=== PATIENT | female | born 1955 ===

== ENCOUNTER 2020-02-08 09:38 | Outpatient (REF) | payer OTHER, SELFPAY ==
--- NOTE | 2020-02-08 09:42 | MM_ITS ---
EXAMINATION: MM SCREENING DIGITAL BREAST TOMOSYNTHESIS, BILATERAL CLINICAL INFORMATION: Screening. Asymptomatic. Family history breast cancer mother, sister, niece, great niece. The lifetime risk of breast cancer based on the Esperanza Score Model is 34%. COMPARISON: Mammography: 03/07/2019, 12/01/2018, 11/09/2017, 10/26/2016; MRI breasts 04/18/2019. TECHNIQUE: Digital breast tomosynthesis is performed in both the craniocaudal and mediolateral oblique views along with computer-aided detection (CAD). Synthesized 2D images are generated from the tomosynthesis. Additional bilateral exaggerated CC views are provided. FINDINGS: The breasts are heterogeneously dense, which may obscure small masses (ACR BI-RADS breast composition Category c). There are no significant masses, abnormal calcifications, or other abnormalities. Parenchymal pattern is similar to prior studies. There is no developing density. No significant changes. MM/MM tomosynthesis screening BI IMPRESSION: No mammographic evidence of malignancy. ASSESSMENT: BI-RADS 1: Negative RECOMMENDATION: 1. Routine annual mammography screening. 2. The lifetime risk of breast cancer based on the Esperanza Score Model is 34%. Additional annual adjunct screening with breast MRI may be of benefit in women with a risk score of 20% or greater. This patient's information was entered into a reminder system with a target due date for their next mammogram.
== END 2020-02-08 09:39 | disposition home or self-care (01) ==
LOC: HO.MAMMO 09:38
PROVIDERS: PCP Internal Medicine; Visit Provider Internal Medicine
DX: Z12.31 Encounter for screening mammogram for malignant neoplasm of breast (principal)
CPT/HCPCS: 77063; 77067

== ENCOUNTER 2020-02-12 06:17 | Outpatient (REF) | payer OTHER, SELFPAY ==
--- NOTE | 2020-02-12 06:50 | XR_ITS ---
EXAMINATION: XR PELVIS CLINICAL INFORMATION: Right SI joint pain. COMPARISON: None TECHNIQUE: AP view of the pelvis. FINDINGS: There is normal symmetry of bilateral SI joints and bilateral hip joints. No visible acute fracture, dislocation or subluxation seen. The soft tissues are normal. XR/XR pelvis 1-2V IMPRESSION: Unremarkable AP pelvis exam.
[2020-02-12 07:07] LABS: Basophils Absolute Auto 0.1 X10*3/uL (0.0-0.2); Basophils Percent Auto 1.4 % (0-2); Eosinophils Absolute Auto 0.2 X10*3/uL (0.0-0.4); Eosinophils Percent Auto 3.1 % (0-4); Hematocrit 41.8 % (37-47); Hemoglobin 13.5 g/dl (12.0-16.0); Imm Gran Abs Auto 0.01 X10*3/uL (0.00-0.03); Imm Gran Pct Auto 0.2 % (0.0-0.4); Lymphocytes Percent Auto 35.2 % (20-40); MANUAL DIFF FLAG NO; Mean Corpuscular HGB Conc 32.3 g/dl (31.0-35.0); Mean Corpuscular Hemoglobin 30.5 pg (27.0-33.0); Mean Corpuscular Volume 94.4 fL (80-98); Mean Platelet Volume 9.2 fL (9.4-12.3); Monocytes Absolute Auto 0.5 X10*3/uL (0.1-1.2); Monocytes Percent Auto 8.7 % (2-11); Neutrophils Percent Auto 51.4 % (45-73); Platelet Count 243 X10*3/uL (160-400); Red Blood Count 4.43 X10*6/uL (4.20-5.50); White Blood Count 5.7 X10*3/uL (4.8-10.8)
[2020-02-12 07:31] LABS: Alanine Aminotransferase 19 U/L (0-31); Albumin Level 4.4 g/dL (3.5-5.0); Alkaline Phosphatase 65 U/L (39-117); Anion Gap 11 (12-20); Aspartate Amino Transferase 22 U/L (5-31); Bilirubin Total 0.9 mg/dL (0.0-1.0); Blood Urea Nitrogen 18 mg/dL (9-16); C Reactive Protein 0.63 mg/dL (< or = 0.50); Calcium 8.8 mg/dL (8.4-10.2); Carbon Dioxide 31 mmol/L (22-29); Chloride 105 mmol/L (96-108); Cholesterol 184 mg/dL; Estimated Glomerular Filt Rate > 60; Glucose Fasting 103 mg/dL (60-99); HDL Cholesterol 62 mg/dL; LDL Cholesterol Calculated 108 mg/dl; Potassium 4.3 mmol/l (3.3-5.1); Sodium 143 mmol/L (135-145); Total Protein 6.7 g/dL (6.5-8.0); Triglycerides 71 mg/dL
== END 2020-02-12 06:18 | disposition home or self-care (01) ==
LOC: HO.LAB 06:17
PROVIDERS: PCP Internal Medicine; Visit Provider Internal Medicine
DX: M25.50 Pain in unspecified joint (principal); Z00.00 Encounter for general adult medical examination without abnormal findings
CPT/HCPCS: 36415; 72170; 80053; 80061; 85025; 86140

== ENCOUNTER 2020-02-26 05:29 | Outpatient (REF) | payer OTHER, SELFPAY ==
--- NOTE | 2020-02-26 07:29 | FL_ITS ---
EXAMINATION: XR FLUOROSCOPY WITH IMAGES CLINICAL INFORMATION: Pain in shoulder COMPARISON: 06/05/2019 TECHNIQUE: Fluoroscopy performed by Dr. Blaine Barone. Fluoroscopy time: 0.1 minutes DAP: 0.507 Gycm2 Images: 3 FINDINGS: There is a radiopaque needle overlying the right acromioclavicular joint. On the final image there is a radiopaque instrument overlying the right sternoclavicular region. FL/FL guidance in treatment room IMPRESSION: Fluoroscopic guidance for right clavicular intervention. Please refer to procedural report for further information.
== END 2020-02-26 05:30 | disposition home or self-care (01) ==
LOC: HO.RADIR 05:29
PROVIDERS: Visit Provider Anesthesiology
DX: M25.519 Pain in unspecified shoulder (principal); M79.18 Myalgia, other site
CPT/HCPCS: 20552; 20605; J1100; J3300; Q9967

== ENCOUNTER 2020-04-28 15:31 | Outpatient (REF) | payer OTHER, SELFPAY ==
[2020-05-01 11:53] LABS: HPV mRNA E6/E7 rflx Not Detected (Not Detected)
== END 2020-04-28 15:32 | disposition home or self-care (01) ==
LOC: HO.LAB 15:31
PROVIDERS: PCP Internal Medicine; Visit Provider Obstetrics & Gynecology
DX: Z01.419 Encounter for gynecological examination (general) (routine) without abnormal findings (principal)
CPT/HCPCS: 36415; 87624; 88141; 88142

== ENCOUNTER → 2020-06-25 14:37 | Outpatient (BNVA) | payer OTHER, SELFPAY | PROVIDERS: PCP Internal Medicine; Visit Provider Orthopaedic Surgery ==

== ENCOUNTER 2020-07-08 16:14 | Outpatient (REF) | payer OTHER, SELFPAY ==
[2020-07-08 17:18] LABS: MANUAL DIFF FLAG NO
[2020-07-08 17:23] LABS: Basophils Absolute Auto 0.1 X10*3/uL (0.0-0.2); Basophils Percent Auto 0.8 % (0-2); Eosinophils Absolute Auto 0.2 X10*3/uL (0.0-0.4); Eosinophils Percent Auto 1.8 % (0-4); Hematocrit 38.3 % (37-47); Hemoglobin 12.3 g/dl (12.0-16.0); Imm Gran Abs Auto 0.03 X10*3/uL (0.00-0.03); Imm Gran Pct Auto 0.3 % (0.0-0.4); Lymphocytes Absolute Auto 2.4 X10*3/uL (1.2-4.9); Lymphocytes Percent Auto 20.2 % (20-40); Mean Corpuscular HGB Conc 32.1 g/dl (31.0-35.0); Mean Corpuscular Hemoglobin 30.4 pg (27.0-33.0); Mean Corpuscular Volume 94.8 fL (80-98); Mean Platelet Volume 9.6 fL (9.4-12.3); Monocytes Absolute Auto 0.8 X10*3/uL (0.1-1.2); Monocytes Percent Auto 6.6 % (2-11); Neutrophils Absolute Auto 8.2 X10*3/uL (2.0-8.3); Neutrophils Percent Auto 70.3 % (45-73); Platelet Count 243 X10*3/uL (160-400); Red Blood Count 4.04 X10*6/uL (4.20-5.50); Red Cell Distribution Width 12.1 % (11.0-16.0); White Blood Count 11.7 X10*3/uL (4.8-10.8)
[2020-07-08 17:55] LABS: Alanine Aminotransferase 18 U/L (0-31); Albumin Level 4.5 g/dL (3.5-5.0); Alkaline Phosphatase 63 U/L (39-117); Anion Gap 14 (12-20); Aspartate Amino Transferase 20 U/L (5-31); Bilirubin Total 0.5 mg/dL (0.0-1.0); Blood Urea Nitrogen 23 mg/dL (9-16); C Reactive Protein 0.29 mg/dL (< or = 0.50); Calcium 9.1 mg/dL (8.4-10.2); Carbon Dioxide 26 mmol/L (22-29); Chloride 103 mmol/L (96-108); Estimated Glomerular Filt Rate > 60; Glucose Random 96 mg/dL (60-115); Potassium 3.9 mmol/L (3.3-5.1); Sodium 139 mmol/L (135-145); Total Protein 6.8 g/dL (6.5-8.0)
== END 2020-07-08 16:15 | disposition home or self-care (01) ==
LOC: HO.LAB 16:14
PROVIDERS: PCP Internal Medicine; Visit Provider Internal Medicine
DX: R21 Rash and other nonspecific skin eruption (principal); E78.00 Pure hypercholesterolemia, unspecified; M79.18 Myalgia, other site
CPT/HCPCS: 36415; 80053; 82550; 85025; 86140

== ENCOUNTER 2020-07-24 09:22 | Day surgery (SDC) | payer OTHER, SELFPAY ==
[2020-07-18 11:13] VITALS: BMI 21.5
--- NOTE | 2020-07-23 10:09 | P.CONAN_ITS ---
Documented by User: Deepa Ardon 07/23/20 10:10 HPI - Anesthesia Eval Consult details Narrative: 65yo F for Right Middle & Ring Finger Tendon Release, A1 kristopher PMFSH Active Problems Active Problems: All Active Problems (Updated 07/18/20 @ 11:21 by Kelsi Orr) Sternoclavicular joint pain (Acute) Well woman exam (Acute) Trigger finger, right ring finger (Acute) Trigger finger, right middle finger (Acute) Myofascial pain syndrome (Acute) Acromioclavicular joint pain (Acute) Past Medical History Medical History Acromioclavicular joint pain Elevated cholesterol Factor 5 Leiden mutation, heterozygous GERD (gastroesophageal reflux disease) Hearing impairment Myofascial pain syndrome Family History Family History Sister Breast cancer Mother Breast cancer Family/Other Breast cancer Family/Other Uterine cancer Family/Other Throat cancer Bone cancer Surgical History Surgical History H/O colonoscopy H/O right knee surgery Hx of dilation and curettage Hx of elbow surgery Hx of foot surgery Hx of foot surgery Social History Social History Alcohol intake: current Alcohol intake frequency: holidays/special occasions on ly Smoking Status: Never smoker Use of substances other than those prescribed or required for medical reasons: No Advance Directives Information Provided: No Sexual orientation: Straight/Heterosexual Gender identity: female Meds Allergies Allergy/AdvReac Type Severity Reaction Status Date / Time codeine [Codeine] Allergy Mild VOMITING Verified 07/24/20 09:39 nitrofurantoin Allergy Mild RASH Verified 07/24/20 09:39 [Nitrofurantoin] Sulfa (Sulfonamide Allergy Mild RASH Verified 07/24/20 09:39 Antibiotics) [Sulfa (Sulfonamides)] trimethoprim [Trimethoprim] Allergy Mild RASH Verified 07/24/20 09:39 amoxicillin Allergy Unknown unknown Verified 07/24/20 09:39 Home Medications Medication Instructions Recorded Confirmed Last Taken Type ascorbic acid (vitamin C) 500 mg 500 mg PO DAILY 04/28/20 07/18/20 Unknown History capsule cholecalciferol (vitamin D3) 50 50 mcg PO DAILY 04/28/20 07/18/20 Unknown History mcg (2,000 unit) capsule fluticasone propionate 50 1 spray INTRANASAL DAILY 04/28/20 07/18/20 07/23/20 07:00 History mcg/actuation nasal spray,suspension gabapentin 100 mg capsule 100 mg PO TID 04/28/20 07/18/20 07/23/20 07:00 History ibuprofen 400 mg tablet 400 mg PO TID 04/28/20 07/18/20 Unknown History simvastatin 20 mg tablet 20 mg PO BEDTIME 04/28/20 07/18/20 Unknown History tramadol 50 mg tablet 50 mg PO BID PRN 04/28/20 07/18/20 Unknown History Exam Exam Date and Time: July 23, 2020 1009 Height,Weight and Vital Signs: Height 5 ft 2 in Weight 53.524 kg Pertinent Lab Results Pertinent Lab Results: Laboratory Tests 07/08/20 07/08/20 16:28 16:28 WBC 11.7 H Hgb 12.3 Hct 38.3 Plt Count 243 Sodium 139 Potassium 3.9 Chloride 103 Carbon Dioxide 26 BUN 23 H Creatinine 0.70 Assessment and Plan Assessment Anesthesia Assessment: Chart Reviewed Documented by User: Chuck Leo MD 07/24/20 11:28 [facility] Past Medical History Medical History Acromioclavicular joint pain Elevated cholesterol Factor 5 Leiden mutation, heterozygous GERD (gastroesophageal reflux disease) Hearing impairment Myofascial pain syndrome Family History Family History Sister Breast cancer Mother Breast cancer Family/Other Breast cancer Family/Other Uterine cancer Family/Other Throat cancer Bone cancer Surgical History Surgical History H/O colonoscopy H/O right knee surgery Hx of dilation and curettage Hx of elbow surgery Hx of foot surgery Hx of foot surgery Social History Social History Alcohol intake: current Alcohol intake frequency: holidays/special occasions only Smoking Status: Never smoker Use of substances other than those prescribed or required for medical reasons: No Advance Directives Information Provided: No Sexual orientation: Straight/Heterosexual Gender identity: female Meds Allergies Allergy/AdvReac Type Severity Reaction Status Date / Time codeine [Codeine] Allergy Mild VOMITING Verified 07/24/20 09:39 nitrofurantoin Allergy Mild RASH Verified 07/24/20 09:39 [Nitrofurantoin] Sulfa (Sulfonamide Allergy Mild RASH Verified 07/24/20 09:39 Antibiotics) [Sulfa (Sulfonamides)] trimethoprim [Trimethoprim] Allergy Mild RASH Verified 07/24/20 09:39 amoxicillin Allergy Unknown unknown Verified 07/24/20 09:39 Home Medications Medication Instructions Recorded Confirmed Last Taken Type ascorbic acid (vitamin C) 500 mg 500 mg PO DAILY 04/28/20 07/18/20 Unknown History capsule cholecalciferol (vitamin D3) 50 50 mcg PO DAILY 04/28/20 07/18/20 Unknown History mcg (2,000 unit) capsule fluticasone propionate 50 1 spray INTRANASAL DAILY 04/28/20 07/18/20 07/23/20 07:00 History mcg/actuation nasal spray,suspension gabapentin 100 mg capsule 100 mg PO TID 04/28/20 07/18/20 07/23/20 07:00 History ibuprofen 400 mg tablet 400 mg PO TID 04/28/20 07/18/20 Unknown History simvastatin 20 mg tablet 20 mg PO BEDTIME 04/28/20 07/18/20 Unknown History tramadol 50 mg tablet 50 mg PO BID PRN 04/28/20 07/18/20 Unknown History Exam Airway Mallampati Class: I TM Dist: >3cm Neck ROM: Full Loose/Missing/Broken Teeth: No Heart: RRR Lungs: NL Assessment and Plan Assessment Anesthesia Assessment: Anesthesia Plan Discussed and Chart Reviewed Final Anesthetic Review NPO: Yes ASA Class: II and III Final Preanesthetic Review: No Changes in Pt Med Stat, Meds/Allgs Chart Reviewed, Consent Obtained/Reviewed and Anes Risks/Benef Reviewed Patient Risk: Low Anesthetic Plan Anesthetic Plan: MAC: Disposition: Standard PACU
--- NOTE | 2020-07-24 09:41 | W.PM.OPN ---
Operative Note Operative Note Date of Service: 07/24/20 Narrative: Operative Note Preop diagnosis: 1. Right middle finger Trigger finger 2. Right ring finger trigger finger Postop diagnosis: Same Procedure: 1. Right middle finger A1 kristopher release 2. Right ring finger A1 kristopher release Surgeon: Teresita Man MD Anesthesia: General Findings: No locking or catching after A1 kristopher release EBL: Less than 5 mL Tourniquet time: [ ] Specimens: None Complications: None Disposition: Brought to recovery room in stable condition Plan: Follow-up for 7-10 days for wound check and suture removal Indications: The patient is 65 years old, with right ring finger and right middle finger trigger fingers that has been unresponsive to nonoperative management. The risks and benefits of operative treatment including but not limited to risk of damage to blood vessels, nerves, tendons, infection, persistent pain, persistent symptoms, recurrence or possible need for additional surgery were discussed with the patient and the patient wishes to proceed with surgery. Procedure: Once consent was obtained the patient was brought back to the operating suite and placed on the operating table in a supine position. General anesthesia was performed by the anesthesia team. A tourniquet was applied to the proximal aspect of the right upper extremity and the limb was prepped and draped in a standard surgical fashion. The limb was elevated and exsanguinated with an Esmarch bandage and the tourniquet inflated to 250 mm Hg for a total tourniquet time of [ ]. Once assured that we had a good block, a 1.5 cm oblique incision was made centered over the A1 kristopher of the right middle finger . The incision was made through the skin to the subcutaneous tissues using a #15 blade. Careful dissection was made down to the level of the A1 kristopher using tenotomy scissors, with care being taken to protect the nearby neurovascular structures. A longitudinal incision was made in the A1 kristopher 1st using a #15 blade, then using tenotomy scissors under direct visualization. The A1 kristopher was noted to be thickened. Following our A1 kristopher release, we no longer saw any locking or catching of the digit with flexion and extension. Once satisfied with our A1 kristopher release the wound was copiously irrigated with normal saline and hemostasis was obtained with a brief period of local pressure. Once assured that we had a good block, a 1.5 cm oblique incision was made centered over the A1 kristopher of the right ring finger . The incision was made through the skin to the subcutaneous tissues using a #15 blade. Careful dissection was made down to the level of the A1 kristopher using tenotomy scissors, with care being taken to protect the nearby neurovascular structures. A longitudinal incision was made in the A1 kristopher 1st using a #15 blade, then using tenotomy scissors under direct visualization. The A1 kristopher was noted to be thickened. Following our A1 kristopher release, we no longer saw any locking or catching of the digit with flexion and extension. Once satisfied with our A1 kristopher release the wound was copiously irrigated with normal saline and hemostasis was obtained with a brief period of local pressure. The patient appears to have tolerated the procedure well and with no complications. All digits were well vascularized at the conclusion of the case.
[2020-07-24 09:58] VITALS: BP 139/54; PULSE 69; RESP 16; TEMP 36.9; O2SAT 99
--- NOTE | 2020-07-24 10:04 | MHC.SHP ---
Pre-Procedural Eval Section B Chief Complaint: trigger finger Allergies: Allergies Allergy/AdvReac Type Severity Reaction Status Date / Time codeine [Codeine] Allergy Mild VOMITING Verified 07/24/20 09:39 nitrofurantoin Allergy Mild RASH Verified 07/24/20 09:39 [Nitrofurantoin] Sulfa (Sulfonamide Allergy Mild RASH Verified 07/24/20 09:39 Antibiotics) [Sulfa (Sulfonamides)] trimethoprim [Trimethoprim] Allergy Mild RASH Verified 07/24/20 09:39 amoxicillin Allergy Unknown unknown Verified 07/24/20 09:39 Plan I have reviewed the history and physical and performed a pertinent physical examination on my patient. No changes have occurred unless specified.
[2020-07-24] MEDS: Lactated Ringers 1,000 ML 50 ML IV (10:15)
[2020-07-24 12:17] VITALS: BP 121/55; PULSE 80; RESP 18; TEMP 36.3; O2SAT 98
[2020-07-24 12:32] VITALS: BP 141/51; PULSE 73; RESP 18; O2SAT 99
[2020-07-24 12:45] VITALS: BP 124/57; PULSE 68; RESP 16; O2SAT 97
== END 2020-07-24 13:45 ==
PROVIDERS: PCP Internal Medicine; Visit Provider Orthopaedic Surgery
PROC: (CPT 26055; principal; 2020-07-24 11:10)
DX: M65.331 Trigger finger, right middle finger (principal); M65.341 Trigger finger, right ring finger; M79.18 Myalgia, other site; Z79.899 Other long term (current) drug therapy; Z88.2 Allergy status to sulfonamides; Z88.0 Allergy status to penicillin; Z88.8 Allergy status to other drugs, medicaments and biological substances
CPT/HCPCS: 26055 ×2; J2250; J3010

== ENCOUNTER → 2020-08-04 13:22 | Outpatient (BNVA) | payer OTHER, SELFPAY | PROVIDERS: PCP Internal Medicine; Visit Provider Orthopaedic Surgery ==

== ENCOUNTER 2020-08-22 13:53 | Outpatient (REF) | payer OTHER, SELFPAY ==
--- NOTE | ~2020-08-22 | XR_ITS ---
EXAMINATION: CERVICAL SPINE AND RIGHT SHOULDER X-RAY CLINICAL INFORMATION: Pain COMPARISON: Previous cervical spine x-ray November 2016 TECHNIQUE: 3 views of the cervical spine and 4 views of the right shoulder FINDINGS: Cervical spine: Bone alignment is normal. No fracture or dislocation is seen. There is degenerative spondylosis at C3-C4 to C5-C6 and C6-C7. There is mild disc space narrowing at C6-C7. Prevertebral soft tissues are normal. Right shoulder: Bone alignment is normal. No fracture or dislocation is seen. The glenohumeral joint is normal. There is mild arthritis at the acromioclavicular joint. Soft tissues are unremarkable. XR/XR cervical spine 3V IMPRESSION: Cervical spine: Degenerative changes, greatest at C6-C7. Right shoulder: Mild arthritis at the acromioclavicular joint.
--- NOTE | ~2020-08-22 | XR_ITS ---
EXAMINATION: CERVICAL SPINE AND RIGHT SHOULDER X-RAY CLINICAL INFORMATION: Pain COMPARISON: Previous cervical spine x-ray November 2016 TECHNIQUE: 3 views of the cervical spine and 4 views of the right shoulder FINDINGS: Cervical spine: Bone alignment is normal. No fracture or dislocation is seen. There is degenerative spondylosis at C3-C4 to C5-C6 and C6-C7. There is mild disc space narrowing at C6-C7. Prevertebral soft tissues are normal. Right shoulder: Bone alignment is normal. No fracture or dislocation is seen. The glenohumeral joint is normal. There is mild arthritis at the acromioclavicular joint. Soft tissues are unremarkable. XR/XR shoulder RT min 2V IMPRESSION: Cervical spine: Degenerative changes, greatest at C6-C7. Right shoulder: Mild arthritis at the acromioclavicular joint.
== END 2020-08-22 13:54 | disposition home or self-care (01) ==
LOC: HO.XRAY 13:53
PROVIDERS: PCP Internal Medicine; Visit Provider Nurse Practitioner Family
DX: M79.18 Myalgia, other site (principal); M25.511 Pain in right shoulder; M54.2 Cervicalgia
CPT/HCPCS: 20552; 72040; 73030; J1040

== ENCOUNTER 2020-09-01 10:16 | Outpatient (REF) | payer SELFPAY ==
--- NOTE | 2020-09-01 13:31 | MHC.AU.HFU ---
Hearing Instrument Follow-Up- Binaural Date of Visit: 09/01/20 Right Ear: Metalworking Specialist: Marli Model: [place] iQ i1600 ITC Serial Number: [id number] Repair Warranty: 07/08/2021 Loss and Damage Warranty: 07/08/2021 Battery Size: 312 Type of Wax Guard: HearClear Dispensed By: [facility] Date of Fittin06/16/2018 Left Ear: Metalworking Specialist: Marli Model: [place] iQ i1600 ITC Serial Number: [id number] Repair Warranty: 07/08/2021 Loss and Damage Warranty: 06/28/2021 Battery Size: 312 Type of Wax Guard: HearClear Dispensed By: [facility] Date of Fittin06/16/2018 Follow-Up Summary: Patient reports that her right hearing aid fell out while working. When she found it, it appeared someone had stepped on it, as the shell was in many pieces. The hearing aid was still amplifying. She reports that the right side has always felt like it sticks out more than the left, and falls out of her ear frequently. The right hearing aid has previously been sent to [facility] twice for cracked shells after falling out of her ear. Contacted [facility] rep, Raymundo Gonzalez, as the hearing aid was no longer under the remake warranty, but is still under repair warranty. He said that because this has been a long-standing issue, they will waive the remake fee for this repair. A new impression was taken of the right ear and sent to [facility] along with the hearing aid. Recommendations: Recommendations: Patient will be contacted when materials have arrived. Diagnosis Code(s): Primary Diagnosis: H90.3 Bilateral Sensorineural Hearing Loss Signature: Provider: Vitaliy Jones, [facility]
== END 2020-09-01 10:17 | disposition home or self-care (01) ==
LOC: HO.HAP 10:16
PROVIDERS: Visit Provider Internal Medicine
DX: Z13.89 Encounter for screening for other disorder (principal)

== ENCOUNTER 2020-09-10 16:05 | Outpatient (REF) | payer SELFPAY | END 2020-09-10 16:06 | disposition home or self-care (01) | LOC: HO.HAP 16:05 | PROVIDERS: Visit Provider Internal Medicine | DX: Z13.89 Encounter for screening for other disorder (principal) ==

== ENCOUNTER 2020-09-11 15:30 | Outpatient (REF) | payer OTHER, SELFPAY ==
--- NOTE | ~2020-09-11 | MR_ITS ---
EXAMINATION: MR CERVICAL SPINE WITHOUT CONTRAST CLINICAL INFORMATION: Neck pain. Right shoulder pain. COMPARISON: MRI dated 06/23/2013. TECHNIQUE: MRI of the cervical spine was obtained using routine sequences without contrast. FINDINGS: VERTEBRAL BODIES AND PARASPINAL SOFT TISSUES: The marrow signal is mildly heterogeneous with regions of fatty change. There is a mild leftward curvature of the cervical spine. Mild retrosubluxation evident at the C3-C4 level. Small endplate Schmorl's nodes with [id number] loss of disc height evident at the C6-C7 level. The paraspinal soft tissues appear normal. The vertebral artery flow voids are maintained. The lung apices are grossly clear. CERVICOMEDULLARY JUNCTION AND VISUALIZED POSTERIOR FOSSA: The craniovertebral junction and imaged portions of the brain parenchyma appear normal. No cord signal abnormality or syrinx is seen. SPINAL LEVELS: C2-C3: No disc protrusion, central canal stenosis, or foraminal narrowing. Small left lateral annular fissure visible. C3-C4: New central disc protrusion mildly impressing upon the ventral cord without intramedullary signal change. Mild retrosubluxation and endplate spurring. No central canal stenosis or foraminal encroachment otherwise. C4-C5: Very small central disc protrusion which is new. No central canal stenosis or foraminal narrowing. Mild thickening of the ligamentum flavum compared to prior imaging. C5-C6: Mild disc bulge and endplate spurring with thickening of the ligamentum flavum. No central canal stenosis or foraminal narrowing otherwise. C6-C7: Shallow disc-osteophyte complex mildly impressing upon the ventral thecal sac. No central canal stenosis or foraminal narrowing. C7-T1: No disc abnormality. Patent central canal and foramina. MR/MR cervical spine wo con IMPRESSION: New central disc protrusion mildly impressing upon the ventral cord without intramedullary signal change at the C3-C4 level. New very small central disc protrusion at the C4-C5 level with mild thickening of the ligamentum flavum posteriorly. Mild spondylitic changes at the remaining levels without central canal stenosis or foraminal narrowing.
== END 2020-09-11 15:31 | disposition home or self-care (01) ==
LOC: HO.MRI 15:30
PROVIDERS: Visit Provider Anesthesiology
DX: M54.2 Cervicalgia (principal)
CPT/HCPCS: 72141

== ENCOUNTER 2020-12-02 07:35 | Outpatient (REF) | payer OTHER, SELFPAY ==
--- NOTE | ~2020-12-02 | FL_ITS ---
EXAMINATION: XR FLUOROSCOPY WITH IMAGES CLINICAL INFORMATION: Right-sided shoulder pain. COMPARISON: Right shoulder fluoroscopy performed on 02/26/2020. TECHNIQUE: Fluoroscopy performed by Dr. Blaine Barone. Fluoroscopy time: 0.1 minutes DAP: 0.311 Gycm2 Images: 1 FL/FL guidance in treatment room FINDINGS/IMPRESSION: A radiopaque needle overlies the right acromioclavicular joint the image. Please refer to the procedural report for more detailed findings.
== END 2020-12-02 07:36 | disposition home or self-care (01) ==
LOC: HO.RADIR 07:35
PROVIDERS: Visit Provider Anesthesiology
DX: M25.519 Pain in unspecified shoulder (principal); M79.18 Myalgia, other site
CPT/HCPCS: 20610; J3300; Q9967

== ENCOUNTER 2020-12-17 15:30 | Outpatient (REF) | payer OTHER, SELFPAY ==
--- NOTE | 2020-12-18 12:31 | MHC.AU.AHA ---
Adult Audiological Evaluation Date of Visit: 12/17/20 [employer] Contort Operator Used: Not Applicable Reason for Appointment: Audiologic re-evaluation to determine possible change in hearing ability. Adilia has a long-standing history of profound high frequency hearing loss. Previous Hearing Test Results: 11/12/2019 [facility] Bilateral mild dropping to profound sensorineural hearing loss. Medical History: Medical History: High Cholesterol, Intervertebral disc protrusion, Myofascial pain syndrome, Acromioclavicular joint pain, Facto 5 Leiden mutation Medication List: Gabapentin, Fluticasone nasal spray, Simvastatin, Hydrocodone-acetaminophen (PRN), Lorazepam (PRN), Tramadol (PRN) Vitamins C and D3 Hearing Instrument History- Right Ear: Data Power Consultant: [employer] Model: [email or web address] i1600 [employer] Serial Number: [id number] Battery Size: 312 Repair Warranty: 07/08/2021 Loss and Damage Warranty: 07/08/2021 Dispensed By: [facility] Date of Fittin06/16/2018 Hearing Instrument History- Left Ear: Data Power Consultant: [employer] Model: [email or web address] i1600 ITC Serial Number: [id number] Battery Size: 312 Warranty: 07/08/2021 Loss and Damage Warranty: 06/28/2021 Dispensed By: [facility] Date of Fittin06/16/2018 Otoscopy: Right Ear: Unremarkable Left Ear: Unremarkable Tympanometry: Tympanometry not performed at today's visit as all previous testing has indicated normal middle ear function bilaterally. Hearing Evaluation: Transducer(s) Used: Insert Earphones Bone Conduction Method: Conventional Audiometry Stimuli Used: Pure Tones Right Ear: Description of Hearing: Mild, precipitously dropping to profound sensorineural hearing loss. The right ear is 20 dB poorer than the left only at 500 Hz. Left Ear: Description of Hearing: Mild, precipitously dropping to profound sensorineural hearing loss. Speech Recognition Threshold (SRT): Method Used: Monitored Live Voice Stimuli Used: Spondee Words Right Ear: 45 dB HL Left Ear: 40 dB HL Word Discrimination: Method: Monitored Live Voice Recorded Lists Word Lists Used: NU-6 Right Ear: 20% for recorded list 64% for live monitored speech using visual cues Left Ear: 48% for recorded list 60% for live monitored speech using visual cues Most Comfortable Level (MCL): Right Ear: 85 dB HL Left Ear: 80 dB HL Comparison: Compared to the most recent evaluation: Hearing is stable. Recommendations: Hearing aid maintenance performed today. Ran feedback test for the right aid as Adilia was frequently needing to adjust the hearing aid in the ear to stop the feedback. Attempted some programming changes to try to improve clarity of speech with no help. Returned to the original settings. Audiological re-evaluation in one year. Will send a reminder card. Diagnosis: Primary Diagnosis: H90.3 Bilateral Sensorineural Hearing Loss Services Performed: Comprehensive Audiological Evaluation (CPT 22075) Signature: Provider: Vitaliy Valerio, CCC-A
== END 2020-12-17 15:31 | disposition home or self-care (01) ==
LOC: HO.SH 15:30
PROVIDERS: Visit Provider Internal Medicine
DX: H90.3 Sensorineural hearing loss, bilateral (principal)
CPT/HCPCS: 92557

== ENCOUNTER 2020-12-23 06:12 | Outpatient (REF) | payer OTHER, SELFPAY ==
--- NOTE | ~2020-12-23 | XR_ITS ---
EXAMINATION: AP PELVIS, LEFT HIP AND LUMBAR SPINE. CLINICAL INFORMATION: Pain. COMPARISON: Lumbar spine 03/23/2018 TECHNIQUE: Lumbar spine 3 views. AP pelvis one view. Left hip 2 views. FINDINGS: Lumbar spine: There is mild levoscoliosis of lumbar spine. The vertebral heights and alignment is preserved. Mild loss of L5-S1 disc height. No acute fracture, lytic or sclerotic process seen. Bilateral SI joints are normal. The soft tissues are normal. AP pelvis: The pelvis is tilted to the left with right hip joint appearing higher than the left hip joint likely secondary to levoscoliosis. The hip joint space is normal. No bony erosive changes involving the SI joints or hip joints. No fracture or lytic process. The soft tissues are normal. Left hip: There is maintained joint space. No visible fracture, dislocation or bony erosive changes. The soft tissues are normal. XR/XR hip LT min 2V IMPRESSION: Mild levoscoliosis lumbar spine with degenerative disc changes L5-S1 disc level. There is mild pelvic tilt to the left with right hip joint high or than the left hip joint secondary to levoscoliosis. The hip joints and SI joints are unremarkable.
--- NOTE | ~2020-12-23 | XR_ITS ---
EXAMINATION: AP PELVIS, LEFT HIP AND LUMBAR SPINE. CLINICAL INFORMATION: Pain. COMPARISON: Lumbar spine 03/23/2018 TECHNIQUE: Lumbar spine 3 views. AP pelvis one view. Left hip 2 views. FINDINGS: Lumbar spine: There is mild levoscoliosis of lumbar spine. The vertebral heights and alignment is preserved. Mild loss of L5-S1 disc height. No acute fracture, lytic or sclerotic process seen. Bilateral SI joints are normal. The soft tissues are normal. AP pelvis: The pelvis is tilted to the left with right hip joint appearing higher than the left hip joint likely secondary to levoscoliosis. The hip joint space is normal. No bony erosive changes involving the SI joints or hip joints. No fracture or lytic process. The soft tissues are normal. Left hip: There is maintained joint space. No visible fracture, dislocation or bony erosive changes. The soft tissues are normal. XR/XR lumbar spine 2-3V IMPRESSION: Mild levoscoliosis lumbar spine with degenerative disc changes L5-S1 disc level. There is mild pelvic tilt to the left with right hip joint high or than the left hip joint secondary to levoscoliosis. The hip joints and SI joints are unremarkable.
--- NOTE | ~2020-12-23 | XR_ITS ---
EXAMINATION: AP PELVIS, LEFT HIP AND LUMBAR SPINE. CLINICAL INFORMATION: Pain. COMPARISON: Lumbar spine 03/23/2018 TECHNIQUE: Lumbar spine 3 views. AP pelvis one view. Left hip 2 views. FINDINGS: Lumbar spine: There is mild levoscoliosis of lumbar spine. The vertebral heights and alignment is preserved. Mild loss of L5-S1 disc height. No acute fracture, lytic or sclerotic process seen. Bilateral SI joints are normal. The soft tissues are normal. AP pelvis: The pelvis is tilted to the left with right hip joint appearing higher than the left hip joint likely secondary to levoscoliosis. The hip joint space is normal. No bony erosive changes involving the SI joints or hip joints. No fracture or lytic process. The soft tissues are normal. Left hip: There is maintained joint space. No visible fracture, dislocation or bony erosive changes. The soft tissues are normal. XR/XR pelvis 1-2V IMPRESSION: Mild levoscoliosis lumbar spine with degenerative disc changes L5-S1 disc level. There is mild pelvic tilt to the left with right hip joint high or than the left hip joint secondary to levoscoliosis. The hip joints and SI joints are unremarkable.
== END 2020-12-23 06:13 | disposition home or self-care (01) ==
LOC: HO.XRAY 06:12
PROVIDERS: PCP Internal Medicine; Visit Provider Internal Medicine
DX: M25.552 Pain in left hip (principal); M53.3 Sacrococcygeal disorders, not elsewhere classified
CPT/HCPCS: 72100; 72170; 73502

== ENCOUNTER 2021-01-09 08:00 | Outpatient (RCR) | payer OTHER, SELFPAY ==
--- NOTE | 2021-01-05 17:28 | MHC.PT.EP ---
[facility] [place] [facility] [place] [facility] [place] [facility] [address] Ivan Rodriguez [address] [phone] F: [phone] F: [phone] F: [phone] F: [phone] Physical Therapy Plan of Care Date of Evaluation: Date of Surgery: n/a Diagnosis: L hip pain Assessment: Patient is a 65 year old female presenting to PT with complaints of pain in her L hip. Pt reports onset of pain began about 2 months ago due to insidious onset but states it is related to 20 years of doing a lot of lifting for work. She presents today with impairments in hip strength, hip ROM, lumbar ROM, hs length, and pain. 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 Clinical presentation today is most consistent with signs and sx associated with pain that is likely myofascial in nature and pt will benefit from skilled PT to address the following problems and impairments noted upon evaluation: hip strength, hip ROM, lumbar ROM, hs length, and pain. These problems limit the patient with the following functional activities: ambulation, sitting, ADLs, work. The prescribed treatment plan of care is medically necessary. Co-morbidities of mild levoscoliosis on x-ray were identified and taken into considerations of plan of care. Pt was educated on HEP, role of PT, prognosis, POC. Frequency and Duration: The patient will be seen 2x week x4 weeks Short Term Goals: Pt will demonstrate ability to perform lumbar AROM in available range with min to no pain in 2 weeks. Pt will demonstrate hip ROM equal B in 2 weeks for improved functional mobility. Pt will demonstrate pain <4/10 at rest in 2 weeks for improved QOL. Pt will demonstrate hs length WNL B in 2 weeks. [facility] Goals: Pt will demonstrate ability to sit x 20 min with pain <4/10 in 4 weeks to allow return to PLOF. Pt will demonstrate ability to ambulate community distances with min to no pain in 4 weeks to improve access to the community. Pt will demonstrate improved LEFI score by 9 points in 4 weeks for improved functional mobility. Pt will demonstrate ability to work a full day with pain <4/10 in 4 weeks to improve tolerance to work activities. Treatment Plan: Modalities to reduce pain, spasms and effusion. Manual therapy to restore motion and function. Therapeutic exercise to improve strength and flexibility. Neuromuscular re-education for posture and balance. Therapeutic activities to return to functional activities of daily living. Electronically signed by: Candida Bermudez, PT, DPT, ATC Please sign and return to therapist. Thank you for your referral.
--- NOTE | 2021-01-22 09:28 | MHC.PT.DC ---
[facility] [place] [facility] [place] Office [address] Ivan Rodriguez [address] [phone] F: [phone] F: [phone] F: [phone] F: [phone] Physical Therapy Discharge Report Diagnosis: L hip pain Date of Surgery: n/a Date of Evaluation: 01/05/21 Date of Discharge: 01/22/21 Treatments to Date: 2 Cancellations to Date: 2 No Shows to Date: 0 Discharge Status: Recommend MD Follow-up Discharge Summary: Pt was admitted to the hospital for emergent surgery unrelated to her current PT POC diagnosis. Due to significant change in pt medical status recommend MD clearance prior to returning to outpatient skilled PT. Electronically signed by: Candida Bermudez, PT, DPT, ATC Please sign and return to therapist. Thank you for your referral.
== END 2021-01-22 09:33 | disposition home or self-care (01) ==
LOC: HO.PT 08:00
PROVIDERS: PCP Internal Medicine; Visit Provider Internal Medicine
DX: M25.552 Pain in left hip (principal)
CPT/HCPCS: 97110; 97161; 97530

== ENCOUNTER 2021-01-12 17:49 | Inpatient (IN) | payer OTHER, SELFPAY ==
--- NOTE | ~2021-01-12 | CT_ITS ---
EXAMINATION: CT ABDOMEN AND PELVIS WITH CONTRAST CLINICAL INFORMATION: Diffuse abdominal discomfort. Suspect diverticulitis. COMPARISON: 05/31/2013 TECHNIQUE: Multidetector volumetric images were obtained from the superior aspect of the liver through the pubic symphysis following administration 85 mL of Omnipaque 350 intravenous contrast. Sagittal and coronal reformatted images were obtained on the technologist's workstation. Oral contrast: No This CT examination was performed using dose optimization techniques as appropriate, variously including the following: *Automated exposure control *Adjustment of mA and/or kV according to patient size (this includes techniques or standardized protocols for targeted exams where dose is matched to indication/reason for exam; i.e. extremities or head) *Use of iterative reconstruction technique DLP: 311 mGy-cm FINDINGS: LUNG BASES: The visualized lung bases are unremarkable. LIVER, GALLBLADDER, AND BILIARY TREE: The liver is normal in size, shape, and attenuation. No focal hepatic lesion or biliary ductal dilatation is present. The gallbladder is unremarkable with no evidence of radiopaque gallstones, gallbladder wall thickening, or obvious pericholecystic inflammatory changes. PANCREAS: Unremarkable. SPLEEN: Unremarkable. ADRENAL GLANDS: Unremarkable. KIDNEYS AND URETERS: The kidneys are normal in size, shape, and attenuation. No hydronephrosis, hydroureter, or calculi seen. No perinephric stranding. BLADDER: Unremarkable. GASTROINTESTINAL TRACT: The stomach is unremarkable. Normal caliber of the small bowel. There is mild hyperenhancement of the ileal wall, though there is no significant wall thickening or adjacent inflammation. There is no obstruction. There is a normal appendix. Fairly extensive colonic diverticulosis. Much of the sigmoid colon is decompressed which limits evaluation for colonic wall thickening there. There could be some mild wall thickening, though again there is no significant adjacent inflammation. Small amount of pelvic free fluid. There is diffuse free intraperitoneal air. ABDOMINAL WALL: No significant hernia is appreciated. LYMPH NODES: Normal. VASCULAR: Normal caliber aorta with mild upper scrota calcification. PELVIC VISCERA: The uterus and adnexa are unremarkable. OSSEOUS STRUCTURES: No acute or suspicious osseous abnormality. CT/CT abdomen pelvis w con IMPRESSION: Free intraperitoneal air. The source of the perforation is uncertain. There is significant sigmoid colonic diverticulosis. No significant adjacent inflammatory changes. There may be mild wall thickening as can be seen with mild diverticulitis. Additionally, mild hyperenhancement of the ileal wall as can be seen with enteritis, though no significant wall thickening or adjacent inflammation. This critical result was discussed with Meredith Rodriguez MD by telephone at 01/13/2021 12:05 AM and it was ascertained that the content and urgency of the report was understood at the time of direct communication.
--- NOTE | ~2021-01-12 | US_ITS ---
EXAMINATION: US VENOUS ULTRASOUND WITH DOPPLER LOWER EXTREMITY, LEFT CLINICAL INFORMATION: Postoperative leg erythema. Rivera's procedure. Evaluate for deep vein thrombosis. COMPARISON: None TECHNIQUE: Ultrasound of the deep veins is performed from the hip to the calf with compression sonography and color and pulse Doppler assessment. Spectral analysis with color-flow imaging is performed. FINDINGS: The common femoral vein is compressible and exhibits a normal phasic waveform; this suggests that the iliac veins are widely patent above. Within the proximal thigh, the visualized profunda femoris vein is normal. The examined greater saphenous vein and saphenofemoral junction are normal. Superficial femoral vein is patent in the proximal, mid and distal thigh. Popliteal vein is normal to the level of the trifurcation. On compression walker scale and color Doppler images, the visualized posterior tibial and peroneal veins of the calf are grossly patent. No evidence of Funes's cyst. US/US venous duplex LE LT IMPRESSION: No evidence of deep vein thrombosis in the left lower extremity.
[2021-01-12 18:25] VITALS: BP 134/61; PULSE 78; RESP 19; TEMP 36.6; O2SAT 98; BMI 19.9
--- NOTE | 2021-01-12 18:26 | ED.ABDPAIN ---
HPI - Abdominal Pain General Chief Complaint: Abdominal Pain <FLORINA Nance - Last Filed: 01/13/21 15:30> Stated Complaint: cramping <FLORINA Nance - Last Filed: 01/13/21 15:30> Time Seen by Provider: 01/12/21 18:24 <FLORINA Nance - Last Filed: 01/13/21 15:30> Source: patient <Meredith Rodriguez MD - Last Filed: 01/13/21 00:25> Mode of arrival: ambulatory <Meredith Rodriguez MD - Last Filed: 01/13/21 00:25> History of Present Illness HPI narrative: 65-year-old female with past medical history of diverticulitis presents with onset of diffuse abdominal discomfort that has worsened throughout the day associated with nausea and chills but no vomiting or fevers. She denies any shortness of breath or chest pain and denies any urinary pain/burning/frequency. <Meredith Rodriguez MD - Last Filed: 01/13/21 00:25> Related Data Home Medications: Home Medications Medication Instructions Recorded Confirmed cholecalciferol (vitamin D3) 50 50 mcg PO DAILY 04/28/20 01/13/21 mcg (2,000 unit) capsule gabapentin 100 mg capsule 100 mg PO TID 04/28/20 01/13/21 ibuprofen 400 mg tablet 400 mg PO NEEDED 04/28/20 01/13/21 simvastatin 20 mg tablet 20 mg PO DAILY 04/28/20 01/13/21 tramadol 50 mg tablet 50 mg PO NEEDED PRN 04/28/20 01/13/21 aspirin 81 mg tablet 81 mg PO DAILY 01/13/21 01/13/21 <FLORINA Nance - Last Filed: 01/13/21 15:30> Allergies/Adverse Reactions: Allergies Allergy/AdvReac Type Severity Reaction Status Date / Time codeine [Codeine] Allergy Mild VOMITING Verified 12/02/20 07:24 nitrofurantoin Allergy Mild RASH Verified 12/02/20 07:24 [Nitrofurantoin] Sulfa (Sulfonamide Allergy Mild RASH Verified 12/02/20 07:24 Antibiotics) [Sulfa (Sulfonamides)] trimethoprim [Trimethoprim] Allergy Mild RASH Verified 12/02/20 07:24 amoxicillin Allergy Unknown unknown Verified 12/02/20 07:24 <FLORINA Nance - Last Filed: 01/13/21 15:30> Review of Systems Review of Systems Pertinent positives and negatives as stated in HPI 10 point review of systems is otherwise negative. <Meredith Rodriguez MD - Last Filed: 01/13/21 00:25> Physical Exam Vital Signs: Vital Signs: Last Vital Signs Temp 96.8 F 01/13/21 11:05 Pulse 97 01/13/21 11:05 Resp 19 01/13/21 11:05 BP 138/69 01/13/21 11:05 Pulse Ox 96 01/13/21 11:05 Body Mass Index 19.9 <FLORINA Nance - Last Filed: 01/13/21 15:30> Vital Signs: Last Vital Signs Temp 96.8 F 01/13/21 11:05 Pulse 97 01/13/21 11:05 Resp 19 01/13/21 11:05 BP 138/69 01/13/21 11:05 Pulse Ox 96 01/13/21 11:05 Body Mass Index 19.9 VITAL SIGNS: Reviewed. GENERAL: Well developed, well nourished, in no acute distress. HEAD: Normocephalic/atraumatic EYES: PERRLA, EOMI LUNGS: Normal breath sounds. No adventitious sounds or accessory muscle use. SpO2<98> CARDIOVASCULAR: Regular rate and rhythm without noted murmurs, no JVD or lower extremity edema. ABDOMEN: Soft, diffusely tender maximum in left lower quadrant, non-distended with hypoactive bowel sounds. NEUROLOGIC: Alert and oriented x 4. Strength and sensation to light touch were grossly intact x 4. <Meredith Rodriguez MD - Last Filed: 01/13/21 00:25> Course Course Course Narrative: Patient presents to the ED for lower abdominal pain/cramping that began today. patient denies any complaints. patient states no diarrhea. Rapid medical screening done. Labs and UA ordered <FLORINA Nance - Last Filed: 01/13/21 15:30> Reevaluation(s) Reevaluation #1: 65-year-old female with history and clinical presentation consistent with diverticulitis, perforated abdomen, and doubt renal colic or UTI. Review of all investigations consistent with perforated, acute abdomen patient remains otherwise hemodynamically stable and is informed of all results. She has received IV fluids, antibiotics and the case was discussed with Surgical Services who has plans for OR. <Meredith Rodriguez MD - Last Filed: 01/13/21 00:25> MDM - Abdominal Pain Lab Data Result diagrams: : 01/12/21 20:10 01/12/21 20:10 <FLORINA Nance - Last Filed: 01/13/21 15:30> Labs: Lab Results 01/12/21 01/12/21 01/12/21 Range/Units 20:10 20:10 20:10 WBC 15.5 H (4.8-10.8) X10*3/uL RBC 4.26 (4.20-5.50) X10*6/uL Hgb 13.1 (12.0-16.0) g/dl Hct 39.2 (37-47) % MCV 92.0 (80-98) fL MCH 30.8 (27.0-33.0) pg MCHC 33.4 (31.0-35.0) g/dl RDW 12.6 (11.0-16.0) % Plt Count 217 (160-400) X10*3/uL MPV 8.9 L (9.4-12.3) fL Immature Gran % (Auto) 0.5 H (0.0-0.4) % Neut % (Auto) 89.1 H (45-73) % Lymph % (Auto) 5.1 L (20-40) % [place] % (Auto) 4.8 (2-11) % Eos % (Auto) 0.2 (0-4) % Baso % (Auto) 0.3 (0-2) % Lymph # (Auto) 0.8 L (1.2-4.9) X10*3/uL [place] # (Auto) 0.8 (0.1-1.2) X10*3/uL Eos # (Auto) 0.0 (0.0-0.4) X10*3/uL Baso # (Auto) 0.0 (0.0-0.2) X10*3/uL Abs Immat Gran (auto) 0.08 H (0.00-0.03) X10*3/uL Absolute Neuts (auto) 13.8 H (2.0-8.3) X10*3/uL Absolute Nucleated RBC 0.000 (0.0-0.012) X10*3/uL Nucleated RBC % (auto) 0.0 (0.0-0.2) /100WBC PT (9.9-13.0) SEC INR (0.9-1.1) Sodium 140 (135-145) mmol/L Potassium 3.8 (3.3-5.1) mmol/L Chloride 103 (96-108) mmol/L Carbon Dioxide 27 (22-29) mmol/L Anion Gap 14 (12-20) BUN 15 (9-16) mg/dL Creatinine 0.69 (0.5-1.4) mg/dL Estim Creat Clear Calc 65.1 Estimated GFR > 60 Random Glucose 113 (60-115) mg/dL Lactic Acid (0.5-2.0) mmol/L Calcium 9.0 (8.4-10.2) mg/dL Total Bilirubin 1.1 H (0.0-1.0) mg/dL Direct Bilirubin 0.4 (0.0-0.5) mg/dL AST 21 (5-31) U/L ALT 20 (0-31) U/L Alkaline Phosphatase 63 (39-117) U/L Total Protein 6.9 (6.5-8.0) g/dL Albumin 4.6 (3.5-5.0) g/dL Lipase 4 L (8-78) U/L Urine Color YELLOW Urine Appearance CLEAR Urine pH 7.0 (5.0-8.0) Ur Specific [place] 1.020 (1.005-1.025) Urine Protein NEG (NEG-TRACE) MG/DL Urine Glucose (UA) NEG (NEG) MG/DL Urine Ketones 15 (NEG) MG/DL Urine Blood NEG (NEG) Urine Nitrite NEG (NEG) Ur Leukocyte Esterase NEG (NEG) COVID-19 ([facility]) (Negative) COVID-19 Clin Com Blood Type Antibody Screen 01/12/21 01/12/21 01/12/21 Range/Units 23:01 23:01 23:01 WBC (4.8-10.8) X10*3/uL RBC (4.20-5.50) X10*6/uL Hgb (12.0-16.0) g/dl Hct (37-47) % MCV (80-98) fL MCH (27.0-33.0) pg MCHC (31.0-35.0) g/dl RDW (11.0-16.0) % Plt Count (160-400) X10*3/uL MPV (9.4-12.3) fL Immature Gran % (Auto) (0.0-0.4) % Neut % (Auto) (45-73) % Lymph % (Auto) (20-40) % [place] % (Auto) (2-11) % Eos % (Auto) (0-4) % Baso % (Auto) (0-2) % Lymph # (Auto) (1.2-4.9) X10*3/uL [place] # (Auto) (0.1-1.2) X10*3/uL Eos # (Auto) (0.0-0.4) X10*3/uL Baso # (Auto) (0.0-0.2) X10*3/uL Abs Immat Gran (auto) (0.00-0.03) X10*3/uL Absolute Neuts (auto) (2.0-8.3) X10*3/uL Absolute Nucleated RBC (0.0-0.012) X10*3/uL Nucleated RBC % (auto) (0.0-0.2) /100WBC PT 11.1 (9.9-13.0) SEC INR 1.0 (0.9-1.1) Sodium (135-145) mmol/L Potassium (3.3-5.1) mmol/L Chloride (96-108) mmol/L Carbon Dioxide (22-29) mmol/L Anion Gap (12-20) BUN (9-16) mg/dL Creatinine (0.5-1.4) mg/dL Estim Creat Clear Calc Estimated GFR Random Glucose (60-115) mg/dL Lactic Acid 1.0 (0.5-2.0) mmol/L Calcium (8.4-10.2) mg/dL Total Bilirubin (0.0-1.0) mg/dL Direct Bilirubin (0.0-0.5) mg/dL AST (5-31) U/L ALT (0-31) U/L Alkaline Phosphatase (39-117) U/L Total Protein (6.5-8.0) g/dL Albumin (3.5-5.0) g/dL Lipase (8-78) U/L Urine Color Urine Appearance Urine pH (5.0-8.0) Ur Specific [place] (1.005-1.025) Urine Protein (NEG-TRACE) MG/DL Urine Glucose (UA) (NEG) MG/DL Urine Ketones (NEG) MG/DL Urine Blood (NEG) Urine Nitrite (NEG) Ur Leukocyte Esterase (NEG) COVID-19 ([facility]) Negative (Negative) COVID-19 Clin Com See Note Blood Type Antibody Screen 01/13/21 Range/Units 00:19 WBC (4.8-10.8) X10*3/uL RBC (4.20-5.50) X10*6/uL Hgb (12.0-16.0) g/dl Hct (37-47) % MCV (80-98) fL MCH (27.0-33.0) pg MCHC (31.0-35.0) g/dl RDW (11.0-16.0) % Plt Count (160-400) X10*3/uL MPV (9.4-12.3) fL Immature Gran % (Auto) (0.0-0.4) % Neut % (Auto) (45-73) % Lymph % (Auto) (20-40) % [place] % (Auto) (2-11) % Eos % (Auto) (0-4) % Baso % (Auto) (0-2) % Lymph # (Auto) (1.2-4.9) X10*3/uL [place] # (Auto) (0.1-1.2) X10*3/uL Eos # (Auto) (0.0-0.4) X10*3/uL Baso # (Auto) (0.0-0.2) X10*3/uL Abs Immat Gran (auto) (0.00-0.03) X10*3/uL Absolute Neuts (auto) (2.0-8.3) X10*3/uL Absolute Nucleated RBC (0.0-0.012) X10*3/uL Nucleated RBC % (auto) (0.0-0.2) /100WBC PT (9.9-13.0) SEC INR (0.9-1.1) Sodium (135-145) mmol/L Potassium (3.3-5.1) mmol/L Chloride (96-108) mmol/L Carbon Dioxide (22-29) mmol/L Anion Gap (12-20) BUN (9-16) mg/dL Creatinine (0.5-1.4) mg/dL Estim Creat Clear Calc Estimated GFR Random Glucose (60-115) mg/dL Lactic Acid (0.5-2.0) mmol/L Calcium (8.4-10.2) mg/dL Total Bilirubin (0.0-1.0) mg/dL Direct Bilirubin (0.0-0.5) mg/dL AST (5-31) U/L ALT (0-31) U/L Alkaline Phosphatase (39-117) U/L Total Protein (6.5-8.0) g/dL Albumin (3.5-5.0) g/dL Lipase (8-78) U/L Urine Color Urine Appearance Urine pH (5.0-8.0) Ur Specific [place] (1.005-1.025) Urine Protein (NEG-TRACE) MG/DL Urine Glucose (UA) (NEG) MG/DL Urine Ketones (NEG) MG/DL Urine Blood (NEG) Urine Nitrite (NEG) Ur Leukocyte Esterase (NEG) COVID-19 ([facility]) (Negative) COVID-19 Clin Com Blood Type A Positive Antibody Screen NEGATIVE <FLORINA Nance - Last Filed: 01/13/21 15:30> Lab Results 01/12/21 01/12/21 01/12/21 Range/Units 20:10 20:10 20:10 WBC 15.5 H (4.8-10.8) X10*3/uL RBC 4.26 (4.20-5.50) X10*6/uL Hgb 13.1 (12.0-16.0) g/dl Hct 39.2 (37-47) % MCV 92.0 (80-98) fL MCH 30.8 (27.0-33.0) pg MCHC 33.4 (31.0-35.0) g/dl RDW 12.6 (11.0-16.0) % Plt Count 217 (160-400) X10*3/uL MPV 8.9 L (9.4-12.3) fL Immature Gran % (Auto) 0.5 H (0.0-0.4) % Neut % (Auto) 89.1 H (45-73) % Lymph % (Auto) 5.1 L (20-40) % [place] % (Auto) 4.8 (2-11) % Eos % (Auto) 0.2 (0-4) % Baso % (Auto) 0.3 (0-2) % Lymph # (Auto) 0.8 L (1.2-4.9) X10*3/uL [place] # (Auto) 0.8 (0.1-1.2) X10*3/uL Eos # (Auto) 0.0 (0.0-0.4) X10*3/uL Baso # (Auto) 0.0 (0.0-0.2) X10*3/uL Abs Immat Gran (auto) 0.08 H (0.00-0.03) X10*3/uL Absolute Neuts (auto) 13.8 H (2.0-8.3) X10*3/uL Absolute Nucleated RBC 0.000 (0.0-0.012) X10*3/uL Nucleated RBC % (auto) 0.0 (0.0-0.2) /100WBC PT (9.9-13.0) SEC INR (0.9-1.1) Sodium 140 (135-145) mmol/L Potassium 3.8 (3.3-5.1) mmol/L Chloride 103 (96-108) mmol/L Carbon Dioxide 27 (22-29) mmol/L Anion Gap 14 (12-20) BUN 15 (9-16) mg/dL Creatinine 0.69 (0.5-1.4) mg/dL Estim Creat Clear Calc 65.1 Estimated GFR > 60 Random Glucose 113 (60-115) mg/dL Lactic Acid (0.5-2.0) mmol/L Calcium 9.0 (8.4-10.2) mg/dL Total Bilirubin 1.1 H (0.0-1.0) mg/dL Direct Bilirubin 0.4 (0.0-0.5) mg/dL AST 21 (5-31) U/L ALT 20 (0-31) U/L Alkaline Phosphatase 63 (39-117) U/L Total Protein 6.9 (6.5-8.0) g/dL Albumin 4.6 (3.5-5.0) g/dL Lipase 4 L (8-78) U/L Urine Color YELLOW Urine Appearance CLEAR Urine pH 7.0 (5.0-8.0) Ur Specific [place] 1.020 (1.005-1.025) Urine Protein NEG (NEG-TRACE) MG/DL Urine Glucose (UA) NEG (NEG) MG/DL Urine Ketones 15 (NEG) MG/DL Urine Blood NEG (NEG) Urine Nitrite NEG (NEG) Ur Leukocyte Esterase NEG (NEG) COVID-19 ([facility]) (Negative) COVID-19 Clin Com Blood Type Antibody Screen 01/12/21 01/12/21 01/12/21 Range/Units 23:01 23:01 23:01 WBC (4.8-10.8) X10*3/uL RBC (4.20-5.50) X10*6/uL Hgb (12.0-16.0) g/dl Hct (37-47) % MCV (80-98) fL MCH (27.0-33.0) pg MCHC (31.0-35.0) g/dl RDW (11.0-16.0) % Plt Count (160-400) X10*3/uL MPV (9.4-12.3) fL Immature Gran % (Auto) (0.0-0.4) % Neut % (Auto) (45-73) % Lymph % (Auto) (20-40) % [place] % (Auto) (2-11) % Eos % (Auto) (0-4) % Baso % (Auto) (0-2) % Lymph # (Auto) (1.2-4.9) X10*3/uL [place] # (Auto) (0.1-1.2) X10*3/uL Eos # (Auto) (0.0-0.4) X10*3/uL Baso # (Auto) (0.0-0.2) X10*3/uL Abs Immat Gran (auto) (0.00-0.03) X10*3/uL Absolute Neuts (auto) (2.0-8.3) X10*3/uL Absolute Nucleated RBC (0.0-0.012) X10*3/uL Nucleated RBC % (auto) (0.0-0.2) /100WBC PT 11.1 (9.9-13.0) SEC INR 1.0 (0.9-1.1) Sodium (135-145) mmol/L Potassium (3.3-5.1) mmol/L Chloride (96-108) mmol/L Carbon Dioxide (22-29) mmol/L Anion Gap (12-20) BUN (9-16) mg/dL Creatinine (0.5-1.4) mg/dL Estim Creat Clear Calc Estimated GFR Random Glucose (60-115) mg/dL Lactic Acid 1.0 (0.5-2.0) mmol/L Calcium (8.4-10.2) mg/dL Total Bilirubin (0.0-1.0) mg/dL Direct Bilirubin (0.0-0.5) mg/dL AST (5-31) U/L ALT (0-31) U/L Alkaline Phosphatase (39-117) U/L Total Protein (6.5-8.0) g/dL Albumin (3.5-5.0) g/dL Lipase (8-78) U/L Urine Color Urine Appearance Urine pH (5.0-8.0) Ur Specific [place] (1.005-1.025) Urine Protein (NEG-TRACE) MG/DL Urine Glucose (UA) (NEG) MG/DL Urine Ketones (NEG) MG/DL Urine Blood (NEG) Urine Nitrite (NEG) Ur Leukocyte Esterase (NEG) COVID-19 ([facility]) Negative (Negative) COVID-19 Clin Com See Note Blood Type Antibody Screen 01/13/21 Range/Units 00:19 WBC (4.8-10.8) X10*3/uL RBC (4.20-5.50) X10*6/uL Hgb (12.0-16.0) g/dl Hct (37-47) % MCV (80-98) fL MCH (27.0-33.0) pg MCHC (31.0-35.0) g/dl RDW (11.0-16.0) % Plt Count (160-400) X10*3/uL MPV (9.4-12.3) fL Immature Gran % (Auto) (0.0-0.4) % Neut % (Auto) (45-73) % Lymph % (Auto) (20-40) % [place] % (Auto) (2-11) % Eos % (Auto) (0-4) % Baso % (Auto) (0-2) % Lymph # (Auto) (1.2-4.9) X10*3/uL [place] # (Auto) (0.1-1.2) X10*3/uL Eos # (Auto) (0.0-0.4) X10*3/uL Baso # (Auto) (0.0-0.2) X10*3/uL Abs Immat Gran (auto) (0.00-0.03) X10*3/uL Absolute Neuts (auto) (2.0-8.3) X10*3/uL Absolute Nucleated RBC (0.0-0.012) X10*3/uL Nucleated RBC % (auto) (0.0-0.2) /100WBC PT (9.9-13.0) SEC INR (0.9-1.1) Sodium (135-145) mmol/L Potassium (3.3-5.1) mmol/L Chloride (96-108) mmol/L Carbon Dioxide (22-29) mmol/L Anion Gap (12-20) BUN (9-16) mg/dL Creatinine (0.5-1.4) mg/dL Estim Creat Clear Calc Estimated GFR Random Glucose (60-115) mg/dL Lactic Acid (0.5-2.0) mmol/L Calcium (8.4-10.2) mg/dL Total Bilirubin (0.0-1.0) mg/dL Direct Bilirubin (0.0-0.5) mg/dL AST (5-31) U/L ALT (0-31) U/L Alkaline Phosphatase (39-117) U/L Total Protein (6.5-8.0) g/dL Albumin (3.5-5.0) g/dL Lipase (8-78) U/L Urine Color Urine Appearance Urine pH (5.0-8.0) Ur Specific [place] (1.005-1.025) Urine Protein (NEG-TRACE) MG/DL Urine Glucose (UA) (NEG) MG/DL Urine Ketones (NEG) MG/DL Urine Blood (NEG) Urine Nitrite (NEG) Ur Leukocyte Esterase (NEG) COVID-19 ([facility]) (Negative) COVID-19 Clin Com Blood Type A Positive Antibody Screen NEGATIVE <Meredith Rodriguez MD - Last Filed: 01/13/21 00:25> Discharge Plan Discharge Clinical Impression: Bowel perforation <FLORINA Nance - Last Filed: 01/13/21 15:30> Patient Disposition: Admitted As Inpatient <FLORINA Nance - Last Filed: 01/13/21 15:30> Interventions: Admission Worksheet (ED) Last Done: 01/13/21 02:18 <FLORINA Nance - Last Filed: 01/13/21 15:30> Discharge Date/Time: 01/13/21 02:20 <FLORINA Nance - Last Filed: 01/13/21 15:30> [facility] Past Medical History Source: nursing notes reviewed <Meredith Rodriguez MD - Last Filed: 01/13/21 00:25> Medical History: Medical History (Updated 01/13/21 @ 00:25 by Meredith Rodriguez MD) Acromioclavicular joint pain Elevated cholesterol Factor 5 Leiden mutation, heterozygous GERD (gastroesophageal reflux disease) Hearing impairment Myofascial pain syndrome <FLORINA Nance - Last Filed: 01/13/21 15:30> Surgical History: Surgical History (Updated 01/13/21 @ 02:00 by Stella Henriquez MD) H/O colonoscopy H/O right knee surgery History of hand surgery Hx of dilation and curettage Hx of elbow surgery Hx of foot surgery Hx of foot surgery <FLORINA Nance - Last Filed: 01/13/21 15:30> Family History Family History: Family History (Updated 01/13/21 @ 02:02 by Stella Henriquez MD) Sister Breast cancer Mother Breast cancer Family/Other Uterine cancer Family/Other Throat cancer Bone cancer Sister Emphysema lung Sister Breast cancer Father Emphysema lung Brother Alzheimer's dementia Sister Type 2 diabetes mellitus <FLORINA Nance - Last Filed: 01/13/21 15:30> Social History Social History: Social History Household Members: Spouse Housing: House Do you presently have visiting nurse or other home services: No Alcohol intake: current Alcohol intake frequency: holidays/special occasions only Patient Tobacco Use Status: Never used Tobacco service: No Sexual orientation: Straight/Heterosexual Gender identity: Female <FLORINA Nance - Last Filed: 01/13/21 15:30>
[2021-01-12 20:13] LABS: MANUAL DIFF FLAG NO
[2021-01-12 20:16] LABS: Appearance Urine CLEAR; Basophils Percent Auto 0.3 % (0-2); Color Urine YELLOW; Eosinophils Percent Auto 0.2 % (0-4); Glucose Urine UA NEG (NEG); Hematocrit 39.2 % (37-47); Hemoglobin 13.1 g/dl (12.0-16.0); Imm Gran Abs Auto 0.08 X10*3/uL (0.00-0.03); Imm Gran Pct Auto 0.5 % (0.0-0.4); Leukocyte Esterase Urine NEG (NEG); Lymphocytes Absolute Auto 0.8 X10*3/uL (1.2-4.9); Lymphocytes Percent Auto 5.1 % (20-40); Mean Corpuscular HGB Conc 33.4 g/dl (31.0-35.0); Mean Corpuscular Hemoglobin 30.8 pg (27.0-33.0); Mean Platelet Volume 8.9 fL (9.4-12.3); Monocytes Absolute Auto 0.8 X10*3/uL (0.1-1.2); Monocytes Percent Auto 4.8 % (2-11); Neutrophils Absolute Auto 13.8 X10*3/uL (2.0-8.3); Neutrophils Percent Auto 89.1 % (45-73); Nitrite Urine NEG (NEG); Platelet Count 217 X10*3/uL (160-400); Red Blood Count 4.26 X10*6/uL (4.20-5.50); Red Cell Distribution Width 12.6 % (11.0-16.0); Urine Blood NEG (NEG); Urine Ketones 15 MG/DL (NEG); Urine Protein NEG (NEG-TRACE); White Blood Count 15.5 X10*3/uL (4.8-10.8)
[2021-01-12 20:29] LABS: Alanine Aminotransferase 20 U/L (0-31); Albumin Level 4.6 g/dL (3.5-5.0); Alkaline Phosphatase 63 U/L (39-117); Anion Gap 14 (12-20); Aspartate Amino Transferase 21 U/L (5-31); Bilirubin Direct 0.4 mg/dL (0.0-0.5); Bilirubin Total 1.1 mg/dL (0.0-1.0); Blood Urea Nitrogen 15 mg/dL (9-16); Carbon Dioxide 27 mmol/L (22-29); Chloride 103 mmol/L (96-108); Creatinine Clr Calc Pharmacy 65.1; Estimated Glomerular Filt Rate > 60; Glucose Random 113 mg/dL (60-115); Lipase 4 U/L (8-78); Potassium 3.8 mmol/L (3.3-5.1); Sodium 140 mmol/L (135-145); Total Protein 6.9 g/dL (6.5-8.0)
[2021-01-12] MEDS: cefTRIAXone sodium 1 GM in 0.9 % Sodium Chloride 50 ML IV (23:12)
[2021-01-12 23:17] LABS: Prothrombin Time 11.1 SEC (9.9-13.0)
[2021-01-12] MEDS: HYDROmorphone HCl 0.5 MG/0.5 ML SYRINGE 0.25 MG IVPUSH (23:18)
[2021-01-12] MEDS: 0.9 % Sodium Chloride 1,000 ML 999 ML IV (23:18)
[2021-01-12] MEDS: ondansetron HCL 4 MG/2 ML VIAL IVPUSH (23:19)
[2021-01-12 23:32] LABS: COVID-19 Test Negative (Negative)
--- NOTE | 2021-01-12 23:34 | PC.NURSE ---
Pt ambulating to the bathroom and to CT. Plan for Flagyl upon return.
--- NOTE | 2021-01-12 23:47 | PC.NURSE ---
PT medicated per JUN. Assisted to bathroom and then escorted to CT scan.
[2021-01-12] MEDS: iohexoL 350 MG/ML 100 ML INFUS..BTL 85 ML IV (23:50)
[2021-01-12] MEDS: metroNIDAZOLE/NS 500 MG/100 ML PIGGYBACK 100 MG IV (23:55)
[2021-01-13] VITALS (25 sets, daily range): BP systolic 111–142; BP diastolic 48–72; PULSE 63–111; RESP 16–20; TEMP 36–37.1; O2SAT 92–98; BMI 21.2
--- NOTE | 2021-01-13 00:18 | PC.NURSE ---
ct scan special procedures technologist at bedside for T&S.
--- NOTE | 2021-01-13 00:44 | PC.NURSE ---
Med Rec completed at bedside with pt and . Pt aware of plan for surgery.
[2021-01-13] MEDS: Piperacillin Sodium/Tazobactam 3.375 GM in 0.9 % Sodium Chloride 50 ML IV ×5 (01:35→23:59)
[2021-01-13] MEDS: Morphine Sulfate 2 MG/ML CARTRIDGE IVPUSH ×5 (01:36→23:27)
[2021-01-13] MEDS: 0.9 % Sodium Chloride 1,000 ML 100 ML IVCONT ×3 (01:36→23:28)
--- NOTE | 2021-01-13 01:44 | P.CONAN_ITS ---
[facility] Active Problems Active Problems: All Active Problems (Updated 01/13/21 @ 00:25 by Meredith de leon MD) Bowel perforation (Acute) Protrusion of cervical intervertebral disc (Acute) Intervertebral disc protrusion (Acute) Right shoulder pain (Acute) Cervicalgia (Acute) Sternoclavicular joint pain (Acute) Well woman exam (Acute) Trigger finger, right ring finger (Acute) Trigger finger, right middle finger (Acute) Myofascial pain syndrome (Acute) Acromioclavicular joint pain (Acute) Past Medical History Medical History (Updated 01/13/21 @ 00:25 by Meredith Rodriguez MD) Acromioclavicular joint pain Elevated cholesterol Factor 5 Leiden mutation, heterozygous GERD (gastroesophageal reflux disease) Hearing impairment Myofascial pain syndrome Patient : No Family History Family History (Updated 01/13/21 @ 02:02 by Stella Henriquez MD) Sister Breast cancer Mother Breast cancer Family/Other Uterine cancer Family/Other Throat cancer Bone cancer Sister Emphysema lung Sister Breast cancer Father Emphysema lung Brother Alzheimer's dementia Sister Type 2 diabetes mellitus Family history of problems with anesthesia: No Surgical History Surgical History (Updated 01/13/21 @ 02:00 by Stella Henriquez MD) H/O colonoscopy H/O right knee surgery History of hand surgery Hx of dilation and curettage Hx of elbow surgery Hx of foot surgery Hx of foot surgery History of Problems with Anesthesia: No Social History Social History Household Members: Spouse Alcohol intake: current Alcohol intake frequency: holidays/special occasions only Patient Tobacco Use Status: Never used Tobacco Use of substances other than those prescribed or required for medical reasons: No Advance Directives: No Advance Directives Information Provided: No Patient : No Sexual orientation: Straight/Heterosexual Gender identity: Female Meds Allergies Allergy/AdvReac Type Severity Reaction Status Date / Time codeine [Codeine] Allergy Mild VOMITING Verified 12/02/20 07:24 nitrofurantoin Allergy Mild RASH Verified 12/02/20 07:24 [Nitrofurantoin] Sulfa (Sulfonamide Allergy Mild RASH Verified 12/02/20 07:24 Antibiotics) [Sulfa (Sulfonamides)] trimethoprim [Trimethoprim] Allergy Mild RASH Verified 12/02/20 07:24 amoxicillin Allergy Unknown unknown Verified 12/02/20 07:24 Active Medications: Current Medications Acetaminophen (Acetaminophen 325 Mg Tablet) 650 mg PO Q4H PRN PRN Reason: Fever Diphenhydramine HCl (Diphenhydramine Hcl 50 Mg/Ml Vial) 25 mg IVPUSH Q6H PRN PRN Reason: Itching Heparin Sodium (Porcine) (Heparin Sodium,Porcine 5,000 Unit/Ml Vial) 5,000 unit SUBCUT Q8H [facility] Last Admin: 01/13/21 01:28 Dose: Not Given Documented by: Sodium Chloride (Ns) 1,000 mls @ 100 mls/hr IVCONT .Q10H [facility] Last Admin: 01/13/21 01:36 Dose: 100 mls/hr Documented by: Piperacillin Sod/Tazobactam (Sod 3.375 gm/ Sodium Chloride) 50 mls @ 100 mls/hr IV Q6H [facility] Last Admin: 01/13/21 01:35 Dose: 100 mls/hr Documented by: Morphine Sulfate (Morphine Sulfate 2 Mg/Ml Cartridge) 2 mg IVPUSH Q3H PRN; Protocol PRN Reason: Pain, Moderate (Pain Scale 4-6 Last Admin: 01/13/21 01:36 Dose: 2 mg Documented by: Morphine Sulfate (Morphine Sulfate 4 Mg/Ml Cartridge) 4 mg IVPUSH Q3H PRN; Protocol PRN Reason: Pain, Severe (Pain Scale 7-10) Ondansetron HCl (Ondansetron Hcl 4 Mg/2 Ml Vial) 4 mg IVPUSH Q4H PRN PRN Reason: Nausea Sodium Chloride (0.9 % Sodium Chloride Flush 3 Ml Syringe) 3 ml IVFLUSH QSHIFT [facility] Home Medications Medication Instructions Recorded Confirmed Last Taken Type cholecalciferol (vitamin D3) 50 50 mcg PO DAILY 04/28/20 01/13/21 Unknown History mcg (2,000 unit) capsule gabapentin 100 mg capsule 100 mg PO TID 04/28/20 01/13/21 01/12/21 20:00 History ibuprofen 400 mg tablet 400 mg PO NEEDED 04/28/20 01/13/21 01/12/21 13:00 History simvastatin 20 mg tablet 20 mg PO DAILY 04/28/20 01/13/21 01/12/21 08:00 History tramadol 50 mg tablet 50 mg PO NEEDED PRN 04/28/20 01/13/21 Unknown History aspirin 81 mg tablet 81 mg PO DAILY 01/13/21 01/13/21 01/12/21 08:00 History Exam Exam Date and Time: January 13, [id number] Height,Weight and Vital Signs: Height 5 ft 2 in Weight 49.442 kg Last Vital Signs Temp 98.1 F 01/13/21 00:46 Pulse 111 H 01/13/21 00:46 Resp 18 01/13/21 01:36 BP 138/64 01/13/21 00:46 Pulse Ox 96 01/13/21 00:46 Pertinent Lab Results Pertinent Lab Results: Laboratory Tests 01/12/21 01/12/21 01/12/21 20:10 20:10 20:10 WBC 15.5 H RBC 4.26 Hgb 13.1 Hct 39.2 MCV 92.0 MCH 30.8 MCHC 33.4 RDW 12.6 Plt Count 217 MPV 8.9 L Immature Gran % (Auto) 0.5 H Neut % (Auto) 89.1 H Lymph % (Auto) 5.1 L [place] % (Auto) 4.8 Eos % (Auto) 0.2 Baso % (Auto) 0.3 Lymph # (Auto) 0.8 L [place] # (Auto) 0.8 Eos # (Auto) 0.0 Baso # (Auto) 0.0 Abs Immat Gran (auto) 0.08 H Absolute Neuts (auto) 13.8 H Absolute Nucleated RBC 0.000 Nucleated RBC % (auto) 0.0 PT INR Sodium 140 Potassium 3.8 Chloride 103 Carbon Dioxide 27 Anion Gap 14 BUN 15 Creatinine 0.69 Estim Creat Clear Calc 65.1 Estimated GFR > 60 Random Glucose 113 Lactic Acid Calcium 9.0 Total Bilirubin 1.1 H Direct Bilirubin 0.4 AST 21 ALT 20 Alkaline Phosphatase 63 Total Protein 6.9 Albumin 4.6 Lipase 4 L Urine Color YELLOW Urine Appearance CLEAR Urine pH 7.0 Ur Specific [place] 1.020 Urine Protein NEG Urine Glucose (UA) NEG Urine Ketones 15 Urine Blood NEG Urine Nitrite NEG Ur Leukocyte Esterase NEG COVID-19 ([facility]) COVID-19 Clin Com Blood Type Antibody Screen 01/12/21 01/12/21 01/12/21 23:01 23:01 23:01 WBC RBC Hgb Hct MCV MCH MCHC RDW Plt Count MPV Immature Gran % (Auto) Neut % (Auto) Lymph % (Auto) [place] % (Auto) Eos % (Auto) Baso % (Auto) Lymph # (Auto) [place] # (Auto) Eos # (Auto) Baso # (Auto) Abs Immat Gran (auto) Absolute Neuts (auto) Absolute Nucleated RBC Nucleated RBC % (auto) PT 11.1 INR 1.0 Sodium Potassium Chloride Carbon Dioxide Anion Gap BUN Creatinine Estim Creat Clear Calc Estimated GFR Random Glucose Lactic Acid 1.0 Calcium Total Bilirubin Direct Bilirubin AST ALT Alkaline Phosphatase Total Protein Albumin Lipase Urine Color Urine Appearance Urine pH Ur Specific [place] Urine Protein Urine Glucose (UA) Urine Ketones Urine Blood Urine Nitrite Ur Leukocyte Esterase COVID-19 ([facility]) Negative COVID-[facility] Com See Note Blood Type Antibody Screen 01/13/21 00:19 WBC RBC Hgb Hct MCV MCH MCHC RDW Plt Count MPV Immature Gran % (Auto) Neut % (Auto) Lymph % (Auto) [place] % (Auto) Eos % (Auto) Baso % (Auto) Lymph # (Auto) [place] # (Auto) Eos # (Auto) Baso # (Auto) Abs Immat Gran (auto) Absolute Neuts (auto) Absolute Nucleated RBC Nucleated RBC % (auto) PT INR Sodium Potassium Chloride Carbon Dioxide Anion Gap BUN Creatinine Estim Creat Clear Calc Estimated GFR Random Glucose Lactic Acid Calcium Total Bilirubin Direct Bilirubin AST ALT Alkaline Phosphatase Total Protein Albumin Lipase Urine Color Urine Appearance Urine pH Ur Specific [place] Urine Protein Urine Glucose (UA) Urine Ketones Urine Blood Urine Nitrite Ur Leukocyte Esterase COVID-19 ([facility]) COVID-[facility] Com Blood Type A Positive Antibody Screen NEGATIVE Airway Mallampati Class: II TM Dist: >3cm Neck ROM: Full Heart: RRR Lungs: CTA Assessment and Plan Final Anesthetic Review Family History of Problems with Anesthesia: No History of Problems with Anesthesia: No
--- NOTE | 2021-01-13 01:56 | P.HPGS_ITS ---
History of Present Illness History of Present Illness Date of Service: 01/13/21 Chief complaint: Perforated Viscous Narrative: Adilia Liang is a 65 year old female who presented to the emergency department around 5 p.m. this evening after experiencing several hours of bilateral lower abdominal discomfort that she reports was greater than a 10/10 on a pain scale. Patient reports she has a history of 1 episode of diverticulitis greater than 5 years ago where she was admitted to [facility] for 3 days for IV antibiotics and was treated conservatively. She reports she has not had any further episodes until she experienced this discomfort today around noon. She reports she ate lunch and developed the lower abdominal discomfort. She had associated nausea but no vomiting. She denies any change in bowel habits such as constipation or diarrhea. She reports having chills but no fever or shortness of breath. Patient was seen in the emergency department and had a CT scan of the abdomen and pelvis which showed free air with some possible evidence of diverticulitis of the sigmoid colon. A definitive area of perforation cannot be seen on CAT scan. Review of Systems Constitutional: Constitutional: Reports chills, Denies difficulty sleeping, Denies excessive sweating, Denies fatigue, Denies fever(s), Denies headache(s), Denies night sweats, Denies weakness and Denies weight loss Eyes: Eyes: Denies blurry vision, Denies diplopia and Denies eye discharge ENT: Denies Normal hearing present, Denies change in voice, Denies headache(s), Reports hearing loss, Denies neck mass, Denies sore throat, Denies throat swelling, Denies tongue swelling and Reports other (Wears hearing aids) Cardiovascular: Cardiovascular: Denies chest pain, Denies chest pain at rest, Denies chest pain with activity, Denies edema, Denies leg edema and Denies dyspnea on exertion Respiratory: Respiratory: Denies cough, Denies excessive phlegm production, Denies dyspnea on exertion, Denies stridor and Denies wheezing Gastrointestinal: Gastrointestinal: Reports abdominal pain (Bilateral lower quadrants and suprapubic region), Denies melena, Denies bloating, Denies hematochezia, Denies constipation, Denies heartburn, Reports nausea and Denies vomiting Genitourinary: Genitourinary: Denies hematuria, Denies dysuria, Denies urinary incontinence, Denies urinary hesitancy and Denies urinary urgency Musculoskeletal: Musculoskeletal: Reports back pain, Reports arthralgias and Denies muscle weakness Integumentary/Breasts: Skin/Breast: Denies breast swelling, Denies breast pain, Denies breast mass, Denies change in pigmentation, Denies new lesions and Denies rash Neurologic: Denies Normal hearing present, Denies confusion, Denies headach e(s), Denies lack of coordination, Denies focal weakness, Denies paresthesias and Denies weakness Psychiatric: Psychiatric: Denies anxiety, Denies confusion and Denies depression Endocrine: Endocrine: Denies cold intolerance, Denies excessive sweating and Denies fatigue Hematologic/Lymphatic: Hematologic/Lymphatic: Denies easy bleeding, Denies easy bruising, Denies lymphadenopathy and Reports other (Factor 5 Leiden mutation) Allergic/Immunologic: Allergic/Immunologic: Denies urticaria, Denies throat swelling, Denies tongue swelling and Denies wheezing PMFSH Past Medical History Medical History (Updated 01/13/21 @ 00:25 by Meredith Rodriguez MD) Acromioclavicular joint pain Elevated cholesterol Factor 5 Leiden mutation, heterozygous GERD (gastroesophageal reflux disease) Hearing impairment Myofascial pain syndrome Functional capacity: independent ambulation Family History Family History (Updated 01/13/21 @ 02:02 by Stella Henriquez MD) Sister Breast cancer Mother Breast cancer Family/Other Uterine cancer Family/Other Throat cancer Bone cancer Sister Emphysema lung Sister Breast cancer Father Emphysema lung Brother Alzheimer's dementia Sister Type 2 diabetes mellitus Family history: reviewed and not pertinent Surgical History Surgical History (Updated 01/13/21 @ 02:00 by Stella Henriquez MD) H/O colonoscopy H/O right knee surgery History of hand surgery Hx of dilation and curettage Hx of elbow surgery Hx of foot surgery Hx of foot surgery Social History Social History (Updated 01/13/21 @ 02:03 by Stella Henriquez MD) Household Members: Spouse Alcohol intake: current Alcohol intake frequency: holidays/special occasions only Patient Tobacco Use Status: Never used Tobacco Use of substances other than those prescribed or required for medical reasons: No Advance Directives: No Advance Directives Information Provided: No Patient : No Sexual orientation: Straight/Heterosexual Gender identity: Female Meds Allergies Allergy/AdvReac Type Severity Reaction Status Date / Time codeine [Codeine] Allergy Mild VOMITING Verified 12/02/20 07:24 nitrofurantoin Allergy Mild RASH Verified 12/02/20 07:24 [Nitrofurantoin] Sulfa (Sulfonamide Allergy Mild RASH Verified 12/02/20 07:24 Antibiotics) [Sulfa (Sulfonamides)] trimethoprim [Trimethoprim] Allergy Mild RASH Verified 12/02/20 07:24 amoxicillin Allergy Unknown unknown Verified 12/02/20 07:24 Active Medications: Current Medications Acetaminophen (Acetaminophen 325 Mg Tablet) 650 mg PO Q4H PRN PRN Reason: Fever Diphenhydramine HCl (Diphenhydramine Hcl 50 Mg/Ml Vial) 25 mg IVPUSH Q6H PRN PRN Reason: Itching Heparin Sodium (Porcine) (Heparin Sodium,Porcine 5,000 Unit/Ml Vial) 5,000 unit SUBCUT Q8H [facility] Last Admin: 01/13/21 01:28 Dose: Not Given Documented by: Sodium Chloride (Ns) 1,000 mls @ 100 mls/hr IVCONT .Q10H [facility] Last Admin: 01/13/21 01:36 Dose: 100 mls/hr Documented by: Piperacillin Sod/Tazobactam (Sod 3.375 gm/ Sodium Chloride) 50 mls @ 100 mls/hr IV Q6H [facility] Last Admin: 01/13/21 01:35 Dose: 100 mls/hr Documented by: Morphine Sulfate (Morphine Sulfate 2 Mg/Ml Cartridge) 2 mg IVPUSH Q3H PRN; Protocol PRN Reason: Pain, Moderate (Pain Scale 4-6 Last Admin: 01/13/21 01:36 Dose: 2 mg Documented by: Morphine Sulfate (Morphine Sulfate 4 Mg/Ml Cartridge) 4 mg IVPUSH Q3H PRN; Protocol PRN Reason: Pain, Severe (Pain Scale 7-10) Ondansetron HCl (Ondansetron Hcl 4 Mg/2 Ml Vial) 4 mg IVPUSH Q4H PRN PRN Reason: Nausea Sodium Chloride (0.9 % Sodium Chloride Flush 3 Ml Syringe) 3 ml IVFLUSH QSHIFT [facility] Home Medications Medication Instructions Recorded Confirmed Last Taken Type cholecalciferol (vitamin D3) 50 50 mcg PO DAILY 04/28/20 01/13/21 Unknown History mcg (2,000 unit) capsule gabapentin 100 mg capsule 100 mg PO TID 04/28/20 01/13/21 01/12/21 20:00 History ibuprofen 400 mg tablet 400 mg PO NEEDED 04/28/20 01/13/21 01/12/21 13:00 History simvastatin 20 mg tablet 20 mg PO DAILY 04/28/20 01/13/21 01/12/21 08:00 History tramadol 50 mg tablet 50 mg PO NEEDED PRN 04/28/20 01/13/21 Unknown History aspirin 81 mg tablet 81 mg PO DAILY 01/13/21 01/13/21 01/12/21 08:00 History Physical Exam Vital Signs: Vital Signs: Last Vital Signs Temp 98.1 F 01/13/21 00:46 Pulse 111 H 01/13/21 00:46 Resp 18 01/13/21 01:36 BP 138/64 01/13/21 00:46 Pulse Ox 96 01/13/21 00:46 Body Mass Index 19.9 Const: General: cooperative, healthy appearing, comfortable and other (Hard of hearing); No confusion Nutritional Appearance: average body habitus and well nourished Orientation/consciousness: patient oriented x3 and No confusion HENMT: Head: Yes normal to inspection, Yes normocephalic and Yes atraumatic Ears: hearing grossly normal bilaterally Mouth: Normal oral and palatal mucosa present Teeth and gingiva: dentition normal Throat: Yes posterior oropharynx normal Eyes: Other: Wearing glasses General: appearance normal, both eyes and all related structures Eyelids: Yes eyelids normal EOM: EOMs intact bilaterally Neck: Neck: Yes normal visual inspection, Yes full ROM, Yes trachea midline and Yes no JVD Thyroid: Thyroid normal Lymphatic: no lymphadenopathy noted Resp: Effort & Inspection: normal respiratory effort and able to speak in complete sentences Auscultation: clear to auscultation bilaterally Cardio: Jugular venous distension: no JVD Rate: regular rate Heart sounds: S1 normal heart sound present, S2 normal heart sound present, no click, no gallops and no murmurs GI: Inspection: Yes normal to inspection, No distended and No incision Palpation (GI): Soft to palpation, Tenderness to palpation present (GI) (Bilateral lower quadrants and suprapubic region) with rebound tenderness, no guarding, not rigid, no hernias and no masses Percussion: Yes normal to percussion Rectal Exam - Female: deferred Skin: General skin exam: no rashes or lesions noted Rashes: no rashes Neuro: General: patient oriented x3 and No confusion Cranial nerves: No Normal hearing present Extrem: General: Yes normal to inspection, Yes full ROM, Yes no clubbing, cyanosis or edema and Yes no calf tenderness Results Results Labs: Short CBC 01/12/21 Range/Units 20:10 WBC 15.5 H (4.8-10.8) X10*3/uL Hgb 13.1 (12.0-16.0) g/dl Hct 39.2 (37-47) % Plt Count 217 (160-400) X10*3/uL BMP 01/12/21 20:10 Sodium 140 Potassium 3.8 Chloride 103 Carbon Dioxide 27 BUN 15 Creatinine 0.69 Calcium 9.0 Liver Function 01/12/21 Range/Units 20:10 Total Bilirubin 1.1 H (0.0-1.0) mg/dL Direct Bilirubin 0.4 (0.0-0.5) mg/dL AST 21 (5-31) U/L ALT 20 (0-31) U/L Alkaline Phosphatase 63 (39-117) U/L Albumin 4.6 (3.5-5.0) g/dL Urine 01/12/21 Range/Units 20:10 Urine Color YELLOW Urine Appearance CLEAR Urine pH 7.0 (5.0-8.0) Ur Specific [place] 1.020 (1.005-1.025) Urine Protein NEG (NEG-TRACE) MG/DL Urine Glucose (UA) NEG (NEG) MG/DL Abdomen CT scan report/results: report reviewed and image reviewed Assessment and Plan (1) Bowel perforation: Status: Acute This is a 65-year-old lady who presented to the emergency department with bilateral lower quadrant abdominal pain and suprapubic region pain with associated elevated white blood cell count and CT scan showing perforated viscus. On my visualization of the CT scan it appears that the sigmoid colon is inflamed and there is some surrounding fat stranding. Patient does have a history of diverticulitis previously. I believe that the sigmoid colon is the likely culprit of the perforated viscus. Patient will be taken to the operating room for an exploratory laparotomy with possible bowel resection if this is the place where the perforation is found. Patient will need a colostomy if sigmoid colectomy is performed. Risks benefits and alternatives were discussed with the patient and her and they agreed to proceed. I spent about 60 minutes with this patient gathering history doing the physical examination reviewing the CT scan images as well as the reading. I also reviewed laboratory work and obtain consent for the procedure. Quality Stroke Does the patient have a stroke diagnosis?: No VTE Prior VTE?: No VTE Risk Level:: Surgical - moderate VTE Device Contraindication: N/A - Device Ordered VTE Drug Contraindication: N/A - Med Ordered Procedures Date of Service Date of Service: 01/13/21
--- NOTE | 2021-01-13 02:11 | PC.NURSE ---
Report given to COURSE DEVELOPER. Pt is being transferred to the OR by this RN.
[2021-01-13] MEDS: fentaNYL citrate/PF 100 MCG/2 ML VIAL 25 MCG IVPUSH ×4 (04:32→04:48)
--- NOTE | 2021-01-13 04:45 | PC.NURSE ---
dr. castanon made aware patient ongoing pain with minimal relief from iv fentanyl and iv ofirmev. new medication orders to be placed.
[2021-01-13] MEDS: HYDROmorphone HCl 0.5 MG/0.5 ML SYRINGE IVPUSH ×2 (04:53→05:10)
--- NOTE | 2021-01-13 05:28 | OP_ITS ---
SURGEON: Stella Henriquez MD PREOPERATIVE DIAGNOSIS: Perforated viscus. POSTOPERATIVE DIAGNOSIS: Perforated sigmoid diverticulitis. PROCEDURE PERFORMED: ESTIMATED BLOOD LOSS: About 20 mL. COMPLICATIONS: None. ANESTHESIA: General endotracheal. ASSISTANTS: None. SPECIMENS: Sigmoid colon. DESCRIPTION OF PROCEDURE: The patient was brought into the operating room, placed on operating table in supine position. Normal DVT prophylaxis was instituted. The patient received 3.375 g of IV Zosyn preoperatively. General anesthesia was induced. A Santos catheter was placed. The abdomen was prepped and draped in normal sterile fashion using ChloraPrep. Next, a safety time-out was performed. Next, a mixture of 1% lidocaine with epinephrine and 0.25% Marcaine plain was used to anesthetize the planned incision site, which was a midline surgical incision. A #10 scalpel was used to make an incision that ran from the supraumbilical position to the suprapubic region. The subcutaneous tissues were dissected down to the level of the fascia. The fascia was opened in the midline. The peritoneum was then grasped in the midline and opened as well. The peritoneum and the fascia were then opened to the length of the skin incision. There was purulence seen in the pelvis as we opened the skin incision. We then retracted the small bowel and the omentum into the upper abdomen and could feel multiple diverticula in the sigmoid colon. We took down the white line of Toldt, where the sigmoid colon was adherent. We also sharply dissected some small bowel adhesions to the sigmoid colon that had diverticulitis. We were then able to see the small perforation on the anterior surface of the sigmoid colon. We then dissected the mesentery at the rectosigmoid junction and stapled across the rectosigmoid junction using a laparoscopic 60 mm purple load stapler. We then took the vasculature using a clamp and cut technique using a 2-0 Vicryl suture as well as a suture ligature. We then freed up the descending colon and then we stapled across the proximal bowel, where there was no diverticula, and the bowel was healthy. We passed the sigmoid colon off the field for pathology. We then created a defect in the abdominal wall in the left abdomen removing portion of the skin that was circular about the size of a quarter as well as the subcutaneous fat. We then opened the fascia in a cruciate fashion overlying the rectus muscle. We used a muscle-splitting technique and then opened the peritoneum. We dilated this opening in the abdominal wall and then brought the descending colon, that will be the colostomy up onto the abdominal wall. We then copiously irrigated the abdominal cavity. We did place total of 2 stitches of 2-0 Prolene at the stapled rectal stump to be easier to find it at a later point. We evaluated the intraabdominal cavity and it was hemostatic. We again copiously irrigated the abdominal cavity. Given that there was purulence in the pelvis, we did place a #7 Bill-Lim drain into the pelvis just posterior to the uterus. We brought the tubing out of the right lower quadrant abdominal wall. We secured this tubing to the abdominal wall using a 2-0 nylon stitch. We then closed the fascia in the midline using a total of 2 looped 0 PDS sutures, 1 from the superior portion incision, 1 from the inferior portion incision, and we tied the sutures down the midline. Prior to tying the sutures down, we palpated the undersurface of the abdominal wall. There was no viscera attached to these sutures. We tied the sutures down in the midline. There was no residual fascial defect. We copiously irrigated the subcutaneous tissues and then closed the midline surgical wound using interrupted jesusita and packed in between the jesusita using quarter-inch iodoform packing. We covered the midline incision. We then matured the colostomy in the left abdomen by everting it using several interrupted sutures of 2-0 Vicryl. The colostomy was healthy and pink and was everted. I then digitized the colostomy. There was no evidence of any torsion of the colostomy and it was easily digitized into the abdominal cavity. We then placed dry sterile dressing on the midline surgical incision and drain sponge around the Bill-Lim drain. We applied bulb suction to the Bill-Lim drain and we placed a colostomy bag over the ostomy. All counts were correct at the end of the case. There were no complications. The patient was awakened in stable condition prior to extubation and transferred to the recovery room. FINDINGS: An inflamed sigmoid colon with multiple diverticula throughout with inflammatory changes surrounding the sigmoid colon and purulent material within the pelvis as well as a small perforation in the sigmoid colon on the anterior surface. CONDITION: Postprocedure, fair. Stella Henriquez MD UM/MODL / [id number]
[2021-01-13] MEDS: Heparin Sodium,Porcine 5,000 UNIT/ML VIAL 5000 UNIT SUBCUT ×3 (08:19→23:59)
--- NOTE | 2021-01-13 11:23 | MHC.CM.PN ---
met with and sister,pt was sleepping pt works at [employer] [facility] [place] ,is indepedent lives with her efe dc plan home no servcies
[2021-01-13] MEDS: 0.9 % Sodium Chloride Flush 3 ML SYRINGE IVFLUSH (16:17)
[2021-01-13] MEDS: Morphine Sulfate 4 MG/ML CARTRIDGE IVPUSH (18:09)
[2021-01-13] MEDS: Acetaminophen 325 MG TABLET 650 MG PO (20:02)
[2021-01-14] VITALS (7 sets, daily range): BP systolic 109–141; BP diastolic 54–78; PULSE 73–94; RESP 18–20; TEMP 36.1–37.1; O2SAT 94–98
[2021-01-14] MEDS: Acetaminophen 325 MG TABLET 650 MG PO (05:06)
[2021-01-14] MEDS: Morphine Sulfate 2 MG/ML CARTRIDGE IVPUSH (05:06)
[2021-01-14] MEDS: Piperacillin Sodium/Tazobactam 3.375 GM in 0.9 % Sodium Chloride 50 ML IV ×3 (06:42→18:13)
[2021-01-14 07:05] LABS: Hematocrit 32.8 % (37-47); Hemoglobin 10.5 g/dl (12.0-16.0); Mean Corpuscular Hemoglobin 30.3 pg (27.0-33.0); Mean Corpuscular Volume 94.5 fL (80-98); Mean Platelet Volume 9.8 fL (9.4-12.3); Platelet Count 193 X10*3/uL (160-400); Red Blood Count 3.47 X10*6/uL (4.20-5.50); Red Cell Distribution Width 13.2 % (11.0-16.0); White Blood Count 10.4 X10*3/uL (4.8-10.8)
[2021-01-14 07:09] LABS: Anion Gap 11 (12-20); Blood Urea Nitrogen 12 mg/dL (9-16); Carbon Dioxide 23 mmol/L (22-29); Chloride 109 mmol/L (96-108); Creatinine Clr Calc Pharmacy 71.1; Estimated Glomerular Filt Rate > 60; Glucose Random 99 mg/dL (60-115); Potassium 3.8 mmol/L (3.3-5.1); Sodium 139 mmol/L (135-145)
[2021-01-14 07:21] LABS: Calcium 7.7 mg/dL (8.4-10.2)
[2021-01-14] MEDS: Morphine Sulfate 4 MG/ML CARTRIDGE IVPUSH (07:49)
[2021-01-14] MEDS: Heparin Sodium,Porcine 5,000 UNIT/ML VIAL 5000 UNIT SUBCUT ×2 (07:50→15:07)
--- NOTE | 2021-01-14 09:28 | P.PNGS_ITS ---
Subjective Subjective Date of Service: 01/14/21 Interval history: Patient reports the morphine is not adequate pain control. She has been walking in her room and is using the incentive spirometer. She denies nausea and has been on clear liquid diet since yesterday afternoon. She has not had any return of bowel function. Vital signs are within normal limits as well as laboratory values. White blood cell count is normal. Physical Exam Vital Signs: Vital Signs: Last Vital Signs Temp 96.9 F 01/14/21 06:53 Pulse 94 01/14/21 06:53 Resp 18 01/14/21 06:53 BP 109/57 L 01/14/21 06:53 Pulse Ox 98 01/14/21 06:53 Body Mass Index 21.2 GI: Other: Abdomen is soft nondistended mild appropriate incisional tenderness. Incision is covered with a clean dry dressing. Ostomy is pink without any gas or stool within the bag. Extrem: General: Yes normal to inspection, Yes no clubbing, cyanosis or edema and Yes no calf tenderness Procedures Date of Service Date of Service: 01/14/21 Progress Note: A&P Assessment and plan (1) History of open sigmoidectomy: Status: Acute Assessment and Plan: This is a 65-year-old lady who is on postoperative day 1. Status post sigmoid colectomy with colostomy creation for perforated sigmoid diverticulitis. Patient is doing well. She has inadequate pain control so we will discontinue the morphine and change it to Dilaudid IV. Patient will ambulate in the hallway to encourage return of bowel function. We will remove the Santos catheter. Patient was encouraged to use incentive spirometer regularly. Fall Risk Details Current Medications: Current Medications Acetaminophen (Acetaminophen 325 Mg Tablet) 650 mg PO Q4H PRN PRN Reason: Fever Last Admin: 01/14/21 05:06 Dose: 650 mg Documented by: Diphenhydramine HCl (Diphenhydramine Hcl 50 Mg/Ml Vial) 25 mg IVPUSH Q6H PRN PRN Reason: Itching Heparin Sodium (Porcine) (Heparin Sodium,Porcine 5,000 Unit/Ml Vial) 5,000 unit SUBCUT Q8H [facility] Last Admin: 01/14/21 07:50 Dose: 5,000 unit Documented by: Hydromorphone HCl (Hydromorphone Hcl 0.5 Mg/0.5 Ml Syringe) 0.5 mg IVPUSH Q5M PRN; Protocol PRN Reason: Pain, Severe (Pain Scale 7-10) Last Admin: 01/13/21 05:10 Dose: 0.5 mg Documented by: Sodium Chloride (Ns) 1,000 mls @ 100 mls/hr IVCONT .Q10H [facility] Last Admin: 01/14/21 07:48 Dose: Not Given Documented by: Piperacillin Sod/Tazobactam (Sod 3.375 gm/ Sodium Chloride) 50 mls @ 100 mls/hr IV Q6H [facility] Last Infusion: 01/14/21 07:21 Dose: Infused Documented by: Morphine Sulfate (Morphine Sulfate 2 Mg/Ml Cartridge) 2 mg IVPUSH Q3H PRN; Protocol PRN Reason: Pain, Moderate (Pain Scale 4-6 Last Admin: 01/14/21 05:06 Dose: 2 mg Documented by: Morphine Sulfate (Morphine Sulfate 4 Mg/Ml Cartridge) 4 mg IVPUSH Q3H PRN; Protocol PRN Reason: Pain, Severe (Pain Scale 7-10) Last Admin: 01/14/21 07:49 Dose: 4 mg Documented by: Ondansetron HCl (Ondansetron Hcl 4 Mg/2 Ml Vial) 4 mg IVPUSH Q4H PRN PRN Reason: Nausea Ondansetron HCl (Ondansetron Hcl 4 Mg/2 Ml Vial) 4 mg IVPUSH ONCE PRN PRN Reason: Nausea and Vomiting Sodium Chloride (0.9 % Sodium Chloride Flush 3 Ml Syringe) 3 ml IVFLUSH QSHIFT [facility] Last Admin: 01/14/21 07:21 Dose: Not Given Documented by: Time Spent With Patient Time: Total time spent is greater than 50% in coordination of care (as documented) at patient's floor/unit and/or counseling patient: Time with patient: less than 15 minutes Quality Stroke Does the patient have a stroke diagnosis?: No VTE Prior VTE?: No VTE Risk Level:: Surgical - moderate VTE Device Contraindication: N/A - Device Ordered VTE Drug Contraindication: N/A - Med Ordered
--- NOTE | 2021-01-14 09:42 | HO.POSTANES ---
Post Anesthesia Evaluation Post Anesthesia Evaluation Vital Signs: Vital Signs Temp Pulse Resp BP Pulse Ox 01/14/21 06:53 96.9 F 94 18 109/57 L 98 01/14/21 04:00 98.6 F 83 20 114/54 L 98 01/14/21 02:35 95 01/13/21 23:17 98.2 F 97 18 112/67 94 Anesthesia: General Endotracheal-GETA Mental Status: Awake Pain Control: Satisfactory Nausea/Vomiting: Mild Hydration: Adequate Anesthesia-Related Issues: No Anes. Related Issues
[2021-01-14] MEDS: 0.9 % Sodium Chloride 1,000 ML 100 ML IVCONT ×2 (10:08→21:42)
[2021-01-14] MEDS: HYDROmorphone HCl 0.5 MG/0.5 ML SYRINGE IVPUSH ×3 (10:36→21:40)
[2021-01-14] MEDS: ondansetron HCL 4 MG/2 ML VIAL IVPUSH (15:07)
[2021-01-14] MEDS: 0.9 % Sodium Chloride Flush 3 ML SYRINGE IVFLUSH (21:41)
[2021-01-15] VITALS (9 sets, daily range): BP systolic 132–151; BP diastolic 67–88; PULSE 80–84; RESP 16–20; TEMP 36.4–37.1; O2SAT 96–98
[2021-01-15] MEDS: HYDROmorphone HCl 0.5 MG/0.5 ML SYRINGE IVPUSH ×4 (00:19→20:28)
[2021-01-15] MEDS: Piperacillin Sodium/Tazobactam 3.375 GM in 0.9 % Sodium Chloride 50 ML IV ×4 (00:20→20:03)
[2021-01-15] MEDS: Heparin Sodium,Porcine 5,000 UNIT/ML VIAL 5000 UNIT SUBCUT ×3 (00:20→15:24)
[2021-01-15] MEDS: ondansetron HCL 4 MG/2 ML VIAL IVPUSH ×4 (00:26→20:32)
--- NOTE | 2021-01-15 09:01 | P.PNGS_ITS ---
Subjective Subjective Date of Service: 01/15/21 Interval history: Patient is on postoperative day 2. Status post sigmoid colectomy with colostomy creation. She reports some mild nausea but no vomiting. She has been tolerating a clear liquid diet without difficulty. She has been ambulating in the hallway and using the incentive spirometer. Pain is better controlled with Dilaudid. There has not been any significant return of bowel function. Vital signs are within normal limits. Bill-Lim drain has had scant output. Physical Exam Vital Signs: Vital Signs: Last Vital Signs Temp 97.6 F 01/15/21 07:48 Pulse 80 01/15/21 07:48 Resp 18 01/15/21 07:48 BP 145/74 H 01/15/21 07:48 Pulse Ox 98 01/15/21 07:48 Body Mass Index 21.2 Const: General: cooperative, healthy appearing, comfortable and no acute distress GI: Other: Abdomen is soft, mildly distended, appropriate incisional tenderness. Incision is clean dry intact with jesusita in place. New dry sterile dressing was placed on incision. Ostomy is pink and has serosanguineous drainage in the bag. Bill-Lim has scant serosanguineous drainage in the bulb Extrem: General: Yes normal to inspection, Yes full ROM, Yes no clubbing, cyanosis or edema and Yes no calf tenderness Procedures Date of Service Date of Service: 01/15/21 Progress Note: A&P Assessment and plan (1) History of open sigmoidectomy: Status: Acute Assessment and Plan: This is a 65-year-old woman on postoperative day 2. Status post sigmoid colectomy with colostomy creation for perforated sigmoid diverticulitis. Patient is doing well. We are waiting for complete return of bowel function. Patient has mild nausea butis tolerating clear liquid diet. She is taking adequate liquids by mouth. I will discontinue IV fluids. I will continue the patient on clear liquid diet for now. will continue Dilaudid IV for now into nausea is resolved. Patient should continue to be out of bed and ambulating the hallway and using incentive spirometer. We will await complete return of bowel function before advancing diet. Fall Risk Details Current Medications: Current Medications Acetaminophen (Acetaminophen 325 Mg Tablet) 650 mg PO Q4H PRN PRN Reason: Fever Last Admin: 01/14/21 05:06 Dose: 650 mg Documented by: Diphenhydramine HCl (Diphenhydramine Hcl 50 Mg/Ml Vial) 25 mg IVPUSH Q6H PRN PRN Reason: Itching Heparin Sodium (Porcine) (Heparin Sodium,Porcine 5,000 Unit/Ml Vial) 5,000 unit SUBCUT Q8H [facility] Last Admin: 01/15/21 00:20 Dose: 5,000 unit Documented by: Hydromorphone HCl (Hydromorphone Hcl 0.5 Mg/0.5 Ml Syringe) 0.5 mg IVPUSH Q2H PRN; Protocol PRN Reason: Pain, Moderate (Pain Scale 4-6 Last Admin: 01/15/21 00:19 Dose: 0.5 mg Documented by: Sodium Chloride (Ns) 1,000 mls @ 100 mls/hr IVCONT .Q10H [facility] Last Admin: 01/14/21 21:42 Dose: 100 mls/hr Documented by: Piperacillin Sod/Tazobactam (Sod 3.375 gm/ Sodium Chloride) 50 mls @ 100 mls/hr IV Q6H [facility] Last Admin: 01/15/21 06:46 Dose: 100 mls/hr Documented by: Ondansetron HCl (Ondansetron Hcl 4 Mg/2 Ml Vial) 4 mg IVPUSH Q4H PRN PRN Reason: Nausea Last Admin: 01/15/21 00:26 Dose: 4 mg Documented by: Ondansetron HCl (Ondansetron Hcl 4 Mg/2 Ml Vial) 4 mg IVPUSH ONCE PRN PRN Reason: Nausea and Vomiting Sodium Chloride (0.9 % Sodium Chloride Flush 3 Ml Syringe) 3 ml IVFLUSH QSHIFT [facility] Last Admin: 01/14/21 21:41 Dose: 3 ml Documented by: Time Spent With Patient Time: Total time spent is greater than 50% in coordination of care (as documented) at patient's floor/unit and/or counseling patient: Time with patient: less than 15 minutes Quality Stroke Does the patient have a stroke diagnosis?: No VTE Prior VTE?: No VTE Risk Level:: Surgical - moderate VTE Device Contraindication: N/A - Device Ordered VTE Drug Contraindication: N/A - Med Ordered
[2021-01-15] MEDS: 0.9 % Sodium Chloride 1,000 ML 100 ML IVCONT (09:10)
[2021-01-15] MEDS: 0.9 % Sodium Chloride Flush 3 ML SYRINGE IVFLUSH ×2 (15:25→20:03)
--- NOTE | 2021-01-15 16:25 | MHC.CM.PN ---
PT AND WHO WAS AT BEDSIDE REQUESTED TO COMPLETE A HCP SO THAT PTS STEP DAUGHTER COULD GET MEDICAL INFO. CM INFORMED THEM THERE IS A HCP ON FILE THAT NAMES BOTH PTS AND DAUGHTER ROGELIO. CM ALSO ASSISTED PTS IN COMPLETING A HCP FOR HIMSELF.
--- NOTE | 2021-01-15 18:27 | PC.NURSE ---
CONSISTENT ENCOURAGEMENT TO USE IS BY SURGEON AND RN. IS REACHED 1250. EDUCATED ON IMPORTANCE OF AMBULATION - HAS TAKEN 4 WALKS WITH IN HALLWAY. PAIN AND NAUSEA TREATED WITH PRN MEDICATIONS. SONIA DRAIN OUTPUT FROM [id number] = 20 ML TOTAL, BLOODY. NO OUTPUT FROM OSTOMY. MIDLINE DRESSING CHANGED BY SURGEON THIS AM. REMAINS C/D/I.
[2021-01-16] VITALS (8 sets, daily range): BP systolic 123–146; BP diastolic 59–86; PULSE 77–97; RESP 17–19; TEMP 36.4–37.2; O2SAT 96–98
[2021-01-16] MEDS: Piperacillin Sodium/Tazobactam 3.375 GM in 0.9 % Sodium Chloride 50 ML IV ×4 (01:05→19:55)
[2021-01-16] MEDS: Heparin Sodium,Porcine 5,000 UNIT/ML VIAL 5000 UNIT SUBCUT ×3 (01:06→15:57)
[2021-01-16] MEDS: HYDROmorphone HCl 0.5 MG/0.5 ML SYRINGE IVPUSH ×5 (03:13→20:53)
[2021-01-16] MEDS: ondansetron HCL 4 MG/2 ML VIAL IVPUSH ×4 (03:21→20:52)
[2021-01-16] MEDS: 0.9 % Sodium Chloride Flush 3 ML SYRINGE IVFLUSH ×2 (09:05→19:55)
--- NOTE | 2021-01-16 09:13 | PM.PNGS ---
Subjective Subjective Date of Service: 01/16/21 Interval history: This is a 65-year-old lady on postoperative day 3. Status post Vahe's procedure for perforated sigmoid diverticulitis. Patient is slowly improving. She reports she has not received pain medication and 5 hours and is having some abdominal soreness. She has been walking in the hallway often and is using the incentive spirometer and getting the volumes up to 1500 mL with the incentive spirometer. She denies any nausea or vomiting currently. She would like to advance her diet to something thicker than clear liquids. She has not had any function from the ostomy as of yet. Vital signs have been within normal limits. There have been no overnight events. Physical Exam Vital Signs: Vital Signs: Last Vital Signs Temp 97.9 F 01/16/21 08:00 Pulse 80 01/16/21 08:00 Resp 17 01/16/21 08:00 BP 123/61 01/16/21 08:00 Pulse Ox 96 01/16/21 08:00 Body Mass Index 21.2 Const: General: cooperative, healthy appearing, comfortable and no acute distress GI: Other: Abdomen is soft, nondistended, appropriate incisional tenderness. Midline surgical incision is clean dry intact without erythema or drainage. There are jesusita in place. Ostomy is in place in the left abdomen it is pink. There is no evidence of stool or gas in the bag. There is serosanguineous drainage in the bag which is only scant. Bill-Lim drain is in place in the right lower quadrant with scant serosanguineous drainage. Extrem: Other: Bilateral lower extremities are warm well-perfused throughout without edema or tenderness to palpation. Procedures Date of Service Date of Service: 01/16/21 Progress Note: A&P Assessment and plan (1) History of open sigmoidectomy: Status: Acute Assessment and Plan: This is a 65-year-old lady on postoperative day 3. Status post Vahe's procedure for treatment of perforated sigmoid diverticulitis. Patient is slowly improving. We are still waiting for return of bowel function. I will advance the patient's diet to a full liquid diet. I have encouraged her to continue to ambulate in the hallway using incentive spirometer. I will also add p.o. pain medications to help with better pain control. Fall Risk Details Current Medications: Current Medications Acetaminophen (Acetaminophen 325 Mg Tablet) 650 mg PO Q4H PRN PRN Reason: Fever Last Admin: 01/14/21 05:06 Dose: 650 mg Documented by: Diphenhydramine HCl (Diphenhydramine Hcl 50 Mg/Ml Vial) 25 mg IVPUSH Q6H PRN PRN Reason: Itching Heparin Sodium (Porcine) (Heparin Sodium,Porcine 5,000 Unit/Ml Vial) 5,000 unit SUBCUT Q8H [facility] Last Admin: 01/16/21 09:07 Dose: 5,000 unit Documented by: Hydromorphone HCl (Hydromorphone Hcl 0.5 Mg/0.5 Ml Syringe) 0.5 mg IVPUSH Q2H PRN; Protocol PRN Reason: Pain, Moderate (Pain Scale 4-6 Last Admin: 01/16/21 09:11 Dose: 0.5 mg Documented by: Piperacillin Sod/Tazobactam (Sod 3.375 gm/ Sodium Chloride) 50 mls @ 100 mls/hr IV Q6H [facility] Last Infusion: 01/16/21 06:52 Dose: Infused Documented by: Ondansetron HCl (Ondansetron Hcl 4 Mg/2 Ml Vial) 4 mg IVPUSH Q4H PRN PRN Reason: Nausea Last Admin: 01/16/21 09:09 Dose: 4 mg Documented by: Sodium Chloride (0.9 % Sodium Chloride Flush 3 Ml Syringe) 3 ml IVFLUSH QSHIFT [facility] Last Admin: 01/16/21 09:05 Dose: 3 ml Documented by: Time Spent With Patient Time: Total time spent is greater than 50% in coordination of care (as documented) at patient's floor/unit and/or counseling patient: Time with patient: less than 15 minutes Quality Stroke Does the patient have a stroke diagnosis?: No VTE Prior VTE?: No VTE Risk Level:: Surgical - moderate VTE Device Contraindication: N/A - Device Ordered VTE Drug Contraindication: N/A - Med Ordered
[2021-01-16] MEDS: Gabapentin 100 MG CAPSULE PO ×2 (15:53→20:51)
[2021-01-17] MEDS: Heparin Sodium,Porcine 5,000 UNIT/ML VIAL 5000 UNIT SUBCUT ×3 (01:45→18:16)
[2021-01-17] MEDS: 0.9 % Sodium Chloride Flush 3 ML SYRINGE IVFLUSH ×3 (01:45→20:29)
[2021-01-17] MEDS: Piperacillin Sodium/Tazobactam 3.375 GM in 0.9 % Sodium Chloride 50 ML IV ×4 (01:45→18:17)
[2021-01-17] MEDS: HYDROmorphone HCl 0.5 MG/0.5 ML SYRINGE IVPUSH ×3 (01:49→09:09)
[2021-01-17 04:00] VITALS: RESP 16
[2021-01-17] MEDS: ondansetron HCL 4 MG/2 ML VIAL IVPUSH ×2 (05:04→09:12)
[2021-01-17 08:00] VITALS: BP 133/61; PULSE 80; RESP 17; O2SAT 96
[2021-01-17] MEDS: Gabapentin 100 MG CAPSULE PO ×3 (09:09→20:25)
--- NOTE | 2021-01-17 09:58 | P.PNGS_ITS ---
Subjective Subjective Date of Service: 01/17/21 Interval history: Adilia feels much improved today after having a large bowel movement per her ostomy. She reports the bag completed all of her abdomen. She now feels less abdominal pain and is very hungry. Physical Exam Vital Signs: Vital Signs: Last Vital Signs Temp 98.6 F 01/16/21 23:41 Pulse 80 01/17/21 08:00 Resp 17 01/17/21 08:00 BP 133/61 01/17/21 08:00 Pulse Ox 96 01/17/21 08:00 Oxygen Flow Rate 98 01/17/21 02:40 Body Mass Index 21.2 Const: General: healthy appearing and comfortable Nutritional Appearance: well nourished Orientation/consciousness: patient oriented x3 Limitations: no limitations Resp: Other: Breathing comfortably on room air, no respiratory distress GI: Other: dressings removed, incision is clean, dry, and intact without redness or discharge. SONIA is producing serosanguineous discharge. Ostomy is pink and functioning well. Gas and stool noted within back. Skin: Other: Warm, dry, no rash Neuro: General: patient oriented x3 Extrem: Other: no edema, ambulating well Procedures Date of Service Date of Service: 01/17/21 Progress Note: A&P Assessment and plan (1) History of open sigmoidectomy: Status: Acute Assessment and Plan: Postoperative day 4 status post sigmoid resection with end colostomy (Vahe's resection ). she now has a return of bowel function with a large bowel this morning. I will advance her to a regular soft diet today. She will be switched to oral pain medication preparation for possible discharge in the next day or 2. The patient was encouraged to participate in her ostomy care. (2) Bowel perforation: Status: Acute Fall Risk Details Current Medications: Current Medications Acetaminophen (Acetaminophen 325 Mg Tablet) 650 mg PO Q4H PRN PRN Reason: Fever Last Admin: 01/14/21 05:06 Dose: 650 mg Documented by: Diphenhydramine HCl (Diphenhydramine Hcl 50 Mg/Ml Vial) 25 mg IVPUSH Q6H PRN PRN Reason: Itching Gabapentin (Gabapentin 100 Mg Capsule) 100 mg PO TID [facility] Last Admin: 01/17/21 09:09 Dose: 100 mg Documented by: Heparin Sodium (Porcine) (Heparin Sodium,Porcine 5,000 Unit/Ml Vial) 5,000 unit SUBCUT Q8H [facility] Last Admin: 01/17/21 09:08 Dose: 5,000 unit Documented by: Piperacillin Sod/Tazobactam (Sod 3.375 gm/ Sodium Chloride) 50 mls @ 100 mls/hr IV Q6H [facility] Last Infusion: 01/17/21 05:52 Dose: Infused Documented by: Ondansetron HCl (Ondansetron Hcl 4 Mg/2 Ml Vial) 4 mg IVPUSH Q4H PRN PRN Reason: Nausea Last Admin: 01/17/21 09:12 Dose: 4 mg Documented by: Oxycodone HCl (Oxycodone Hcl Immed Release 5 Mg Tablet) 5 mg PO Q3H PRN PRN Reason: Pain, Moderate (Pain Scale 4-6 Oxycodone HCl (Oxycodone Hcl Immed Release 5 Mg Tablet) 10 mg PO Q3H PRN PRN Reason: Pain, Severe (Pain Scale 7-10) Sodium Chloride (0.9 % Sodium Chloride Flush 3 Ml Syringe) 3 ml IVFLUSH QSHIFT [facility] Last Admin: 01/17/21 09:08 Dose: 3 ml Documented by: Time Spent With Patient Time: Total time spent is greater than 50% in coordination of care (as documented) at patient's floor/unit and/or counseling patient: Time with patient: 15 - 24 minutes Quality Stroke Does the patient have a stroke diagnosis?: No VTE Prior VTE?: No VTE Risk Level:: Surgical - moderate VTE Device Contraindication: N/A - Device Ordered VTE Drug Contraindication: N/A - Med Ordered
[2021-01-17 11:22] VITALS: BP 149/67; PULSE 78; RESP 17; TEMP 36.7; O2SAT 99
[2021-01-17] MEDS: oxyCODONE HCl Immed Release 5 MG TABLET 10 MG PO ×3 (12:06→20:25)
[2021-01-17 15:34] VITALS: BP 127/67; PULSE 86; RESP 18; TEMP 36.8; O2SAT 97
[2021-01-17 19:35] VITALS: BP 132/60; PULSE 86; RESP 18; TEMP 36.8; O2SAT 97
[2021-01-17 23:45] VITALS: BP 145/62; PULSE 86; RESP 18; TEMP 36.9; O2SAT 98
[2021-01-18] MEDS: oxyCODONE HCl Immed Release 5 MG TABLET 10 MG PO ×8 (00:06→23:26)
[2021-01-18] MEDS: Heparin Sodium,Porcine 5,000 UNIT/ML VIAL 5000 UNIT SUBCUT ×4 (01:18→23:26)
[2021-01-18] MEDS: 0.9 % Sodium Chloride Flush 3 ML SYRINGE IVFLUSH ×5 (01:28→23:33)
[2021-01-18] MEDS: Piperacillin Sodium/Tazobactam 3.375 GM in 0.9 % Sodium Chloride 50 ML IV ×5 (01:34→23:33)
[2021-01-18 03:00] VITALS: O2SAT 95
[2021-01-18] MEDS: Acetaminophen 325 MG TABLET 650 MG PO ×3 (03:57→19:34)
[2021-01-18 04:00] VITALS: BP 136/67; PULSE 84; RESP 16; TEMP 36.6; O2SAT 98
[2021-01-18 08:00] VITALS: BP 146/67; PULSE 73; RESP 16; TEMP 36.4; O2SAT 97
--- NOTE | 2021-01-18 09:12 | PM.PNGS ---
Subjective Subjective Date of Service: 01/18/21 Interval history: She reports urinary incontinence during the night, bladder scan revealed 700 mL in her bladder, therefore Santos catheter was reinserted. She now feels improved. The left leg swelling was improved. Venous Doppler performed today revealed no DVT. She tolerated her diet without nausea or vomiting. She continues to put out liquid stool from the ostomy. Physical Exam Vital Signs: Vital Signs: Last Vital Signs Temp 97.6 F 01/18/21 08:00 Pulse 73 01/18/21 08:00 Resp 16 01/18/21 08:00 BP 146/67 H 01/18/21 08:00 Pulse Ox 97 01/18/21 08:00 Oxygen Flow Rate 98 01/17/21 02:40 Body Mass Index 21.2 Const: General: healthy appearing and no acute distress Nutritional Appearance: well nourished Orientation/consciousness: patient oriented x3 Limitations: no limitations Resp: Effort & Inspection: normal respiratory effort GI: Other: Incision clean, dry, and intact. Ostomy with stool and gas within the bag. Inspection: Yes normal to inspection Skin: Other: Warm, dry, no rash Neuro: General: patient oriented x3 Extrem: Other: no erythema or edema noted in either lower extremity today. Procedures Date of Service Date of Service: 01/18/21 Progress Note: A&P Assessment and plan (1) History of open sigmoidectomy: Status: Acute (2) Bowel perforation: Status: Acute Assessment and Plan: Pod 5 following Vahe's procedure for perforated diverticulitis. Her bowel function has now returned which she has developed urinary retention requiring reinsertion of a Santos catheter. She is tolerating regular diet without nausea or vomiting. Wounds remained clean and intact without evidence of wound infection. Will leave the catheter in place for another 24 hours. May need urology consultation if persistent urinary retention. Fall Risk Details Current Medications: Current Medications Acetaminophen (Acetaminophen 325 Mg Tablet) 650 mg PO Q4H PRN PRN Reason: Fever Last Admin: 01/18/21 03:57 Dose: 650 mg Documented by: Diphenhydramine HCl (Diphenhydramine Hcl 50 Mg/Ml Vial) 25 mg IVPUSH Q6H PRN PRN Reason: Itching Gabapentin (Gabapentin 100 Mg Capsule) 100 mg PO TID [facility] Last Admin: 01/17/21 20:25 Dose: 100 mg Documented by: Heparin Sodium (Porcine) (Heparin Sodium,Porcine 5,000 Unit/Ml Vial) 5,000 unit SUBCUT Q8H [facility] Last Admin: 01/18/21 01:18 Dose: 5,000 unit Documented by: Piperacillin Sod/Tazobactam (Sod 3.375 gm/ Sodium Chloride) 50 mls @ 100 mls/hr IV Q6H [facility] Last Infusion: 01/18/21 07:02 Dose: Infused Documented by: Non-Formulary Medication (Simvastatin) 20 mg PO DAILY [facility] Ondansetron HCl (Ondansetron Hcl 4 Mg/2 Ml Vial) 4 mg IVPUSH Q4H PRN PRN Reason: Nausea Last Admin: 01/17/21 09:12 Dose: 4 mg Documented by: Oxycodone HCl (Oxycodone Hcl Immed Release 5 Mg Tablet) 5 mg PO Q3H PRN PRN Reason: Pain, Moderate (Pain Scale 4-6 Oxycodone HCl (Oxycodone Hcl Immed Release 5 Mg Tablet) 10 mg PO Q3H PRN PRN Reason: Pain, Severe (Pain Scale 7-10) Last Admin: 01/18/21 06:33 Dose: 10 mg Documented by: Sodium Chloride (0.9 % Sodium Chloride Flush 3 Ml Syringe) 3 ml IVFLUSH QSHIFT [facility] Last Admin: 01/18/21 01:28 Dose: 3 ml Documented by: Time Spent With Patient Time: Total time spent is greater than 50% in coordination of care (as documented) at patient's floor/unit and/or counseling patient: Time with patient: 15 - 24 minutes Quality Stroke Does the patient have a stroke diagnosis?: No VTE Prior VTE?: No VTE Risk Level:: Surgical - moderate VTE Device Contraindication: N/A - Device Ordered VTE Drug Contraindication: N/A - Med Ordered
[2021-01-18] MEDS: Gabapentin 100 MG CAPSULE PO ×3 (09:30→19:34)
[2021-01-18 11:56] VITALS: BP 127/59; PULSE 82; RESP 17; TEMP 36.9; O2SAT 96
[2021-01-18 15:56] VITALS: BP 123/65; PULSE 80; RESP 18; TEMP 36.2; O2SAT 97
[2021-01-18 18:43] VITALS: BP 124/58; PULSE 79; RESP 18; TEMP 36.9; O2SAT 98
[2021-01-18] MEDS: Atorvastatin Calcium 10 MG TABLET PO (19:34)
[2021-01-19] VITALS: BP 134/65; PULSE 79; RESP 17; TEMP 36.9; O2SAT 94
[2021-01-19 04:00] VITALS: BP 130/74; PULSE 98; RESP 20; TEMP 36.6; O2SAT 97
[2021-01-19] MEDS: Acetaminophen 325 MG TABLET 650 MG PO ×2 (04:28→08:02)
[2021-01-19] MEDS: oxyCODONE HCl Immed Release 5 MG TABLET 10 MG PO ×6 (04:29→21:34)
[2021-01-19] MEDS: ondansetron HCL 4 MG/2 ML VIAL IVPUSH (05:58)
[2021-01-19] MEDS: Piperacillin Sodium/Tazobactam 3.375 GM in 0.9 % Sodium Chloride 50 ML IV ×3 (06:00→18:22)
[2021-01-19 08:00] VITALS: BP 144/64; PULSE 79; RESP 18; TEMP 37; O2SAT 98
[2021-01-19] MEDS: Heparin Sodium,Porcine 5,000 UNIT/ML VIAL 5000 UNIT SUBCUT ×2 (08:02→17:39)
[2021-01-19] MEDS: 0.9 % Sodium Chloride Flush 3 ML SYRINGE IVFLUSH ×2 (08:02→17:40)
[2021-01-19] MEDS: Gabapentin 100 MG CAPSULE PO ×3 (08:02→21:33)
--- NOTE | 2021-01-19 09:29 | P.PNGS_ITS ---
Subjective Subjective Date of Service: 01/19/21 Interval history: says she is ok good stoma function tolerating diet she is bothered by Santos pain control good Physical Exam Vital Signs: Vital Signs: Last Vital Signs Temp 98.6 F 01/19/21 08:00 Pulse 79 01/19/21 08:00 Resp 18 01/19/21 08:00 BP 144/64 H 01/19/21 08:00 Pulse Ox 98 01/19/21 08:00 Oxygen Flow Rate 98 01/17/21 02:40 Body Mass Index 21.2 Const: General: comfortable and no acute distress Resp: Effort & Inspection: normal respiratory effort GI: Other: stoma functioning well, SONIA scanty Palpation (GI): Soft to palpation and no guarding Procedures Date of Service Date of Service: 01/19/21 Progress Note: A&P Assessment and plan (1) Perforation of sigmoid colon due to diverticulitis: Status: Acute Assessment and Plan: S/P Vahe's procedure doing well on diet has urinary retention check UA plan to dc dc Santos again today SONIA scanty - plan to dc prior to discharge doing well overall Fall Risk Details Current Medications: Current Medications Acetaminophen (Acetaminophen 325 Mg Tablet) 650 mg PO Q4H PRN PRN Reason: Fever Last Admin: 01/19/21 08:02 Dose: 650 mg Documented by: Atorvastatin Calcium (Atorvastatin Calcium 10 Mg Tablet) 10 mg PO BEDTIME [facility] Last Admin: 01/18/21 19:34 Dose: 10 mg Documented by: Diphenhydramine HCl (Diphenhydramine Hcl 50 Mg/Ml Vial) 25 mg IVPUSH Q6H PRN PRN Reason: Itching Gabapentin (Gabapentin 100 Mg Capsule) 100 mg PO TID [facility] Last Admin: 01/19/21 08:02 Dose: 100 mg Documented by: Heparin Sodium (Porcine) (Heparin Sodium,Porcine 5,000 Unit/Ml Vial) 5,000 unit SUBCUT Q8H [facility] Last Admin: 01/19/21 08:02 Dose: 5,000 unit Documented by: Piperacillin Sod/Tazobactam (Sod 3.375 gm/ Sodium Chloride) 50 mls @ 100 mls/hr IV Q6H [facility] Last Infusion: 01/19/21 06:32 Dose: Infused Documented by: Ondansetron HCl (Ondansetron Hcl 4 Mg/2 Ml Vial) 4 mg IVPUSH Q4H PRN PRN Reason: Nausea Last Admin: 01/19/21 05:58 Dose: 4 mg Documented by: Oxycodone HCl (Oxycodone Hcl Immed Release 5 Mg Tablet) 5 mg PO Q3H PRN PRN Reason: Pain, Moderate (Pain Scale 4-6 Oxycodone HCl (Oxycodone Hcl Immed Release 5 Mg Tablet) 10 mg PO Q3H PRN PRN Reason: Pain, Severe (Pain Scale 7-10) Last Admin: 01/19/21 08:01 Dose: 10 mg Documented by: Sodium Chloride (0.9 % Sodium Chloride Flush 3 Ml Syringe) [facility] Last Admin: 01/19/21 08:02 Dose: 3 ml Documented by: Time Spent With Patient Time: Total time spent is greater than 50% in coordination of care (as documented) at patient's floor/unit and/or counseling patient: Time with patient: 15 - 24 minutes Quality Stroke Does the patient have a stroke diagnosis?: No VTE Prior VTE?: No VTE Risk Level:: Surgical - moderate VTE Device Contraindication: N/A - Device Ordered VTE Drug Contraindication: N/A - Med Ordered
[2021-01-19 11:36] LABS: Appearance Urine CLEAR; Color Urine STRAW; Glucose Urine UA NEG (NEG); Leukocyte Esterase Urine NEG (NEG); Nitrite Urine NEG (NEG); PH 6.5 (5.0-8.0); Specific Gravity - Urine <= 1.005 (1.005-1.025); Urine Blood TRACE (NEG); Urine Ketones NEG (NEG); Urine Protein NEG (NEG-TRACE)
[2021-01-19 11:57] LABS: RBC Urine 0-2 /HPF (0); WBC Urine 0 /HPF (0-4)
[2021-01-19 12:00] VITALS: BP 127/58; PULSE 107; RESP 17; TEMP 37.2; O2SAT 96
--- NOTE | 2021-01-19 14:55 | PC.NURSE ---
Patient pathak removed at [address] Gan order. DTV at 1930
[2021-01-19 15:36] VITALS: BP 132/80; PULSE 89; RESP 18; TEMP 36.6; O2SAT 98
[2021-01-19 19:22] VITALS: BP 152/70; PULSE 88; RESP 17; TEMP 36.5; O2SAT 99
[2021-01-19] MEDS: Atorvastatin Calcium 10 MG TABLET PO (21:34)
[2021-01-20] VITALS (8 sets, daily range): BP systolic 129–151; BP diastolic 60–79; PULSE 76–99; RESP 16–18; TEMP 36.2–37.3; O2SAT 94–98
[2021-01-20] MEDS: Heparin Sodium,Porcine 5,000 UNIT/ML VIAL 5000 UNIT SUBCUT ×4 (00:52→23:42)
[2021-01-20] MEDS: oxyCODONE HCl Immed Release 5 MG TABLET 10 MG PO ×5 (00:57→23:40)
[2021-01-20] MEDS: 0.9 % Sodium Chloride Flush 3 ML SYRINGE IVFLUSH ×3 (01:06→15:31)
--- NOTE | 2021-01-20 08:51 | PM.PNGS ---
Subjective Subjective Date of Service: 01/20/21 Interval history: Patient had Santos catheter removed and was able to void a large amount. She is considered low return of the urinary retention. She reports minimal incisional pain. She is learning how to use the ostomy bag. She reports tolerating regular diet as well. Physical Exam Vital Signs: Vital Signs: Last Vital Signs Temp 97.3 F 01/20/21 08:00 Pulse 76 01/20/21 08:00 Resp 16 01/20/21 08:00 BP 141/61 H 01/20/21 08:00 Pulse Ox 98 01/20/21 08:00 Oxygen Flow Rate 98 01/17/21 02:40 Body Mass Index 21.2 Const: General: healthy appearing and no acute distress Nutritional Appearance: well nourished Orientation/consciousness: patient oriented x3 Limitations: no limitations Resp: Effort & Inspection: normal respiratory effort GI: Inspection: Yes normal to inspection and Yes abdominal wall ecchymosis ( Heparin injections) Palpation (GI): Soft to palpation and Tenderness to palpation present (GI) in the LLQ Percussion: Yes normal to percussion Auscultation: normal bowel sounds Skin: General skin exam: no rashes or lesions noted Neuro: General: patient oriented x3 Extrem: General: Yes no clubbing, cyanosis or edema Procedures Date of Service Date of Service: 01/20/21 Progress Note: A&P Assessment and plan (1) Perforation of sigmoid colon due to diverticulitis: Status: Acute (2) History of open sigmoidectomy: Status: Acute Assessment and Plan: 65-year-old female patient status post Vahe procedure for perforated sigmoid diverticulitis now 1 week postop. She is tolerating regular diet her ostomy is functioning properly. She has had some difficulty with urinary retention and required replacement of Santos catheter over the weekend. the catheter is now removed. She is learning how to care for her colostomy. Anticipate discharge either today or tomorrow. Fall Risk Details Current Medications: Current Medications Acetaminophen (Acetaminophen 325 Mg Tablet) 650 mg PO Q4H PRN PRN Reason: Fever Last Admin: 01/19/21 08:02 Dose: 650 mg Documented by: Atorvastatin Calcium (Atorvastatin Calcium 10 Mg Tablet) 10 mg PO BEDTIME [facility] Last Admin: 01/19/21 21:34 Dose: 10 mg Documented by: Diphenhydramine HCl (Diphenhydramine Hcl 50 Mg/Ml Vial) 25 mg IVPUSH Q6H PRN PRN Reason: Itching Gabapentin (Gabapentin 100 Mg Capsule) 100 mg PO TID [facility] Last Admin: 01/19/21 21:33 Dose: 100 mg Documented by: Heparin Sodium (Porcine) (Heparin Sodium,Porcine 5,000 Unit/Ml Vial) 5,000 unit SUBCUT Q8H [facility] Last Admin: 01/20/21 00:52 Dose: 5,000 unit Documented by: Ondansetron HCl (Ondansetron Hcl 4 Mg/2 Ml Vial) 4 mg IVPUSH Q4H PRN PRN Reason: Nausea Last Admin: 01/19/21 05:58 Dose: 4 mg Documented by: Oxycodone HCl (Oxycodone Hcl Immed Release 5 Mg Tablet) 5 mg PO Q3H PRN PRN Reason: Pain, Moderate (Pain Scale 4-6 Oxycodone HCl (Oxycodone Hcl Immed Release 5 Mg Tablet) 10 mg PO Q3H PRN PRN Reason: Pain, Severe (Pain Scale 7-10) Last Admin: 01/20/21 00:57 Dose: 10 mg Documented by: Sodium Chloride (0.9 % Sodium Chloride Flush 3 Ml Syringe) [facility] Last Admin: 01/20/21 01:06 Dose: 3 ml Documented by: Time Spent With Patient Time: Total time spent is greater than 50% in coordination of care (as documented) at patient's floor/unit and/or counseling patient: Time with patient: 15 - 24 minutes Quality Stroke Does the patient have a stroke diagnosis?: No VTE Prior VTE?: No VTE Risk Level:: Surgical - moderate VTE Device Contraindication: N/A - Device Ordered VTE Drug Contraindication: N/A - Med Ordered
[2021-01-20] MEDS: Gabapentin 100 MG CAPSULE PO ×3 (09:28→20:39)
[2021-01-20] MEDS: Atorvastatin Calcium 10 MG TABLET PO (20:39)
[2021-01-21] MEDS: 0.9 % Sodium Chloride Flush 3 ML SYRINGE IVFLUSH ×2 (01:32→07:25)
[2021-01-21 03:00] VITALS: O2SAT 94
[2021-01-21 04:00] VITALS: BP 127/66; PULSE 94; RESP 18; TEMP 36.9; O2SAT 94
[2021-01-21] MEDS: oxyCODONE HCl Immed Release 5 MG TABLET PO (04:22)
[2021-01-21 07:21] VITALS: BP 121/57; PULSE 86; RESP 16; TEMP 36.6; O2SAT 99
[2021-01-21] MEDS: oxyCODONE HCl Immed Release 5 MG TABLET 10 MG PO ×2 (07:24→11:03)
[2021-01-21] MEDS: Gabapentin 100 MG CAPSULE PO (07:25)
[2021-01-21] MEDS: Acetaminophen 325 MG TABLET 650 MG PO (07:25)
[2021-01-21] MEDS: Heparin Sodium,Porcine 5,000 UNIT/ML VIAL 5000 UNIT SUBCUT (07:25)
[2021-01-21] MEDS: Ibuprofen 600 MG TABLET PO (11:03)
--- NOTE | 2021-01-21 11:30 | PM.PNGS ---
Subjective Subjective Date of Service: 01/21/21 Interval history: Doing better. Pain controlled with 10mg Oxycodone. Voiding on her own ok. Tolerating solid diet. Feels ready for discharge. Physical Exam Vital Signs: Vital Signs: Last Vital Signs Temp 97.8 F 01/21/21 07:21 Pulse 86 01/21/21 07:21 Resp 16 01/21/21 07:21 BP 121/57 L 01/21/21 07:21 Pulse Ox 99 01/21/21 07:21 Oxygen Flow Rate 98 01/17/21 02:40 Body Mass Index 21.2 Const: General: healthy appearing, comfortable, no acute distress and alert Orientation/consciousness: patient oriented x3 Resp: Effort & Inspection: normal respiratory effort GI: Other: SONIA drain serosanguineous drianage; ostomy pink with soft stool in appliance Inspection: No distended and Yes incision (clean) Palpation (GI): Soft to palpation, Tenderness to palpation present (GI) (mild, incisional), no guarding and not rigid Percussion: Yes normal to percussion Skin: General skin exam: no rashes or lesions noted Neuro: General: patient oriented x3 Extrem: General: Yes no clubbing, cyanosis or edema Procedures Date of Service Date of Service: 01/21/21 Progress Note: A&P Assessment and plan (1) Perforation of sigmoid colon due to diverticulitis: Status: Acute (2) History of open sigmoidectomy: Status: Acute Assessment and Plan: 65-year-old female patient status post Vahe procedure for perforated sigmoid diverticulitis now 1 week postop.? She is tolerating regular diet her ostomy is functioning well.? She is voiding on her own. Colostomy education is going well. Her pain is well controlled. Her SONIA drain was removed today.? Plan for discharge to home today with VNA services, f/u in 1 week. Patient comfortable with plan. Fall Risk Details Current Medications: Current Medications Acetaminophen (Acetaminophen 325 Mg Tablet) 650 mg PO Q4H PRN PRN Reason: Fever Last Admin: 01/21/21 07:25 Dose: 650 mg Documented by: Atorvastatin Calcium (Atorvastatin Calcium 10 Mg Tablet) 10 mg PO BEDTIME [facility] Last Admin: 01/20/21 20:39 Dose: 10 mg Documented by: Diphenhydramine HCl (Diphenhydramine Hcl 50 Mg/Ml Vial) 25 mg IVPUSH Q6H PRN PRN Reason: Itching Gabapentin (Gabapentin 100 Mg Capsule) 100 mg PO TID [facility] Last Admin: 01/21/21 07:25 Dose: 100 mg Documented by: Heparin Sodium (Porcine) (Heparin Sodium,Porcine 5,000 Unit/Ml Vial) 5,000 unit SUBCUT Q8H [facility] Last Admin: 01/21/21 07:25 Dose: 5,000 unit Documented by: Ibuprofen (Ibuprofen 600 Mg Tablet) 600 mg PO Q8H PRN PRN Reason: Pain, Mild (Pain Scale 1-3) Last Admin: 01/21/21 11:03 Dose: 600 mg Documented by: Ondansetron HCl (Ondansetron Hcl 4 Mg/2 Ml Vial) 4 mg IVPUSH Q4H PRN PRN Reason: Nausea Last Admin: 01/19/21 05:58 Dose: 4 mg Documented by: Oxycodone HCl (Oxycodone Hcl Immed Release 5 Mg Tablet) 10 mg PO Q4H PRN PRN Reason: Pain, Severe (Pain Scale 7-10) Last Admin: 01/21/21 11:03 Dose: 10 mg Documented by: Sodium Chloride (0.9 % Sodium Chloride Flush 3 Ml Syringe) [facility] Last Admin: 01/21/21 07:25 Dose: 3 ml Documented by: Time Spent With Patient Time: Total time spent is greater than 50% in coordination of care (as documented) at patient's floor/unit and/or counseling patient: Time with patient: 25 - 35 minutes Quality Stroke Does the patient have a stroke diagnosis?: No VTE Prior VTE?: No VTE Risk Level:: Surgical - moderate VTE Device Contraindication: N/A - Device Ordered VTE Drug Contraindication: N/A - Med Ordered
--- NOTE | 2021-01-21 13:21 | MHC.CM.PN ---
Pt discharging home w/[facility] for new ostomy, pt's at bedside for transport.
--- NOTE | 2021-01-21 13:23 | W.MHC.F2F ---
Service Date Service Date: 01/21/21 Reasons for Services Signs and symptoms assessed: abdominal pain, abdominal tenderness, colostomy appearance and output, incision appearance, SONIA drain removal Reason for snf: wound care (ostomy care) and postoperative assessment and/or care Homebound: Leaving the home is medically contraindicated at this time without the asist of a device and/or another person due th the listed conditions above and below. Homebound supporting statement: Mrs. Liang is s/p vickie procedure for perforated diverticulitis. This is a new ostomy and she will need VNA services for care. Certification: Based on the above findings, I certify that this patient is confined to the home and needs intermittent snf care, physical therapy and/or speech therapy, or continues to need occupational therapy. The patient is under my care, and I have initiated the establishment of the plan of care. The patient will be followed by a physician who will periodically review the plan of care.
--- NOTE | 2021-01-22 09:35 | PM.DS ---
DS: Providers Provider Date of Service: 01/21/21 Date of admission: 01/13/21 00:34 Primary care physician: Ryan Hayes MD Attending physician on admission: Stella Henriquez Attending physician on discharge: David Grijalva DS: Diagnosis Discharge Diagnosis (1) Perforation of sigmoid colon due to diverticulitis: Status: Acute (2) History of open sigmoidectomy: Status: Acute DS: Summary Hospital Course Hospital Course: BRIEF HPI: Adilia Liang is a 65 year old female who presented to the emergency department around 5 p.m. this evening after experiencing several hours of bilateral lower abdominal discomfort that she reports was greater than a 10/10 on a pain scale.? Patient reports she has a history of 1 episode of diverticulitis greater than 5 years ago where she was admitted to [facility] for 3 days for IV antibiotics and was treated conservatively.? She reports she has not had any further episodes until she experienced this discomfort today around noon.? She reports she ate lunch and developed the lower abdominal discomfort.? She had associated nausea but no vomiting.? She denies any change in bowel habits such as constipation or diarrhea.? She reports having chills but no fever or shortness of breath.? Patient was seen in the emergency department and had a CT scan of the abdomen and pelvis which showed free air with some possible evidence of diverticulitis of the sigmoid colon however a definitive area of perforation cannot be seen on CAT scan. HOSPITAL COURSE: It was recommended to proceed with an exploratory laparotomy with possible bowel resection, possibly colostomy if the sigmoid was the place where the perforation is found.?This was discussed with the patient and her by the admitting physician, Dr. Henriquez. She was made NPO, started on IVF and IV zosyn. On 01/13/21, an exploratory laparotomy, sigmoid resection and end colostomy (Vickie procedure) was performed by Dr. Henriquez without complication. Intraoperative findings included an inflamed sigmoid colon and a small perforation on the anterior surface with multiple diverticula throughout with inflammatory changes surrounding the sigmoid colon and purulent material within the pelvis. The patient tolerated the procedure well, completed routine recovery in PACU and was admitted to the medical/surgical floor for observation. The patient had a slow but uncomplicated recovery course. She struggled with pain control on POD #1 and her medication was switched to dilaudid with better control. She was tolerating clear liquids. She was ambulated. Her pathak catheter was removed. Her WBC downtrended and normalized. Her colostomy was slow to gain function but began to pass flatus and a large amount of stool on POD #4. Her diet was advanced to full liquids and then low residue diet. She was tolerating this without nausea or vomiting. She was transitioned to PO analgesics. She developed left leg swelling and a venous Doppler was performed which revealed no DVT. She developed urinary retention with high PVR and required pathak catheter reinsertion. UA/urine culture were ordered which were normal. This was removed later and she began voiding large amounts on her own without difficulty. She was educated on her colostomy and colostomy care. Her SONIA had scanty serous drainage and was removed. She completed a 6 day course of IV zosyn. On the day of discharge, the patient was tolerated a solid diet without nausea/vomiting, her pain was controlled on PO analgesics, her colostomy was viable appearing with good output. She had a clean incision and benign abdominal exam. She was discharged to home on 01/21/21 in stable condition with VNA services. She is to follow up in the office in [address] Grijalva. Status at Discharge Functional status at discharge: independent ambulation Overall status at discharge: patient is progressing back to baseline Time Spent with Patient Time attestation: Total time spent providing and/or coordinating discharge services: Discharge coordination time: Greater than 30 minutes Quality: Stroke Does the patient have a stroke diagnosis?: No Physical Exam Vital Signs: Vital Signs: Last Vital Signs Temp 97.8 F 01/21/21 07:21 Pulse 86 01/21/21 07:21 Resp 16 01/21/21 07:21 BP 121/57 L 01/21/21 07:21 Pulse Ox 99 01/21/21 07:21 Oxygen Flow Rate 98 01/17/21 02:40 Body Mass Index 21.2 Const: General: healthy appearing, comfortable, no acute distress and alert Orientation/consciousness: patient oriented x3 GI: Other: COLOSTOMY PINK, stool in appliance Inspection: No distended and Yes incision (clean) Palpation (GI): Soft to palpation, Tenderness to palpation present (GI) (mild, incisional ), no guarding and not rigid Percussion: Yes normal to percussion Skin: General skin exam: no rashes or lesions noted Neuro: General: patient oriented x3 Extrem: General: Yes no clubbing, cyanosis or edema DS: Data Data Completed and Pending Completed studies during hospitalization [Text1]: 01/13/21 03:18 Surgical [PTH] Routine Colon, sigmoid, segmental resection:? Diverticular-associated segmental colitis. Discharge Plan Discharge Patient Disposition: Home Health Service Discharge Diagnosis: perforated diverticulitis s/p vickie procedure Referrals: Enma VALDEZ [Outside] - 1 Day (CORRECTION FOR NEW OSTOMY. PLEASE CALL [phone] IF YOU HAVE NOT HEARD FROM A NURSE BY 12PM ON 01/22.) David Grijalva MD [Physician] - 1 Week Ryan Hayes MD [Primary Care Provider] - 1 Week Discharge Medications: New oxycodone 5 mg tablet 5 mg PO Q4H PRN (Reason: pain (scale score 7-10)) Qty: 30 RF: 0 Continued aspirin 81 mg Tablet 81 mg PO DAILY RF: 0 gabapentin 100 mg capsule 100 mg PO TID RF: 0 ibuprofen 400 mg tablet 400 mg PO NEEDED RF: 0 simvastatin 20 mg tablet 20 mg PO DAILY RF: 0 cholecalciferol (vitamin D3) 50 mcg (2,000 unit) capsule 50 mcg PO DAILY RF: 0 Discontinued tramadol 50 mg tablet 50 mg PO NEEDED PRN (Reason: Pain) RF: 0 Discharge Orders: Discharge Order (Routine); Ordered 01/21/21 Ordered By: Megan Aragon Diet: other Activity on Discharge: No heavy lifting Stand Alone Forms: Patient Portal Discharge page, Work/School Release Activity Restrictions/Additional Instructions: If the incision area is tender, you may apply an ice pack for short intervals (No more than 20 minutes on, followed by at least 20 minutes off). Do not apply heat. Do not use creams, lotions, or topical antibiotics unless instructed to do so by your surgeon. These can cause infection or allergic reaction. Ok to shower. You have jesusita closing your incision and these will be removed approximately 10-14 days after surgery. Low residue diet NO HEAVY LIFTING (>10lbs). Follow up in office. ([phone]) Call Your Doctor If: -Your temperature exceeds 101.5? F -You experience excessive pain or swelling -You have an unexpected reaction to medication -You have excessive bleeding -You experience continued vomiting/nausea -Your incision begins to separate -Your incision shows signs of infection such as increased redness, swelling, excessive pain, drainage (light blood or clear fluid is normal) or heat Care Plan Goals: Return to baseline health and gradual return to activity following recovery period; COLSTOMY CARE Health Concerns: PERFORATED DIVERTICULITIS, S/P SIGMOID RESECTION Plan of Treatment: Colostomy care, discharge to home, f/u in office Assessment: Doing well post operatively and stable for discharge. Discharge Date/Time: 01/21/21 15:00
== END 2021-01-21 15:00 | disposition home health service (06) | DRG 221 ==
LOC: HO.ED 01-13 00:25 → HO.EDOVER 01-13 01:00 → HO.IMC 01-13 01:01 → HO.S3 01-18 00:06
PROVIDERS: Physician Assistant; Surgery; Admitting Provider Surgery; Emergency Provider Student in an Organized Health Care Education/Training Program; PCP Internal Medicine; Visit Provider Surgery
PROC: (CPT 49000; principal; 2021-01-13 01:30)
DX: K57.20 Diverticulitis of large intestine with perforation and abscess without bleeding (principal); K21.9 Gastro-esophageal reflux disease without esophagitis; Z20.822 Contact with and (suspected) exposure to COVID-19; Z88.0 Allergy status to penicillin; Z88.2 Allergy status to sulfonamides; Z88.5 Allergy status to narcotic agent; Z79.1 Long term (current) use of non-steroidal anti-inflammatories (NSAID); Z79.82 Long term (current) use of aspirin; Z79.899 Other long term (current) drug therapy
CPT/HCPCS: 36415; 74177; 80048; 80053; 81001; 81003; 82248; 83605; 83690; 85025; 85027; 85610; 86850; 86900; 86901; 87040; 87086; 87635; 88307; 93971; 96361; 96374; 96375; 99024; 99285; C1758; J0131; J0696; J1100; J1170; J1885; J2250; J2270; J2405; J2543; J3010; Q9967

== ENCOUNTER → 2021-01-29 10:00 | Outpatient (BNVA) | payer OTHER, SELFPAY | PROVIDERS: PCP Internal Medicine; Visit Provider Surgery ==

== ENCOUNTER → 2021-02-02 09:14 | Outpatient (BNVA) | payer OTHER, SELFPAY | PROVIDERS: PCP Internal Medicine; Referring Provider Internal Medicine; Visit Provider Surgery ==

== ENCOUNTER 2021-02-09 13:57 | Outpatient (REF) | payer OTHER, SELFPAY ==
[2021-02-09 14:10] LABS: MANUAL DIFF FLAG NO
[2021-02-09 14:19] LABS: Basophils Absolute Auto 0.1 X10*3/uL (0.0-0.2); Basophils Percent Auto 1.1 % (0-2); Eosinophils Absolute Auto 0.2 X10*3/uL (0.0-0.4); Eosinophils Percent Auto 2.7 % (0-4); Hematocrit 40.5 % (37.0-47.0); Hemoglobin 13.1 g/dl (12.0-16.0); Imm Gran Abs Auto 0.02 X10*3/uL (0.00-0.03); Imm Gran Pct Auto 0.3 % (0.0-0.4); Lymphocytes Absolute Auto 2.1 X10*3/uL (1.2-4.9); Mean Corpuscular HGB Conc 32.3 g/dl (31.0-35.0); Mean Corpuscular Hemoglobin 30.7 pg (27.0-33.0); Mean Corpuscular Volume 94.8 fL (80.0-98.0); Monocytes Absolute Auto 0.7 X10*3/uL (0.1-1.2); Monocytes Percent Auto 10.1 % (2-11); Neutrophils Absolute Auto 3.57 x10*3/uL (2.0-8.3); Neutrophils Percent Auto 53.8 % (45-73); Platelet Count 255 X10*3/uL (160-400); Red Blood Count 4.27 X10*6/uL (4.20-5.50); Red Cell Distribution Width 12.8 % (11.0-16.0); White Blood Count 6.6 X10*3/uL (4.8-10.8)
[2021-02-09 14:48] LABS: Alanine Aminotransferase 30 U/L (0-31); Albumin Level 4.5 g/dL (3.5-5.0); Alkaline Phosphatase 90 U/L (39-117); Anion Gap 12 (12-20); Aspartate Amino Transferase 23 U/L (5-31); Bilirubin Total 0.7 mg/dL (0.0-1.0); Blood Urea Nitrogen 13 mg/dL (9-16); C Reactive Protein 0.23 mg/dL (< or = 0.50); Calcium 9.4 mg/dL (8.4-10.2); Carbon Dioxide 30 mmol/L (22-29); Chloride 106 mmol/L (96-108); Estimated Glomerular Filt Rate > 60; Glucose Random 85 mg/dL (60-115); Potassium 3.9 mmol/L (3.3-5.1); Sodium 144 mmol/L (135-145); Total Protein 6.8 g/dL (6.5-8.0)
== END 2021-02-09 13:58 | disposition home or self-care (01) ==
LOC: HO.LAB 13:57
PROVIDERS: PCP Internal Medicine; Visit Provider Internal Medicine
DX: K57.20 Diverticulitis of large intestine with perforation and abscess without bleeding (principal); E78.00 Pure hypercholesterolemia, unspecified; Z93.3 Colostomy status
CPT/HCPCS: 36415; 80053; 85025; 86140

== ENCOUNTER 2021-02-10 07:48 | Outpatient (REF) | payer OTHER, SELFPAY ==
--- NOTE | ~2021-02-10 | MM_ITS ---
EXAMINATION: BONE DENSITOMETRY CLINICAL INDICATION: Menopause. COMPARISON: Previous BD dated 12/01/2018 and baseline BD dated 08/02/2007. TECHNIQUE: Using a [employer] DXA System (software version: 13.1) manufactured by [employer], dual-energy x-ray absorptiometry was performed of the lumbar spine and left hip. The images are of good technical quality. Summary results are attached. FINDINGS: AP SPINE L1-L4: Current: BMD 0.894 g/cm2, Z-score -0.3, T-score -2.4, osteopenia, 3.8% decrease from previous, 18.0% decrease from baseline (<5% change is not significant). Prior: BMD 0.929 g/cm2. Baseline: BMD 1.090 g/cm2. LEFT FEMUR, NECK: Current: BMD 0.823 g/cm2, Z-score 0.2, T-score -1.5, osteopenia. Prior: BMD 0.758 g/cm2. Baseline: BMD 0.962 g/cm2. LEFT FEMUR, TOTAL: Current: BMD 0.859 g/cm2, Z-score 0.3, T-score -1.2, osteopenia, 10.1% increase from previous, 13.5% decrease from baseline (<5% change is not significant). Prior: BMD 0.780 g/cm2. Baseline: BMD 0.993 g/cm2. IDENTIFIED RISK FACTORS: Height loss, secondary osteoporosis, anticonvulsants, menopause. HISTORY OF FRACTURE: None listed. MEDICATIONS: Calcium supplements or multivitamin, vitamin D. MM/XR DEXA axial skeleton IMPRESSION: 1. DIAGNOSIS: Osteopenia based on the lowest T-score value of -2.4 in the lumbar spine applying World Health Organization criteria. 2. 10-YEAR FRACTURE RISK PREDICTION, FRAX: Major osteoporotic fracture (clinical spine, forearm, hip or shoulder) 7.7%. Hip fracture 0.9%. 3. Treatment Recommendations: NOF guidelines recommend consideration for treatment in postmenopausal women and men age 50 and older presenting with the following: -A hip or vertebral (clinical or morphometric) fracture. -T-score less than or equal to -2.5 at the femoral neck or spine after appropriate evaluation to exclude secondary causes. -Low bone mass at the hip or spine and a 10-year fracture probability by FRAX of greater than or equal to 3% for hip fracture or greater than or equal to 20% for major osteoporotic fracture based on the [place] adapted WHO algorithm. 4. Other Recommendations: All treatment decisions require clinical judgment and consideration of individual patient factors, including patient preferences, comorbidities, previous drug use, risk factors not captured in the FRAX model (e.g. frailty, falls, vitamin D deficiency, increased bone turnover, interval significant decline in bone density) and possible under or overestimation of fracture risk by FRAX. Additional medical evaluation for secondary cause of low bone mineral density may be appropriate. FUTURE SCAN RECOMMENDATION: People with diagnosed cases of osteoporosis or at high risk for fracture should have regular bone mineral density tests. For patients eligible for Medicare, routine testing is allowed once every 2 years. The testing frequency can be increased to one year for patients who have rapidly progressing disease, those who are receiving or discontinuing medical therapy to restore bone mass, or have additional risk factors.
--- NOTE | ~2021-02-10 | MM_ITS ---
EXAMINATION: MM SCREENING DIGITAL BREAST TOMOSYNTHESIS, BILATERAL CLINICAL INFORMATION: Screening. Asymptomatic. Family history breast cancer (mother age 42, half sister age 45). The lifetime risk of breast cancer based on the Tyrer-Cuzick Model is 7%. COMPARISON: Mammography: 02/08/2020, 03/07/2019, 12/01/2018, 11/28/2017 TECHNIQUE: Digital breast tomosynthesis is performed in both the craniocaudal and mediolateral oblique views along with computer-aided detection (CAD). Synthesized 2D images are generated from the tomosynthesis. Additional left exaggerated CC view is provided. FINDINGS: The breasts are heterogeneously dense, which may obscure small masses (ACR BI-RADS breast composition Category c). There are no significant masses, abnormal calcifications, or other abnormalities. No significant changes from prior exams. MM/MM tomosynthesis screening BI IMPRESSION: No mammographic evidence of malignancy. ASSESSMENT: BI-RADS 1: Negative RECOMMENDATION: Routine annual mammography screening. This patient's information was entered into a reminder system with a target due date for their next mammogram.
== END 2021-02-10 07:49 | disposition home or self-care (01) ==
LOC: HO.MAMMO 07:48
PROVIDERS: PCP Internal Medicine; Visit Provider Internal Medicine
DX: Z13.820 Encounter for screening for osteoporosis (principal); Z78.0 Asymptomatic menopausal state; Z12.31 Encounter for screening mammogram for malignant neoplasm of breast
CPT/HCPCS: 77063; 77067; 77080

== ENCOUNTER → 2021-02-26 13:34 | Outpatient (BNVA) | payer OTHER, SELFPAY | PROVIDERS: PCP Internal Medicine; Referring Provider Internal Medicine; Visit Provider Surgery ==

== ENCOUNTER 2021-03-10 05:48 | Outpatient (REF) | payer OTHER, SELFPAY ==
--- NOTE | ~2021-03-10 | FL_ITS ---
EXAMINATION: XR FLUOROSCOPY WITH IMAGES CLINICAL INFORMATION: Shoulder pain COMPARISON: Fluoroscopic spot view 12/02/2020 TECHNIQUE: Fluoroscopy performed by Dr. Blaine Barone. Fluoroscopy time: 0.1 minutes DAP: 0.31 Gycm2 Images: 1 FINDINGS: There is a needle overlying the right acromioclavicular joint. Acromioclavicular alignment normal. FL/FL guidance in treatment room IMPRESSION: Fluoroscopy for pain management procedure.
== END 2021-03-10 05:49 | disposition home or self-care (01) ==
LOC: HO.RADIR 05:48
PROVIDERS: Visit Provider Anesthesiology
DX: M25.519 Pain in unspecified shoulder (principal); M79.18 Myalgia, other site
CPT/HCPCS: J3300

== ENCOUNTER 2021-03-11 08:01 | Outpatient (REF) | payer OTHER, SELFPAY ==
[2021-03-11 09:56] LABS: Blood Urea Nitrogen 10 mg/dL (9-16); Estimated Glomerular Filt Rate > 60
== END 2021-03-11 08:02 | disposition home or self-care (01) ==
LOC: HO.LAB 08:01
PROVIDERS: PCP Internal Medicine; Visit Provider Surgery
DX: K57.20 Diverticulitis of large intestine with perforation and abscess without bleeding (principal)
CPT/HCPCS: 36415; 82565; 84520

== ENCOUNTER 2021-03-18 06:49 | Outpatient (REF) | payer OTHER, SELFPAY ==
--- NOTE | ~2021-03-18 | CT_ITS ---
EXAMINATION: CT ABDOMEN AND PELVIS WITH CONTRAST CLINICAL INFORMATION: Diverticulitis with perforation COMPARISON: Previous CT 01/12/2021 TECHNIQUE: Multidetector volumetric images were obtained from the superior aspect of the liver through the pubic symphysis following administration 85 mL of Omnipaque 350 intravenous contrast. Sagittal and coronal reformatted images were obtained on the technologist's workstation. Oral contrast: Yes This CT examination was performed using dose optimization techniques as appropriate, variously including the following: *Automated exposure control *Adjustment of mA and/or kV according to patient size (this includes techniques or standardized protocols for targeted exams where dose is matched to indication/reason for exam; i.e. extremities or head) *Use of iterative reconstruction technique DLP: 229 mGy-cm FINDINGS: LUNG BASES: The visualized lung bases are unremarkable. LIVER, GALLBLADDER, AND BILIARY TREE: The liver is normal in size, shape, and attenuation. No focal hepatic lesion or biliary ductal dilatation is present. The gallbladder is unremarkable with no evidence of radiopaque gallstones, gallbladder wall thickening, or obvious pericholecystic inflammatory changes. PANCREAS: Unremarkable. SPLEEN: Unremarkable. ADRENAL GLANDS: Unremarkable. KIDNEYS AND URETERS: There is a small 5 mm low-attenuation lesion in the lower pole right kidney is stable and probably represents a cyst. No imaging follow-up needed. The kidneys are otherwise unremarkable. BLADDER: Unremarkable. GASTROINTESTINAL TRACT: There are postsurgical changes following resection of the distal colon left lower quadrant colostomy. There is diverticulosis of the colon. No evidence of diverticulitis is seen. No free air, ascites or abscess is. The cecum is located in the appendix are located low in the pelvis. Small and large bowel is otherwise unremarkable. The stomach is unremarkable. ABDOMINAL WALL: There are postsurgical changes to the abdominal wall. No hernia is seen. LYMPH NODES: Normal. VASCULAR: Unremarkable. PELVIC VISCERA: Unremarkable. OSSEOUS STRUCTURES: Unremarkable. CT/CT abdomen pelvis w con IMPRESSION: Postsurgical changes following resection of the distal colon and left lower quadrant colostomy. Diverticulosis. No evidence of diverticulitis. No free air, ascites or abscess seen. Fleischner guidelines were followed.
[2021-03-18] MEDS: iohexoL 350 MG/ML 100 ML INFUS..BTL IV (10:03)
[2021-03-18] MEDS: Barium Sulfate Oral (Vanilla) 450 ML ORAL.SUSP 900 ML PO (10:04)
== END 2021-03-18 06:50 | disposition home or self-care (01) ==
LOC: HO.CT 06:49
PROVIDERS: PCP Internal Medicine; Visit Provider Surgery
DX: K57.20 Diverticulitis of large intestine with perforation and abscess without bleeding (principal)
CPT/HCPCS: 74177; Q9967

== ENCOUNTER → 2021-03-31 13:36 | Outpatient (BNVA) | payer OTHER, SELFPAY | PROVIDERS: PCP Internal Medicine; Referring Provider Internal Medicine; Visit Provider Surgery | DX: K57.20 Diverticulitis of large intestine with perforation and abscess without bleeding (principal) ==

== ENCOUNTER 2021-05-18 06:04 | Inpatient (IN) | payer OTHER, SELFPAY ==
--- NOTE | 2021-04-14 08:54 | HO.ANESPROP2 ---
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, never had a clot Bilateral hearing aids Pt with anxiety r/t mask - Requests versed prior to mask on face PMFSH Active Problems Active Problems: All Active Problems (Updated 01/19/21 @ 09:31 by Ryan Gan MD) Perforation of sigmoid colon due to diverticulitis (Acute) History of open sigmoidectomy (Acute) Bowel perforation (Acute) Protrusion of cervical intervertebral disc (Acute) Intervertebral disc protrusion (Acute) Right shoulder pain (Acute) Cervicalgia (Acute) Sternoclavicular joint pain (Acute) Well woman exam (Acute) Trigger finger, right ring finger (Acute) Trigger finger, right middle finger (Acute) Myofascial pain syndrome (Acute) Acromioclavicular joint pain (Acute) Past Medical History Medical History Acromioclavicular joint pain Arthritis COVID-19 vaccine series completed Elevated cholesterol Factor 5 Leiden mutation, heterozygous Family history of complication of anesthesia GERD (gastroesophageal reflux disease) Hearing impairment Myofascial pain syndrome Perforation of sigmoid colon due to diverticulitis Family History Family History Sister Breast cancer Mother Breast cancer Family/Other Uterine cancer Family/Other Throat cancer Bone cancer Sister Emphysema lung Sister Breast cancer Father Emphysema lung Brother Alzheimer's dementia Sister Type 2 diabetes mellitus Family history of problems with anesthesia: No Surgical History Surgical History H/O colonoscopy H/O right knee surgery History of hand surgery History of open sigmoidectomy Hx of dilation and curettage Hx of elbow surgery Hx of foot surgery Hx of foot surgery History of Problems with Anesthesia: No Social History Social History Household Members: Spouse Housing: House Are you a primary women's health care nurse practitioner to a significant other at home: No Do you presently have visiting nurse or other home services: No Alcohol intake: current Alcohol intake frequency: holidays/special occasions only Patient Tobacco Use Status: Never used Tobacco Use of substances other than those prescribed or required for medical reasons: No Have you been hit, kicked, punched, or otherwise hurt by someone within the past year? 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[place] Allergies Allergy/AdvReac Type Severity Reaction Status Date / Time amoxicillin Allergy Mild Rash Verified 05/18/21 06:28 codeine [Codeine] Allergy Mild VOMITING Verified 05/18/21 06:28 nitrofurantoin Allergy Mild RASH Verified 05/18/21 06:28 [Nitrofurantoin] Sulfa (Sulfonamide Allergy Mild RASH Verified 05/18/21 06:28 Antibiotics) [Sulfa (Sulfonamides)] trimethoprim [Trimethoprim] Allergy Mild RASH Verified 05/18/21 06:28 Home Medications Medication Instructions Recorded Confirmed Last Taken Type ibuprofen 400 mg tablet 400 mg PO NEEDED 04/28/20 04/14/21 01/12/21 13:00 History simvastatin 20 mg tablet 20 mg PO DAILY 04/28/20 04/14/21 01/12/21 08:00 History acetaminophen 650 mg 650 mg PO Q12H PRN 04/14/21 04/14/21 Unknown History tablet,extended release fluticasone propionate 50 1 spray INTRANASAL DAILY 04/14/21 04/14/21 05/18/21 04:00 History mcg/actuation nasal spray,suspension gabapentin 100 mg capsule 1 cap PO BEDTIME 04/14/21 04/14/21 Unknown History multivitamin 1 tab PO DAILY 04/14/21 04/14/21 Unknown History Exam Exam Date and Time: April 14, 2021 0854 Height,Weight and Vital Signs: Pulse Resp BP Pulse Ox 76 20 117/57 L 97 04/14/21 09:04 04/14/21 09:04 04/14/21 09:04 04/14/21 09:04 Pertinent Lab Results Pertinent Lab Results: Laboratory Tests 02/09/21 02/09/21 03/11/21 14:09 14:09 08:08 WBC 6.6 Hgb 13.1 Hct 40.5 Plt Count 255 Sodium 144 Potassium 3.9 Chloride 106 Carbon Dioxide 30 H BUN 10 Creatinine 0.66 Airway Mallampati Class: I TM Dist: >3cm Neck ROM: Full Heart: RRR Lungs: CTAB Assessment and Plan Final Anesthetic Review Family History of Problems with Anesthesia: No History of Problems with Anesthesia: No Documented by User: Meredith Zuleta MD 05/18/21 08:18 PMFSH Past Medical History Medical History Acromioclavicular joint pain Arthritis COVID-19 vaccine series completed Elevated cholesterol Factor 5 Leiden mutation, heterozygous Family history of complication of anesthesia GERD (gastroesophageal reflux disease) Hearing impairment Myofascial pain syndrome Perforation of sigmoid colon due to diverticulitis Family History Family History Sister Breast cancer Mother Breast cancer Family/Other Uterine cancer Family/Other Throat cancer Bone cancer Sister Emphysema lung Sister Breast cancer Father Emphysema lung Brother Alzheimer's dementia Sister Type 2 diabetes mellitus Surgical History Surgical History H/O colonoscopy H/O right knee surgery History of hand surgery History of open sigmoidectomy Hx of dilation and curettage Hx of elbow surgery Hx of foot surgery Hx of foot surgery Social History Social History Household Members: Spouse Housing: House Are you a primary women's health care nurse practitioner to a significant other at home: No Do you presently have visiting nurse or other home services: No Alcohol intake: current Alcohol intake frequency: holidays/special occasions only Patient Tobacco Use Status: Never used Tobacco Use of substances other than those prescribed or required for medical reasons: No Have you been hit, kicked, punched, or otherwise hurt by someone within the past year? If so, by whom?: No Are you DNR?: No Advance Directives: Yes Advance Directives Information Provided: Yes Advance Directives on File: Yes Advance Directives Date on File: 05/27/15 Recently lost weight without trying: No Eating poorly because of decreased appetite: No Nutrition Risks: No Nutritional Risk Poor oral hygiene: No service: No Sexual orientation: Straight/Heterosexual Gender identity: Female Meds Allergies Allergy/AdvReac Type Severity Reaction Status Date / Time amoxicillin Allergy Mild Rash Verified 05/18/21 06:28 codeine [Codeine] Allergy Mild VOMITING Verified 05/18/21 06:28 nitrofurantoin Allergy Mild RASH Verified 05/18/21 06:28 [Nitrofurantoin] Sulfa (Sulfonamide Allergy Mild RASH Verified 05/18/21 06:28 Antibiotics) [Sulfa (Sulfonamides)] trimethoprim [Trimethoprim] Allergy Mild RASH Verified 05/18/21 06:28 Home Medications Medication Instructions Recorded Confirmed Last Taken Type ibuprofen 400 mg tablet 400 mg PO NEEDED 04/28/20 04/14/21 01/12/21 13:00 History simvastatin 20 mg tablet 20 mg PO DAILY 04/28/20 04/14/21 01/12/21 08:00 History acetaminophen 650 mg 650 mg PO Q12H PRN 04/14/21 04/14/21 Unknown History tablet,extended release fluticasone propionate 50 1 spray INTRANASAL DAILY 04/14/21 04/14/21 05/18/21 04:00 History mcg/actuation nasal spray,suspension gabapentin 100 mg capsule 1 cap PO BEDTIME 04/14/21 04/14/21 Unknown History multivitamin 1 tab PO DAILY 04/14/21 04/14/21 Unknown History Exam Airway Mallampati Class: II (Small mouth) Assessment and Plan Assessment Anesthesia Assessment: Anesthesia Plan Discussed and Chart Reviewed Final Anesthetic Review NPO: Yes ASA Class: II Final Preanesthetic Review: Meds/Allgs Chart Reviewed, Consent Obtained/Reviewed and Anes Risks/Benef Reviewed Patient Risk: Low Procedure Risk: Intermediate Anesthetic Plan Anesthetic Plan: GA Disposition: Standard PACU
[2021-04-14 09:04] VITALS: BP 117/57; PULSE 76; RESP 20; O2SAT 97; BMI 19.5
[2021-05-18] VITALS (19 sets, daily range): BP systolic 119–174; BP diastolic 51–72; PULSE 83–106; RESP 14–20; TEMP 36.1–37.3; O2SAT 96–100
[2021-05-18 06:37] LABS: COVID-19 Test Negative (Negative); IDNOW Serial# 9DD0AD1C
[2021-05-18] MEDS: Lactated Ringers 1,000 ML 100 ML IVCONT (06:42)
--- NOTE | 2021-05-18 07:45 | MHC.SHP ---
Pre-Procedural Eval Section A Date of Service: 05/18/21 The patient is an INPATIENT: No Changes since office visit: Yes Patient answered all questions; No Cold of Flu in the past 2 weeks, No New Medical Problems and No Changes in Medication The History & Physical has been completed within 30 days and I have reviewed it.: No Section B Chief Complaint: Closure of colostomy Details of Present Illness: perforated diverticulitis Relevant Family History (Specify if Yes): No Relevant Social History: None Present Medications: see Short Stay Collaborative assessment Medical History: Significant History History of Previous Operations: Relevant previous surgery/procedure and date(s) (Hartmans procedure) Allergies: Allergies Allergy/AdvReac Type Severity Reaction Status Date / Time amoxicillin Allergy Mild Rash Verified 05/18/21 06:28 codeine [Codeine] Allergy Mild VOMITING Verified 05/18/21 06:28 nitrofurantoin Allergy Mild RASH Verified 05/18/21 06:28 [Nitrofurantoin] Sulfa (Sulfonamide Allergy Mild RASH Verified 05/18/21 06:28 Antibiotics) [Sulfa (Sulfonamides)] trimethoprim [Trimethoprim] Allergy Mild RASH Verified 05/18/21 06:28 Review of Systems Sugical H&P ROS: Negative: Constitution, Cardiovascular, Respiratory, Neurological, Psychiatric, Hem-Onc, Allergic/Immunologic, Gastrointestinal, Genitourinary, Musculoskeletal, Integumentary, Endocrine and Eyes/Ears/Nose/Throat Exam Surgical H&P Exam: Normal: HEENT, Normal: Heart, Normal: Lungs, Normal: Extremities, Normal: Abdomen (ostomy LLQ), Normal: Skin and Normal: Neurological Plan Diagnosis/Plan: Unchanged I have reviewed the history and physical and performed a pertinent physical examination on my patient. No changes have occurred unless specified.
--- NOTE | 2021-05-18 10:16 | P.OP_ITS ---
Operative Note Operative Note Date of Service: 05/18/21 Narrative: Preoperative diagnosis: Perforated sigmoid diverticulitis status post Vahe procedure Postoperative diagnosis: same Procedure: closure of colostomy with colorectal anastomosis Surgeon: David Grijalva MD Relocation Services Specialist: Megan Aragon PA-C Anesthesia: general endotracheal Indications for procedure: 65-year-old female patient presenting with perforated sigmoid diverticulitis with diffuse fecal soilage status post Vahe procedure approximately 4 months ago. She returns today for closure of colostomy. Operative findings: Normal appearing descending colon and rectal stump without evidence of residual abscess. Specimen: Colostomy bud, rectal stump Estimated blood loss: 20 mL Complications: none Procedure details: patient was brought to the OR and placed in a supine position. After administering general anesthesia she was placed in a lithotomy position. The colostomy site was closed using a running lock 0 Prolene suture. A Santos catheter was inserted and connected to a urinate. Patient's abdomen was prepped with ChloraPrep and perineum prepped with Betadine in the abdomen draped in a sterile fashion. A surgical time-out was called the consent confirmed. Patient received preoperative antibiotics and Venodyne boots were in place. Local anesthesia consisting of 0.5% Sensorcaine was infiltrated in the midline and around the previous colostomy in the left lower quadrant. A lower midline incision was then created from below the umbilicus. Previous scar was excised in the incision carried out through subcutaneous tissue, past Zulema's fascia, and up to the linea alba. This was then incised with the electrocautery. Peritoneum was then entered in the abdomen explored. Minimal adhesions were noted to the anterior abdominal wall. A Bookwalter retractor was then placed. The rectum was identified and 2 Prolene sutures marking the rectal stump brought up through the incision. The rectum was further mobilized using electrocautery and the LigaSure. A generous rectal stump was identified. Attention was then directed to the colostomy site. An elliptical incision was made Oriented transversely around the colostomy. The incision was carried out through subcutaneous tissue along the bowel wall past the will defect and peritoneum and into the on the cavity. Rectal stump was then brought up into the abdominal incision. The stump appeared to be mobilized sufficiently to allow on Astepro CIS. The mesentery of the me was divided using electrocautery and LigaSure. A pursestring clamp was then placed in a 2 0 Prolene suture on a Farrukh needle used to create the pursestring. The ostomy but was then excised using a curved Guzman scissor above the clamp. The descending colon was then dilated using EEA sizers. A 25 mm dilator was not able to be completely inse rted into the stump therefore a 25 EEA stapler was obtained. The anvil was placed in the descending colon and the pursestring tied. Attention was then directed to the rectum and a dilator inserted up through the anus and rectum. The staple was then inserted but was unable to be completely advanced to the rectal stump. The rectal stump was then further mobilized along the pelvic hollow. And the mesentery divided using LigaSure. A portion of the rectum was then excised using the curved Endo-ASIM stapler. The EEA was then advanced to the stump and the bike inserted through the anterior wall of the rectum. This was then connected to the distal descending colon and the stapler fired. The anastomosis was reinforced using interrupted 3-0 Surgilon sutures. Two complete donuts were identified in the stapler. The anastomosis was tested using saline in the pelvis while insufflating air through the anus. No leak could be identified. The wounds were then thoroughly irrigated with saline solution and suctioned dry. No bleeding could be identified as well. Posterior sheath of the ostomy was then closed using a running 0 Polysorb suture. Anterior rectus sheath was then closed using a running 0 Polysorb suture. Fascia was closed in the midline incision using a running 1 Maxon suture. Subcutaneous tissue and dermis were then reapproximated using interrupted 3-0 Polysorb sutures. Can was closed in all incisions using skin jesusita. Sterile dressings were then applied. The patient tolerated the procedure well. Sponge, instrument, and needle counts reported as correct. Patient was transferred to PACU in stable condition.
[2021-05-18] MEDS: HYDROmorphone HCl 0.5 MG/0.5 ML SYRINGE 0.25 MG IVPUSH ×2 (10:45→10:53)
[2021-05-18] MEDS: HYDROmorphone HCl 0.5 MG/0.5 ML SYRINGE IVPUSH (11:00)
[2021-05-18] MEDS: fentaNYL citrate/PF 100 MCG/2 ML VIAL 50 MCG IVPUSH ×2 (11:40→11:45)
[2021-05-18] MEDS: Dextrose 5 % and Lactated Ring 1,000 ML 125 ML IVCONT ×2 (11:51→21:10)
[2021-05-18] MEDS: oxyCODONE HCl Immed Release 5 MG TABLET 10 MG PO (12:40)
[2021-05-18] MEDS: ondansetron HCL 4 MG/2 ML VIAL IVPUSH (14:05)
[2021-05-18] MEDS: HYDROmorphone HCl 1 MG/ML SYRINGE 0.5 MG IVPUSH (16:33)
[2021-05-18] MEDS: oxyCODONE HCl Immed Release 5 MG TABLET PO (17:43)
[2021-05-18] MEDS: Gabapentin 100 MG CAPSULE PO (21:15)
[2021-05-19] VITALS (7 sets, daily range): BP systolic 90–126; BP diastolic 41–61; PULSE 80–95; RESP 14–20; TEMP 36.1–37; O2SAT 94–100
[2021-05-19] MEDS: Dextrose 5 % and Lactated Ring 1,000 ML 125 ML IVCONT (05:24)
[2021-05-19 05:39] LABS: MANUAL DIFF FLAG NO
[2021-05-19 05:42] LABS: Basophils Percent Auto 0.3 % (0-2); Eosinophils Percent Auto 0.2 % (0-4); Hematocrit 33.2 % (37.0-47.0); Hemoglobin 10.8 g/dl (12.0-16.0); Imm Gran Abs Auto 0.02 X10*3/uL (0.00-0.03); Imm Gran Pct Auto 0.2 % (0.0-0.4); Lymphocytes Absolute Auto 1.7 X10*3/uL (1.2-4.9); Lymphocytes Percent Auto 17.2 % (20-40); Mean Corpuscular HGB Conc 32.5 g/dl (31.0-35.0); Mean Corpuscular Hemoglobin 30.5 pg (27.0-33.0); Mean Corpuscular Volume 93.8 fL (80.0-98.0); Mean Platelet Volume 8.9 fL (9.4-12.3); Monocytes Absolute Auto 0.9 X10*3/uL (0.1-1.2); Monocytes Percent Auto 8.8 % (2-11); Neutrophils Absolute Auto 7.3 x10*3/uL (2.0-8.3); Neutrophils Percent Auto 73.3 % (45-73); Platelet Count 205 X10*3/uL (160-400); Red Blood Count 3.54 X10*6/uL (4.20-5.50)
[2021-05-19 06:01] LABS: Anion Gap 10 (12-20); Blood Urea Nitrogen 7 mg/dL (9-16); Calcium 8.4 mg/dL (8.4-10.2); Carbon Dioxide 29 mmol/L (22-29); Chloride 104 mmol/L (96-108); Creatinine Clr Calc Pharmacy 68.9; Estimated Glomerular Filt Rate > 60; Glucose Random 127 mg/dL (60-115); Potassium 3.7 mmol/L (3.3-5.1); Sodium 139 mmol/L (135-145)
[2021-05-19] MEDS: Fluticasone Propionate Nasal 16 GM SPRAY 1 SPRAY NOSTRIL-B (07:35)
--- NOTE | 2021-05-19 07:38 | P.PNGS_ITS ---
Subjective Subjective Date of Service: 05/19/21 Interval history: Patient reports incisional pain this morning; has not taken pain meds since last night. Reports abdominal cramps as well but no flatus. Physical Exam Vital Signs: Vital Signs: Last Vital Signs Temp 97.0 F 05/19/21 03:58 Pulse 84 05/19/21 05:20 Resp 14 05/19/21 03:58 BP 115/53 L 05/19/21 05:20 Pulse Ox 94 05/19/21 03:58 BMI result Body Mass Index 19.5 Const: General: healthy appearing and no acute distress Nutritional Appearance: well nourished Orientation/consciousness: patient oriented x3 Limitations: no limitations HENMT: Head: Yes normocephalic Resp: Effort & Inspection: normal respiratory effort, no respiratory distress and no stridor GI: Inspection: Yes normal to inspection and Yes incision (clean and dry; incision intact. ) Palpation (GI): Soft to palpation and Tenderness to palpation present (GI) (will-incisional) Percussion: Yes normal to percussion Skin: Other: warm, dry, no rash Neuro: General: patient oriented x3 Extrem: Other: no edema Objective Data Active Medications Albuterol Sulfate (Albuterol Sulfate (0.083%) 2.5 Mg/3 Ml Vial.Neb) 2.5 mg INHALE ONCE PRN PRN Reason: Wheezing Fentanyl (Fentanyl Citrate/Pf 100 Mcg/2 Ml Vial) 50 mcg IVPUSH Q5M PRN; Protocol PRN Reason: Pain, Severe (Pain Scale 7-10) Last Admin: 05/18/21 11:45 Dose: 50 mcg Documented by: DENISSE Fentanyl (Fentanyl Citrate/Pf 100 Mcg/2 Ml Vial) 25 mcg IVPUSH Q5M PRN; Protocol PRN Reason: Pain, Moderate (Pain Scale 4-6 Fluticasone Propionate (Fluticasone Propionate Nasal 16 Gm [place]) 1 spray NOSTRIL-B DAILY [facility] Last Admin: 05/19/21 07:35 Dose: 1 spray Documented by: KENDRA Gabapentin (Gabapentin 100 Mg Capsule) 100 mg PO BEDTIME [facility] Last Admin: 05/18/21 21:15 Dose: 100 mg Documented by: MANUEL Hydromorphone HCl (Hydromorphone Hcl 1 Mg/Ml Syringe) 0.5 mg IVPUSH Q2H PRN; Pr otocol PRN Reason: Pain, Severe (Pain Scale 7-10) Last Admin: 05/18/21 16:33 Dose: 0.5 mg Documented by: MANUEL Hydromorphone HCl (Hydromorphone Hcl 0.5 Mg/0.5 Ml Syringe) 0.5 mg IVPUSH Q5M PRN; Protocol PRN Reason: Pain, Severe (Pain Scale 7-10) Last Admin: 05/18/21 11:00 Dose: 0.5 mg Documented by: TOYA Hydromorphone HCl (Hydromorphone Hcl 0.5 Mg/0.5 Ml Syringe) 0.25 mg IVPUSH Q5M PRN; Protocol PRN Reason: Pain, Severe (Pain Scale 7-10) Last Admin: 05/18/21 10:53 Dose: 0.25 mg Documented by: TOYA Dextrose/Lactated Ringer's (D5lr) 1,000 mls @ 125 mls/hr IVCONT .Q8H [facility] Last Admin: 05/19/21 05:24 Dose: 125 mls/hr Documented by: JOSSY Promethazine HCl 6.25 mg/ (Sodium Chloride) 50.25 mls @ 201 mls/hr IV ONCE PRN PRN Reason: Nausea and Vomiting Acetaminophen (Ofirmev) 1,000 mg in 100 mls @ 400 mls/hr IV Q6H [facility] Stop: 05/19/21 08:44 Last Admin: 05/19/21 07:35 Dose: 400 mls/hr Documented by: KENDRA Ondansetron HCl (Ondansetron Hcl 4 Mg/2 Ml Vial) 4 mg IVPUSH Q8H PRN PRN Reason: Nausea and Vomiting Last Admin: 05/18/21 14:05 Dose: 4 mg Documented by: KENDRA Ondansetron HCl (Ondansetron Hcl 4 Mg/2 Ml Vial) 4 mg IVPUSH ONCE PRN PRN Reason: Nausea and Vomiting Oxycodone HCl (Oxycodone Hcl Immed Release 5 Mg Tablet) 5 mg PO Q4H PRN PRN Reason: Pain, Moderate (Pain Scale 4-6 Last Admin: 05/18/21 17:43 Dose: 5 mg Documented by: MANUEL Oxycodone HCl (Oxycodone Hcl Immed Release 5 Mg Tablet) 5 mg PO ONCE PRN PRN Reason: Pain, Severe (Pain Scale 7-10) Sodium Chloride (0.9 % Sodium Chloride Flush 3 Ml Syringe) 3 ml IVFLUSH QSHIFT [facility] Last Admin: 05/19/21 07:35 Dose: Not Given Documented by: KENDRA Non-Admin Reason: IV Running Temazepam (Temazepam 15 Mg Capsule) 15 mg PO BEDTIME PRN PRN Reason: Insomnia Labs CBC & Chem 7: 05/19/21 05:30 05/19/21 05:30 Labs: Laboratory Results - last 24 hr 05/19/21 05/19/21 05:30 05:30 MCV 93.8 MCH 30.5 MCHC 32.5 RDW 12.0 Plt Count 205 MPV 8.9 L Immature Gran % (Auto) 0.2 Neut % (Auto) 73.3 H Lymph % (Auto) 17.2 L [place] % (Auto) 8.8 Eos % (Auto) 0.2 Baso % (Auto) 0.3 Lymph # (Auto) 1.7 [place] # (Auto) 0.9 Eos # (Auto) 0.0 Baso # (Auto) 0.0 Abs Immat Gran (auto) 0.02 Absolute Neuts (auto) 7.3 Absolute Nucleated RBC 0.000 Nucleated RBC % (auto) 0.0 Anion Gap 10 L Estim Creat Clear Calc 68.9 Estimated GFR > 60 Random Glucose 127 H Calcium 8.4 D Procedures Date of Service Date of Service: 05/19/21 Progress Note: A&P Assessment and plan (1) S/P colostomy takedown: Status: Acute Plan 65-year-old female patient with perforated diverticulitis status post Vahe procedure 3 months ago now presenting for closure of colostomy. She is postop day 1 following this procedure reports incisional pain. Her incisions are clean and intact without redness or discharge. Plan Out of bed and ambulation, DC Santos catheter, decreased IV fluids, continue clear liquids for now. Encourage incentive spirometry. Fall Risk Details Current Medications: Current Medications Albuterol Sulfate (Albuterol Sulfate (0.083%) 2.5 Mg/3 Ml Vial.Neb) 2.5 mg INHALE ONCE PRN PRN Reason: Wheezing Fentanyl (Fentanyl Citrate/Pf 100 Mcg/2 Ml Vial) 50 mcg IVPUSH Q5M PRN; Protocol PRN Reason: Pain, Severe (Pain Scale 7-10) Last Admin: 05/18/21 11:45 Dose: 50 mcg Documented by: Fentanyl (Fentanyl Citrate/Pf 100 Mcg/2 Ml Vial) 25 mcg IVPUSH Q5M PRN; Protocol PRN Reason: Pain, Moderate (Pain Scale 4-6 Fluticasone Propionate (Fluticasone Propionate Nasal 16 Gm [place]) 1 spray NOSTRIL-B DAILY [facility] Last Admin: 05/19/21 07:35 Dose: 1 spray Documented by: Gabapentin (Gabapentin 100 Mg Capsule) 100 mg PO BEDTIME [facility] Last Admin: 05/18/21 21:15 Dose: 100 mg Documented by: Hydromorphone HCl (Hydromorphone Hcl 1 Mg/Ml Syringe) 0.5 mg IVPUSH Q2H PRN; Protocol PRN Reason: Pain, Severe (Pain Scale 7-10) Last Admin: 05/18/21 16:33 Dose: 0.5 mg Documented by: Hydromorphone HCl (Hydromorphone Hcl 0.5 Mg/0.5 Ml Syringe) 0.5 mg IVPUSH Q5M PRN; Protocol PRN Reason: Pain, Severe (Pain Scale 7-10) Last Admin: 05/18/21 11:00 Dose: 0.5 mg Documented by: Hydromorphone HCl (Hydromorphone Hcl 0.5 Mg/0.5 Ml Syringe) 0.25 mg IVPUSH Q5M PRN; Protocol PRN Reason: Pain, Severe (Pain Scale 7-10) Last Admin: 05/18/21 10:53 Dose: 0.25 mg Documented by: Dextrose/Lactated Ringer's (D5lr) 1,000 mls @ 125 mls/hr IVCONT .Q8H [facility] Last Admin: 05/19/21 05:24 Dose: 125 mls/hr Documented by: Promethazine HCl 6.25 mg/ (Sodium Chloride) 50.25 mls @ 201 mls/hr IV ONCE PRN PRN Reason: Nausea and Vomiting Acetaminophen (Ofirmev) 1,000 mg in 100 mls @ 400 mls/hr IV Q6H [facility] Stop: 05/19/21 08:44 Last Admin: 05/19/21 07:35 Dose: 400 mls/hr Documented by: Ondansetron HCl (Ondansetron Hcl 4 Mg/2 Ml Vial) 4 mg IVPUSH Q8H PRN PRN Reason: Nausea and Vomiting Last Admin: 05/18/21 14:05 Dose: 4 mg Documented by: Ondansetron HCl (Ondansetron Hcl 4 Mg/2 Ml Vial) 4 mg IVPUSH ONCE PRN PRN Reason: Nausea and Vomiting Oxycodone HCl (Oxycodone Hcl Immed Release 5 Mg Tablet) 5 mg PO Q4H PRN PRN Reason: Pain, Moderate (Pain Scale 4-6 Last Admin: 05/18/21 17:43 Dose: 5 mg Documented by: Oxycodone HCl (Oxycodone Hcl Immed Release 5 Mg Tablet) 5 mg PO ONCE PRN PRN Reason: Pain, Severe (Pain Scale 7-10) Sodium Chloride (0.9 % Sodium Chloride Flush 3 Ml Syringe) 3 ml IVFLUSH [facility] Last Admin: 05/19/21 07:35 Dose: Not Given Documented by: Temazepam (Temazepam 15 Mg Capsule) 15 mg PO BEDTIME PRN PRN Reason: Insomnia Time Spent With Patient Time: Total time spent is greater than 50% in coordination of care (as documented) at patient's floor/unit and/or counseling patient: Time with patient: 15 - 24 minutes Quality Stroke Does the patient have a stroke diagnosis?: No VTE Prior VTE?: No VTE Risk Level:: Surgical - high VTE Device Contraindication: N/A - Device Ordered VTE Drug Contraindication: Treatment Not Indicated
[2021-05-19] MEDS: HYDROmorphone HCl 1 MG/ML SYRINGE 0.5 MG IVPUSH ×4 (08:02→19:18)
--- NOTE | 2021-05-19 08:28 | HO.POSTANES ---
Post Anesthesia Evaluation Post Anesthesia Evaluation Vital Signs: Vital Signs Temp Pulse Resp BP Pulse Ox 05/19/21 07:40 98.4 F 95 20 110/51 L 98 05/19/21 05:20 84 115/53 L 05/19/21 03:58 97.0 F 95 14 90/41 L 94 05/19/21 00:00 98.0 F 80 14 98/45 L 97 Anesthesia: General Endotracheal-GETA Mental Status: Awake Pain Control: Satisfactory Nausea/Vomiting: None Hydration: Adequate Anesthesia-Related Issues: No Anes. Related Issues
[2021-05-19] MEDS: ondansetron HCL 4 MG/2 ML VIAL IVPUSH ×2 (10:19→18:44)
--- NOTE | 2021-05-19 13:21 | MHC.CM.PN ---
temoi medical record reviewed along with case disucssed with staff nurse, met with patient and with her permission her remained present in the room, patient was admitted for closure of colostomy which was done about three months ago for perforated diverticulittis she reported she initially had the vna psot op but no longer she is employed but is on FMLA AT PRESENT. SHE LIVES WITH HER NO SERVICCES IN THE HOME , SHE IS INDEPENDENT IN ALL ADLS AND MOBILITY WITH OUT ANY DEVICE DISCHARGE PLAN HOME WITH NO ASERVICES , PCP FOLLOW UP FOR POST [facility] DISCHARGE SURIGICAL FOLLOW UP PER DISCHARGE INSTRUCTIONS. TRANSPORTATION FAMILY EDUCATED ABOUT HCP SHE REPORTED SHE HAS ONE AND HAS NAMED HER HER AGENT , COPY REQUESTED
--- NOTE | 2021-05-19 15:19 | PC.NURSE ---
Patient voiding in BR. Last void 200cc. Bladder scan for PVR 95. Complaining of a lot of gas pains. Ambulating in horta frequently and tolerating clear liquid diet. Denies passing flatus. Belching often.
[2021-05-19] MEDS: oxyCODONE HCl Immed Release 5 MG TABLET PO ×2 (16:47→21:12)
[2021-05-19] MEDS: Magnesium Hydrox/Alum Hydrox 30 ML ORAL.SUSP PO (16:47)
[2021-05-19] MEDS: Dextrose 5 % and Lactated Ring 1,000 ML 80 ML IVCONT (16:52)
[2021-05-19] MEDS: Gabapentin 100 MG CAPSULE PO (20:15)
[2021-05-20] VITALS (7 sets, daily range): BP systolic 126–156; BP diastolic 58–66; PULSE 91–109; RESP 16–18; TEMP 36.3–37.2; O2SAT 95–99
[2021-05-20] MEDS: Magnesium Hydrox/Alum Hydrox 30 ML ORAL.SUSP PO (01:04)
[2021-05-20] MEDS: Temazepam 15 MG CAPSULE PO (01:04)
[2021-05-20] MEDS: oxyCODONE HCl Immed Release 5 MG TABLET PO (01:04)
[2021-05-20] MEDS: Dextrose 5 % and Lactated Ring 1,000 ML 80 ML IVCONT (04:09)
[2021-05-20] MEDS: Omeprazole 20 MG CAPSULE.DR PO (05:53)
[2021-05-20] MEDS: HYDROmorphone HCl 1 MG/ML SYRINGE 0.5 MG IVPUSH (08:54)
[2021-05-20] MEDS: 0.9 % Sodium Chloride Flush 3 ML SYRINGE IVFLUSH ×2 (08:55→16:46)
[2021-05-20] MEDS: Fluticasone Propionate Nasal 16 GM SPRAY 1 SPRAY NOSTRIL-B (09:00)
--- NOTE | 2021-05-20 09:17 | P.PNGS_ITS ---
Subjective Subjective Date of Service: 05/20/21 Interval history: Had difficulty voiding last night and was only able to void small amounts. Now voiding without difficulty. Feels bloated. Having heartburn with the broth. Denies flatus. OOB and ambulating halls multiple times. Physical Exam Vital Signs: Vital Signs: Last Vital Signs Temp 98.9 F 05/20/21 07:39 Pulse 96 05/20/21 07:39 Resp 18 05/20/21 07:39 BP 142/66 H 05/20/21 07:39 Pulse Ox 97 05/20/21 07:39 BMI result Body Mass Index 19.5 Const: General: no acute distress and alert Orientation/consciousness: p atient oriented x3 Resp: Effort & Inspection: normal respiratory effort GI: Inspection: Yes distended and Yes incision (clean) Palpation (GI): Soft to palpation, Tenderness to palpation present (GI) (incisional), no guarding and not rigid Percussion: Yes tympanic to percussion Skin: General skin exam: no rashes or lesions noted Neuro: General: patient oriented x3 Extrem: General: Yes no clubbing, cyanosis or edema Objective Data Active Medications Al Hydroxide/Mg Hydroxide (Magnesium Hydrox/Alum Hydrox 30 Ml Oral.Susp) 30 ml PO Q4H PRN PRN Reason: Heartburn Last Admin: 05/20/21 01:04 Dose: 30 ml Documented by: THAIS Fluticasone Propionate (Fluticasone Propionate Nasal 16 Gm [place]) 1 spray NOSTRIL-B DAILY [facility] Last Admin: 05/20/21 09:00 Dose: 1 spray Documented by: KENDRA Gabapentin (Gabapentin 100 Mg Capsule) 100 mg PO BEDTIME [facility] Last Admin: 05/19/21 20:15 Dose: 100 mg Documented by: MANUEL Hydromorphone HCl (Hydromorphone Hcl 1 Mg/Ml Syringe) 0.5 mg IVPUSH Q2H PRN; Protocol PRN Reason: Pain, Severe (Pain Scale 7-10) Last Admin: 05/20/21 08:54 Dose: 0.5 mg Documented by: KENDRA Acetaminophen (Ofirmev) 1,000 mg in 100 mls @ 400 mls/hr IV Q6H [facility] Sodium Chloride (Ns) 1,000 mls @ 50 mls/hr IVCONT .Q20H [facility] Omeprazole (Omeprazole 20 Mg Capsule.) 20 mg PO DAILY@0630 [facility] Last Admin: 05/20/21 05:53 Dose: 20 mg Documented by: THAIS Ondansetron HCl (Ondansetron Hcl 4 Mg/2 Ml Vial) 4 mg IVPUSH Q8H PRN PRN Reason: Nausea and Vomiting Last Admin: 05/19/21 18:44 Dose: 4 mg Documented by: MANUEL Oxycodone HCl (Oxycodone Hcl Immed Release 5 Mg Tablet) 5 mg PO Q4H PRN PRN Reason: Pain, Moderate (Pain Scale 4-6 Last Admin: 05/20/21 01:04 Dose: 5 mg Documented by: THAIS Oxycodone HCl (Oxycodone Hcl Immed Release 5 Mg Tablet) 10 mg PO Q4H PRN PRN Reason: Pain, Severe (Pain Scale 7-10) Sodium Chloride (0.9 % Sodium Chloride Flush 3 Ml Syringe) 3 ml IVFLUSH QSHIFT [facility] Last Admin: 05/20/21 08:55 Dose: 3 ml Documented by: KENDRA Temazepam (Temazepam 15 Mg Capsule) 15 mg PO BEDTIME PRN PRN Reason: Insomnia Last Admin: 05/20/21 01:04 Dose: 15 mg Documented by: THAIS Labs CBC & Chem 7: 05/19/21 05:30 05/19/21 05:30 Procedures Date of Service Date of Service: 05/20/21 Progress Note: A&P Assessment and plan (1) S/P colostomy takedown: Status: Acute Plan 65-year-old female patient with perforated diverticulitis status post Vahe procedure 3 months ago now presenting for closure of colostomy.? She is postop day 2. Doing fairly well but having some gas pains and no evidence of return of GI function yet. Plan: Will add ofirmev back for pain control and to reduce narcotic use if possible. Encouraged OOB/ambulation. Diet as tolerated. Will resume IVF as PO intake not sufficient. Had some difficulty voiding but seems to be resolved as just voided 550 in hat. Await return of GI function. Plan discussed with patient and . Fall Risk Details Current Medications: Current Medications Al Hydroxide/Mg Hydroxide (Magnesium Hydrox/Alum Hydrox 30 Ml Oral.Susp) 30 ml PO Q4H PRN PRN Reason: Heartburn Last Admin: 05/20/21 01:04 Dose: 30 ml Documented by: Fluticasone Propionate (Fluticasone Propionate Nasal 16 Gm [place]) 1 spray NOSTRIL-B DAILY [facility] Last Admin: 05/20/21 09:00 Dose: 1 spray Documented by: Gabapentin (Gabapentin 100 Mg Capsule) 100 mg PO BEDTIME [facility] Last Admin: 05/19/21 20:15 Dose: 100 mg Documented by: Hydromorphone HCl (Hydromorphone Hcl 1 Mg/Ml Syringe) 0.5 mg IVPUSH Q2H PRN; Protocol PRN Reason: Pain, Severe (Pain Scale 7-10) Last Admin: 05/20/21 08:54 Dose: 0.5 mg Documented by: Acetaminophen (Ofirmev) 1,000 mg in 100 mls @ 400 mls/hr IV Q6H [facility] Sodium Chloride (Ns) 1,000 mls @ 50 mls/hr IVCONT .Q20H [facility] Omeprazole (Omeprazole 20 Mg Capsule.Dr) 20 mg PO DAILY@0630 [facility] Last Admin: 05/20/21 05:53 Dose: 20 mg Documented by: Ondansetron HCl (Ondansetron Hcl 4 Mg/2 Ml Vial) 4 mg IVPUSH Q8H PRN PRN Reason: Nausea and Vomiting Last Admin: 05/19/21 18:44 Dose: 4 mg Documented by: Oxycodone HCl (Oxycodone Hcl Immed Release 5 Mg Tablet) 5 mg PO Q4H PRN PRN Reason: Pain, Moderate (Pain Scale 4-6 Last Admin: 05/20/21 01:04 Dose: 5 mg Documented by: Oxycodone HCl (Oxycodone Hcl Immed Release 5 Mg Tablet) 10 mg PO Q4H PRN PRN Reason: Pain, Severe (Pain Scale 7-10) Sodium Chloride (0.9 % Sodium Chloride Flush 3 Ml Syringe) 3 ml IVFLUSH QSHIFT [facility] Last Admin: 05/20/21 08:55 Dose: 3 ml Documented by: Temazepam (Temazepam 15 Mg Capsule) 15 mg PO BEDTIME PRN PRN Reason: Insomnia Last Admin: 05/20/21 01:04 Dose: 15 mg Documented by: Time Spent With Patient Time: Total time spent is greater than 50% in coordination of care (as documented) at patient's floor/unit and/or counseling patient: Time with patient: 15 - 24 minutes Quality Stroke Does the patient have a stroke diagnosis?: No VTE Prior VTE?: No VTE Risk Level:: Surgical - high VTE Device Contraindication: N/A - Device Ordered VTE Drug Contraindication: Treatment Not Indicated
--- NOTE | 2021-05-20 13:49 | MHC.CM.PN ---
EMR REVIEWED, PT REMAINS ON IVPAIN MEDS, C/O BLOATING & HEARTBURN W/BROTH, NO RETURN OF BOWEL FX AT THIS TIME, NO PLAN FOR D/C, CM WILL CONT TO FOLLOW D/C NEEDS.
[2021-05-20] MEDS: Gabapentin 100 MG CAPSULE PO (22:09)
[2021-05-21] MEDS: 0.9 % Sodium Chloride Flush 3 ML SYRINGE IVFLUSH ×4 (01:04→21:35)
[2021-05-21 04:00] VITALS: BP 118/58; PULSE 80; RESP 14; TEMP 37.1; O2SAT 96
[2021-05-21] MEDS: Omeprazole 20 MG CAPSULE.DR PO (05:56)
[2021-05-21 06:16] LABS: MANUAL DIFF FLAG NO
[2021-05-21 06:37] LABS: Basophils Percent Auto 0.6 % (0-2); Eosinophils Absolute Auto 0.2 X10*3/uL (0.0-0.4); Eosinophils Percent Auto 2.6 % (0-4); Hematocrit 30.5 % (37.0-47.0); Hemoglobin 9.9 g/dl (12.0-16.0); Imm Gran Abs Auto 0.02 X10*3/uL (0.00-0.03); Imm Gran Pct Auto 0.3 % (0.0-0.4); Lymphocytes Absolute Auto 1.2 X10*3/uL (1.2-4.9); Lymphocytes Percent Auto 17.7 % (20-40); Mean Corpuscular HGB Conc 32.5 g/dl (31.0-35.0); Mean Corpuscular Hemoglobin 30.2 pg (27.0-33.0); Mean Platelet Volume 9.7 fL (9.4-12.3); Monocytes Absolute Auto 0.5 X10*3/uL (0.1-1.2); Neutrophils Absolute Auto 4.7 x10*3/uL (2.0-8.3); Neutrophils Percent Auto 71.8 % (45-73); Platelet Count 199 X10*3/uL (160-400); Red Blood Count 3.28 X10*6/uL (4.20-5.50); White Blood Count 6.5 X10*3/uL (4.8-10.8)
[2021-05-21 07:39] VITALS: BP 123/56; PULSE 85; RESP 20; TEMP 36.8; O2SAT 96
--- NOTE | 2021-05-21 09:35 | PM.PNGS ---
Subjective Subjective Date of Service: 05/21/21 Interval history: Had a bowel movement this morning with blood in it. Bowel movement was liquid. Passing continuous flatus. Tolerating solid diet. Pain is significantly improved- decreased yesterday after she began passing flatus but still having some incisional pain. Now voiding without difficulty. Physical Exam Vital Signs: Vital Signs: Last Vital Signs Temp 98.2 F 05/21/21 07:39 Pulse 85 05/21/21 07:39 Resp 20 05/21/21 07:39 BP 123/56 L 05/21/21 07:39 Pulse Ox 96 05/21/21 07:39 BMI result Body Mass Index 19.5 Const: General: comfortable, no acute distress and alert Orientation/consciousness: patient oriented x3 Resp: Effort & Inspection: normal respiratory effort Cardio: Rate: regular rate GI: Inspection: No distended and Yes incision (clean) Palpation (GI): Soft to palpation, Tenderness to palpation present (GI) (incisional) and no guarding Percussion: Yes normal to percussion Skin: General skin exam: no rashes or lesions noted Neuro: General: patient oriented x3 Extrem: General: Yes no clubbing, cyanosis or edema Objective Data Active Medications Al Hydroxide/Mg Hydroxide (Magnesium Hydrox/Alum Hydrox 30 Ml Oral.Susp) 30 ml PO Q4H PRN PRN Reason: Heartburn Last Admin: 05/20/21 01:04 Dose: 30 ml Documented by: THAIS Fluticasone Propionate (Fluticasone Propionate Nasal 16 Gm [place]) 1 spray NOSTRIL-B DAILY [facility] Last Admin: 05/20/21 09:00 Dose: 1 spray Documented by: KENDRA Gabapentin (Gabapentin 100 Mg Capsule) 100 mg PO BEDTIME [facility] Last Admin: 05/20/21 22:09 Dose: 100 mg Documented by: MANUEL Hydromorphone HCl (Hydromorphone Hcl 1 Mg/Ml Syringe) 0.5 mg IVPUSH Q2H PRN; Protocol PRN Reason: Pain, Severe (Pain Scale 7-10) Last Admin: 05/20/21 08:54 Dose: 0.5 mg Documented by: KENDRA Acetaminophen (Ofirmev) 1,000 mg in 100 mls @ 400 mls/hr IV Q6H [facility] Last Infusion: 05/21/21 04:23 Dose: 0 mls/hr Documented by: JOSSY Omeprazole (Omeprazole 20 Mg Capsule.Dr) 20 mg PO DAILY@0630 [facility] Last Admin: 05/21/21 05:56 Dose: 20 mg Documented by: JOSSY Ondansetron HCl (Ondansetron Hcl 4 Mg/2 Ml Vial) 4 mg IVPUSH Q8H PRN PRN Reason: Nausea and Vomiting Last Admin: 05/19/21 18:44 Dose: 4 mg Documented by: MANUEL Oxycodone HCl (Oxycodone Hcl Immed Release 5 Mg Tablet) 5 mg PO Q4H PRN PRN Reason: Pain, Moderate (Pain Scale 4-6 Last Admin: 05/20/21 01:04 Dose: 5 mg Documented by: THAIS Oxycodone HCl (Oxycodone Hcl Immed Release 5 Mg Tablet) 10 mg PO Q4H PRN PRN Reason: Pain, Severe (Pain Scale 7-10) Sodium Chloride (0.9 % Sodium Chloride Flush 3 Ml Syringe) 3 ml IVFSH [facility] Last Admin: 05/21/21 01:04 Dose: 3 ml Documented by: JOSSY Temazepam (Temazepam 15 Mg Capsule) 15 mg PO BEDTIME PRN PRN Reason: Insomnia Last Admin: 05/20/21 01:04 Dose: 15 mg Documented by: THAIS Labs CBC & Chem 7: 05/21/21 05:29 05/19/21 05:30 Labs: Laboratory Results - last 24 hr 05/21/21 05:29 MCV 93.0 MCH 30.2 MCHC 32.5 RDW 12.0 Plt Count 199 MPV 9.7 Immature Gran % (Auto) 0.3 Neut % (Auto) 71.8 Lymph % (Auto) 17.7 L [place] % (Auto) 7.0 Eos % (Auto) 2.6 Baso % (Auto) 0.6 Lymph # (Auto) 1.2 [place] # (Auto) 0.5 Eos # (Auto) 0.2 Baso # (Auto) 0.0 Abs Immat Gran (auto) 0.02 Absolute Neuts (auto) 4.7 Absolute Nucleated RBC 0.000 Nucleated RBC % (auto) 0.0 Procedures Date of Service Date of Service: 05/21/21 Progress Note: A&P Assessment and plan (1) S/P colostomy takedown: Status: Acute Plan 65-year-old female patient with perforated diverticulitis status post Vahe procedure 3 months ago now presenting for closure of colostomy.? She is postop day 3. Doing well and now with return of GI function however some blood in stools. H/H slightly drifted this am. Plan: Repeat CBC tomorrow morning. Monitor blood in stools- likely from anastomotic staple line. Continue pain control. Home in the next couple of days when resolved, moving bowels normally. Patient comfortable with plan. Fall Risk Details Current Medications: Current Medications Al Hydroxide/Mg Hydroxide (Magnesium Hydrox/Alum Hydrox 30 Ml Oral.Susp) 30 ml PO Q4H PRN PRN Reason: Heartburn Last Admin: 05/20/21 01:04 Dose: 30 ml Documented by: Fluticasone Propionate (Fluticasone Propionate Nasal 16 Gm [place]) 1 spray NOSTRIL-B DAILY [facility] Last Admin: 05/20/21 09:00 Dose: 1 spray Documented by: Gabapentin (Gabapentin 100 Mg Capsule) 100 mg PO BEDTIME [facility] Last Admin: 05/20/21 22:09 Dose: 100 mg Documented by: Hydromorphone HCl (Hydromorphone Hcl 1 Mg/Ml Syringe) 0.5 mg IVPUSH Q2H PRN; Protocol PRN Reason: Pain, Severe (Pain Scale 7-10) Last Admin: 05/20/21 08:54 Dose: 0.5 mg Documented by: Acetaminophen (Ofirmev) 1,000 mg in 100 mls @ 400 mls/hr IV Q6H [facility] Last Infusion: 05/21/21 04:23 Dose: Infused Documented by: Omeprazole (Omeprazole 20 Mg Capsule.) 20 mg PO DAILY@0630 [facility] Last Admin: 05/21/21 05:56 Dose: 20 mg Documented by: Ondansetron HCl (Ondansetron Hcl 4 Mg/2 Ml Vial) 4 mg IVPUSH Q8H PRN PRN Reason: Nausea and Vomiting Last Admin: 05/19/21 18:44 Dose: 4 mg Documented by: Oxycodone HCl (Oxycodone Hcl Immed Release 5 Mg Tablet) 5 mg PO Q4H PRN PRN Reason: Pain, Moderate (Pain Scale 4-6 Last Admin: 05/20/21 01:04 Dose: 5 mg Documented by: Oxycodone HCl (Oxycodone Hcl Immed Release 5 Mg Tablet) 10 mg PO Q4H PRN PRN Reason: Pain, Severe (Pain Scale 7-10) Sodium Chloride (0.9 % Sodium Chloride Flush 3 Ml Syringe) 3 ml IVFLUSH QSHIFT [facility] Last Admin: 05/21/21 01:04 Dose: 3 ml Documented by: Temazepam (Temazepam 15 Mg Capsule) 15 mg PO BEDTIME PRN PRN Reason: Insomnia Last Admin: 05/20/21 01:04 Dose: 15 mg Documented by: Time Spent With Patient Time: Total time spent is greater than 50% in coordination of care (as documented) at patient's floor/unit and/or counseling patient: Time with patient: 15 - 24 minutes Quality Stroke Does the patient have a stroke diagnosis?: No VTE Prior VTE?: No VTE Risk Level:: Surgical - high VTE Device Contraindication: N/A - Device Ordered VTE Drug Contraindication: Treatment Not Indicated
[2021-05-21] MEDS: Fluticasone Propionate Nasal 16 GM SPRAY 1 SPRAY NOSTRIL-B (10:04)
[2021-05-21 12:00] VITALS: BP 118/60; PULSE 74; RESP 20; TEMP 36.2; O2SAT 98
[2021-05-21] MEDS: oxyCODONE HCl Immed Release 5 MG TABLET 10 MG PO (13:03)
--- NOTE | 2021-05-21 13:07 | MHC.CM.PN ---
NNURSE INTERNET ARCHITECT NOTED ELECTRONIC MEDICAL RECORD REVIEWED ALONG WITH [facility] DISUCSSED WITH STAFF NRUSE AND OPHYSICIAN DISCHARGE PLAN HOME 1-2 MORTE DAYS HOME NO SERVICES TRANSPORTATION FAMILY
[2021-05-21 16:00] VITALS: BP 122/73; PULSE 98; RESP 14; TEMP 37.2; O2SAT 98
[2021-05-21 19:31] VITALS: BP 152/67; PULSE 89; RESP 12; TEMP 37.4; O2SAT 96
[2021-05-21] MEDS: Gabapentin 100 MG CAPSULE PO (21:35)
[2021-05-21 23:57] VITALS: BP 114/60; PULSE 93; RESP 17; TEMP 36.3; O2SAT 97
[2021-05-22 03:34] VITALS: BP 114/55; PULSE 98; RESP 17; TEMP 36.7; O2SAT 98
--- NOTE | 2021-05-22 07:41 | PM.PNGS ---
Subjective Subjective Date of Service: 05/22/21 Interval history: Patient feels improved, decreased abdominal pain, passing non-bloody stool. Tolerating increased diet without nausea. Physical Exam Vital Signs: Vital Signs: Last Vital Signs Temp 98.1 F 05/22/21 03:34 Pulse 98 05/22/21 03:34 Resp 17 05/22/21 03:34 BP 114/55 L 05/22/21 03:34 Pulse Ox 98 05/22/21 03:34 BMI result Body Mass Index 19.5 Const: General: comfortable and no acute distress Nutritional Appearance: well nourished Orientation/consciousness: patient oriented x3 Limitations: no limitations Resp: Effort & Inspection: normal respiratory effort, no audible wheezes, no cough and no respiratory distress GI: Inspection: Yes normal to inspection and Yes incision (CDI) Palpation (GI): Soft to palpation, nontender, no guarding and not rigid Skin: Other: warm and dry Neuro: General: patient oriented x3 Extrem: Other: ankle edema. Objective Data Active Medications Al Hydroxide/Mg Hydroxide (Magnesium Hydrox/Alum Hydrox 30 Ml Oral.Susp) 30 ml PO Q4H PRN PRN Reason: Heartburn Last Admin: 05/20/21 01:04 Dose: 30 ml Documented by: THAIS Fluticasone Propionate (Fluticasone Propionate Nasal 16 Gm [place]) 1 spray NOSTRIL-B DAILY [facility] Last Admin: 05/21/21 10:04 Dose: 1 spray Documented by: FRAN Gabapentin (Gabapentin 100 Mg Capsule) 100 mg PO BEDTIME [facility] Last Admin: 05/21/21 21:35 Dose: 100 mg Documented by: YOSEF Hydromorphone HCl (Hydromorphone Hcl 1 Mg/Ml Syringe) 0.5 mg IVPUSH Q2H PRN; Protocol PRN Reason: Pain, Severe (Pain Scale 7-10) Last Admin: 05/20/21 08:54 Dose: 0.5 mg Documented by: KENDRA Acetaminophen (Ofirmev) 1,000 mg in 100 mls @ 400 mls/hr IV Q6H [facility] Last Infusion: 05/22/21 05:08 Dose: 0 mls/hr Documented by: YOSEF Omeprazole (Omeprazole 20 Mg Capsule.) 20 mg PO DAILY@0630 [facility] Last Admin: 05/22/21 05:45 Dose: Not Given Documented by: YOSEF Non-Admin Reason: Patient Refused Ondansetron HCl (Ondansetron Hcl 4 Mg/2 Ml Vial) 4 mg IVPUSH Q8H PRN PRN Reason: Nausea and Vomiting Last Admin: 05/19/21 18:44 Dose: 4 mg Documented by: MANUEL Oxycodone HCl (Oxycodone Hcl Immed Release 5 Mg Tablet) 5 mg PO Q4H PRN PRN Reason: Pain, Moderate (Pain Scale 4-6 Last Admin: 05/20/21 01:04 Dose: 5 mg Documented by: THAIS Oxycodone HCl (Oxycodone Hcl Immed Release 5 Mg Tablet) 10 mg PO Q4H PRN PRN Reason: Pain, Severe (Pain Scale 7-10) Last Admin: 05/21/21 13:03 Dose: 10 mg Documented by: FRAN Sodium Chloride (0.9 % Sodium Chloride Flush 3 Ml Syringe) 3 ml IVFLUSH QSHIFT [facility] Last Admin: 05/21/21 21:35 Dose: 3 ml Documented by: YOSEF Temazepam (Temazepam 15 Mg Capsule) 15 mg PO BEDTIME PRN PRN Reason: Insomnia Last Admin: 05/20/21 01:04 Dose: 15 mg Documented by: THAIS Labs CBC & Chem 7: 05/21/21 05:29 05/19/21 05:30 Procedures Date of Service Date of Service: 05/22/21 Progress Note: A&P Assessment and plan (1) S/P colostomy takedown: Status: Acute Plan Patient doing well, tolerating regular diet and passing non-bloody stool. Patient is nervous about discharge due to previous episode of bleeding per rectum. Will hold discharge until tomorrow and recheck CBC in AM. Encouraged OOB. Fall Risk Details Current Medications: Current Medications Al Hydroxide/Mg Hydroxide (Magnesium Hydrox/Alum Hydrox 30 Ml Oral.Susp) 30 ml PO Q4H PRN PRN Reason: Heartburn Last Admin: 05/20/21 01:04 Dose: 30 ml Documented by: Fluticasone Propionate (Fluticasone Propionate Nasal 16 Gm [place]) 1 spray NOSTRIL-B DAILY [facility] Last Admin: 05/21/21 10:04 Dose: 1 spray Documented by: Gabapentin (Gabapentin 100 Mg Capsule) 100 mg PO BEDTIME [facility] Last Admin: 05/21/21 21:35 Dose: 100 mg Documented by: Hydromorphone HCl (Hydromorphone Hcl 1 Mg/Ml Syringe) 0.5 mg IVPUSH Q2H PRN; Protocol PRN Reason: Pain, Severe (Pain Scale 7-10) Last Admin: 05/20/21 08:54 Dose: 0.5 mg Documented by: Acetaminophen (Ofirmev) 1,000 mg in 100 mls @ 400 mls/hr IV Q6H [facility] Last Infusion: 05/22/21 05:08 Dose: Infused Documented by: Omeprazole (Omeprazole 20 Mg Capsule.Dr) 20 mg PO DAILY@0630 [facility] Last Admin: 05/22/21 05:45 Dose: Not Given Documented by: Ondansetron HCl (Ondansetron Hcl 4 Mg/2 Ml Vial) 4 mg IVPUSH Q8H PRN PRN Reason: Nausea and Vomiting Last Admin: 05/19/21 18:44 Dose: 4 mg Documented by: Oxycodone HCl (Oxycodone Hcl Immed Release 5 Mg Tablet) 5 mg PO Q4H PRN PRN Reason: Pain, Moderate (Pain Scale 4-6 Last Admin: 05/20/21 01:04 Dose: 5 mg Documented by: Oxycodone HCl (Oxycodone Hcl Immed Release 5 Mg Tablet) 10 mg PO Q4H PRN PRN Reason: Pain, Severe (Pain Scale 7-10) Last Admin: 05/21/21 13:03 Dose: 10 mg Documented by: Sodium Chloride (0.9 % Sodium Chloride Flush 3 Ml Syringe) 3 ml IVFLUSH [facility] Last Admin: 05/21/21 21:35 Dose: 3 ml Documented by: Temazepam (Temazepam 15 Mg Capsule) 15 mg PO BEDTIME PRN PRN Reason: Insomnia Last Admin: 05/20/21 01:04 Dose: 15 mg Documented by: Time Spent With Patient Time: Total time spent is greater than 50% in coordination of care (as documented) at patient's floor/unit and/or counseling patient: Time with patient: 15 - 24 minutes Quality Stroke Does the patient have a stroke diagnosis?: No VTE Prior VTE?: No VTE Risk Level:: Surgical - high VTE Device Contraindication: N/A - Device Ordered VTE Drug Contraindication: Treatment Not Indicated
[2021-05-22 07:42] VITALS: BP 132/75; PULSE 97; RESP 18; TEMP 37.1; O2SAT 98
[2021-05-22 09:18] LABS: Hematocrit 31.9 % (37.0-47.0); Hemoglobin 10.4 g/dl (12.0-16.0); Mean Corpuscular HGB Conc 32.6 g/dl (31.0-35.0); Mean Corpuscular Hemoglobin 30.1 pg (27.0-33.0); Mean Corpuscular Volume 92.2 fL (80.0-98.0); Mean Platelet Volume 9.1 fL (9.4-12.3); Platelet Count 262 X10*3/uL (160-400); Red Blood Count 3.46 X10*6/uL (4.20-5.50); Red Cell Distribution Width 12.2 % (11.0-16.0); White Blood Count 6.5 X10*3/uL (4.8-10.8)
[2021-05-22] MEDS: Multivitamin TABLET 1 TAB PO (09:38)
[2021-05-22] MEDS: 0.9 % Sodium Chloride Flush 3 ML SYRINGE IVFLUSH ×3 (09:39→20:48)
[2021-05-22] MEDS: Fluticasone Propionate Nasal 16 GM SPRAY 1 SPRAY NOSTRIL-B (09:45)
[2021-05-22 11:49] VITALS: BP 136/65; PULSE 82; RESP 18; TEMP 36.4; O2SAT 100
[2021-05-22] MEDS: oxyCODONE HCl Immed Release 5 MG TABLET PO (13:34)
--- NOTE | 2021-05-22 13:36 | P.DS_ITS ---
DS: Providers Provider Date of Service: 05/22/21 Date of admission: 05/18/21 06:04 Primary care physician: Jason Zhang MD Attending physician on admission: David Grijalva DS: Diagnosis Discharge Diagnosis (1) S/P colostomy takedown: Status: Acute DS: Summary Hospital Course Hospital Course: BRIEF HPI:65-year-old female patient presenting with perforated sigmoid diverticulitis with diffuse fecal soilage status post Vahe procedure herminia roximately 4 months ago. She returns today for closure of colostomy. HOSPITAL COURSE: On 05/18/21, a colostomy closure was performed by Dr. Grijalva without complication. The patient tolerated the procedure well, completed routine recovery in PACU and was admitted to the surgical floor for observation. She had an uncomplicated but slow recovery course. On POD #1, she was doing overall fairly well and was comfortable with analgesics. Her pathak catheter was removed. She was ambulated. She was not passing flatus and was kept on clear liquids. On POD #2, she was distended and still had no return of GI function. She was seen later and began passing large amounts of flatus and was much softer and less distended on exam. She was advanced to a solid diet. She noticed blood via rectum in her stool the following morning and her H/H drifted slightly. She otherwise felt ok. Her abdomen was benign and soft, with mild incisional tenderness and a clean incision. She began to have non bloody bowel movements. The following day, her H/H was stable. She was comfortable on PO analgesics. She was tolerating a solid diet. She felt ready for discharge and was discharged to home on 05/23/21 in stable condition. Status at Discharge Functional status at discharge: independent ambulation Overall status at discharge: patient is progressing back to baseline Time Spent with Patient Time attestation: Total time spent providing and/or coordinating discharge services: Discharge coordination time: Less than 30 minutes Quality: Stroke Does the patient have a stroke diagnosis?: No Physical Exam Vital Signs: Vital Signs: Last Vital Signs Temp 97.5 F 05/22/21 11:49 Pulse 82 05/22/21 11:49 Resp 18 05/22/21 11:49 BP 136/65 05/22/21 11:49 Pulse Ox 100 05/22/21 11:49 BMI result Body Mass Index 19.5 Const: General: comfortable and no acute distress Orientation/consciousness: patient oriented x3 Resp: Effort & Inspection: normal respiratory effort GI: Inspection: No distended and Yes incision (clean) Palpation (GI): Soft to palpation, Tenderness to palpation present (GI) (mild, incisional), no guarding and not rigid Skin: General skin exam: no rashes or lesions noted Neuro: General: patient oriented x3 DS: Data Data Completed and Pending Completed studies during hospitalization [Text1]: 05/18/21 09:21 Surgical [PTH] Routine A. Colostomy, excision: Chronically inflamed enterocutaneous tissue consistent with colostomy. B. Rectal stump, excision: Focally active proctitis; otherwise rectal mucosa within normal limits. Procedures Bypass Sigmoid Colon to Cutaneous, Open Approach (01/13/21) Excision of Sigmoid Colon, Open Approach (01/13/21) Labs on day of discharge: Laboratory Results - last 24 hr 05/22/21 08:48 WBC 6.5 RBC 3.46 L Hgb 10.4 L Hct 31.9 L MCV 92.2 MCH 30.1 MCHC 32.6 RDW 12.2 Plt Count 262 D MPV 9.1 L Absolute Nucleated RBC 0.000 Nucleated RBC % (auto) 0.0 Discharge Plan Discharge Anticipated Discharge Date/Time: 05/23/21 14:36 Patient Disposition: Home, Self-Care Discharge Diagnosis: s/p colostomy closure Referrals: Jason Zhang MD [Primary Care Provider] - 1 Week David Grijalva MD [Physician] - 1 Week Discharge Medications: New temazepam 15 mg Capsule 15 mg PO BEDTIME PRN (Reason: Insomnia) Qty: 10 0RF oxycodone 5 mg Tablet 5 mg PO Q4H PRN (Reason: Pain, Moderate (Pain Scale 4-6) Qty: 16 0RF Continued multivitamin Tablet 1 tab PO DAILY 0RF acetaminophen 650 mg Tablet Extended Release 650 mg PO Q12H PRN (Reason: Pain) 0RF fluticasone propionate 50 mcg/actuation [place],Suspension 1 spray INTRANASAL DAILY 0RF gabapentin 100 mg capsule 1 cap PO BEDTIME 0RF ibuprofen 400 mg tablet 400 mg PO NEEDED 0RF simvastatin 20 mg tablet 20 mg PO DAILY 0RF Discontinued neomycin 500 mg tablet 1 g PO TID Qty: 6 0RF Rx Instructions: administer at 1 PM, 2 PM, and 11 PM the day prior to surgery Discharge Orders: Discharge Order (Routine); Ordered 05/23/21 Ordered By: Magalie Purvis Diet: advance to usual diet Activity on Discharge: As tolerated Stand Alone Forms: Patient Portal Discharge page Care Plan Goals: bowel normalization and wound healing Health Concerns: none Plan of Treatment: cont with advancing diet, can shower at home and keep wounds covered as needed cont with regular diet - try many small volumes of food throughout the day pain meds as needed and stool softeners if gets constipated Assessment: doing very well postop ostomy takedown with good bowel function Discharge Date/Time: 05/23/21 15:56
--- NOTE | 2021-05-22 14:33 | MHC.CM.PN ---
NURSE CASE MANAGEEMENT ELECTRONIC MEDICAL RECORD REVIEWED ALONG WITH CASE DISCUSSED WITH STAFF NURSE, PER DOCUMENTATIOBN PATIENT FEELING BETTER, TOLERATING ADVANCEMENT IN DIET , BLOODY STOOLS\ DISCHARGE PLAN HOME NO SERVICES T
[2021-05-22 15:48] VITALS: BP 136/63; PULSE 86; RESP 18; TEMP 37.2; O2SAT 97
[2021-05-22] MEDS: HYDROmorphone HCl 1 MG/ML SYRINGE 0.5 MG IVPUSH ×2 (17:36→23:54)
[2021-05-22 19:53] VITALS: BP 114/67; PULSE 89; RESP 18; TEMP 37.1; O2SAT 98
[2021-05-22] MEDS: Temazepam 15 MG CAPSULE PO (20:47)
[2021-05-22] MEDS: Atorvastatin Calcium 10 MG TABLET PO (20:47)
[2021-05-22] MEDS: oxyCODONE HCl Immed Release 5 MG TABLET 10 MG PO (20:47)
[2021-05-22] MEDS: Gabapentin 100 MG CAPSULE PO (20:47)
[2021-05-22 23:46] VITALS: BP 134/65; PULSE 98; RESP 14; TEMP 36.4; O2SAT 98
[2021-05-23] MEDS: HYDROmorphone HCl 1 MG/ML SYRINGE 0.5 MG IVPUSH (03:48)
[2021-05-23 03:52] VITALS: BP 137/64; PULSE 95; RESP 14; TEMP 36.4; O2SAT 97
[2021-05-23 07:42] VITALS: BP 124/64; PULSE 100; RESP 18; TEMP 37.2; O2SAT 97
[2021-05-23] MEDS: Multivitamin TABLET 1 TAB PO (09:10)
[2021-05-23] MEDS: 0.9 % Sodium Chloride Flush 3 ML SYRINGE IVFLUSH (09:10)
[2021-05-23] MEDS: Fluticasone Propionate Nasal 16 GM SPRAY 1 SPRAY NOSTRIL-B (09:11)
[2021-05-23] MEDS: oxyCODONE HCl Immed Release 5 MG TABLET PO (09:17)
[2021-05-23 11:59] VITALS: BP 143/68; PULSE 87; RESP 18; TEMP 36.4; O2SAT 99
[2021-05-23] MEDS: Acetaminophen 325 MG TABLET 650 MG PO (13:41)
--- NOTE | 2021-05-23 14:44 | P.DS_ITS ---
DS: Providers Provider Date of Service: 05/23/21 Date of admission: 05/18/21 06:04 Date of discharge: 05/23/21 Primary care physician: Jason Zhang MD Attending physician on discharge: David Grijalva Discharging clinician: Magalie Gomes Hyun DS: Diagnosis Discharge Diagnosis (1) S/P colostomy takedown: Status: Resolved DS: Summary Hospital Course Hospital Course: BRIEF HPI:65-year-old female patient presenting with perforated sigmoid diverticulitis with diffuse fecal soilage status post Vahe procedure approximately 4 months ago. She returns today for closure of colostomy. HOSPITAL COURSE: On 05/18/21, a colostomy closure was performed by Dr. Grijlava without complication. The patient tolerated the procedure well, completed routine recovery in PACU and was admitted to the surgical floor for observation. She had an uncomplicated but slow recovery course. On POD #1, she was doing overall fairly well and was comfortable with analgesics. Her pathak catheter was removed. She was ambulated. She was not passing flatus and was kept on clear liquids. On POD #2, she was distended and still had no return of GI function. She was seen later and began passing large amounts of flatus and was much softer and less distended on exam. She was advanced to a solid diet. She noticed blood via rectum in her stool the following morning and her H/H drifted slightly. She otherwise felt ok. Her abdomen was benign and soft, with mild incisional tenderness and a clean incision. She began to have non bloody bowel movements. The following day, her H/H was stable. She was comfortable on PO analgesics. She was tolerating a solid diet. She felt ready for discharge and was discharged to home on 05/23/21 in stable condition. Status at Discharge Functional status at discharge: independent ambulation Time Spent with Patient Time attestation: Total time spent providing and/or coordinating discharge services: Discharge coordination time: Less than 30 minutes Quality: Stroke Does the patient have a stroke diagnosis?: No Reason for No Anti-thrombotic at DC: Not indicated Reason for No Anticoagulant at DC: Not indicated Reason Not Initiating IV-Tpa: Not indicated Reason for No Anti-thrombotic by Day Two: Not indicated Reason for No Statin at DC: Not indicated Physical Exam Vital Signs: Vital Signs: Last Vital Signs Temp 97.6 F 05/23/21 11:59 Pulse 87 05/23/21 11:59 Resp 18 05/23/21 11:59 BP 143/68 H 05/23/21 11:59 Pulse Ox 99 05/23/21 11:59 BMI result Body Mass Index 19.5 Const: General: cooperative and healthy appearing Nutritional Appearance: average body habitus Orientation/consciousness: oriented to person, oriented to place and oriented to time Resp: Effort & Inspection: normal respiratory effort Auscultation: clear to auscultation bilaterally Cardio: Rate: regular rate Rhythm: regular rhythm GI: Other: abdo soft nontender mild distended - incisions look great jesusita intact no erythema or infection Inspection: Yes normal to inspection Skin: General skin exam: no rashes or lesions noted Neuro: General: oriented to person, oriented to place and oriented to time Extrem: General: Yes normal to inspection and Yes full ROM Psych: Appearance: grossly normal and well kempt Mental Status: mental status grossly normal DS: Data Data Completed and Pending Completed studies during hospitalization [Text1]: Pending at discharge 05/18/21 09:21 Surgical [PTH] Routine Procedures Bypass Sigmoid Colon to Cutaneous, Open Approach (01/13/21) Excision of Sigmoid Colon, Open Approach (01/13/21) Discharge Plan Discharge Anticipated Discharge Date/Time: 05/23/21 14:36 Patient Disposition: Home, Self-Care Discharge Diagnosis: s/p colostomy closure Referrals: David Grijalva MD [Physician] - 1 Week Po,Jason Latham MD [Primary Care Provider] - 1 Week Discharge Medications: New temazepam 15 mg Capsule 15 mg PO BEDTIME PRN (Reason: Insomnia) Qty: 10 0RF Continued multivitamin Tablet 1 tab PO DAILY 0RF acetaminophen 650 mg Tablet Extended Release 650 mg PO Q12H PRN (Reason: Pain) 0RF fluticasone propionate 50 mcg/actuation [place],Suspension 1 spray INTRANASAL DAILY 0RF gabapentin 100 mg capsule 1 cap PO BEDTIME 0RF ibuprofen 400 mg tablet 400 mg PO NEEDED 0RF simvastatin 20 mg tablet 20 mg PO DAILY 0RF Discontinued neomycin 500 mg tablet 1 g PO TID Qty: 6 0RF Rx Instructions: administer at 1 PM, 2 PM, and 11 PM the day prior to surgery No Action oxycodone 5 mg tablet 5 mg PO Q12H PRN (Reason: pain, severe) Qty: 10 0RF Discharge Orders: Discharge Order (Routine); Ordered 05/23/21 Ordered By: Magalie Purvis Diet: advance to usual diet Activity on Discharge: As tolerated Stand Alone Forms: Patient Portal Discharge page Care Plan Goals: bowel normalization and wound healing Health Concerns: none Plan of Treatment: cont with advancing diet, can shower at home and keep wounds covered as needed cont with regular diet - try many small volumes of food throughout the day pain meds as needed and stool softeners if gets constipated Assessment: doing very well postop ostomy takedown with good bowel function Discharge Date/Time: 05/23/21 15:56
--- NOTE | 2021-05-23 16:20 | MHC.CM.PN ---
PT MEDICALLY CLEARED FOR DISCHARGE HOME TODAY W/NO SERVICES, PT'S FOR TRANSPORT.
== END 2021-05-23 15:56 | disposition home or self-care (01) | DRG 223 ==
LOC: HO.SSSA 06:07 → HO.S3 12:24
PROVIDERS: Physician Assistant Surgical; Admitting Provider Surgery; PCP Internal Medicine; Visit Provider Surgery
PROC: 0DSM0ZZ Reposition Descending Colon, Open Approach (ICD-10-PCS; CPT 44620; principal; 2021-05-18 07:30)
DX: Z43.3 Encounter for attention to colostomy (principal); K21.9 Gastro-esophageal reflux disease without esophagitis; Z88.0 Allergy status to penicillin; Z88.2 Allergy status to sulfonamides; Z88.5 Allergy status to narcotic agent; Z79.1 Long term (current) use of non-steroidal anti-inflammatories (NSAID); Z79.51 Long term (current) use of inhaled steroids; Z79.899 Other long term (current) drug therapy
CPT/HCPCS: 36415; 80048; 85025; 85027; 87635; 88304; 88307; 99024; J0131; J1100; J1170; J2250; J2405; J3010

== ENCOUNTER → 2021-06-02 12:59 | Outpatient (BNVA) | payer OTHER, SELFPAY | PROVIDERS: PCP Internal Medicine; Referring Provider Internal Medicine; Visit Provider Surgery ==

== ENCOUNTER 2021-06-16 06:11 | Outpatient (REF) | payer OTHER, SELFPAY ==
--- NOTE | ~2021-06-16 | FL_ITS ---
EXAMINATION: XR FLUOROSCOPY WITH IMAGES CLINICAL INFORMATION: Pain in unspecified shoulder. COMPARISON: None. TECHNIQUE: Fluoroscopy performed by Dr. Barone.. Fluoroscopy time: 0.1 minutes DAP: 0.2 Gycm2 Images: 1 FINDINGS: A needle is superimposed over the region of the acromioclavicular joint. FL/FL guidance in treatment room IMPRESSION: Fluoroscopy is provided during needle placement over shoulder.
== END 2021-06-16 06:12 | disposition home or self-care (01) ==
LOC: HO.RADIR 06:11
PROVIDERS: Visit Provider Anesthesiology
DX: M25.511 Pain in right shoulder (principal); M79.18 Myalgia, other site
CPT/HCPCS: 20610; J3300; Q9967

== ENCOUNTER → 2021-06-30 09:21 | Outpatient (BNVA) | payer OTHER, SELFPAY | PROVIDERS: PCP Internal Medicine; Referring Provider Internal Medicine; Visit Provider Surgery | DX: K57.20 Diverticulitis of large intestine with perforation and abscess without bleeding (principal); Z79.899 Other long term (current) drug therapy; Z48.815 Encounter for surgical aftercare following surgery on the digestive system | CPT/HCPCS: 99212 ==

== ENCOUNTER 2021-10-20 05:54 | Outpatient (REF) | payer OTHER, SELFPAY ==
--- NOTE | ~2021-10-20 | FL_ITS ---
EXAMINATION: XR FLUOROSCOPY WITH IMAGES CLINICAL INFORMATION: Shoulder pain COMPARISON: Shoulder radiographs 08/22/2020 TECHNIQUE: Fluoroscopy performed by Dr. Blaine Barone. Fluoroscopy time: Under 1 minute. Cumulative Dose: 0.319 mGy. DAP: 0.087 Gycm2. Images: 1. FINDINGS: There is a spinal needle with tip pointed towards the superior lateral cortex distal right clavicle. FL/FL guidance in treatment room IMPRESSION: Fluoroscopy for pain management procedure.
== END 2021-10-20 05:55 | disposition home or self-care (01) ==
LOC: HO.RADIR 05:54
PROVIDERS: Visit Provider Anesthesiology
DX: M79.18 Myalgia, other site (principal); M25.511 Pain in right shoulder
CPT/HCPCS: 20552; 20605; J3300

== ENCOUNTER 2022-01-12 09:48 | Outpatient (REF) | payer OTHER, SELFPAY | END 2022-01-12 09:49 | disposition home or self-care (01) | LOC: HO.SH 09:48 | PROVIDERS: Visit Provider Internal Medicine | DX: Z01.118 Encounter for examination of ears and hearing with other abnormal findings (principal); H90.3 Sensorineural hearing loss, bilateral | CPT/HCPCS: 92552; 92556 ==

== ENCOUNTER 2022-01-21 12:45 | Outpatient (REF) | payer SELFPAY | END 2022-01-21 12:46 | disposition home or self-care (01) | LOC: HO.HAP 12:45 | PROVIDERS: Visit Provider Internal Medicine | DX: Z13.89 Encounter for screening for other disorder (principal) ==

== ENCOUNTER → 2022-01-28 12:10 | Outpatient (RCR) | payer OTHER, SELFPAY ==
[2020-02-23 11:47] LABS: COVID-19 Test Negative (Negative); IDNOW Serial# 55D5AD1C
[2020-03-08 09:06] LABS: COVID-19 Test Negative (Negative); IDNOW Serial# 55D5AD1C
[2020-03-27 09:56] LABS: SARS-COV-2 PCR UMBRL Not Detected
[2020-04-05 08:30] LABS: COVID-19 Test Negative (Negative)
[2020-04-19 08:42] LABS: COVID-19 Test Negative (Negative)
[2020-05-06 09:04] LABS: SARS-COV-2 PCR UMBRL NEGATIVE
== END | disposition home or self-care (01) ==
LOC: HO.EMPCOV 02-23 07:06
PROVIDERS: Visit Provider Internal Medicine
DX: Z20.828 Contact with and (suspected) exposure to other viral communicable diseases (principal)
CPT/HCPCS: 36415; 87635; C9803; U0003

== ENCOUNTER 2022-02-11 15:33 | Outpatient (REF) | payer OTHER, SELFPAY ==
--- NOTE | ~2022-02-11 | MM_ITS ---
EXAMINATION: MM SCREENING DIGITAL BREAST TOMOSYNTHESIS, BILATERAL CLINICAL INFORMATION: Screening. Asymptomatic. Family history breast cancer. COMPARISON: Mammography: 02/10/2021, 02/08/2020, 03/07/2019 TECHNIQUE: Digital breast tomosynthesis is performed in both the craniocaudal and mediolateral oblique views along with computer-aided detection (CAD). Synthesized 2D images are generated from the tomosynthesis. Additional right MLO view is provided. FINDINGS: The breasts are heterogeneously dense, which may obscure small masses (ACR BI-RADS breast composition Category c). Breast tissue composition borders on average fibroglandular. There are no significant masses, abnormal calcifications, or other abnormalities. No developing density or architectural abnormality. The axilla and skin contours are unremarkable. MM/MM tomosynthesis screening BI IMPRESSION: No mammographic evidence of malignancy. ASSESSMENT: BI-RADS 1: Negative RECOMMENDATION: Routine annual mammography screening. This patient's information was entered into a reminder system with a target due date for their next mammogram.
== END 2022-02-11 15:34 | disposition home or self-care (01) ==
LOC: HO.MAMMO 15:33
PROVIDERS: Visit Provider Internal Medicine
DX: Z12.31 Encounter for screening mammogram for malignant neoplasm of breast (principal)
CPT/HCPCS: 77063; 77067

== ENCOUNTER 2022-02-23 06:01 | Outpatient (REF) | payer OTHER, SELFPAY ==
--- NOTE | ~2022-02-23 | FL_ITS ---
EXAMINATION: XR FLUOROSCOPY WITH IMAGES CLINICAL INFORMATION: M25.511 - Pain in right shoulder COMPARISON: Fluoroscopic spot view 10/20/2021 TECHNIQUE: Fluoroscopy Supervised By: Dr. Blaine Barone. Fluoroscopy Time: 0.1 minutes. Cumulative Dose: 0.441 mGy. DAP: 0.120 Gycm2. Images: 1. FINDINGS: There is a needle with tip pointed towards the mid right acromioclavicular joint. The acromioclavicular alignment is normal. FL/FL guidance in treatment room IMPRESSION: Fluoroscopy for pain management procedure.
== END 2022-02-23 06:02 | disposition home or self-care (01) ==
LOC: CF 06:01
PROVIDERS: Visit Provider Anesthesiology
DX: M25.511 Pain in right shoulder (principal)
CPT/HCPCS: 20605; J2795; J3300; Q9967

== ENCOUNTER 2022-04-01 06:11 | Outpatient (REF) | payer OTHER, SELFPAY ==
--- NOTE | ~2022-04-01 | XR_ITS ---
EXAMINATION: XR HIP, LEFT CLINICAL INFORMATION: Hip pain COMPARISON: 12/23/2020 TECHNIQUE: Two views of the left hip. FINDINGS: No fracture or dislocation. The left hip is well aligned. The joint space is maintained with subchondral sclerosis present. Small osteophytes are noted. Corticated ossific densities at the inferior aspect of the hip. The left hemipelvis is intact. Suture line over the central pelvis. XR/XR hip LT min 2V IMPRESSION: Mild degenerative changes of the left hip.
== END 2022-04-01 06:12 | disposition home or self-care (01) ==
LOC: HO.XRAY 06:11
PROVIDERS: PCP Internal Medicine; Visit Provider Internal Medicine
DX: M25.552 Pain in left hip (principal)
CPT/HCPCS: 73502

== ENCOUNTER 2022-04-26 06:08 | Outpatient (REF) | payer OTHER, SELFPAY ==
[2022-04-26 06:37] LABS: MANUAL DIFF FLAG NO
[2022-04-26 08:29] LABS: Basophils Absolute Auto 0.1 X10*3/uL (0.0-0.2); Basophils Percent Auto 1.2 % (0-2); Eosinophils Absolute Auto 0.3 X10*3/uL (0.0-0.4); Eosinophils Percent Auto 3.9 % (0-4); Hematocrit 42.6 % (37.0-47.0); Hemoglobin 13.7 g/dl (12.0-16.0); Imm Gran Abs Auto 0.02 X10*3/uL (0.00-0.03); Imm Gran Pct Auto 0.3 % (0.0-0.4); Lymphocytes Absolute Auto 1.7 X10*3/uL (1.2-4.9); Lymphocytes Percent Auto 25.9 % (20-40); Mean Corpuscular HGB Conc 32.2 g/dl (31.0-35.0); Mean Corpuscular Hemoglobin 30.6 pg (27.0-33.0); Mean Corpuscular Volume 95.3 fL (80.0-98.0); Mean Platelet Volume 9.5 fL (9.4-12.3); Monocytes Absolute Auto 0.5 X10*3/uL (0.1-1.2); Monocytes Percent Auto 7.1 % (2-11); Neutrophils Absolute Auto 4.1 x10*3/uL (2.0-8.3); Neutrophils Percent Auto 61.6 % (45-73); Platelet Count 259 X10*3/uL (160-400); Red Blood Count 4.47 X10*6/uL (4.20-5.50); Red Cell Distribution Width 12.4 % (11.0-16.0); White Blood Count 6.6 X10*3/uL (4.8-10.8)
[2022-04-26 08:55] LABS: Alanine Aminotransferase 20 U/L (0-31); Albumin Level 4.3 g/dL (3.5-5.0); Alkaline Phosphatase 68 U/L (39-117); Anion Gap 13 (12-20); Aspartate Amino Transferase 19 U/L (5-31); Bilirubin Total 0.5 mg/dL (0.0-1.0); Blood Urea Nitrogen 17 mg/dL (9-16); Calcium 9.4 mg/dL (8.4-10.2); Carbon Dioxide 26 mmol/L (22-29); Chloride 109 mmol/L (96-108); Cholesterol 177 mg/dL; Estimated Glomerular Filt Rate > 60; Glucose Fasting 93 mg/dL (60-99); HDL Cholesterol 55 mg/dL; LDL Cholesterol Calculated 88 mg/dl; Potassium 4.6 mmol/L (3.3-5.1); Sodium 143 mmol/L (135-145); Total Protein 6.7 g/dL (6.5-8.0); Triglycerides 172 mg/dL
[2022-04-26 08:56] LABS: Vitamin D 25-OH Total 37.5 ng/mL (>30)
== END 2022-04-26 06:09 | disposition home or self-care (01) ==
LOC: HO.LAB 06:08
PROVIDERS: PCP Internal Medicine; Visit Provider Internal Medicine
DX: Z00.00 Encounter for general adult medical examination without abnormal findings (principal)
CPT/HCPCS: 36415; 80053; 80061; 82306; 85025

== ENCOUNTER 2022-06-01 07:04 | Outpatient (REF) | payer OTHER, SELFPAY ==
--- NOTE | ~2022-06-01 | FL_ITS ---
EXAMINATION: XR FLUOROSCOPY WITH IMAGES CLINICAL INFORMATION: M25.511 - Pain in right shoulder COMPARISON: Right shoulder radiographs 06/02/2022 TECHNIQUE: Fluoroscopy Supervised By: Dr. Blaine Barone. Fluoroscopy Time: Under 1 minute. Cumulative Dose: 0.345 mGy. DAP: 0.0941 Gycm2. Images: 1. FINDINGS: Spinal needle is seen with tip overlying the right acromioclavicular joint. FL/FL guidance in treatment room IMPRESSION: Fluoroscopy for pain management procedure.
== END 2022-06-01 07:05 | disposition home or self-care (01) ==
LOC: CF 07:04
PROVIDERS: Visit Provider Anesthesiology
DX: M25.511 Pain in right shoulder (principal); M79.18 Myalgia, other site
CPT/HCPCS: 20552; 20605; J3301

== ENCOUNTER 2022-06-02 06:03 | Outpatient (REF) | payer OTHER, SELFPAY ==
--- NOTE | ~2022-06-02 | XR_ITS ---
EXAMINATION: XR SHOULDER, RIGHT CLINICAL INFORMATION: M19.011 - Primary osteoarthritis, right shoulder. Pain. COMPARISON: Radiographs right shoulder 08/22/2020. TECHNIQUE: Right shoulder is imaged in 4 views. FINDINGS: There is no fracture or dislocation. The glenohumeral joint appears normal. There are no visible rotator cuff calcifications. The acromioclavicular alignment is normal. There are interval inflammatory arthritic changes involving the acromioclavicular joint with subtle erosive change greater on the clavicular side. No soft tissue mineralization. No gas tracking in the soft tissues. PSA to call. XR/XR shoulder RT min 2V IMPRESSION: 1. Inflammatory erosive arthritis right acromioclavicular joint. 2. Normal glenohumeral joint. 3. No rotator cuff calcifications.
== END 2022-06-02 06:04 | disposition home or self-care (01) ==
LOC: HO.XRAY 06:03
PROVIDERS: PCP Internal Medicine; Visit Provider Anesthesiology
DX: M19.011 Primary osteoarthritis, right shoulder (principal)
CPT/HCPCS: 73030

== ENCOUNTER 2022-09-07 06:00 | Outpatient (REF) | payer OTHER, SELFPAY ==
--- NOTE | ~2022-09-07 | FL_ITS ---
EXAMINATION: XR FLUOROSCOPY WITH IMAGES CLINICAL INFORMATION: Osteoarthritis right shoulder COMPARISON: None available. TECHNIQUE: Fluoroscopy Supervised By: Dr. Blaine Barone. Fluoroscopy Time: 0.1. Cumulative Dose: 0.3 mGy. DAP: 0.002 Gycm2. Images: 1. FINDINGS: Images demonstrate needle placement over the right acromioclavicular joint FL/FL guidance in treatment room IMPRESSION: Fluoroscopy guidance for pain management procedure
== END 2022-09-07 06:01 | disposition home or self-care (01) ==
LOC: CF 06:00
PROVIDERS: Visit Provider Anesthesiology
DX: M19.011 Primary osteoarthritis, right shoulder (principal); M79.18 Myalgia, other site
CPT/HCPCS: 20552; 20605; J2795; J3301; Q9967

== ENCOUNTER 2022-12-28 06:06 | Outpatient (REF) | payer OTHER, SELFPAY ==
--- NOTE | ~2022-12-28 | FL_ITS ---
EXAMINATION: XR FLUOROSCOPY WITH IMAGES CLINICAL INFORMATION: Primary osteoarthritis, right shoulder. COMPARISON: None available. TECHNIQUE: Fluoroscopy Supervised By: Dr. Blaine Barone. Fluoroscopy Time: 0.0 minutes. Cumulative Dose: 0.257 mGy. DAP: 0.31148 Gycm2. Images: 1. FINDINGS: Image demonstrates needle projecting over the right sacroiliac joint. FL/FL guidance in treatment room IMPRESSION: Fluoroscopy guidance for pain management.
== END 2022-12-28 06:07 | disposition home or self-care (01) ==
LOC: CF 06:06
PROVIDERS: Visit Provider Anesthesiology
DX: M19.011 Primary osteoarthritis, right shoulder (principal); M79.18 Myalgia, other site
CPT/HCPCS: 20552; J2795; J3301

== ENCOUNTER 2022-12-28 07:09 | Outpatient (AMB) | payer OTHER, SELFPAY ==
[2022-12-28 07:24] VITALS: BP 132/84; PULSE 61; RESP 16; O2SAT 99; BMI 19.2
--- NOTE | 2022-12-28 07:24 | MHC.OFFVIS ---
Intake Vital Signs 12/28/22 07:24 Height 5 ft 2 in Weight 105 lb BMI 19.2 BP 132/84 Blood Pressure Location Lt brachial Position Sitting Respiration 16 Pulse 61 Pulse Source Pulse Oximeter Pulse Oximetry (%) 99 Oxygen Delivery Method Room Air Comment Pre-op Intake Visit Reasons: R AC JNT INJ AND R NECK TPI/LOCAL Allergies amoxicillin Allergy (Mild, Verified 09/07/22 07:18) Rash codeine [Codeine] Allergy (Mild, Verified 09/07/22 07:18) VOMITING nitrofurantoin [Nitrofurantoin] Allergy (Mild, Verified 09/07/22 07:18) RASH Sulfa (Sulfonamide Antibiotics) [Sulfa (Sulfonamides)] Allergy (Mild, Verified 09/07/22 07:18) RASH trimethoprim [Trimethoprim] Allergy (Mild, Verified 09/07/22 07:18) RASH PFSH Medical History Acromioclavicular joint pain Arthritis COVID-19 vaccine series completed Elevated cholesterol Factor 5 Leiden mutation, heterozygous Family history of complication of anesthesia GERD (gastroesophageal reflux disease) Hearing impairment Myofascial pain syndrome Perforation of sigmoid colon due to diverticulitis Surgical History H/O colonoscopy H/O right knee surgery History of hand surgery History of open sigmoidectomy Hx of dilation and curettage Hx of elbow surgery Hx of foot surgery Hx of foot surgery S/P colostomy takedown (05/18/21) Family History Sister Breast cancer Mother Breast cancer Family/Other Uterine cancer Family/Other Throat cancer Bone cancer Sister Emphysema lung Sister Breast cancer Father Emphysema lung Brother Alzheimer's dementia Sister Type 2 diabetes mellitus Social History Household Members: Spouse Housing: House Are you a primary urgent care physician assistant to a significant other at home: No Do you presently have visiting nurse or other home services: No Alcohol intake: current Alcohol intake frequency: holidays/special occasions only Patient Tobacco Use Status: Never used Tobacco Advance Directives Date on File: 05/27/15 service: No Sexual orientation: Straight/Heterosexual Gender identity: Female Physical Exam Vital Signs: Last Vital Signs Pulse 61 12/28/22 07:24 Resp 16 12/28/22 07:24 BP 132/84 12/28/22 07:24 Pulse Ox 99 12/28/22 07:24 Oxygen Delivery Method Room Air 12/28/22 07:24 BMI result Body Mass Index 19.2 Assessment & Plan Assessment & Plan (1) Acromioclavicular joint pain: Code(s): M25.519 - Pain in unspecified shoulder (2) Myofascial pain syndrome: Code(s): M79.18 - Myalgia, other site Plan Informed consent was explained to the patient. All questions were explained and answered. The patient was taken inside the operating room. The patient was positioned supine on operating table with her right shoulder elevated on the wedge support. Time-out was performed delineating correct site, side, the nature of the procedure, patient's allergy, preoperative antibiotic if needed. All operating room staff was participating in OR time-out procedure. 1st right acromioclavicular joint was delineated on the screen. The area of the joint as well as sternum as well as right neck were prepped with ChloraPrep and draped with sterile utility drapes. Location of the right acromioclavicular joint was injected 1st using 22 gauge 1/2 inch needle under x-ray guidance the needle was driven into the intra-articular space and 2 cc of Ropivacaine 0.5% mixed with Kenalog was injected into the joint. After that the two trigger point injections were performed at anterior neck at the projection of the midsection of the right sternocleidomastoid muscle in fan-like fashion and after that injection of the trigger point at the right deltoid muscle was performed also in fan like fashion. . Total dose of kenalog was 80 mg. Total dose of ropivacaine was 10 mls . Patient tolerated procedure well she was taken outside of the operating room to recovery room where she recovered uneventfully. She went home without immediate complications. Orders: Orders FL guidance in treatment room Today M19.011 - Primary osteoarthritis, right shoulder Coding Level of Care Code Procedure Only Diagnoses Acromioclavicular joint pain M25.519 Myofascial pain syndrome M79.18
== END 2022-12-28 07:52 | disposition home or self-care (01) ==
LOC: HO.PMCPRC 07:09
PROVIDERS: PCP Internal Medicine; Visit Provider Anesthesiology
DX: M25.511 Pain in right shoulder (principal)
CPT/HCPCS: 20552; 20605; 77002

== ENCOUNTER 2023-01-14 10:19 | Outpatient (REF) | payer OTHER, SELFPAY ==
--- NOTE | 2023-01-14 14:24 | MHC.AU.HA3 ---
Hearing Instrument Follow-Up- Binaural Date of Visit: 01/14/23 Right Ear: Make, Model, Color, Serial Number: Marli Steward iQ 1600 ITC SN: [id number] Color: [place] Housing Assistant Property Manager Repair Warranty: 07/08/2021 Housing Assistant Property Manager Loss and Damage Warranty: 07/08/2021 Battery Size: 312 Type of Wax Guard: HearClear Dispensed By: [facility] Date of Fittin06/16/2018 Left Ear: Gustavo, Model, Color, Serial Number: Marli Steward iQ 1600 ITC SN: [id number] Color: [place] Housing Assistant Property Manager Repair Warranty: 07/08/2021 Housing Assistant Property Manager Loss and Damage Warranty: 06/28/2021 Battery Size: 312 Type of Wax Guard: HearClear Dispensed By: [facility] Date of Fittin06/16/2018 Follow-Up Summary: Adilia returned for routine hearing aid maintenance following updated hearing test (see separate report). Did not make programming adjustments as hearing is stable. Adilia is ready to pursue new hearing aids; however, she would like to inquire about her eligibility through [facility]. Provided [facility] contact information. Also briefly discussed cochlear implant due to poor speech discrimination. Adilia is not interested in a cochlear implant at this time; however, she knows she would need to contact [facility] to schedule a CI evaluation if she chooses. Adilia knows her hearing test is valid for six months and will call to schedule a hearing aid consultation if she is approved through [facility]. Recommendations: Please contact our clinic with any questions or concerns. Diagnosis Code(s): Primary Diagnosis: H90.3 Bilateral Sensorineural Hearing Loss Signature: Provider: Marquis Fisher, [facility]
== END 2023-01-14 10:20 | disposition home or self-care (01) ==
LOC: HO.SH 10:19
PROVIDERS: Visit Provider Internal Medicine
DX: Z01.118 Encounter for examination of ears and hearing with other abnormal findings (principal); H90.3 Sensorineural hearing loss, bilateral
CPT/HCPCS: 92557

== ENCOUNTER 2023-02-18 08:10 | Outpatient (REF) | payer OTHER, SELFPAY ==
--- NOTE | ~2023-02-18 | MM_ITS ---
EXAMINATION: BONE DENSITOMETRY CLINICAL INDICATION: Asymptomatic menopausal state. COMPARISON: Previous BD dated 02/10/2021 and baseline BD dated 08/02/2007. TECHNIQUE: Using a [employer] DXA System (software version: 13.1) manufactured by [employer], dual-energy x-ray absorptiometry was performed of the lumbar spine and left hip. The images are of good technical quality. Summary results are attached. FINDINGS: LEFT FEMUR, NECK: Current: BMD 0.794 g/cm2, Z-score 0.1, T-score -1.8, osteopenia. Prior: BMD 0.823 g/cm2. Baseline: BMD 0.962 g/cm2. LEFT FEMUR, TOTAL: Current: BMD 0.834 g/cm2, Z-score 0.3, T-score -1.4, osteopenia, 2.9% decrease from previous, 16.0% decrease from baseline (<5% change is not significant). Prior: BMD 0.859 g/cm2. Baseline: BMD 0.993 g/cm2. AP SPINE L1-L4: Current: BMD 0.809 g/cm2, Z-score -0.9, T-score -3.1, osteoporosis, 9.5% decrease from previous, 25.8% decrease from baseline (<5% change is not significant). Prior: BMD 0.894 g/cm2. Baseline: BMD 1.090 g/cm2. IDENTIFIED RISK FACTORS: Menopause. HISTORY OF FRACTURE: None listed. MEDICATIONS: Calcium supplements or multivitamin, vitamin D. MM/XR DEXA axial skeleton IMPRESSION: 1. DIAGNOSIS: Osteoporosis based on the lowest T-score value of -3.1 in the lumbar spine applying World Health Organization criteria. 2. 10-YEAR FRACTURE RISK PREDICTION, FRAX: According to the guidelines, FRAX calculation should only be performed on patients in the osteopenia bone density category. Therefore, FRAX was not performed on this patient. 3. Treatment Recommendations: NOF guidelines recommend consideration for treatment in postmenopausal women and men age 50 and older presenting with the following: -A hip or vertebral (clinical or morphometric) fracture. -T-score less than or equal to -2.5 at the femoral neck or spine after appropriate evaluation to exclude secondary causes. -Low bone mass at the hip or spine and a 10-year fracture probability by FRAX of greater than or equal to 3% for hip fracture or greater than or equal to 20% for major osteoporotic fracture based on the [place] adapted WHO algorithm. 4. Other Recommendations: All treatment decisions require clinical judgment and consideration of individual patient factors, including patient preferences, comorbidities, previous drug use, risk factors not captured in the FRAX model (e.g. frailty, falls, vitamin D deficiency, increased bone turnover, interval significant decline in bone density) and possible under or overestimation of fracture risk by FRAX. Additional medical evaluation for secondary cause of low bone mineral density may be appropriate. FUTURE SCAN RECOMMENDATION: People with diagnosed cases of osteoporosis or at high risk for fracture should have regular bone mineral density tests. For patients eligible for Medicare, routine testing is allowed once every 2 years. The testing frequency can be increased to one year for patients who have rapidly progressing disease, those who are receiving or discontinuing medical therapy to restore bone mass, or have additional risk factors.
--- NOTE | ~2023-02-18 | MM_ITS ---
EXAMINATION: MM SCREENING DIGITAL BREAST TOMOSYNTHESIS, BILATERAL CLINICAL INFORMATION: Screening. Asymptomatic. Family history of breast CA with mother diagnosed at age 42, half sister diagnosed at age 45. COMPARISON: Mammography: 02/11/2022, 02/10/2021, 02/08/2020, 03/07/2019 TECHNIQUE: Digital breast tomosynthesis is performed in both the craniocaudal and mediolateral oblique views along with computer-aided detection (CAD). Synthesized 2D images are generated from the tomosynthesis. FINDINGS: The breasts are heterogeneously dense, which may obscure small masses (ACR BI-RADS breast composition Category c). There are vascular calcifications in both breasts, benign. There are no suspicious masses, suspicious grouped calcifications, or areas of architectural distortion in either breast. The parenchymal pattern is stable from prior exams. MM/MM tomosynthesis screening BI IMPRESSION: No mammographic evidence of malignancy. ASSESSMENT: BI-RADS BI-RADS 1 - Negative RECOMMENDATION: Routine annual mammography screening. Consider MRI as a screening adjunct given high risk in this patient. 1 year F/U This examination should not preclude the clinical evaluation of a suspicious palpable abnormality. This patient's information was entered into a reminder system with a target due date for their next mammogram.
== END 2023-02-18 08:11 | disposition home or self-care (01) ==
LOC: HO.MAMMO 08:10
PROVIDERS: PCP Internal Medicine; Visit Provider Internal Medicine
DX: Z12.31 Encounter for screening mammogram for malignant neoplasm of breast (principal); Z13.820 Encounter for screening for osteoporosis; Z78.0 Asymptomatic menopausal state
CPT/HCPCS: 77063; 77067; 77080

== ENCOUNTER → 2023-02-18 08:30 | Outpatient (BNV) | payer OTHER, SELFPAY | PROVIDERS: PCP Internal Medicine; Visit Provider Radiology Diagnostic Radiology | DX: Z12.31 Encounter for screening mammogram for malignant neoplasm of breast (principal) | CPT/HCPCS: 77063; 77067 ==

== ENCOUNTER → 2023-02-18 15:40 | Outpatient (BNV) | payer OTHER, SELFPAY | PROVIDERS: PCP Internal Medicine; Visit Provider Internal Medicine Medical Oncology | DX: M81.0 Age-related osteoporosis without current pathological fracture (principal); Z15.89 Genetic susceptibility to other disease | CPT/HCPCS: 99204 ==

== ENCOUNTER 2023-03-01 06:04 | Outpatient (REF) | payer OTHER, SELFPAY ==
--- NOTE | ~2023-03-01 | XR_ITS ---
EXAMINATION: XR CERVICAL SPINE CLINICAL INFORMATION: Neck pain, right shoulder pain. COMPARISON: MRI cervical spine 09/11/2020. TECHNIQUE: 3 views of the cervical spine were obtained. FINDINGS: There is normal cervical lordosis. The vertebral heights and alignment is normal. There is loss of C6-C7 and C5-C6 disc height with mild ventral spondylosis. There is minimal left C4-C5 and C5-C6 facet joint hypertrophy. No visible acute fracture, dislocation or subluxation seen. The prevertebral and paravertebral soft tissues are normal. XR/XR cervical spine 2V IMPRESSION: Mild degenerative changes as described above. No acute fracture, lytic or sclerotic process.
== END 2023-03-01 06:05 | disposition home or self-care (01) ==
LOC: HO.XRAY 06:04
PROVIDERS: PCP Internal Medicine; Visit Provider Internal Medicine
DX: M54.2 Cervicalgia (principal)
CPT/HCPCS: 72040

== ENCOUNTER 2023-03-29 12:42 | Outpatient (AMB) | payer OTHER, SELFPAY ==
--- NOTE | 2023-03-30 07:52 | MHC.OFFVIS ---
Intake Intake Visit Reasons: Shoulder pain Allergies amoxicillin Allergy (Mild, Verified 02/18/23 15:28) Rash nitrofurantoin [Nitrofurantoin] Allergy (Mild, Verified 02/18/23 15:28) RASH Sulfa (Sulfonamide Antibiotics) [Sulfa (Sulfonamides)] Allergy (Mild, Verified 02/18/23 15:28) RASH trimethoprim [Trimethoprim] Allergy (Mild, Verified 02/18/23 15:28) RASH HPI HPI Comments History of Present Illness Details Ms. Liang is a 62 year old woman who is under observation in this office for more than 4 years. Originally she was diagnosed with myositis and AC arthritis on the right. She was receiving of the course of 4 years intra-articular acromioclavicular joint injections under x-ray guidance as well as blind injections in the patient's trapezius and sternocleidomastoid muscle on the right. She used to report very good results of the injection lasting up to 6 month however recently she started to complain that the results of the injections are not as profound as the used to be and they do not last more than 6-8 weeks. In the past she had an MRI of cervical spine with demonstrated spinal stenosis. Although the spinal cord was not affected on those MRIs there was significant fluid effacement on the images with impression on the spinal cord at C3-C4 interval. See as below. Possibility exists that her neck condition is getting worse. I decided to send her for MRI of the cervical spine. Also brief examination of the shoulder was performed which made me believe that she has partial rotator cuff tear. Her job is very physical and she is very gentle and thin framed lady. Possibility in the future to examine her shoulder under MRI would also give us apart indeed to perform differential diagnosis. Prior: She has about a 13 year history of neck pain. She has had multiple consultations with different providers for this and has been treated by rheumatology and [facility]. 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 X-rays of chest, right clavicle, and right shoulder have been unremarkable. She has had a consult with Dr. Serrano and is not a surgical candidate. Physical therapy and HEP have reportedly been ineffective. She has undergone multiple trapezius trigger point injections and sternoclavicular injections with relief. Per PCP note, she is also having right sternocleidomastoid pain. Adilia is an [employer] [place] employee, and would like to start seeing our practice for injections instead of [facility] pain management PFS Medical History Acromioclavicular joint pain Arthritis COVID-19 vaccine series completed Elevated cholesterol Factor 5 Leiden mutation, heterozygous Family history of complication of anesthesia GERD (gastroesophageal reflux disease) Hearing impairment Myofascial pain syndrome Perforation of sigmoid colon due to diverticulitis Surgical History H/O colonoscopy H/O right knee surgery History of hand surgery History of open sigmoidectomy Hx of dilation and curettage Hx of elbow surgery Hx of foot surgery Hx of foot surgery S/P colostomy takedown (05/18/21) Family History Sister Breast cancer Mother Breast cancer Family/Other Uterine cancer Family/Other Throat cancer Bone cancer Sister Emphysema lung Sister Breast cancer Father Emphysema lung Brother Alzheimer's dementia Sister Type 2 diabetes mellitus Social History (Updated 02/18/23 @ 15:27 by Ebony Hoover) Household Members: Spouse Housing: House Are you a primary neonatal critical care nurse to a significant other at home: No Do you presently have visiting nurse or other home services: No Alcohol intake: current Alcohol intake frequency: holidays/special occasions only Patient Tobacco Use Status: Never used Tobacco Advance Directives Date on File: 05/27/15 service: No Current occupational status: employed Sexual orientation: Straight/Heterosexual Gender identity: Female Review of Systems Const All systems reviewed & are unremarkable except as noted in HPI and below Eyes Denies photophobia ENT Reports Normal hearing present Neuro Reports Normal hearing present Physical Exam Const General: cooperative, healthy appearing, no acute distress and alert Orientation/consciousness: patient oriented x3 Limitations: No ambulation with cane, No ambulation with walker and No wheelchair HEENT Head: Yes normal to inspection, Yes normocephalic and Yes atraumatic Ears: hearing grossly normal bilaterally Eyes General: appearance normal, both eyes and all related structures Eyelids: Yes eyelids normal Sclerae: sclerae normal Pupils: Equal, round and reactive pupils present EOM: EOMs intact bilaterally Direct Ophthalmoscopy: No photophobia Neck Neck: Yes normal visual inspection, Yes full ROM, Yes trachea midline and Yes no JVD Chest Chest palpation & inspection: normal inspection of the chest Resp Effort & Inspection: normal respiratory effort, able to speak in complete sentences and no audible wheezes Cardio Jugular venous distension: no JVD Palpation: other (no appreciable rhythmic abnormalities) Peripheral pulses: radial pulses present (no palpable rhythmic abnormalities detected) bilateral and other Back/Spine/Pelvis Other: Patient with decreased cervical ROM with moderate discomfort with lateral rotation. Spurling compression test negative. Lhermitte's test negative. Patient demonstrated 5/5 motor strength of bilateral upper extremities. Multiple tender points throughout right trapezius. Cervical Spine: cervical ROM normal, pain with cervical ROM and Cervical spine tenderness Neuro General: patient oriented x3, gait normal, moves all extremities and Normal light touch and pain sensation Cranial nerves: Yes Equal, round and reactive pupils present and Yes Normal hearing present Cognition (Neuro): normal cognition Gait exam (Neuro): Normal gait present Motor exam (neuro): 5/5 motor strength present throughout Extrem Other: Full ROM of right shoulder but moderate discomfort with internal rotation as well as flexion. General: Yes normal to inspection and Yes no pedal edema Right upper extremity: normal to inspection Psych Appearance: grossly normal Speech and movement: Normal speech and movement present and Clear speech present Affect: normal affect Attitude: cooperative Thought process: Normal thought process present Thought content: Normal thought content present Insight: Good insight present (Psych) Judgement: Good judgement present (Psych) Results Reviewed Results Reviewed: MR CERVICAL SPINE WITHOUT CONTRAST CLINICAL INFORMATION: Neck pain. Right shoulder pain. TECHNIQUE: MRI of the cervical spine was obtained using routine sequences without contrast. FINDINGS: VERTEBRAL BODIES AND PARASPINAL SOFT TISSUES: The marrow signal is mildly heterogeneous with regions of fatty change. There is a mild leftward curvature of the cervical spine. Mild retrosubluxation evident at the C3-C4 level. Small endplate Schmorl's nodes with [id number]-[id number] loss of disc height evident at the C6-C7 level. The paraspinal soft tissues appear normal. The vertebral artery flow voids are maintained. The lung apices are grossly clear. CERVICOMEDULLARY JUNCTION AND VISUALIZED POSTERIOR FOSSA: The craniovertebral junction and imaged portions of the brain parenchyma appear normal. No cord signal abnormality or syrinx is seen. SPINAL LEVELS: C2-C3: No disc protrusion, central canal stenosis, or foraminal narrowing. Small left lateral annular fissure visible. C3-C4: New central disc protrusion mildly impressing upon the ventral cord without intramedullary signal change. Mild retrosubluxation and endplate spurring. No central canal stenosis or foraminal encroachment otherwise. C4-C5: Very small central disc protrusion which is new. No central canal stenosis or foraminal narrowing. Mild thickening of the ligamentum flavum compared to prior imaging. C5-C6: Mild disc bulge and endplate spurring with thickening of the ligamentum flavum. No central canal stenosis or foraminal narrowing otherwise. C6-C7: Shallow disc-osteophyte complex mildly impressing upon the ventral thecal sac. No central canal stenosis or foraminal narrowing. C7-T1: No disc abnormality. Patent central canal and foramina. IMPRESSION: New central disc protrusion mildly impressing upon the ventral cord without intramedullary signal change at the C3-C4 level. New very small central disc protrusion at the C4-C5 level with mild thickening of the ligamentum flavum posteriorly. Mild spondylitic changes at the remaining levels without central canal stenosis or foraminal narrowing. Assessment & Plan Assessment & Plan (1) Right shoulder pain: Code(s): M25.511 - Pain in right shoulder (2) Myofascial pain syndrome: Code(s): M79.18 - Myalgia, other site (3) Cervicalgia: Code(s): M54.2 - Cervicalgia (4) Degeneration, intervertebral disc, cervical: Code(s): M50.30 - Other cervical disc degeneration, unspecified cervical region (5) Spondylosis of cervical region without myelopathy or radiculopathy: Code(s): M47.812 - Spondylosis without myelopathy or radiculopathy, cervical region Plan: Plan Care plan: 1. The patient will be sent for MRI of the lumbar spine. 2. She was offered not to attend next week injection since she admits herself only moderate pain improvement on injection. She insisted on performing the injection she stated that even though the improvement is mild and moderate it allows her to perform her job duties. Without the injection she would feel she would not be able to work. 3. Shoulder evaluation will be continued. It might be necessary to perform shoulder joint MRI if cervical MRI is not demonstrating progression or changes. 4. Injection of the medial branch blocks C3-C4 C5-C6 on the right could be performed instead of current injections as a diagnostic measure in the future to discover how addressing some of the spondylosis of the cervical spine could affect the patient's pain. The Orders: Orders MR cervical spine wo con Today M47.812 - Spondylosis without myelopathy or radiculopathy, cervical region, M50.30 - Other cervical disc degeneration, unspecified cervical region Patient Instructions: I here by testify that I spent 45 minutes yesterday in conversation with this patient, as well as evaluating patient's prior records, evaluating patient's prior diagnostic studies, planning her future care and organizing this note today. Coding Level of Care Code Est Pt Level 5 (50810) Diagnoses Right shoulder pain M25.511 Myofascial pain syndrome M79.18 Cervicalgia M54.2 Degeneration, intervertebral disc, cervical M50.30 Spondylosis of cervical region without myelopathy or radiculopathy M47.812
== END 2023-03-29 14:59 | disposition home or self-care (01) ==
LOC: HO.PMCPRC 12:42
PROVIDERS: PCP Internal Medicine; Visit Provider Anesthesiology
DX: M25.511 Pain in right shoulder (principal); M79.18 Myalgia, other site; M50.30 Other cervical disc degeneration, unspecified cervical region; M47.812 Spondylosis without myelopathy or radiculopathy, cervical region
CPT/HCPCS: 99215

== ENCOUNTER → 2023-03-29 12:42 | Outpatient (BNVA) | payer OTHER, SELFPAY | PROVIDERS: PCP Internal Medicine; Visit Provider Anesthesiology ==

== ENCOUNTER 2023-04-05 06:02 | Outpatient (REF) | payer OTHER, SELFPAY | END 2023-04-05 06:03 | disposition home or self-care (01) | LOC: CF 06:02 | PROVIDERS: Visit Provider Anesthesiology | DX: Z13.89 Encounter for screening for other disorder (principal) ==

== ENCOUNTER 2023-04-13 14:04 | Outpatient (REF) | payer OTHER, SELFPAY | END 2023-04-13 14:05 | disposition home or self-care (01) | LOC: HO.XRAY 14:04 | PROVIDERS: PCP Internal Medicine; Visit Provider Internal Medicine | DX: M16.12 Unilateral primary osteoarthritis, left hip (principal) | CPT/HCPCS: 73502 ==

== ENCOUNTER 2023-04-19 06:06 | Outpatient (REF) | payer OTHER, SELFPAY ==
--- NOTE | ~2023-04-19 | FL_ITS ---
EXAMINATION: XR FLUOROSCOPY WITH IMAGES CLINICAL INFORMATION: Primary osteoarthritis, right shoulder. COMPARISON: None available. TECHNIQUE: Fluoroscopy Supervised By: Dr. Blaine Barone. Fluoroscopy Time: Less than 0.1 minute. Cumulative Dose: 0.181 mGy. DAP: 0.97719 Gycm2. Images: 1. FINDINGS: Image demonstrates needle projecting over the right acromioclavicular joint FL/FL guidance in treatment room IMPRESSION: Fluoroscopy guidance for right shoulder injection.
== END 2023-04-19 06:07 | disposition home or self-care (01) ==
LOC: CF 06:06
PROVIDERS: Visit Provider Anesthesiology
DX: M19.011 Primary osteoarthritis, right shoulder (principal); M79.18 Myalgia, other site
CPT/HCPCS: 20552; 20605; J2795; J3301; Q9967

== ENCOUNTER 2023-04-19 07:17 | Outpatient (AMB) | payer OTHER, SELFPAY ==
[2023-04-19 07:25] VITALS: BP 120/60; PULSE 97; RESP 16; O2SAT 99; BMI 19.3
--- NOTE | 2023-04-19 07:25 | MHC.OFFVIS ---
Intake Vital Signs 04/19/23 07:25 04/19/23 07:42 Height 5 ft 1 in 5 ft 1 in Weight 102 lb 102 lb BMI 19.3 19.3 BP 120/60 122/60 Blood Pressure Location Rt brachial Rt brachial Position Sitting Sitting Respiration 16 16 Pulse 97 92 Pulse Source Pulse Oximeter Pulse Oximeter Pulse Oximetry (%) 99 97 Oxygen Delivery Method Room Air Comment Pre-Op Post-Op Intake Visit Reasons: R AC JOINT STEROID INJ AND R NECK TPI'S/CONFIRMED Allergies amoxicillin Allergy (Mild, Verified 04/19/23 07:26) Rash nitrofurantoin [Nitrofurantoin] Allergy (Mild, Verified 04/19/23 07:26) RASH Sulfa (Sulfonamide Antibiotics) [Sulfa (Sulfonamides)] Allergy (Mild, Verified 04/19/23 07:26) RASH trimethoprim [Trimethoprim] Allergy (Mild, Verified 04/19/23 07:26) RASH PFSH Medical History Acromioclavicular joint pain Arthritis COVID-19 vaccine series completed Elevated cholesterol Factor 5 Leiden mutation, heterozygous Family history of complication of anesthesia GERD (gastroesophageal reflux disease) Hearing impairment Myofascial pain syndrome Perforation of sigmoid colon due to diverticulitis Surgical History H/O colonoscopy H/O right knee surgery History of hand surgery History of open sigmoidectomy Hx of dilation and curettage Hx of elbow surgery Hx of foot surgery Hx of foot surgery S/P colostomy takedown (05/18/21) Family History Sister Breast cancer Mother Breast cancer Family/Other Uterine cancer Family/Other Throat cancer Bone cancer Sister Emphysema lung Sister Breast cancer Father Emphysema lung Brother Alzheimer's dementia Sister Type 2 diabetes mellitus Social History (Updated 02/18/23 @ 15:27 by Ebony Hoover) Household Members: Spouse Housing: House Are you a primary career development coordinator/teacher to a significant other at home: No Do you presently have visiting nurse or other home services: No Alcohol intake: current Alcohol intake frequency: holidays/special occasions only Patient Tobacco Use Status: Never used Tobacco Advance Directives Date on File: 05/27/15 service: No Current occupational status: employed Sexual orientation: Straight/Heterosexual Gender identity: Female Physical Exam Vital Signs: Last Vital Signs Pulse 92 04/19/23 07:42 Resp 16 04/19/23 07:42 BP 122/60 04/19/23 07:42 Pulse Ox 97 04/19/23 07:42 Oxygen Delivery Method Room Air 04/19/23 07:42 BMI result Body Mass Index 19.3 Assessment & Plan Assessment & Plan (1) Acromioclavicular joint pain: Code(s): M25.519 - Pain in unspecified shoulder (2) Myofascial pain syndrome: Code(s): M79.18 - Myalgia, other site Plan Intraarticular right acromio-clavicular joint injection and trigger point injection . Informed consent was explained to the patient. All questions were explained and answered. The patient was taken inside the operating room. The patient was positioned supine on operating table with her right shoulder elevated on the wedge support. Time-out was performed delineating correct site, side, the nature of the procedure, patient's allergy, preoperative antibiotic if needed. All operating room staff was participating in OR time-out procedure. 1st right acromioclavicular joint was delineated on the screen. The area of the joint as well as sternum as well as right neck were prepped with ChloraPrep and draped with sterile utility drapes. Location of the right acromioclavicular joint was injected 1st using 22 gauge 1/2 inch needle under x-ray guidance the needle was driven into the intra-articular space and 2 cc of Ropivacaine 0.5% mixed with Kenalog was injected into the joint. After that the two trigger point injections were performed at anterior neck at the projection of the midsection of the right sternocleidomastoid muscle in fan-like fashion and after that injection of the trigger point at the right deltoid muscle was performed also in fan like fashion. . Total dose of kenalog was 40 mg. Total dose of ropivacaine was 10 mls . Patient tolerated procedure well she was taken outside of the operating room to recovery room where she recovered uneventfully. She went home without immediate complications. Coding Level of Care Code Procedure Only Diagnoses Acromioclavicular joint pain M25.519 Myofascial pain syndrome M79.18
[2023-04-19 07:42] VITALS: BP 122/60; PULSE 92; RESP 16; O2SAT 97; BMI 19.3
== END 2023-04-19 07:49 | disposition home or self-care (01) ==
LOC: HO.PMCPRC 07:17
PROVIDERS: PCP Internal Medicine; Visit Provider Anesthesiology
DX: M25.511 Pain in right shoulder (principal); M79.18 Myalgia, other site
CPT/HCPCS: 20552; 20605

== ENCOUNTER 2023-04-29 09:19 | Outpatient (REF) | payer OTHER, SELFPAY ==
--- NOTE | ~2023-04-29 | MR_ITS ---
MR CERVICAL SPINE WITHOUT IV CONTRAST CLINICAL INFORMATION: Spondylosis without myelopathy or radiculopathy. COMPARISON: Cervical spine MRI 09/11/2020 TECHNIQUE: MRI of the cervical spine was obtained using routine sequences without contrast. FINDINGS: Cervical alignment is maintained. The vertebral body heights are preserved. There is mild disc volume loss at C5-C6 and C6-C7. Chronic upper endplate Schmorl's node at C7. There is no bone marrow edema. There are no acute fractures. The craniocervical junction is unremarkable. Cervical arterial flow voids are maintained. There are no significant extra spinal soft tissue findings. There are no cord signal changes. Partially imaged posterior fossa is unremarkable. C2-C3: Disc contour is normal. There is no central canal stenosis and there is no foraminal stenosis. C3-C4: A shallow disc protrusion flattens the ventral cord and along with ligamentum flavum thickening results in moderate central canal stenosis which is progressed. Uncovertebral joint spurring and facet arthropathy result in mild bilateral foraminal encroachment. C4-C5: Disc osteophyte and ligamentum flavum thickening result in mild to moderate central canal stenosis. Uncovertebral joint spurring and facet arthropathy result in mild bilateral foraminal encroachment. Findings unchanged. C5-C6: Disc osteophyte minimally indents the ventral thecal sac. Bilateral facet arthropathy. No central canal stenosis and no foraminal stenosis. C6-C7: Disc osteophyte mildly indents the ventral thecal sac without resulting in central canal stenosis. Bilateral facet arthropathy. No foraminal stenosis. C7-T1: Disc contour is normal. No central canal stenosis and no foraminal stenosis. MR/MR cervical spine wo con IMPRESSION: - At C3-C4, a shallow central disc protrusion and ligamentum flavum thickening result in progressive moderate central canal stenosis and flattening of the ventral cord. - Additional stable mild spondylitic changes throughout the cervical spine as described. No severe central canal stenosis and no severe foraminal stenosis within the cervical spine.
== END 2023-04-29 09:20 | disposition home or self-care (01) ==
LOC: HO.MRI 09:19
PROVIDERS: PCP Internal Medicine; Visit Provider Anesthesiology
DX: M47.812 Spondylosis without myelopathy or radiculopathy, cervical region (principal); M50.30 Other cervical disc degeneration, unspecified cervical region
CPT/HCPCS: 72141

== ENCOUNTER 2023-06-15 08:36 | Outpatient (REF) | payer SELFPAY | END 2023-06-15 08:37 | disposition home or self-care (01) | LOC: HO.HAP 08:36 | PROVIDERS: Visit Provider Internal Medicine | DX: Z46.1 Encounter for fitting and adjustment of hearing aid (principal); H90.3 Sensorineural hearing loss, bilateral | CPT/HCPCS: V5267 ==

== ENCOUNTER 2023-07-13 06:04 | Outpatient (REF) | payer OTHER, SELFPAY ==
[2023-07-13 06:19] LABS: MANUAL DIFF FLAG NO
[2023-07-13 07:10] LABS: Basophils Absolute Auto 0.1 X10*3/uL (0.0-0.2); Basophils Percent Auto 1.1 % (0-2); Eosinophils Absolute Auto 0.5 X10*3/uL (0.0-0.4); Eosinophils Percent Auto 5.6 % (0-4); Hematocrit 42.7 % (37.0-47.0); Hemoglobin 13.9 g/dl (12.0-16.0); Imm Gran Abs Auto 0.03 X10*3/uL (0.00-0.03); Imm Gran Pct Auto 0.3 % (0.0-0.4); Lymphocytes Absolute Auto 2.3 X10*3/uL (1.2-4.9); Lymphocytes Percent Auto 23.8 % (20-40); Mean Corpuscular HGB Conc 32.6 g/dl (31.0-35.0); Mean Corpuscular Hemoglobin 30.6 pg (27.0-33.0); Mean Corpuscular Volume 94.1 fL (80.0-98.0); Mean Platelet Volume 9.3 fL (9.4-12.3); Monocytes Absolute Auto 0.7 X10*3/uL (0.1-1.2); Neutrophils Percent Auto 62.2 % (45-73); Platelet Count 254 X10*3/uL (160-400); Red Blood Count 4.54 X10*6/uL (4.20-5.50); Red Cell Distribution Width 12.9 % (11.0-16.0); White Blood Count 9.6 X10*3/uL (4.8-10.8)
[2023-07-13 07:45] LABS: Alanine Aminotransferase 17 U/L (0-31); Albumin Level 4.4 g/dL (3.5-5.0); Alkaline Phosphatase 58 U/L (39-117); Anion Gap 11 (12-20); Aspartate Amino Transferase 17 U/L (5-31); Bilirubin Total 0.7 mg/dL (0.0-1.0); Blood Urea Nitrogen 15 mg/dL (9-16); C Reactive Protein 0.23 mg/dL (< or = 0.50); Calcium 9.5 mg/dL (8.4-10.2); Carbon Dioxide 29 mmol/L (22-29); Chloride 105 mmol/L (96-108); Estimated Glomerular Filt Rate > 60; Glucose Random 97 mg/dL (60-115); Potassium 3.8 mmol/L (3.3-5.1); Sodium 141 mmol/L (135-145); Total Protein 7.4 g/dL (6.5-8.0)
[2023-07-13 08:02] LABS: Free T4 (Free Thyroxine) 0.78 ng/dL (0.71-1.85); Thyroid Stimulating Hormone 1.78 uIU/mL (0.32-4.0)
[2023-07-13 08:03] LABS: Vitamin B12 1054 pg/mL (200-900)
[2023-07-14 19:14] LABS: Gliadin Deamidated IgA Ab 5.3 U/mL; Gliadin Deamidated IgG Ab <1.0 U/mL; Transglutaminase Ab IgG <1.0 U/mL
== END 2023-07-13 06:05 | disposition home or self-care (01) ==
LOC: HO.LAB 06:04
PROVIDERS: PCP Internal Medicine; Visit Provider Internal Medicine
DX: R63.4 Abnormal weight loss (principal); E78.00 Pure hypercholesterolemia, unspecified
CPT/HCPCS: 36415; 80053; 82550; 82607; 84439; 84443; 85025; 86140; 86258; 86364

== ENCOUNTER 2023-07-26 06:00 | Outpatient (REF) | payer OTHER, SELFPAY ==
--- NOTE | ~2023-07-26 | FL_ITS ---
EXAMINATION: XR FLUOROSCOPY WITH IMAGES CLINICAL INFORMATION: Primary osteoarthritis, right shoulder. COMPARISON: Fluoroscopy dated 04/19/2023. TECHNIQUE: Fluoroscopy Supervised By: Dr. Blaine Barone. Fluoroscopy Time: 0.0 minutes. Cumulative Dose: 0.285 mGy. DAP: 0.0779 Gycm2. Images: 1. FINDINGS: A needle is redemonstrated overlapping the right acromioclavicular joint. FL/FL guidance in treatment room IMPRESSION: Intraoperative fluoroscopic guidance is provided during right shoulder pain management procedure. Please see the patient's Operative Report for full procedural details.
== END 2023-07-26 06:01 | disposition home or self-care (01) ==
LOC: CF 06:00
PROVIDERS: Visit Provider Anesthesiology
DX: M19.011 Primary osteoarthritis, right shoulder (principal); M79.18 Myalgia, other site
CPT/HCPCS: 20552; 20605; J2795; J3301

== ENCOUNTER 2023-07-26 07:07 | Outpatient (AMB) | payer OTHER, SELFPAY ==
[2023-07-26 07:16] VITALS: BP 122/82; PULSE 85; RESP 16; O2SAT 100; BMI 19.3
--- NOTE | 2023-07-26 07:16 | MHC.OFFVIS ---
Intake Vital Signs 07/26/23 07:16 07/26/23 08:41 Height 5 ft 1 in Weight 102 lb BMI 19.3 BP 122/82 128/88 Blood Pressure Location Lt brachial Lt brachial Position Sitting Sitting Respiration 16 Pulse 85 84 Pulse Source Pulse Oximeter Pulse Oximeter Pulse Oximetry (%) 100 99 Oxygen Delivery Method Room Air Room Air Comment Pre-Op Post-Op Intake Visit Reasons: RT ACROMIOCLAVICULAR INJ AND TRIGGER POINT INJ Allergies amoxicillin Allergy (Mild, Verified 04/19/23 07:26) Rash nitrofurantoin [Nitrofurantoin] Allergy (Mild, Verified 04/19/23 07:26) RASH Sulfa (Sulfonamide Antibiotics) [Sulfa (Sulfonamides)] Allergy (Mild, Verified 04/19/23 07:26) RASH trimethoprim [Trimethoprim] Allergy (Mild, Verified 04/19/23 07:26) RASH PFSH Medical History Acromioclavicular joint pain Arthritis COVID-19 vaccine series completed Elevated cholesterol Factor 5 Leiden mutation, heterozygous Family history of complication of anesthesia GERD (gastroesophageal reflux disease) Hearing impairment Myofascial pain syndrome Perforation of sigmoid colon due to diverticulitis Surgical History H/O colonoscopy H/O right knee surgery History of hand surgery History of open sigmoidectomy Hx of dilation and curettage Hx of elbow surgery Hx of foot surgery Hx of foot surgery S/P colostomy takedown (05/18/21) Family History Sister Breast cancer Mother Breast cancer Family/Other Uterine cancer Family/Other Throat cancer Bone cancer Sister Emphysema lung Sister Breast cancer Father Emphysema lung Brother Alzheimer's dementia Sister Type 2 diabetes mellitus Social History (Updated 02/18/23 @ 15:27 by Ebony Hoover) Household Members: Spouse Housing: House Are you a primary specialist wound care to a significant other at home: No Do you presently have visiting nurse or other home services: No Alcohol intake: current Alcohol intake frequency: holidays/special occasions only Patient Tobacco Use Status: Never used Tobacco Advance Directives Date on File: 02/16/16 service: No Current occupational status: employed Sexual orientation: Straight/Heterosexual Gender identity: Female Physical Exam Vital Signs: Last Vital Signs Pulse 84 07/26/23 08:41 Resp 16 07/26/23 07:16 BP 128/88 07/26/23 08:41 Pulse Ox 99 07/26/23 08:41 Oxygen Delivery Method Room Air 07/26/23 08:41 BMI result Body Mass Index 19.3 Assessment & Plan Assessment & Plan (1) Acromioclavicular joint pain: Code(s): M25.519 - Pain in unspecified shoulder (2) Myofascial pain syndrome: Code(s): M79.18 - Myalgia, other site Plan Intraarticular right acromio-clavicular joint injection and trigger point injection . Informed consent was explained to the patient. All questions were explained and answered. The patient was taken inside the operating room. The patient was positioned supine on operating table with her right shoulder elevated on the wedge support. Time-out was performed delineating correct site, side, the nature of the procedure, patient's allergy, preoperative antibiotic if needed. All operating room staff was participating in OR time-out procedure. 1st right acromioclavicular joint was delineated on the screen. The area of the joint as well as sternum as well as right neck were prepped with ChloraPrep and draped with sterile utility drapes. Location of the right acromioclavicular joint was injected 1st using 22 gauge 1/2 inch needle under x-ray guidance the needle was driven into the intra-articular space and 2 cc of Ropivacaine 0.5% mixed with Kenalog was injected into the joint. After that the two trigger point injections were performed at anterior neck at the projection of the midsection of the right sternocleidomastoid muscle in fan-like fashion and after that injection of the trigger point at the right deltoid muscle was performed also in fan like fashion. . Total dose of kenalog was 40 mg. Total dose of ropivacaine was 10 mls . Patient tolerated procedure well she was taken outside of the operating room to recovery room where she recovered uneventfully. She went home without immediate complications. Orders: Orders FL guidance in treatment room Today M19.011 - Primary osteoarthritis, right shoulder Coding Level of Care Code Procedure Only Diagnoses Acromioclavicular joint pain M25.519 Myofascial pain syndrome M79.18
[2023-07-26 08:41] VITALS: BP 128/88; PULSE 84; O2SAT 99
== END 2023-07-26 08:29 | disposition home or self-care (01) ==
LOC: HO.PMCPRC 07:07
PROVIDERS: PCP Internal Medicine; Visit Provider Anesthesiology
DX: M25.511 Pain in right shoulder (principal); M79.18 Myalgia, other site
CPT/HCPCS: 20552; 20605

== ENCOUNTER 2023-09-28 08:01 | Outpatient (REF) | payer OTHER, SELFPAY ==
[2023-09-28 07:39] LABS: Estimated Average Glucose 108 mg/dL; Hemoglobin A1c % 5.4 % (<6.0)
[2023-09-28 08:19] LABS: Anion Gap 10 (12-20); Blood Urea Nitrogen 17 mg/dL (9-16); Calcium 9.6 mg/dL (8.4-10.2); Carbon Dioxide 30 mmol/L (22-29); Chloride 105 mmol/L (96-108); Estimated Glomerular Filt Rate > 60; Glucose Random 99 mg/dL (60-115); Sodium 141 mmol/L (135-145)
== END 2023-09-28 08:02 | disposition home or self-care (01) ==
LOC: HO.LAB 08:01
PROVIDERS: PCP Internal Medicine; Visit Provider Internal Medicine
DX: Z13.89 Encounter for screening for other disorder (principal)
CPT/HCPCS: 36415; 80048; 83036

== ENCOUNTER 2023-11-15 06:13 | Outpatient (REF) | payer OTHER, SELFPAY ==
--- NOTE | ~2023-11-15 | FL_ITS ---
EXAMINATION: XR FLUOROSCOPY WITH IMAGES CLINICAL INFORMATION: Right shoulder pain. AC joint injection. COMPARISON: 07/26/2023 TECHNIQUE: Fluoroscopy provided to: Dr. Barone Fluoroscopy time: 0.1 minutes DAP: 0.36431 mGycm2 Images: 1 FINDINGS: Solitary spot image right shoulder shows needle within the AC joint. FL/FL guidance in treatment room IMPRESSION: Fluoroscopic guidance. Please refer to the full operative report for details. Electronically signed by: Elier Nickerson MD 01/05/2024 04:01 PM EDT
== END 2023-11-15 06:14 | disposition home or self-care (01) ==
LOC: CF 06:13
PROVIDERS: Visit Provider Anesthesiology
DX: M79.18 Myalgia, other site (principal); M25.511 Pain in right shoulder
CPT/HCPCS: 20552; 20605; J2795; J3301

== ENCOUNTER 2023-11-15 07:11 | Outpatient (AMB) | payer OTHER, SELFPAY ==
--- NOTE | 2023-11-15 07:11 | A.OFFVIS_ITS ---
Vital Signs 11/15/23 07:19 11/15/23 07:46 Height 5 ft 1 in Weight 102 lb BMI 19.3 BP 148/66 H 146/67 H Blood Pressure Location Lt brachial Lt brachial Position Sitting Sitting Respiration 16 16 Pulse 86 73 Pulse Source Pulse Oximeter Pulse Oximeter Pulse Oximetry (%) 99 98 Oxygen Delivery Method Room Air Room Air Comment Pre-op Post-op Intake Visit Reasons: Intra R acromio-clavicul jt. inject. and TPI point Allergies amoxicillin Allergy (Mild, Verified 11/15/23 07:20) Rash nitrofurantoin [Nitrofurantoin] Allergy (Mild, Verified 11/15/23 07:20) RASH Sulfa (Sulfonamide Antibiotics) [Sulfa (Sulfonamides)] Allergy (Mild, Verified 11/15/23 07:20) RASH trimethoprim [Trimethoprim] Allergy (Mild, Verified 11/15/23 07:20) RASH PFSH Medical History Acromioclavicular joint pain Arthritis COVID-19 vaccine series completed Elevated cholesterol Factor 5 Leiden mutation, heterozygous Family history of complication of anesthesia GERD (gastroesophageal reflux disease) Hearing impairment Myofascial pain syndrome Perforation of sigmoid colon due to diverticulitis Surgical History H/O colonoscopy H/O right knee surgery History of hand surgery History of open sigmoidectomy Hx of dilation and curettage Hx of elbow surgery Hx of foot surgery Hx of foot surgery S/P colostomy takedown (05/18/21) Family History Sister Breast cancer Mother Breast cancer Family/Other Uterine cancer Family/Other Throat cancer Bone cancer Sister Emphysema lung Sister Breast cancer Father Emphysema lung Brother Alzheimer's dementia Sister Type 2 diabetes mellitus Social History (Updated 02/18/23 @ 15:27 by Ebony Hoover) Household Members: Spouse Housing: House Are you a primary respiratory care technician to a significant other at home: No Do you presently have visiting nurse or other home services: No Alcohol intake: current Alcohol intake frequency: holidays/special occasions only Patient Tobacco Use Status: Never used Tobacco Advance Directives Date on File: 05/27/15 service: No Current occupational status: employed Sexual orientation: Straight/Heterosexual Gender identity: Female Physical Exam Vital Signs: Last Vital Signs Pulse 73 11/15/23 07:46 Resp 16 11/15/23 07:46 BP 146/67 H 11/15/23 07:46 Pulse Ox 98 11/15/23 07:46 Oxygen Delivery Method Room Air 11/15/23 07:46 BMI result Body Mass Index 19.3 Assessment & Plan Assessment & Plan (1) Acromioclavicular joint pain: Code(s): M25.519 - Pain in unspecified shoulder Category: Medical (2) Myofascial pain syndrome: Code(s): M79.18 - Myalgia, other site Category: Medical Plan Intraarticular right acromio-clavicular joint injection and trigger point injection . Informed consent was explained to the patient. All questions were explained and answered. The patient was taken inside the operating room. The patient was positioned supine on operating table with her right shoulder elevated on the wedge support. Time-out was performed delineating correct site, side, the nature of the procedure, patient's allergy, preoperative antibiotic if needed. All operating room staff was participating in OR time-out procedure. 1st right acromioclavicular joint was delineated on the screen. The area of the joint as well as sternum as well as right neck were prepped with ChloraPrep and draped with sterile utility drapes. Location of the right acromioclavicular joint was injected 1st using 22 gauge 1/2 inch needle under x-ray guidance the needle was driven into the intra-articular space and 2 cc of Ropivacaine 0.5% mixed with Kenalog was injected into the joint. After that the two trigger point injections were performed at anterior neck at the projection of the midsection of the right sternocleidomastoid muscle in fan-like fashion and after that injection of the trigger point at the right deltoid muscle was performed also in fan like fashion. . Total dose of kenalog was 40 mg. Total dose of ropivacaine was 10 mls . Patient tolerated procedure well she was taken outside of the operating room to recovery room where she recovered uneventfully. She went home without immediate complications. Orders: Orders FL guidance in treatment room Today M25.511 - Pain in right shoulder Coding Level of Care Code Procedure Only Diagnoses Acromioclavicular joint pain M25.519 Myofascial pain syndrome M79.18
[2023-11-15 07:19] VITALS: BP 148/66; PULSE 86; RESP 16; O2SAT 99; BMI 19.3
[2023-11-15 07:46] VITALS: BP 146/67; PULSE 73; RESP 16; O2SAT 98
== END 2023-11-15 07:48 | disposition home or self-care (01) ==
LOC: HO.PMCPRC 07:11
PROVIDERS: PCP Internal Medicine; Visit Provider Anesthesiology
DX: M25.519 Pain in unspecified shoulder (principal); M79.18 Myalgia, other site
CPT/HCPCS: 20552; 20605

== ENCOUNTER 2023-11-22 16:11 | Inpatient (IN) | payer OTHER, SELFPAY ==
--- NOTE | ~2023-11-22 | CT_ITS ---
EXAMINATION: CT ABDOMEN AND PELVIS WITH CONTRAST CLINICAL INFORMATION: Left lower quadrant pain. History of diverticulitis with colostomy. COMPARISON: 03/18/2021 TECHNIQUE: Multidetector volumetric images were obtained from the superior aspect of the liver through the pubic symphysis following administration 85 mL of Omnipaque 350 intravenous contrast. Sagittal and coronal reformatted images were obtained on the technologist's workstation. Oral contrast: No This CT examination was performed using dose optimization techniques as appropriate, variously including the following: *Automated exposure control *Adjustment of mA and/or kV according to patient size (this includes techniques or standardized protocols for targeted exams where dose is matched to indication/reason for exam; i.e. extremities or head) *Use of iterative reconstruction technique DLP: 288 mGy-cm FINDINGS: LUNG BASES: The visualized lung bases are unremarkable. LIVER, GALLBLADDER, AND BILIARY TREE: The liver is normal in size, shape, and attenuation. No focal hepatic lesion or biliary ductal dilatation is present. The gallbladder is unremarkable with no evidence of radiopaque gallstones, gallbladder wall thickening, or obvious pericholecystic inflammatory changes. PANCREAS: Unremarkable. SPLEEN: Unremarkable. ADRENAL GLANDS: Unremarkable. KIDNEYS AND URETERS: The kidneys are normal in size, shape, and attenuation. No hydronephrosis, hydroureter, or calculi seen. Small subcentimeter focus of cortical hypoattenuation in the right kidney is too small to characterize, though statistically favored to correspond to a simple cyst. No recommended imaging follow-up. No perinephric stranding. BLADDER: Unremarkable. GASTROINTESTINAL TRACT: There is fecalization transition point along its distal margin where there is a of a mildly dilated segment of small bowel in the lower abdomen with an associated twist of the bowel loops, most concerning for obstruction. The distal bowel loops are decompressed with marked mesenteric fat stranding. There is a small volume of intraperitoneal free fluid. There is mild colonic diverticulosis with a colonic anastomosis in the central pelvis at the region of the rectosigmoid junction. Appendix is unremarkable. ABDOMINAL WALL: No significant hernia is appreciated. LYMPH NODES: Normal. VASCULAR: Atherosclerotic calcifications are present in the abdominal aorta and iliac arteries. No aneurysmal dilatation. PELVIC VISCERA: The uterus and adnexa are unremarkable. OSSEOUS STRUCTURES: Mild multilevel degenerative disc disease thoracolumbar spine. No acute osseous findings. Bones are osteopenic. CT/CT abdomen pelvis w IV con IMPRESSION: 1. High-grade small bowel obstruction with a transition point in the central pelvis in the region of mesenteric twisting. There is marked mesenteric fat stranding and a small volume of intraperitoneal free fluid. No appreciable perforation or pneumatosis. Extensive mesenteric fat stranding which could be due to venous congestion or ischemia within the affected segments. 2. Mild colonic diverticulosis without evidence of acute diverticulitis.
--- NOTE | ~2023-11-22 | CT_ITS ---
EXAMINATION: CT ABDOMEN AND PELVIS WITH CONTRAST CLINICAL INFORMATION: Status post exploratory laparotomy. Lysis of adhesions. Question ileus. COMPARISON: CT abdomen pelvis 11/22/2023. TECHNIQUE: Multidetector volumetric images were obtained from the superior aspect of the liver through the pubic symphysis following administration 85 mL of Omnipaque 350 intravenous contrast. Sagittal and coronal reformatted images were obtained on the technologist's workstation. Oral contrast: No This CT examination was performed using dose optimization techniques as appropriate, variously including the following: *Automated exposure control *Adjustment of mA and/or kV according to patient size (this includes techniques or standardized protocols for targeted exams where dose is matched to indication/reason for exam; i.e. extremities or head) *Use of iterative reconstruction technique DLP: 173 mGy-cm FINDINGS: LUNG BASES: The visualized lung bases are unremarkable. LIVER, GALLBLADDER, AND BILIARY TREE: The liver is normal in size, shape, and attenuation. No focal hepatic lesion or biliary ductal dilatation is present. The gallbladder is unremarkable with no evidence of radiopaque gallstones, gallbladder wall thickening, or obvious pericholecystic inflammatory changes. PANCREAS: Unremarkable. SPLEEN: Unremarkable. ADRENAL GLANDS: Unremarkable. KIDNEYS AND URETERS: The kidneys are normal in size, shape, and attenuation. No hydronephrosis, hydroureter, or calculi seen. No perinephric stranding. BLADDER: Gas is present dependently within the urinary bladder which may be secondary to recent Santos catheterization. GASTROINTESTINAL TRACT: Suture material is noted in the region of the distal sigmoid colon. Mild colonic diverticulosis. The cecum resides within the right hemipelvis. This structure likely representing a decompressed appendix is noted on series 4 image [id number]. The stomach is decompressed. No intestinal dilatation or mural thickening noted. A trace quantity of free intraperitoneal fluid is noted dependently within the pelvis. Minimal free intraperitoneal gas is noted (for example series 3 image 42). Diffuse hyperemia of the small bowel submucosal venous plexus is noted. No small bowel dilatation identified. Mild reticulation is present diffusely within the small bowel mesentery. ABDOMINAL WALL: Ventral midline cutaneous jesusita and a midline cutaneous scar noted. LYMPH NODES: Normal. VASCULAR: Mild scattered calcific atherosclerosis. PELVIC VISCERA: Uterus is atrophic. No adnexal lesions identified. OSSEOUS STRUCTURES: Mild multilevel endplate and facet hypertrophic changes of the visualized thoracolumbar spine. CT/CT abdomen pelvis w IV con IMPRESSION: *Diffuse hyperemia of the small bowel submucosal venous plexus. No intestinal dilatation. Findings may represent reactive changes status post laparotomy. No intestinal dilatation to specifically suggest ileus or obstruction. *Mild colonic diverticulosis.
--- NOTE | 2023-11-22 16:15 | ED_ITS ---
HPI - Abdominal Pain General Chief Complaint: Abdominal Pain Stated Complaint: abd pain Time Seen by Provider: 11/22/23 18:31 Related Data Home Medications ?Medication ?Instructions ?Recorded ?Confirmed simvastatin 20 mg tablet 20 mg PO DAILY 04/28/20 02/18/23 acetaminophen 650 mg 650 mg PO Q12H PRN Pain 04/14/21 02/18/23 tablet,extended release fluticasone propionate 50 1 spray intranasal DAILY 04/14/21 02/18/23 mcg/actuation nasal spray,suspension gabapentin 100 mg capsule 1 cap PO BEDTIME 04/14/21 02/18/23 multivitamin 1 tab PO DAILY 04/14/21 02/18/23 tramadol 50 mg tablet 50 mg PO BID PRN pain 09/07/22 02/18/23 alendronate 35 mg tablet 35 mg PO QWEEK 04/19/23 ibuprofen 400 mg tablet mg PO .prn 11/15/23 Previous Rx's ?Medication ?Instructions ?Recorded temazepam 15 mg capsule 15 mg PO BEDTIME PRN Insomnia #10 05/23/21 caps Allergies Allergy/AdvReac Type Severity Reaction Status Date / Time amoxicillin Allergy Mild Rash Verified 11/22/23 16:17 nitrofurantoin Allergy Mild RASH Verified 11/22/23 16:17 [Nitrofurantoin] Sulfa (Sulfonamide Allergy Mild RASH Verified 11/22/23 16:17 Antibiotics) [Sulfa (Sulfonamides)] trimethoprim [Trimethoprim] Allergy Mild RASH Verified 11/22/23 16:17 PMFSH Past Medical History Medical History Acromioclavicular joint pain Arthritis COVID-19 vaccine series completed Elevated cholesterol Factor 5 Leiden mutation, heterozygous Family history of complication of anesthesia GERD (gastroesophageal reflux disease) Hearing impairment Myofascial pain syndrome Perforation of sigmoid colon due to diverticulitis Surgical History H/O colonoscopy H/O right knee surgery History of hand surgery History of open sigmoidectomy Hx of dilation and curettage Hx of elbow surgery Hx of foot surgery Hx of foot surgery S/P colostomy takedown (05/18/21) Family History Family History Sister Breast cancer Mother Breast cancer Family/Other Uterine cancer Family/Other Throat cancer Bone cancer Sister Emphysema lung Sister Breast cancer Father Emphysema lung Brother Alzheimer's dementia Sister Type 2 diabetes mellitus Social History Social History (Updated 02/18/23 @ 15:27 by Ebony Hoover) Household Members: Spouse Housing: House Are you a primary professional healthcare representative to a significant other at home: No Do you presently have visiting nurse or other home services: No Alcohol intake: current Alcohol intake frequency: holidays/special occasions only Patient Tobacco Use Status: Never used Tobacco Smoked in Last 30 Days: No Use of substances other than those prescribed or required for medical reasons: No Advance Directives: Yes Advance Directives on File: Yes Advance Directives Date on File: 05/25/21 Do you have a plan to hurt others: No Plan service: No Current occupational status: employed Sexual orientation: Straight/Heterosexual Gender identity: Female Physical Exam ED Vital Signs: Vital Signs - 24 hr 11/22/23 16:16 11/22/23 18:21 11/22/23 20:00 Temperature 98.3 F 97.7 F 98.2 F Pulse Rate 100 87 82 Respiratory Rate 20 22 H 15 Blood Pressure 178/77 H 164/79 H 138/73 Pulse Oximetry 96 100 99 Oxygen Delivery Method Room Air Room Air Room Air 11/22/23 20:31 11/22/23 22:00 Temperature 99.2 F 98.3 F Pulse Rate 88 80 Respiratory Rate 20 16 Blood Pressure 142/67 H 115/56 L Pulse Oximetry 98 100 Oxygen Delivery Method Room Air Room Air BMI result Body Mass Index 19.2 Course Course Course Narrative: This is a Rapid Medical Examination (RME) performed by Saloni Duenas PA-C in triage. Full HPI, ROS, assessment and treatment plan per primary provider in the Main ED. 68 yo female with history of sigmoid diverticultis w/ perforation s/p Rivera procedure in 2020 presents to the ER for evaluation of 10/10 severe, diffuse abdominal pain that started 1 hour ago. She reports having pain yesterday but she used a heating pad and it got better. No N/V/D. Pain is similar to when she had diverticulitis and needed to do surgery. Abd exquisitely tender in triage and she appears very uncomfortable. Charge nurse aware patient needs to come back. Plan: labs, IV pain control, CT scan Medical Decision Making Medical Decision Making [facility] Narrative: My interpretation of labs: White blood cell count 11.1, chemistry within normal limits urine has small leukocyte esterase and white blood cells -my interpretation of CT scan, diverticulitis, possible microperforation. Radiology report pending. -patient empirically being treated with antibiotics -at 23:45, radiology report became available, patient has a high-grade small- bowel obstruction -I discussed the patient with Dr. 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 11/22/23 16:35 11/22/23 16:35 Labs: Lab Results 11/22/23 11/22/23 Range/Units 16:35 19:24 WBC 11.1 H (4.8-10.8) X10*3/uL RBC 4.49 (4.20-5.50) X10*6/uL Hgb 13.9 (12.0-16.0) g/dl Hct 41.2 (37.0-47.0) % MCV 91.8 (80.0-98.0) fL MCH 31.0 (27.0-33.0) pg MCHC 33.7 (31.0-35.0) g/dl RDW 12.0 (11.0-16.0) % Plt Count 293 (160-400) X10*3/uL MPV 8.7 L (9.4-12.3) fL Immature Gran % (Auto) 0.4 (0.0-0.4) % Neut % (Auto) 66.9 (45-73) % Lymph % (Auto) 24.8 (20-40) % [place] % (Auto) 6.7 (2-11) % Eos % (Auto) 0.7 (0-4) % Baso % (Auto) 0.5 (0-2) % Lymph # (Auto) 2.8 (1.2-4.9) X10*3/uL [place] # (Auto) 0.7 (0.1-1.2) X10*3/uL Eos # (Auto) 0.1 (0.0-0.4) X10*3/uL Baso # (Auto) 0.1 (0.0-0.2) X10*3/uL Abs Immat Gran (auto) 0.04 H (0.00-0.03) X10*3/uL Absolute Neuts (auto) 7.4 (2.0-8.3) x10*3/uL Absolute Nucleated RBC 0.000 (0.0-0.012) X10*3/uL Nucleated RBC % (auto) 0.0 (0.0-0.2) /100WBC Sodium 136 (135-145) mmol/L Potassium 4.0 (3.3-5.1) mmol/L Chloride 100 (96-108) mmol/L Carbon Dioxide 23 (22-29) mmol/L Anion Gap 17 (12-20) BUN 16 (9-16) mg/dL Creatinine 0.76 (0.5-1.4) mg/dL Estim Creat Clear Calc 53.0 Estimated GFR > 60 Random Glucose 139 H (60-115) mg/dL Lactic Acid 1.0 (0.5-2.0) mmol/L Calcium 10.1 (8.4-10.2) mg/dL Magnesium 2.1 (1.6-2.6) mg/dL Total Bilirubin 0.7 (0.0-1.0) mg/dL Direct Bilirubin 0.2 (0.0-0.5) mg/dL AST 19 (5-31) U/L ALT 23 (0-31) U/L Alkaline Phosphatase 52 (39-117) U/L Total Protein 7.5 (6.5-8.0) g/dL Albumin 4.8 (3.5-5.0) g/dL Lipase 12 (8-78) U/L Urine Color Yellow Urine Appearance Clear Urine pH 6.0 (5.0-9.0) Ur Specific [place] 1.020 (1.005-1.025) Urine Protein Negative (Neg-Trace) mg/dL Urine Glucose (UA) Negative (Negative) mg/dL Urine Ketones 15 (Negative) mg/dL Urine Blood Negative (Negative) Urine Nitrite Negative (Negative) Ur Leukocyte Esterase Small (1+) H (Negative) Urine RBC 0-2 (0-2) /HPF Urine WBC 11-20 H (0-5) /HPF Ur Squamous Epith Cells 0-2 (0-2) /HPF Urine Bacteria None Seen (None Seen) Hyaline Casts 0-2 (0-2) /LPF Independent Interpretation I performed an independent interpretation of an: CT Scan Radiology Impression Discussion of test interpretation with radiology: I have reviewed the radiologist's reading. Radiologist Impression: FINDINGS: LUNG BASES: The visualized lung bases are unremarkable. LIVER, GALLBLADDER, AND BILIARY TREE: The liver is normal in size, shape, and attenuation. No focal hepatic lesion or biliary ductal dilatation is present. The gallbladder is unremarkable with no evidence of radiopaque gallstones, gallbladder wall thickening, or obvious pericholecystic inflammatory changes. PANCREAS: Unremarkable. SPLEEN: Unremarkable. ADRENAL GLANDS: Unremarkable. KIDNEYS AND URETERS: The kidneys are normal in size, shape, and attenuation. No hydronephrosis, hydroureter, or calculi seen. Small subcentimeter focus of cortical hypoattenuation in the right kidney is too small to characterize, though statistically favored to correspond to a simple cyst. No recommended imaging follow-up. No perinephric stranding. BLADDER: Unremarkable. GASTROINTESTINAL TRACT: There is fecalization transition point along its distal margin where there is a of a mildly dilated segment of small bowel in the lower abdomen with an associated twist of the bowel loops, most concerning for obstruction. The distal bowel loops are decompressed with marked mesenteric fat stranding. There is a small volume of intraperitoneal free fluid. There is mild colonic diverticulosis with a colonic anastomosis in the central pelvis at the region of the rectosigmoid junction. Appendix is unremarkable. ABDOMINAL WALL: No significant hernia is appreciated. LYMPH NODES: Normal. VASCULAR: Atherosclerotic calcifications are present in the abdominal aorta and iliac arteries. No aneurysmal dilatation. PELVIC VISCERA: The uterus and adnexa are unremarkable. OSSEOUS STRUCTURES: Mild multilevel degenerative disc disease thoracolumbar spine. No acute osseous findings. Bones are osteopenic. CT/CT abdomen pelvis w IV con IMPRESSION: 1. High-grade small bowel obstruction with a transition point in the central pelvis in the region of mesenteric twisting. There is marked mesenteric fat stranding and a small volume of intraperitoneal free fluid. No appreciable perforation or pneumatosis. Extensive mesenteric fat stranding which could be due to venous congestion or ischemia within the affected segments. 2. Mild colonic diverticulosis without evidence of acute diverticulitis. Independent Historian Clinical information obtained from an independent historian. History obtained from or confirmed by: Spouse Medications Administered Discontinued Medications Generic Name Dose Route Start Last Admin Trade Name Freq PRN Reason Stop Dose Admin Hydromorphone HCl 1 mg 11/22/23 20:36 11/22/23 20:45 Hydromorphone Hcl 1 Mg/Ml Syringe IVPUSH 11/22/23 20:37 1 mg ONCE ONE Administration Protocol Hydromorphone HCl 1 mg 11/22/23 23:33 11/22/23 23:39 Hydromorphone Hcl 1 Mg/Ml Syringe IVPUSH 11/22/23 23:34 1 mg ONCE ONE Administration Protocol Sodium Chloride 1,000 mls @ 999 mls/hr 11/22/23 16:30 11/22/23 20:30 Ns IVCONT 11/22/23 17:30 Infused .Q1H1M LEXY Infusion Piperacillin Sod/Tazobactam 50 mls @ 100 mls/hr 11/22/23 19:50 11/22/23 21:24 Sod 3.375 gm/ Sodium Chloride IV 11/22/23 20:19 Infused ONCE ONE Infusion Iohexol 85 ml 11/22/23 19:40 11/22/23 19:40 Iohexol 350 Mg/Ml 100 Ml Infus..Btl IV 11/22/23 19:41 85 ml ONCE ONE Administration Morphine Sulfate 4 mg 11/22/23 18:28 11/22/23 18:37 Morphine Sulfate 4 Mg/Ml Cartridge IVPUSH 11/22/23 18:29 4 mg ONCE ONE Administration Protocol Ondansetron HCl 4 mg 11/22/23 18:38 11/22/23 18:41 Ondansetron Hcl 4 Mg/2 Ml Vial IVPUSH 11/22/23 18:39 4 mg ONCE ONE Administration Critical Care Time Critical Care Time Critical Care Time: Yes Total Critical Care Time: 75 Attestation: I have personally provided critical care time. Time includes review of lab data, radiology results, discussion with consultants, and monitoring for potential decompensation. Intervention performed as documented. Discharge Plan Discharge Clinical Impression: Small bowel obstruction Patient Disposition: Admitted As Inpatient Prescriptions: No Action multivitamin Tablet 1 tab PO DAILY acetaminophen 650 mg Tablet Extended Release 650 mg PO Q12H PRN (Reason: Pain) fluticasone propionate 50 mcg/actuation [place],Suspension 1 spray INTRANASAL DAILY gabapentin 100 mg capsule 1 cap PO BEDTIME temazepam 15 mg Capsule 15 mg PO BEDTIME PRN (Reason: Insomnia) Qty: 10 0RF simvastatin 20 mg tablet 20 mg PO DAILY ibuprofen 400 mg tablet PO .prn tramadol 50 mg tablet 50 mg PO BID PRN (Reason: pain) alendronate 35 mg tablet 35 mg PO QWEEK Print Language: Yakut
[2023-11-22 16:16] VITALS: BP 178/77; PULSE 100; RESP 20; TEMP 36.8; O2SAT 96; BMI 19.2
[2023-11-22 16:40] LABS: MANUAL DIFF FLAG NO
[2023-11-22 16:45] LABS: Basophils Absolute Auto 0.1 X10*3/uL (0.0-0.2); Basophils Percent Auto 0.5 % (0-2); Eosinophils Absolute Auto 0.1 X10*3/uL (0.0-0.4); Eosinophils Percent Auto 0.7 % (0-4); Hematocrit 41.2 % (37.0-47.0); Hemoglobin 13.9 g/dl (12.0-16.0); Imm Gran Abs Auto 0.04 X10*3/uL (0.00-0.03); Imm Gran Pct Auto 0.4 % (0.0-0.4); Lymphocytes Absolute Auto 2.8 X10*3/uL (1.2-4.9); Lymphocytes Percent Auto 24.8 % (20-40); Mean Corpuscular HGB Conc 33.7 g/dl (31.0-35.0); Mean Corpuscular Volume 91.8 fL (80.0-98.0); Mean Platelet Volume 8.7 fL (9.4-12.3); Monocytes Absolute Auto 0.7 X10*3/uL (0.1-1.2); Monocytes Percent Auto 6.7 % (2-11); Neutrophils Absolute Auto 7.4 x10*3/uL (2.0-8.3); Neutrophils Percent Auto 66.9 % (45-73); Platelet Count 293 X10*3/uL (160-400); Red Blood Count 4.49 X10*6/uL (4.20-5.50); White Blood Count 11.1 X10*3/uL (4.8-10.8)
[2023-11-22 17:06] LABS: Alanine Aminotransferase 23 U/L (0-31); Albumin Level 4.8 g/dL (3.5-5.0); Alkaline Phosphatase 52 U/L (39-117); Anion Gap 17 (12-20); Aspartate Amino Transferase 19 U/L (5-31); Bilirubin Direct 0.2 mg/dL (0.0-0.5); Bilirubin Total 0.7 mg/dL (0.0-1.0); Blood Urea Nitrogen 16 mg/dL (9-16); Calcium 10.1 mg/dL (8.4-10.2); Carbon Dioxide 23 mmol/L (22-29); Chloride 100 mmol/L (96-108); Estimated Glomerular Filt Rate > 60; Glucose Random 139 mg/dL (60-115); Lipase 12 U/L (8-78); Magnesium 2.1 mg/dL (1.6-2.6); Sodium 136 mmol/L (135-145); Total Protein 7.5 g/dL (6.5-8.0)
[2023-11-22 18:21] VITALS: BP 164/79; PULSE 87; RESP 22; TEMP 36.5; O2SAT 100
[2023-11-22] MEDS: 0.9 % Sodium Chloride 1,000 ML 999 ML IVCONT (18:34)
[2023-11-22] MEDS: Morphine Sulfate 4 MG/ML CARTRIDGE IVPUSH (18:37)
[2023-11-22] MEDS: ondansetron HCL 4 MG/2 ML VIAL IVPUSH (18:41)
[2023-11-22 19:35] LABS: Appearance Urine Clear; Color Urine Yellow; Glucose Urine UA Negative (Negative); Leukocyte Esterase Urine Small (1+) (Negative); Nitrite Urine Negative (Negative); UMIC TRIGGER UACC YES; Urine Blood Negative (Negative); Urine Ketones 15 mg/dL (Negative); Urine Protein Negative (Neg-Trace)
[2023-11-22] MEDS: iohexoL 350 MG/ML 100 ML INFUS..BTL 85 ML IV (19:40)
[2023-11-22 19:45] LABS: Bacteria Urine None Seen (None Seen); Hyaline Casts Urine 0-2 /LPF (0-2); RBC Urine 0-2 /HPF (0-2); Squamous Epithelial Cell Urine 0-2 /HPF (0-2); UACC Culture Trigger YES
[2023-11-22 20:00] VITALS: BP 138/73; PULSE 82; RESP 15; TEMP 36.8; O2SAT 99
[2023-11-22 20:31] VITALS: BP 142/67; PULSE 88; RESP 20; TEMP 37.3; O2SAT 98
[2023-11-22] MEDS: HYDROmorphone HCl 1 MG/ML SYRINGE IVPUSH ×2 (20:45→23:39)
[2023-11-22] MEDS: Piperacillin Sodium/Tazobactam 3.375 GM in 0.9 % Sodium Chloride 50 ML IV (20:48)
[2023-11-22 22:00] VITALS: BP 115/56; PULSE 80; RESP 16; TEMP 36.8; O2SAT 100
[2023-11-23] VITALS (10 sets, daily range): BP systolic 109–137; BP diastolic 51–74; PULSE 80–109; RESP 12–18; TEMP 36–37.2; O2SAT 93–100
[2023-11-23] MEDS: Lidocaine HCl 4 % Laryng-O-Jet 4 ML 1 APPL TOPICAL (00:11)
[2023-11-23] MEDS: Prochlorperazine Edisylate 10 MG/2 ML VIAL IVPUSH (00:21)
[2023-11-23] MEDS: Acetaminophen 1,000 MG/100 ML PIGGYBACK 400 MG IV ×3 (00:28→23:15)
[2023-11-23 00:51] LABS: INTERNATIONAL NORM RATIO 0.9 (0.9-1.1); Prothrombin Time 11.1 SEC (11.1-13.3)
[2023-11-23 00:54] LABS: Partial Thromboplastin Time 27.8 SEC (26.0-36.8)
--- NOTE | 2023-11-23 01:38 | P.HPGS_ITS ---
History of Present Illness History of Present Illness Date of Service: 11/23/23 Chief complaint: abd pain Narrative: Adilia Liang is a 68 year old female who presents today to the emergency room complaining of abdominal pain. The abdominal pain started a bit yesterday but she came in today to work but it got worse and she left to go home. After being at home for little bit she felt the pain becoming very severe in her midabdomen and her brought her to the emergency room. She has had a history of perforated diverticulitis in the past and underwent Vahe procedure and then eventually underwent another operation to reverse her colostomy. 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 Here in the emergency room she was very tender on abdominal exam and CT scan of her abdomen and pelvis shows bowel obstruction with transition zone mid to left lower quadrant area with possible twist with some free fluid and significant mesentery edema. She has required significant IV pain medication which has caused some degree of respiratory depression. She had felt nauseated but did not throw up. Her says generally she does not complain so this is something significant. Review of Systems Review of Systems: Yes all other systems are reviewed and are negative [facility] Past Medical History Medical History Acromioclavicular joint pain Arthritis COVID-19 vaccine series completed Elevated cholesterol Factor 5 Leiden mutation, heterozygous Family history of complication of anesthesia GERD (gastroesophageal reflux disease) Hearing impairment Myofascial pain syndrome Perforation of sigmoid colon due to diverticulitis Family History Family History Sister Breast cancer Mother Breast cancer Family/Other Uterine cancer Family/Other Throat cancer Bone cancer Sister Emphysema lung Sister Breast cancer Father Emphysema lung Brother Alzheimer's dementia Sister Type 2 diabetes mellitus Surgical History Surgical History H/O colonoscopy H/O right knee surgery History of hand surgery History of open sigmoidectomy Hx of dilation and curettage Hx of elbow surgery Hx of foot surgery Hx of foot surgery S/P colostomy takedown (05/18/21) Social History Social History (Updated 02/18/23 @ 15:27 by Josemily Kiko) Household Members: Spouse Housing: House Are you a primary resident care aide to a significant other at home: No Do you presently have visiting nurse or other home services: No Alcohol intake: current Alcohol intake frequency: holidays/special occasions only Patient Tobacco Use Status: Never used Tobacco Smoked in Last 30 Days: No Use of substances other than those prescribed or required for medical reasons: No Advance Directives: Yes Advance Directives on File: Yes Advance Directives Date on File: 05/25/21 Do you have a plan to hurt others: No Plan service: No Current occupational status: employed Sexual orientation: Straight/Heterosexual Gender identity: Female Meds Allergies Allergy/AdvReac Type Severity Reaction Status Date / Time amoxicillin Allergy Mild Rash Verified 11/22/23 16:17 nitrofurantoin Allergy Mild RASH Verified 11/22/23 16:17 [Nitrofurantoin] Sulfa (Sulfonamide Allergy Mild RASH Verified 11/22/23 16:17 Antibiotics) [Sulfa (Sulfonamides)] trimethoprim [Trimethoprim] Allergy Mild RASH Verified 11/22/23 16:17 Home Medications ?Medication ?Instructions ?Recorded ?Confirmed ?Last Taken ?Type simvastatin 20 mg tablet 20 mg PO DAILY 04/28/20 11/23/23 11/21/23 History acetaminophen 650 mg 650 mg PO Q12H PRN Pain 04/14/21 02/18/23 Unknown History tablet,extended release fluticasone propionate 50 1 spray intranasal DAILY 04/14/21 11/23/23 11/22/23 History mcg/actuation nasal spray,suspension gabapentin 100 mg capsule 1 cap PO BEDTIME 04/14/21 11/23/23 11/21/23 History multivitamin 1 tab PO DAILY 04/14/21 11/23/23 11/22/23 History tramadol 50 mg tablet 50 mg PO BID PRN pain 09/07/22 02/18/23 Unknown History alendronate 35 mg tablet 35 mg PO QWEEK 04/19/23 11/23/23 11/17/23 History ibuprofen 400 mg tablet mg PO .prn 11/15/23 11/22/23 History Physical Exam Vital Signs: Vital Signs: Last Vital Signs Temp 98.8 F 11/23/23 00:00 Pulse 92 11/23/23 00:00 Resp 12 11/23/23 00:00 BP 127/54 L 11/23/23 00:00 Pulse Ox 93 11/23/23 00:00 O2 Del Method Room Air 11/23/23 00:00 BMI result Body Mass Index 19.2 Const: General: acute distress moderate, ill appearing and lethargic Nutritional Appearance: thin Orientation/consciousness: lethargic Resp: Effort & Inspection: normal respiratory effort Auscultation: clear to auscultation bilaterally Cardio: Rate: regular rate Rhythm: regular rhythm GI: Other: Abdomen has peritoneal signs tender diffusely there are positive bowel sounds no masses are noted no hernias are noted Neuro: Other: Patient is little lethargic and sleepy but eventually responds to commands Results Results Labs: Short CBC 11/22/23 Range/Units 16:35 WBC 11.1 H (4.8-10.8) X10*3/uL Hgb 13.9 (12.0-16.0) g/dl Hct 41.2 (37.0-47.0) % Plt Count 293 (160-400) X10*3/uL BMP 11/22/23 16:35 Sodium 136 Potassium 4.0 Chloride 100 Carbon Dioxide 23 BUN 16 Creatinine 0.76 Calcium 10.1 Liver Function 11/22/23 Range/Units 16:35 Total Bilirubin 0.7 (0.0-1.0) mg/dL Direct Bilirubin 0.2 (0.0-0.5) mg/dL AST 19 (5-31) U/L ALT 23 (0-31) U/L Alkaline Phosphatase 52 (39-117) U/L Albumin 4.8 (3.5-5.0) g/dL Urine 11/22/23 Range/Units 19:24 Urine Color Yellow Urine Appearance Clear Urine pH 6.0 (5.0-9.0) Ur Specific [place] 1.020 (1.005-1.025) Urine Protein Negative (Neg-Trace) mg/dL Urine Glucose (UA) Negative (Negative) mg/dL Abdomen CT scan report/results: report reviewed and image reviewed CT scan - pelvis: report reviewed and image reviewed Additional studies: Chart - [facility] ? Diagnostics Subcategory All Activity ??:?? All Time ??:?? All Subcategories Filter Laboratory Imaging Microbiology Pathology Blood Bank Tests Cardiovascular Other Specialty DATE TYPE STATUS REF RANGE/AUTHOR Hx 11/22/23 19:45 Abdomen/Pelvis CT Signed Elier Garcia 11/15/23 06:26 Guidance Fluoroscopy ? 07/26/23 08:20 Guidance Fluoroscopy Signed David Buchanan 04/29/23 09:48 Cervical Spine MRI Signed Noé Ga 04/19/23 07:42 Guidance Fluoroscopy Signed Meredith Kessler 04/13/23 14:30 Hip X-Ray Signed Billy Pierre 03/01/23 06:20 Cervical Spine X-Ray Signed Gisselle,El 02/18/23 08:45 Bone Densitometry Signed Polo Christina 02/18/23 08:43 Mammogram Screening Signed Elier Nickerson 12/28/22 07:45 Guidance Fluoroscopy Signed Meredith Kessler 09/07/22 07:45 Guidance Fluoroscopy Signed Meredith Kessler 06/02/22 06:17 Shoulder X-Ray Signed Reinaldo Tejada 06/01/22 08:49 Guidance Fluoroscopy Signed Reinaldo Tejada 04/01/22 06:27 Hip X-Ray Signed Mansoor Day 02/23/22 08:00 Guidance Fluoroscopy Signed Reinaldo Tejada 02/11/22 15:52 Mammogram Screening Signed Reinaldo Tejada 10/20/21 09:50 Guidance Fluoroscopy Signed Reinaldo Tejada 06/16/21 16:15 Guidance Fluoroscopy Signed Tyrone Courtney 03/18/21 10:05 Abdomen/Pelvis CT Signed Meredith Kessler 03/10/21 07:44 Guidance Fluoroscopy Signed Reinaldo Tejada 02/10/21 08:45 Bone Densitometry Signed Reinaldo Tejada 02/10/21 08:00 Mammogram Screening Signed Reinaldo Tejdaa 01/18/21 08:00 Venous Duplex Signed El Hays 01/12/21 22:57 Abdomen/Pelvis CT Signed Mansoor Day 12/23/20 06:20 Lumbar Spine X-Ray Signed Gisselle,El 12/23/20 06:19 Pelvis X-Ray Signed Gisselle,El 12/23/20 06:19 Hip X-Ray Signed Gisselle,El 12/02/20 07:21 Guidance Fluoroscopy Signed Noé Winn 09/11/20 15:38 Cervical Spine MRI Signed Billy Fan 08/22/20 14:39 Shoulder X-Ray Signed Checo,Meredith 08/22/20 14:39 Cervical Spine X-Ray Signed Meredith Kessler 02/26/20 07:29 Guidance Fluoroscopy Signed Mansoor Day 02/12/20 06:50 Pelvis X-Ray Signed El Pitts 02/08/20 09:42 Mammogram Screening Signed Reinaldo Tejada Joan M Acute 68, F?1955 MRN#? [id number] [facility] ER,?Emergency Department??ED Bed 21?-ED21? 5ft 1in 101lb 10.13oz BSA: 1.41m? BMI: 19.2kg/m? Abdominal Pain Acc#? [id number] Resus Status Not Ordered Hx Avail Historical Visits Allergies amoxicillin Rash nitrofurantoin (Nitrofurantoin) RASH Sulfa (Sulfonamide Antibiotics) (Sulfa (Sulfonamides)) RASH trimethoprim (Trimethoprim) RASH Problems ? 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 Resp 12? Temp 98.8 F? O2 Sat 93? Delivery Room Air? Home Meds Not Confirmed Prescription Monitoring Program Total 20 MME/Day Unconfirmed MEDICATIONS (INSTRUCTIONS) LAST TAKEN Active ??acetaminophen ??650 [id number] alendronate 35 mg tablet 35 mgPOQWEEK 11/17/23 fluticasone propionate 1 sprayintranasalDAILY 11/22/23 gabapentin 1 capPOBEDTIME 11/21/23 ibuprofen 400 mg tablet ??mgPO.prn 11/22/23 multivitamin 1 tabPODAILY 11/22/23 simvastatin 20 mg tablet 20 mgPODAILY 11/21/23 ??temazepam ??15 mgPOBEDTIMEPRNInsomnia#10 caps ??tramadol 50 mg tablet ??50 mgPOBIDPRNpain 20 MME/Day My Widget No Data to Display Diagnostics Reports Adilia Liang??68??F??1955 ? Allergy/Adv: amoxicillin, nitrofurantoin, Sulfa (Sulfonamide Antibiotics), trimethoprim (More??) Close Abdomen/Pelvis CT (Signed) Elier Garcia - 11/22/23 Guidance Fluoroscopy 11/15/23 Guidance Fluoroscopy (Signed) David Buchanan - 07/26/23 Cervical Spine MRI (Signed) Noé Ga - 04/29/23 Guidance Fluoroscopy (Signed) Meredith Kessler - 04/19/23 Hip X-Ray (Signed) Billy Pierre - 04/13/23 Cervical Spine X-Ray (Signed) Gisselle,El - 03/01/23 Bone Densitometry (Signed) Polo Christina - 02/18/23 Mammogram Screening (Signed) Elier Nickerson - 02/18/23 Guidance Fluoroscopy (Signed) Meredith Kessler - 12/28/22 Guidance Fluoroscopy (Signed) Meredith Kessler - 09/07/22 Shoulder X-Ray (Signed) Reinaldo Tejada - 06/02/22 Guidance Fluoroscopy (Signed) Reinaldo Tejada - 06/01/22 Hip X-Ray (Signed) Mansoor Day - 04/01/22 Guidance Fluoroscopy (Signed) Reinaldo Tejada - 02/23/22 Mammogram Screening (Signed) Reinaldo Tejada - 02/11/22 Guidance Fluoroscopy (Signed) Reinaldo Tejada - 10/20/21 Guidance Fluoroscopy (Signed) Tyrone Courtney - 06/16/21 Abdomen/Pelvis CT (Signed) Meredith Kessler - 03/18/21 Guidance Fluoroscopy (Signed) Reinaldo Tejada - 03/10/21 Bone Densitometry (Signed) Reinaldo Tejada - 02/10/21 Mammogram Screening (Signed) Reinaldo Tejada - 02/10/21 Venous Duplex (Signed) El Hays - 01/18/21 Abdomen/Pelvis CT (Signed) Mansoor Day - 01/12/21 Lumbar Spine X-Ray (Signed) Gisselle,El - 12/23/20 Pelvis X-Ray (Signed) Gisselle,El - 12/23/20 Hip X-Ray (Signed) Gisselle,El - 12/23/20 Guidance Fluoroscopy (Signed) Noé Winn - 12/02/20 Cervical Spine MRI (Signed) Billy Fan - 09/11/20 Shoulder X-Ray (Signed) Meredith Kessler - 08/22/20 Cervical Spine X-Ray (Signed) Meredith Kessler - 08/22/20 Guidance Fluoroscopy (Signed) Mansoor Day - 02/26/20 Pelvis X-Ray (Signed) El Pitts - 02/12/20 Mammogram Screening (Signed) TerrellReinaldo - 02/08/20 Launch?Image [address] [address] [address] Scan Report Signed Patient: Adilia Liang MR#: [id number] : 1955 Acct:[id number] Age/Sex: 68 / F ADM Date: 11/22/23 Loc: .ED Attending Dr: Ordering Physician: Anayeli Garces MD Date of Service: 11/22/23 Procedure(s): CT abdomen pelvis w IV con Accession Number(s): [id number] cc: Ryan Hayes MD; Anayeli Garces MD~ EXAMINATION: CT ABDOMEN AND PELVIS WITH CONTRAST CLINICAL INFORMATION: Left lower quadrant pain. History of diverticulitis with colostomy. COMPARISON: 03/18/2021 TECHNIQUE: Multidetector volumetric images were obtained from the superior aspect of the liver through the pubic symphysis following administration 85 mL of Omnipaque 350 intravenous contrast. Sagittal and coronal reformatted images were obtained on the technologist's workstation. Oral contrast: No This CT examination was performed using dose optimization techniques as appropriate, variously including the following: *Automated exposure control *Adjustment of mA and/or kV according to patient size (this includes techniques or standardized protocols for targeted exams where dose is matched to indication/reason for exam; i.e. extremities or head) *Use of iterative reconstruction technique DLP: 288 mGy-cm FINDINGS: LUNG BASES: The visualized lung bases are unremarkable. LIVER, GALLBLADDER, AND BILIARY TREE: The liver is normal in size, shape, and attenuation. No focal hepatic lesion or biliary ductal dilatation is present. The gallbladder is unremarkable with no evidence of radiopaque gallstones, gallbladder wall thickening, or obvious pericholecystic inflammatory changes. PANCREAS: Unremarkable. SPLEEN: Unremarkable. ADRENAL GLANDS: Unremarkable. KIDNEYS AND URETERS: The kidneys are normal in size, shape, and attenuation. No hydronephrosis, hydroureter, or calculi seen. Small subcentimeter focus of cortical hypoattenuation in the right kidney is too small to characterize, though statistically favored to correspond to a simple cyst. No recommended imaging follow-up. No perinephric stranding. BLADDER: Unremarkable. GASTROINTESTINAL TRACT: There is fecalization transition point along its distal margin where there is a of a mildly dilated segment of small bowel in the lower abdomen with an associated twist of the bowel loops, most concerning for obstruction. The distal bowel loops are decompressed with marked mesenteric fat stranding. There is a small volume of intraperitoneal free fluid. There is mild colonic diverticulosis with a colonic anastomosis in the central pelvis at the region of the rectosigmoid junction. Appendix is unremarkable. ABDOMINAL WALL: No significant hernia is appreciated. LYMPH NODES: Normal. VASCULAR: Atherosclerotic calcifications are present in the abdominal aorta and iliac arteries. No aneurysmal dilatation. PELVIC VISCERA: The uterus and adnexa are unremarkable. OSSEOUS STRUCTURES: Mild multilevel degenerative disc disease thoracolumbar spine. No acute osseous findings. Bones are osteopenic. CT/CT abdomen pelvis w IV con IMPRESSION: 1. High-grade small bowel obstruction with a transition point in the central pelvis in the region of mesenteric twisting. There is marked mesenteric fat stranding and a small volume of intraperitoneal free fluid. No appreciable perforation or pneumatosis. Extensive mesenteric fat stranding which could be due to venous congestion or ischemia within the affected segments. 2. Mild colonic diverticulosis without evidence of acute diverticulitis. Dictated By: Elier Garcia MD Signed By: <Electronically signed by Elier Garcia MD in OV> 11/22/23 [id number] DD/ 44 TD/TT: [place] Steward/Stewardess: SERG Assessment and Plan (1) Small bowel obstruction: Status: Acute Plan Patient is a 68-year-old female with an acute small bowel obstruction with transition zone and some free fluid and mesenteric edema significant tenderness requiring a lot of pain meds and peritoneal signs. Patient is very fatigued. Her exam is concerning despite her white count only being 11 in her lactic acid normal. Plan is to carry out exploratory laparotomy possible bowel resection possible ostomy creation. The risks and benefits were discussed with the patient including the limited to bleeding infection bowel injury other organ injury and despite this she wishes to proceed. Quality Stroke Does the patient have a stroke diagnosis?: No VTE Prior VTE?: No VTE Risk Level:: Surgical - moderate VTE Device Contraindication: N/A - Device Ordered VTE Drug Contraindication: N/A - Med Ordered Procedures Date of Service Date of Service: 11/23/23
--- NOTE | 2023-11-23 02:26 | P.CONAN_ITS ---
FORMERLY [facility], [facility] Active Problems Active Problems: All Active Problems Small bowel obstruction (Acute) Spondylosis of cervical region without myelopathy or radiculopathy (Acute) Degeneration, intervertebral disc, cervical (Acute) Monoallelic mutation of MUTYH gene (Acute) Arthritis of shoulder region, right (Acute) Sternoclavicular joint pain (Acute) Well woman exam (Acute) Trigger finger, right ring finger (Acute) Trigger finger, right middle finger (Acute) Cervicalgia (Acute) Right shoulder pain (Acute) Intervertebral disc protrusion (Acute) Protrusion of cervical intervertebral disc (Acute) Bowel perforation (Acute) Perforation of sigmoid colon due to diverticulitis (Acute) History of open sigmoidectomy (Acute) Myofascial pain syndrome (Acute) Acromioclavicular joint pain (Acute) Past Medical History Medical History Acromioclavicular joint pain Arthritis COVID-19 vaccine series completed Elevated cholesterol Factor 5 Leiden mutation, heterozygous Family history of complication of anesthesia GERD (gastroesophageal reflux disease) Hearing impairment Myofascial pain syndrome Perforation of sigmoid colon due to diverticulitis Family History Family History Sister Breast cancer Mother Breast cancer Family/Other Uterine cancer Family/Other Throat cancer Bone cancer Sister Emphysema lung Sister Breast cancer Father Emphysema lung Brother Alzheimer's dementia Sister Type 2 diabetes mellitus Family history of problems with anesthesia: No Surgical History Surgical History H/O colonoscopy H/O right knee surgery History of hand surgery History of open sigmoidectomy Hx of dilation and curettage Hx of elbow surgery Hx of foot surgery Hx of foot surgery S/P colostomy takedown (05/18/21) History of Problems with Anesthesia: No Social History Social History (Updated 02/18/23 @ 15:27 by Ebony Hoover) Household Members: Spouse Housing: House Are you a primary ocular care technician to a significant other at home: No Do you presently have visiting nurse or other home services: No Alcohol intake: current Alcohol intake frequency: holidays/special occasions only Patient Tobacco Use Status: Never used Tobacco Smoked in Last 30 Days: No Use of substances other than those prescribed or required for medical reasons: No Advance Directives: Yes Advance Directives on File: Yes Advance Directives Date on File: 05/25/21 Do you have a plan to hurt others: No Plan service: No Current occupational status: employed Sexual orientation: Straight/Heterosexual Gender identity: Female Meds Allergies Allergy/AdvReac Type Severity Reaction Status Date / Time amoxicillin Allergy Mild Rash Verified 11/22/23 16:17 nitrofurantoin Allergy Mild RASH Verified 11/22/23 16:17 [Nitrofurantoin] Sulfa (Sulfonamide Allergy Mild RASH Verified 11/22/23 16:17 Antibiotics) [Sulfa (Sulfonamides)] trimethoprim [Trimethoprim] Allergy Mild RASH Verified 11/22/23 16:17 Home Medications ?Medication ?Instructions ?Recorded ?Confirmed ?Last Taken ?Type simvastatin 20 mg tablet 20 mg PO DAILY 04/28/20 11/23/23 11/21/23 History acetaminophen 650 mg 650 mg PO Q12H PRN Pain 04/14/21 02/18/23 Unknown History tablet,extended release fluticasone propionate 50 1 spray intranasal DAILY 04/14/21 11/23/23 11/22/23 History mcg/actuation nasal spray,suspension gabapentin 100 mg capsule 1 cap PO BEDTIME 04/14/21 11/23/23 11/21/23 History multivitamin 1 tab PO DAILY 04/14/21 11/23/23 11/22/23 History tramadol 50 mg tablet 50 mg PO BID PRN pain 09/07/22 02/18/23 Unknown History alendronate 35 mg tablet 35 mg PO QWEEK 04/19/23 11/23/23 11/17/23 History ibuprofen 400 mg tablet mg PO .prn 11/15/23 11/22/23 History Exam Height,Weight and Vital Signs: Height 5 ft 1 in Weight 46.1 kg Last Vital Signs Temp 98.8 F 11/23/23 00:00 Pulse 92 11/23/23 00:00 Resp 12 11/23/23 00:00 BP 127/54 L 11/23/23 00:00 Pulse Ox 93 11/23/23 00:00 O2 Del Method Room Air 11/23/23 00:00 Pertinent Lab Results Pertinent Lab Results: Laboratory Tests 11/22/23 11/22/23 11/23/23 16:35 19:24 00:41 WBC 11.1 H RBC 4.49 Hgb 13.9 Hct 41.2 MCV 91.8 MCH 31.0 MCHC 33.7 RDW 12.0 Plt Count 293 MPV 8.7 L Immature Gran % (Auto) 0.4 Neut % (Auto) 66.9 Lymph % (Auto) 24.8 [place]lin % (Auto) 6.7 Eos % (Auto) 0.7 Baso % (Auto) 0.5 Lymph # (Auto) 2.8 [place]lin # (Auto) 0.7 Eos # (Auto) 0.1 Baso # (Auto) 0.1 Abs Immat Gran (auto) 0.04 H Absolute Neuts (auto) 7.4 Absolute Nucleated RBC 0.000 Nucleated RBC % (auto) 0.0 PT 11.1 INR 0.9 APTT 27.8 Sodium 136 Potassium 4.0 Chloride 100 Carbon Dioxide 23 Anion Gap 17 BUN 16 Creatinine 0.76 Estim Creat Clear Calc 53.0 Estimated GFR > 60 Random Glucose 139 H Lactic Acid 1.0 Calcium 10.1 Magnesium 2.1 Total Bilirubin 0.7 Direct Bilirubin 0.2 AST 19 ALT 23 Alkaline Phosphatase 52 Total Protein 7.5 Albumin 4.8 Lipase 12 Urine Color Yellow Urine Appearance Clear Urine pH 6.0 Ur Specific [place] 1.020 Urine Protein Negative Urine Glucose (UA) Negative Urine Ketones 15 Urine Blood Negative Urine Nitrite Negative Ur Leukocyte Esterase Small (1+) H Urine RBC 0-2 Urine WBC 11-20 H Ur Squamous Epith Cells 0-2 Urine Bacteria None Seen Hyaline Casts 0-2 Airway Mallampati Class: Patient Non-Cooperative TM Dist: <=3cm Neck ROM: Full Assessment and Plan Assessment Anesthesia Assessment: Anesthesia Plan Discussed and Chart Reviewed Final Anesthetic Review Family History of Problems with Anesthesia: No History of Problems with Anesthesia: No NPO: Yes ASA Class: III and Emergency Final Preanesthetic Review: No Changes in Pt Med Stat, Meds/Allgs Chart Reviewed, Consent Obtained/Reviewed and Anes Risks/Benef Reviewed Patient Risk: Intermediate Procedure Risk: Intermediate Anesthetic Plan Anesthetic Plan: GA Disposition: Standard PACU
--- NOTE | 2023-11-23 05:52 | P.OP_ITS ---
Operative Note Operative Note Date of Service: 11/23/23 Narrative: Preop diagnosis--small-bowel obstruction possible ischemic bowel Postop diagnosis--small-bowel closed loop obstruction Procedure--exploratory laparotomy with extensive lysis of adhesions and appendectomy Surgeon--[facility] Anesthesia--general Patient is a 68-year-old female who is had previous surgery before for ruptured appendicitis with a Vahe procedure and then takedown of her colostomy and reanastomosis. She is been having abdominal pain which started acutely yesterday very significant requiring high levels of pain medication and she had peritoneal signs. As a result she comes in now to undergo exploratory laparotomy with lysis of adhesions Findings- Patient had closed loop obstruction with a adhesive band of the mesentery of 1 loop of small bowel to another kinking office segment causing this area to be mildly ischemic but the bowel improved once the bed was cut. There were other adhesions throughout the abdomen and in the process there was a loop of small bowel which pinched off the cecum which actually was scarred down into the pelvis and left lower quadrant. The appendix itself was scarred on the superior aspect of the sacral promontory almost and as a result it was removed. There wa s no evidence of appendicitis Procedure- Patient was brought to the operative room under Anesthesia guidance intubated. She would compression stockings placed before induction and received a g of A ncef. Santos catheter was placed. Her abdomen was prepped and draped in standard surgical fashion. Her previous lower midline incision was opened up with the scalpel and dissection was carried down to the anterior abdominal wall fascia which was opened up with the Metzenbaum scissors cautery. There were adhesions of small bowel underneath but these were easily moved to get into the peritoneal space eventually. Then with review of the CT scan the area of concern seemed to be along the midline going towards the left lower quadrant so attention was focused there. Candie's were used to elevate the fascia and with the Metzenbaum so we are able to dissect down onto the small bowel loops were distended and follow. In doing so we came across a segment of nondistended small bowel loops that were purplish in color and there appeared to be a band across the mesentery that were restricting this loop. This band was dissected with the [place] and O cautery and immediately this loop of small bowel that was confined was able to pink up. In carrying out further exploration it seemed that there was another loop that was really scar down in the left mid abdomen and going laterally onto the psoas muscle. In doing so and exploring here was noted that this appendix was all the way on the left lower quadrant and scar down almost onto the retroperitoneal area eventually we started from the ligam ent of Treitz and worked our way distally to get to a segment of small bowel loops were stuck on the left abdomen. Slowly these were taken down with the Anita and the cautery. Then attention was focused to the right lower quadrant where we were able to find some of the ascending colon and the terminal ileum loop. In following this we eventually noted that it moved under a loop of small bowel that was stuck to the anterior abdominal wall in the lower pelvic area and actually was anchored to the left lower quadrant this necessitated dissecting off all the adhesions to completely free up the small bowel proximally from the ligament of Treitz to distally where it went into the cecum. In doing so and noted how stuck down the appendix was in a very odd area it was decided to mobilize this and remove the appendix. Eventually we freed up the cecum so that it came back a little more onto the right lower quadrant area in the appendix was dissected out and using the stapler this was fired at the base of the cecum and then using cautery and a tie the mesentery was removed in the appendiceal artery controlled. The appendix was sent off as a specimen. At this point attention was focused to the entire small bowel which was run proximally the distally and distally to proximally now with the anatomy being a little more clear the area was irrigated. The left peritoneal lateral tissue head been pulled up and we got into the psoas muscle and some ooze was occurring here. Santos catheter did not reveal any bloody urine. Some Surgicel was placed here to get just a general ooze under control in his small piece left in the left lateral retroperitoneal space. Now once hemostasis was good the midline incision was closed with running 0 PDS superiorly inferiorly and tied centrally. Couple of 2-0 Vicryl were used to approximate the subcutaneous tissue and then jesusita were used to approximate the skin edge at the end of the case all sponge instrument needle counts were correct estimated blood loss was about 100 cc specimens sent was the appendix patient received about a L of crystalloid and made 200 cc of urine she was extubated returned stable to recovery room.
[2023-11-23] MEDS: Pantoprazole Sodium 40 MG/10 ML VIAL IVPUSH (08:44)
[2023-11-23] MEDS: Morphine Sulfate 4 MG/ML CARTRIDGE 3 MG IVPUSH ×2 (08:44→13:06)
[2023-11-23] MEDS: 0.9 % Sodium Chloride Flush 3 ML SYRINGE IVFLUSH (08:45)
--- NOTE | 2023-11-23 09:06 | PHA.MEDREC ---
Pharmacy Consult ? Medication Reconciliation Pharmacy has completed the medication reconciliation. Went to
--- NOTE | 2023-11-23 09:06 | PHA.MEDREC ---
Addendum entered by Nikolay De Jesus RPh 11/23/23 09:16: Med rec reviewed. Original Note: Pharmacy Consult ? Medication Reconciliation Pharmacy has completed the medication reconciliation. Confirmed medications with patients at bedside while patient slept. Patient was able to confirm all his 's medications, his is on Alendronate once a week and he states she takes it on and she last took it 11/17/23.
[2023-11-23] MEDS: 0.9 % Sodium Chloride 1,000 ML 85 ML IVCONT ×2 (09:25→21:44)
--- NOTE | 2023-11-23 14:42 | MHC.CM.PN ---
CM MET WITH PT AT BEDSIDE. PT LIVES WITH SPOUSE AND IS INDEPENDENT WITH MOBILITY AT BASELINE. PT IS EMPLOYED F/T. +HCP ON FILE. PCP DR. YOUSIF DP: HOME , NO SERVICES ANTICIPATED. SPOUSE WILL TRANSPORT. CM WILL CONTINUE TO FOLLOW FOR ANY CHANGE TO DC PLAN/NEEDS.
[2023-11-23] MEDS: Morphine Sulfate 4 MG/ML CARTRIDGE IVPUSH ×2 (16:48→21:45)
[2023-11-23] MEDS: Gabapentin 100 MG CAPSULE PO (21:45)
[2023-11-24 03:32] VITALS: BP 122/56; PULSE 78; RESP 18; TEMP 36.5; O2SAT 98
[2023-11-24] MEDS: Pantoprazole Sodium 40 MG/10 ML VIAL IVPUSH (06:13)
[2023-11-24] MEDS: Acetaminophen 1,000 MG/100 ML PIGGYBACK 400 MG IV ×4 (06:15→22:34)
[2023-11-24 06:23] LABS: MANUAL DIFF FLAG NO
[2023-11-24 06:42] LABS: Basophils Percent Auto 0.3 % (0-2); Eosinophils Percent Auto 0.3 % (0-4); Hematocrit 34.8 % (37.0-47.0); Hemoglobin 11.4 g/dl (12.0-16.0); Imm Gran Abs Auto 0.05 X10*3/uL (0.00-0.03); Imm Gran Pct Auto 0.5 % (0.0-0.4); Lymphocytes Absolute Auto 1.5 X10*3/uL (1.2-4.9); Mean Corpuscular HGB Conc 32.8 g/dl (31.0-35.0); Mean Corpuscular Hemoglobin 30.6 pg (27.0-33.0); Mean Corpuscular Volume 93.5 fL (80.0-98.0); Monocytes Absolute Auto 0.9 X10*3/uL (0.1-1.2); Monocytes Percent Auto 9.3 % (2-11); Neutrophils Absolute Auto 7.1 x10*3/uL (2.0-8.3); Neutrophils Percent Auto 73.6 % (45-73); Platelet Count 193 X10*3/uL (160-400); Red Blood Count 3.72 X10*6/uL (4.20-5.50); Red Cell Distribution Width 12.6 % (11.0-16.0); White Blood Count 9.6 X10*3/uL (4.8-10.8)
[2023-11-24 06:50] LABS: Anion Gap 8 (12-20); Blood Urea Nitrogen 7 mg/dL (9-16); Calcium 7.7 mg/dL (8.4-10.2); Carbon Dioxide 27 mmol/L (22-29); Chloride 108 mmol/L (96-108); Creatinine Clr Calc Pharmacy 71.9; Estimated Glomerular Filt Rate > 60; Glucose Random 85 mg/dL (60-115); Sodium 139 mmol/L (135-145)
[2023-11-24 07:10] VITALS: BP 125/60; PULSE 87; RESP 14; TEMP 36.5; O2SAT 96
--- NOTE | 2023-11-24 07:32 | PM.PNGS ---
Subjective Subjective Date of Service: 11/24/23 <Megan Aragon PA-C - Last Filed: 11/24/23 07:37> 11/24/23 <David Grijalva MD - Last Filed: 11/24/23 08:17> Interval history: Feels overall improved this morning. Incisional pain relieved temporarily with analgesics. Passing flatus. Has been OOB and ambulating halls numerous times. <Megan Aragon PA-C - Last Filed: 11/24/23 07:37> Physical Exam Vital Signs: Vital Signs: Last Vital Signs Temp 97.7 F 11/24/23 07:10 Pulse 87 11/24/23 07:10 Resp 14 11/24/23 07:10 BP 125/60 11/24/23 07:10 Pulse Ox 96 11/24/23 07:10 O2 Del Method Room Air 11/24/23 07:10 O2 Flow Rate 2 11/23/23 05:53 BMI result Body Mass Index 19.2 <Megan Aragon PA-C - Last Filed: 11/24/23 07:37> Const: General: comfortable, no acute distress and alert <Megan Aragon PA-C - Last Filed: 11/24/23 07:37> Resp: Effort & Inspection: normal respiratory effort <LY Silva Last Filed: 11/24/23 07:37> GI: Inspection: No distended and Yes incision (dressing c/d/i) <Megan Aragon PA-C - Last Filed: 11/24/23 07:37> Palpation (GI): Soft to palpation, Tenderness to palpation present (GI) (mild incisional ) and no guarding <Megan Aragon PA-C - Last Filed: 11/24/23 07:37> Percussion: Yes normal to percussion <LY Silva Last Filed: 11/24/23 07:37> Skin: General skin exam: no rashes or lesions noted <LY Silva Last Filed: 11/24/23 07:37> Objective Data Active Medications Atorvastatin Calcium (Atorvastatin Calcium 10 Mg Tablet) 10 mg PO DAILY [facility] Fluticasone Propionate (Fluticasone Propionate Nasal 16 Gm [place]) 1 spray NOSTRIL-B DAILY [facility] Gabapentin (Gabapentin 100 Mg Capsule) 100 mg PO BEDTIME [facility] Last Admin: 11/23/23 21:45 Dose: 100 mg Documented By: LISSET Sodium Chloride (Ns) 1,000 mls @ 85 mls/hr IVCONT .[id number] [facility] Last Admin: 11/24/23 06:17 Dose: Not Given Documented By: LISSET Non-Admin Reason: IV Running Acetaminophen (Ofirmev) 1,000 mg in 100 mls @ 400 mls/hr IV Q6H [facility] Last Infusion: 11/24/23 06:41 Dose: Infused Documented By: LISSET Morphine Sulfate (Morphine Sulfate 4 Mg/Ml Cartridge) 3 mg IVPUSH Q4H PRN; Protocol PRN Reason: Pain, Severe (Pain Scale 7-10) Last Admin: 11/23/23 13:06 Dose: 3 mg Documented By: KENDRA Comments: Morphine Sulfate (Morphine Sulfate 4 Mg/Ml Cartridge) 4 mg IVPUSH Q4H PRN; Protocol PRN Reason: Pain, Severe (Pain Scale 7-10) Last Admin: 11/23/23 21:45 Dose: 4 mg Documented By: LISSET Ondansetron HCl (Ondansetron Hcl 4 Mg/2 Ml Vial) 4 mg IVPUSH Q8H PRN PRN Reason: Nausea and Vomiting Oxycodone HCl (Oxycodone Hcl Immed Release 5 Mg Tablet) 5 mg PO Q4H PRN PRN Reason: Pain, Moderate(Pain Scale 4-6) Pantoprazole Sodium (Pantoprazole Sodium 40 Mg/10 Ml Vial) 40 mg IVPUSH DAILY@0630 [facility] Last Admin: 11/24/23 06:13 Dose: 40 mg Documented By: LISSET Sodium Chloride (0.9 % Sodium Chloride Flush 3 Ml Syringe) 3 ml IVFLUSH QSHIFT [facility] Last Admin: 11/23/23 21:45 Dose: Not Given Documented By: LISSET Non-Admin Reason: IV Running <Megan Aragon PA-C - Last Filed: 11/24/23 07:37> Labs CBC & Chem 7: 11/24/23 05:46 11/24/23 05:46 <Megan Aragon PA-C - Last Filed: 11/24/23 07:37> Labs: Laboratory Results - last 24 hr 11/24/23 05:46 MCV 93.5 MCH 30.6 MCHC 32.8 RDW 12.6 Plt Count 193 D MPV 9.0 L Immature Gran % (Auto) 0.5 H Neut % (Auto) 73.6 H Lymph % (Auto) 16.0 L Cannon % (Auto) 9.3 Eos % (Auto) 0.3 Baso % (Auto) 0.3 Lymph # (Auto) 1.5 Cannon # (Auto) 0.9 Eos # (Auto) 0.0 Baso # (Auto) 0.0 Abs Immat Gran (auto) 0.05 H Absolute Neuts (auto) 7.1 Absolute Nucleated RBC 0.000 Nucleated RBC % (auto) 0.0 Anion Gap 8 L Estim Creat Clear Calc 71.9 Estimated GFR > 60 Random Glucose 85 Calcium 7.7 L D <Megan Aragon PA-C - Last Filed: 11/24/23 07:37> Microbiology Microbiology Results: Microbiology 11/22/23 16:41 Blood Culture - Preliminary Blood - Venous No growth after 24 hours. 11/22/23 16:35 Blood Culture - Preliminary Blood - Venous No growth after 24 hours. 11/22/23 19:45 Urine Culture - Preliminary Urine clean catch - Clean Catch Midstream No growth to date. <Megan Aragon PA-C - Last Filed: 11/24/23 07:37> Procedures Date of Service Date of Service: 11/24/23 <Megan Aragon PA-C - Last Filed: 11/24/23 07:37> 11/24/23 <David Grijalva MD - Last Filed: 11/24/23 08:17> Progress Note: A&P Assessment and plan (1) Small bowel obstruction: Status: Acute <Megan Aragon PA-C - Last Filed: 11/24/23 07:37> Assessment and Plan: POD #1 s/p exploratory laparotomy with extensive lysis of adhesions and appendectomy for closed loop obstruction. Doing well post op, evidence of GI function. VSS. Abd exam benign with appropriate post op tenderness, clean/intact dressing. Will advance to clear liquids, dc pathak. Continue to encourage OOB/ambulation. <Megan Aragon PA-C - Last Filed: 11/24/23 07:37> POD #1 s/p exploratory laparotomy with extensive lysis of adhesions and appendectomy for closed loop obstruction. Doing well post op, evidence of GI function. VSS. Abd exam benign with appropriate post op tenderness, clean/intact dressing. Will advance to clear liquids, dc pathak. Continue to encourage OOB/ambulation. Patient seen and examined independently. Agree with the above assessment and plan. Abdominal incision is clean and intact with a erythema or discharge. Agree with advancing diet, DC Pathak. <David Grijalva MD - Last Filed: 11/24/23 08:17> Time Spent With Patient Time: Total time managing care of this patient today ____ minutes. <Megan Aragon PA-C - Last Filed: 11/24/23 07:37> Quality Stroke Does the patient have a stroke diagnosis?: No <Megan Aragon PA-C - Last Filed: 11/24/23 07:37> VTE Prior VTE?: No <Megan Aragon PA-C - Last Filed: 11/24/23 07:37> VTE Risk Level:: Surgical - moderate <Megan Aragon PA-C - Last Filed: 11/24/23 07:37> VTE Device Contraindication: N/A - Device Ordered <Megan Aragon PA-C - Last Filed: 11/24/23 07:37> VTE Drug Contraindication: N/A - Med Ordered <Megan Aragon PA-C - Last Filed: 11/24/23 07:37>
[2023-11-24] MEDS: Fluticasone Propionate Nasal 16 GM SPRAY 1 SPRAY NOSTRIL-B (07:40)
[2023-11-24] MEDS: 0.9 % Sodium Chloride 1,000 ML 85 ML IVCONT ×2 (07:40→21:07)
[2023-11-24] MEDS: Atorvastatin Calcium 10 MG TABLET PO (07:40)
--- NOTE | 2023-11-24 09:45 | HO.POSTANES ---
Post Anesthesia Evaluation Post Anesthesia Evaluation Date of Service: 11/23/23 Vital Signs: Vital Signs Temp Pulse Resp BP Pulse Ox O2 Del Method 11/24/23 07:10 97.7 F 87 14 125/60 96 Room Air 11/24/23 03:32 97.7 F 78 18 122/56 L 98 Room Air 11/24/23 02:26 Room Air Anesthesia: General Mental Status: Awake Pain Control: Satisfactory Nausea/Vomiting: None Hydration: Adequate Anesthesia-Related Issues: No Anes. Related Issues
[2023-11-24] MEDS: oxyCODONE HCl Immed Release 5 MG TABLET PO ×3 (11:50→21:06)
[2023-11-24 15:17] VITALS: BP 129/57; PULSE 85; RESP 18; TEMP 37; O2SAT 96
[2023-11-24 19:24] VITALS: BP 122/74; PULSE 93; RESP 18; TEMP 36.7; O2SAT 96
[2023-11-24] MEDS: Gabapentin 100 MG CAPSULE PO (21:06)
[2023-11-25 03:58] VITALS: BP 134/72; PULSE 96; RESP 18; TEMP 36.3; O2SAT 98
[2023-11-25] MEDS: oxyCODONE HCl Immed Release 5 MG TABLET PO ×2 (04:11→20:11)
[2023-11-25] MEDS: Pantoprazole Sodium 40 MG/10 ML VIAL IVPUSH (06:04)
[2023-11-25] MEDS: Acetaminophen 1,000 MG/100 ML PIGGYBACK 400 MG IV ×3 (06:07→23:48)
[2023-11-25 07:44] VITALS: BP 133/73; PULSE 77; RESP 14; TEMP 37; O2SAT 97
[2023-11-25] MEDS: Fluticasone Propionate Nasal 16 GM SPRAY 1 SPRAY NOSTRIL-B (08:30)
[2023-11-25] MEDS: Atorvastatin Calcium 10 MG TABLET PO (08:30)
--- NOTE | 2023-11-25 08:30 | P.PNGS_ITS ---
Subjective Subjective Date of Service: 11/25/23 <Megan Aragon PA-C - Last Filed: 11/25/23 08:32> 11/25/23 <David Grijalva MD - Last Filed: 11/25/23 08:45> Interval history: Slowly feeling better. Pain controlled. OOB and ambulating. Passing flatus, no BM. Tolerating liquids and would like to eat. <Megan Aragon PA-C - Last Filed: 11/25/23 08:32> Physical Exam 2 Vital Signs: Vital Signs: Last Vital Signs Temp 98.6 F 11/25/23 07:44 Pulse 77 11/25/23 07:44 Resp 14 11/25/23 07:44 BP 133/73 11/25/23 07:44 Pulse Ox 97 11/25/23 07:44 O2 Del Method Room Air 11/25/23 07:44 O2 Flow Rate 2 11/23/23 05:53 BMI result Body Mass Index 19.2 <Megan Aragon PA-C - Last Filed: 11/25/23 08:32> Const: General: comfortable, no acute distress and alert <Megan Aragon PA-C - Last Filed: 11/25/23 08:32> Orientation/consciousness: patient oriented x3 <LY Silva Last Filed: 11/25/23 08:32> Resp: Effort & Inspection: normal respiratory effort <Megan Aragon PA-C - Last Filed: 11/25/23 08:32> GI: Inspection: No distended and Yes incision (clean) <Megan Aragon PA-C - Last Filed: 11/25/23 08:32> Palpation (GI): Soft to palpation, Tenderness to palpation present (GI) (mild incisional) and no guarding <LY Silva Last Filed: 11/25/23 08:32> Skin: General skin exam: no rashes or lesions noted <LY Silva Last Filed: 11/25/23 08:32> Neuro: General: patient oriented x3 and moves all extremities <LY Silva Last Filed: 11/25/23 08:32> Objective Data Active Medications Atorvastatin Calcium (Atorvastatin Calcium 10 Mg Tablet) 10 mg PO DAILY [facility] Last Admin: 11/24/23 07:40 Dose: 10 mg Documented By: PRIMO Fluticasone Propionate (Fluticasone Propionate Nasal 16 Gm [place]) 1 spray NOSTRIL-B DAILY [facility] Last Admin: 11/24/23 07:40 Dose: 1 spray Documented By: PRIMO Gabapentin (Gabapentin 100 Mg Capsule) 100 mg PO BEDTIME [facility] Last Admin: 11/24/23 21:06 Dose: 100 mg Documented By: LISSET Acetaminophen (Ofirmev) 1,000 mg in 100 mls @ 400 mls/hr IV Q6H [facility] Last Infusion: 11/25/23 06:27 Dose: Infused Documented By: LISSET Morphine Sulfate (Morphine Sulfate 4 Mg/Ml Cartridge) 4 mg IVPUSH Q4H PRN; Protocol PRN Reason: Pain, Severe (Pain Scale 7-10) Last Admin: 11/23/23 21:45 Dose: 4 mg Documented By: LISSET Pt Own Med ( Alendronate 35 Mg Tablet) 35 mg PO TH [facility] Last Admin: 11/24/23 10:52 Dose: 35 mg Documented By: PRIMO Ondansetron HCl (Ondansetron Hcl 4 Mg/2 Ml Vial) 4 mg IVPUSH Q8H PRN PRN Reason: Nausea and Vomiting Oxycodone HCl (Oxycodone Hcl Immed Release 5 Mg Tablet) 5 mg PO Q4H PRN PRN Reason: Pain, Moderate(Pain Scale 4-6) Last Admin: 11/25/23 04:11 Dose: 5 mg Documented By: LISSET Pantoprazole Sodium (Pantoprazole Sodium 40 Mg/10 Ml Vial) 40 mg IVPUSH DAILY@0630 [facility] Last Admin: 11/25/23 06:04 Dose: 40 mg Documented By: LISSET Sodium Chloride (0.9 % Sodium Chloride Flush 3 Ml Syringe) 3 ml IVFLUSH QSHIFT [facility] Last Admin: 11/25/23 07:04 Dose: Not Given Documented By: PRIMO Non-Admin Reason: IV Running <Megan Aragon PA-C - Last Filed: 11/25/23 08:32> Labs CBC & Chem 7: 11/24/23 05:46 11/24/23 05:46 <Megan Aragon PA-C - Last Filed: 11/25/23 08:32> Microbiology Microbiology Results: Microbiology 11/22/23 16:41 Blood Culture - Preliminary Blood - Venous No growth after 48 hours. 11/22/23 16:35 Blood Culture - Preliminary Blood - Venous No growth after 48 hours. 11/22/23 19:45 Urine Culture - Final Urine clean catch - Clean Catch Midstream No growth. <Megan Aragon PA-C - Last Filed: 11/25/23 08:32> Procedures Date of Service Date of Service: 11/25/23 <Megan Aragon PA-C - Last Filed: 11/25/23 08:32> 11/25/23 <David Grijalva MD - Last Filed: 11/25/23 08:45> Progress Note: A&P Assessment and plan (1) Small bowel obstruction: Status: Acute <Megan Aragon PA-C - Last Filed: 11/25/23 08:32> Assessment and Plan: POD #2 s/p exploratory laparotomy with extensive lysis of adhesions and appendectomy for closed loop obstruction. Doing well post op, tolerating clears. VSS. Abd exam benign with appropriate post op tenderness, clean incision. Will dc IVF. Advance to solid diet. Home when comfortable, tolerating solid diet and moving bowels. patient comfortable with plan. <Megan Aragon PA-C - Last Filed: 11/25/23 08:32> POD #2 s/p exploratory laparotomy with extensive lysis of adhesions and appendectomy for closed loop obstruction. Doing well post op, tolerating clears. VSS. Abd exam benign with appropriate post op tenderness, clean incision. Will dc IVF. Advance to solid diet. Home when comfortable, tolerating solid diet and moving bowels. patient comfortable with plan. Patient seen and examined, agree with the above assessment and plan. Awaiting return to bowel function. <David Grijalva MD - Last Filed: 11/25/23 08:45> Time Spent With Patient Time: Total time managing care of this patient today ____ minutes. <Megan Aragon PA-C - Last Filed: 11/25/23 08:32> Quality Stroke Does the patient have a stroke diagnosis?: No <Megan Aragon PA-C - Last Filed: 11/25/23 08:32> VTE Prior VTE?: No <Megan Aragon PA-C - Last Filed: 11/25/23 08:32> VTE Risk Level:: Surgical - moderate <Megan Aragon PA-C - Last Filed: 11/25/23 08:32> VTE Device Contraindication: N/A - Device Ordered <Megan Aragon PA-C - Last Filed: 11/25/23 08:32> VTE Drug Contraindication: N/A - Med Ordered <Megan Aragon PA-C - Last Filed: 11/25/23 08:32>
[2023-11-25] MEDS: Docusate Sodium 100 MG CAPSULE PO ×2 (08:43→20:11)
[2023-11-25 15:19] VITALS: BP 130/61; PULSE 88; RESP 18; TEMP 36.9; O2SAT 98
[2023-11-25 18:55] VITALS: BP 135/68; PULSE 83; RESP 18; TEMP 36.7; O2SAT 95
[2023-11-25] MEDS: Gabapentin 100 MG CAPSULE PO (20:11)
[2023-11-25] MEDS: 0.9 % Sodium Chloride Flush 3 ML SYRINGE IVFLUSH (20:11)
[2023-11-25] MEDS: Morphine Sulfate 4 MG/ML CARTRIDGE IVPUSH (22:08)
[2023-11-26 04:00] VITALS: BP 138/73; PULSE 88; RESP 18; TEMP 36.7; O2SAT 98
[2023-11-26] MEDS: Morphine Sulfate 4 MG/ML CARTRIDGE IVPUSH (04:38)
[2023-11-26] MEDS: Acetaminophen 1,000 MG/100 ML PIGGYBACK 400 MG IV ×3 (06:00→17:57)
[2023-11-26] MEDS: Pantoprazole Sodium 40 MG/10 ML VIAL IVPUSH (06:00)
[2023-11-26 08:00] VITALS: BP 149/70; PULSE 80; RESP 16; TEMP 36.4; O2SAT 82
[2023-11-26] MEDS: Atorvastatin Calcium 10 MG TABLET PO (08:02)
[2023-11-26] MEDS: oxyCODONE HCl Immed Release 5 MG TABLET PO ×3 (08:02→19:31)
[2023-11-26] MEDS: Docusate Sodium 100 MG CAPSULE PO ×2 (08:02→20:28)
[2023-11-26] MEDS: 0.9 % Sodium Chloride Flush 3 ML SYRINGE IVFLUSH ×3 (08:03→20:29)
[2023-11-26] MEDS: Fluticasone Propionate Nasal 16 GM SPRAY 1 SPRAY NOSTRIL-B (08:05)
[2023-11-26 15:34] VITALS: BP 127/59; PULSE 75; RESP 16; TEMP 36.6; O2SAT 98
--- NOTE | 2023-11-26 16:02 | P.PNGS_ITS ---
Subjective Subjective Date of Service: 11/26/23 Interval history: pt feeling better, passing some gas, no bm as yet, tolerating some solid diet, pain ok complaining of pain in her left leg and ?sciatica - had this preop Physical Exam 2 Vital Signs: Vital Signs: Last Vital Signs Temp 98 F 11/26/23 15:34 Pulse 75 11/26/23 15:34 Resp 16 11/26/23 15:34 BP 127/59 L 11/26/23 15:34 Pulse Ox 98 11/26/23 15:34 O2 Del Method Room Air 11/26/23 15:34 O2 Flow Rate 2 11/23/23 05:53 BMI result Body Mass Index 19.2 Const: General: cooperative, healthy appearing, comfortable and no acute distress Resp: Effort & Inspection: normal respiratory effort Auscultation: clear to auscultation bilaterally Cardio: Rate: regular rate Rhythm: regular rhythm GI: Other: abdomen soft mild distension incision looks good Objective Data Active Medications Atorvastatin Calcium (Atorvastatin Calcium 10 Mg Tablet) 10 mg PO DAILY [facility] Last Admin: 11/26/23 08:02 Dose: 10 mg Documented By: GLENN Docusate Sodium (Docusate Sodium 100 Mg Capsule) 100 mg PO BID [facility] Last Admin: 11/26/23 08:02 Dose: 100 mg Documented By: GLENN Fluticasone Propionate (Fluticasone Propionate Nasal 16 Gm [place]) 1 spray NOSTRIL-B DAILY [facility] Last Admin: 11/26/23 08:05 Dose: 1 spray Documented By: GLENN Gabapentin (Gabapentin 100 Mg Capsule) 100 mg PO BEDTIME [facility] Last Admin: 11/25/23 20:11 Dose: 100 mg Documented By: MELISSA Acetaminophen ([facility]) 1,000 mg in 100 mls @ 400 mls/hr IV Q6H [facility] Last Infusion: 11/26/23 12:25 Dose: Infused Documented By: GLENN Morphine Sulfate (Morphine Sulfate 4 Mg/Ml Cartridge) 4 mg IVPUSH Q4H PRN; Protocol PRN Reason: Pain, Severe (Pain Scale 7-10) Last Admin: 11/26/23 04:38 Dose: 4 mg Documented By: MELISSA Pt Own Med ( Alendronate 35 Mg Tablet) 35 mg PO TH [facility] Last Admin: 11/24/23 10:52 Dose: 35 mg Documented By: PRIMO Ondansetron HCl (Ondansetron Hcl 4 Mg/2 Ml Vial) 4 mg IVPUSH Q8H PRN PRN Reason: Nausea and Vomiting Oxycodone HCl (Oxycodone Hcl Immed Release 5 Mg Tablet) 5 mg PO Q4H PRN PRN Reason: Pain, Moderate(Pain Scale 4-6) Last Admin: 11/26/23 14:55 Dose: 5 mg Documented By: GLENN Sodium Chloride (0.9 % Sodium Chloride Flush 3 Ml Syringe) 3 ml IVFLUSH [facility] Last Admin: 11/26/23 14:56 Dose: 3 ml Documented By: GLENN Labs 11/24/23 05:46 11/24/23 05:46 Procedures Date of Service Date of Service: 11/26/23 Progress Note: A&P Assessment and plan (1) Small bowel obstruction: Status: Acute Plan 68 yo female s/p explor lap and lysis of adhesions for sbo - doing well improved bowel function - cont with advancing diet, ambulation. If has BM then can be dc home. Time Spent With Patient Time: Total time managing care of this patient today ____ minutes. Quality Stroke Does the patient have a stroke diagnosis?: No VTE Prior VTE?: No VTE Risk Level:: Surgical - moderate VTE Device Contraindication: N/A - Device Ordered VTE Drug Contraindication: N/A - Med Ordered
[2023-11-26 19:19] VITALS: BP 122/59; PULSE 78; RESP 17; TEMP 36.3; O2SAT 98
[2023-11-26] MEDS: Gabapentin 100 MG CAPSULE PO (20:28)
[2023-11-27] MEDS: ondansetron HCL 4 MG/2 ML VIAL IVPUSH ×2 (01:21→10:42)
[2023-11-27 04:00] VITALS: BP 136/81; PULSE 84; RESP 18; TEMP 36; O2SAT 97
[2023-11-27] MEDS: oxyCODONE HCl Immed Release 5 MG TABLET PO ×3 (04:17→19:43)
[2023-11-27 07:55] VITALS: BP 110/75; PULSE 98; RESP 12; TEMP 36.8; O2SAT 98
[2023-11-27] MEDS: Docusate Sodium 100 MG CAPSULE PO ×2 (08:47→19:43)
[2023-11-27] MEDS: Atorvastatin Calcium 10 MG TABLET PO (08:47)
[2023-11-27] MEDS: Acetaminophen 325 MG TABLET 650 MG PO (08:49)
[2023-11-27] MEDS: Fluticasone Propionate Nasal 16 GM SPRAY 1 SPRAY NOSTRIL-B (09:14)
[2023-11-27] MEDS: 0.9 % Sodium Chloride Flush 3 ML SYRINGE IVFLUSH ×3 (09:15→19:45)
[2023-11-27 15:48] VITALS: BP 118/70; PULSE 91; RESP 14; TEMP 37.1; O2SAT 99
--- NOTE | 2023-11-27 17:44 | P.PNGS_ITS ---
Subjective Subjective Date of Service: 11/27/23 Interval history: pt ate a hamburger she thinks wasnt good yesterday and had some nausea no vomiting. has passed gas but no stool as yet. She has been passing a little gas Physical Exam 2 Vital Signs: Vital Signs: Last Vital Signs Temp 98.7 F 11/27/23 15:48 Pulse 91 11/27/23 15:48 Resp 14 11/27/23 15:48 BP 118/70 11/27/23 15:48 Pulse Ox 99 11/27/23 15:48 O2 Del Method Room Air 11/27/23 07:55 O2 Flow Rate 2 11/23/23 05:53 BMI result Body Mass Index 19.2 Const: General: cooperative, healthy appearing, comfortable and no acute distress GI: Other: abdo sonft nondistended nontender positive bowel sounds incision - cdi Objective Data Active Medications Acetaminophen (Acetaminophen 325 Mg Tablet) 650 mg PO Q6H PRN PRN Reason: mild pain 1-3 Last Admin: 11/27/23 08:49 Dose: 650 mg Documented By: GLENN Atorvastatin Calcium (Atorvastatin Calcium 10 Mg Tablet) 10 mg PO DAILY [facility] Last Admin: 11/27/23 08:47 Dose: 10 mg Documented By: GLENN Docusate Sodium (Docusate Sodium 100 Mg Capsule) 100 mg PO BID [facility] Last Admin: 11/27/23 08:47 Dose: 100 mg Documented By: GLENN Fluticasone Propionate (Fluticasone Propionate Nasal 16 Gm [place]) 1 spray NOSTRIL-B DAILY [facility] Last Admin: 11/27/23 09:14 Dose: 1 spray Documented By: GLENN Gabapentin (Gabapentin 100 Mg Capsule) 100 mg PO BEDTIME [facility] Last Admin: 11/26/23 20:28 Dose: 100 mg Documented By: MELISSA Morphine Sulfate (Morphine Sulfate 4 Mg/Ml Cartridge) 4 mg IVPUSH Q4H PRN; Protocol PRN Reason: Pain, Severe (Pain Scale 7-10) Last Admin: 11/26/23 04:38 Dose: 4 mg Documented By: MELISSA Pt Own Med ( Alendronate 35 Mg Tablet) 35 mg PO TH [facility] Last Admin: 11/24/23 10:52 Dose: 35 mg Documented By: PRIMO Ondansetron HCl (Ondansetron Hcl 4 Mg/2 Ml Vial) 4 mg IVPUSH Q8H PRN PRN Reason: Nausea and Vomiting Last Admin: 11/27/23 10:42 Dose: 4 mg Documented By: GLENN Oxycodone HCl (Oxycodone Hcl Immed Release 5 Mg Tablet) 5 mg PO Q4H PRN PRN Reason: Pain, Moderate(Pain Scale 4-6) Last Admin: 11/27/23 13:06 Dose: 5 mg Documented By: GLENN Sodium Chloride (0.9 % Sodium Chloride Flush 3 Ml Syringe) 3 ml IVFLUSH [facility] Last Admin: 11/27/23 15:44 Dose: 3 ml Documented By: GLENN Labs 11/24/23 05:46 11/24/23 05:46 Procedures Date of Service Date of Service: 11/27/23 Progress Note: A&P Assessment and plan (1) Small bowel obstruction: Status: Acute Plan pt s/p expl lap and AXEL - doing well - Bowel function advancing but still a little slow - cont with reg diet and ambulation. Time Spent With Patient Time: Total time managing care of this patient today ____ minutes. Quality Stroke Does the patient have a stroke diagnosis?: No VTE Prior VTE?: No VTE Risk Level:: Surgical - moderate VTE Device Contraindication: N/A - Device Ordered VTE Drug Contraindication: N/A - Med Ordered
[2023-11-27 19:43] VITALS: BP 134/60; PULSE 95; RESP 16; TEMP 36.3; O2SAT 99
[2023-11-27] MEDS: Gabapentin 100 MG CAPSULE PO (19:43)
[2023-11-28] MEDS: Acetaminophen 325 MG TABLET 650 MG PO ×2 (00:03→07:54)
[2023-11-28 02:45] VITALS: BP 123/58; PULSE 96; RESP 16; TEMP 36.6; O2SAT 98
[2023-11-28] MEDS: ondansetron HCL 4 MG/2 ML VIAL IVPUSH (06:25)
[2023-11-28 07:03] VITALS: BP 115/69; PULSE 90; RESP 16; TEMP 36.6; O2SAT 99
[2023-11-28] MEDS: 0.9 % Sodium Chloride Flush 3 ML SYRINGE IVFLUSH (07:46)
[2023-11-28] MEDS: Atorvastatin Calcium 10 MG TABLET PO (07:50)
[2023-11-28] MEDS: Docusate Sodium 100 MG CAPSULE PO ×2 (07:50→20:43)
[2023-11-28] MEDS: Fluticasone Propionate Nasal 16 GM SPRAY 1 SPRAY NOSTRIL-B (07:51)
--- NOTE | 2023-11-28 08:01 | PM.PNGS ---
Subjective Subjective Date of Service: 11/28/23 Interval history: Had some nausea yesterday that resolved and was able to tolerate dinner. Reports some nausea this morning and cough up phlegm. Passing flatus but no BM. Ambulating halls multiple times a day. Physical Exam Vital Signs: Vital Signs: Last Vital Signs Temp 97.8 F 11/28/23 07:03 Pulse 90 11/28/23 07:03 Resp 16 11/28/23 07:03 BP 115/69 11/28/23 07:03 Pulse Ox 99 11/28/23 07:03 O2 Del Method Room Air 11/28/23 07:03 O2 Flow Rate 2 11/23/23 05:53 BMI result Body Mass Index 19.2 Const: General: comfortable, no acute distress and alert Orientation/consciousness: patient oriented x3 Resp: Effort & Inspection: normal respiratory effort GI: Inspection: No distended and Yes incision (clean, mild ecchymosis superiorly) Palpation (GI): Soft to palpation, Tenderness to palpation present (GI) (mild incisional) and no guarding Skin: General skin exam: no rashes or lesions noted Neuro: General: patient oriented x3 and moves all extremities Objective Data Active Medications Acetaminophen (Acetaminophen 325 Mg Tablet) 650 mg PO Q6H PRN PRN Reason: mild pain 1-3 Last Admin: 11/28/23 07:54 Dose: 650 mg Documented By: MANUEL Atorvastatin Calcium (Atorvastatin Calcium 10 Mg Tablet) 10 mg PO DAILY [facility] Last Admin: 11/28/23 07:50 Dose: 10 mg Documented By: MANUEL Docusate Sodium (Docusate Sodium 100 Mg Capsule) 100 mg PO BID [facility] Last Admin: 11/28/23 07:50 Dose: 100 mg Documented By: MANUEL Fluticasone Propionate (Fluticasone Propionate Nasal 16 Gm [place]) 1 spray NOSTRIL-B DAILY [facility] Last Admin: 11/28/23 07:51 Dose: 1 spray Documented By: MANUEL Gabapentin (Gabapentin 100 Mg Capsule) 100 mg PO BEDTIME [facility] Last Admin: 11/27/23 19:43 Dose: 100 mg Documented By: THAIS Morphine Sulfate (Morphine Sulfate 4 Mg/Ml Cartridge) 4 mg IVPUSH Q4H PRN; Protocol PRN Reason: Pain, Severe (Pain Scale 7-10) Last Admin: 11/26/23 04:38 Dose: 4 mg Documented By: MELISSA Pt Own Med ( Alendronate 35 Mg Tablet) 35 mg PO TH [facility] Last Admin: 11/24/23 10:52 Dose: 35 mg Documented By: PRIMO Ondansetron HCl (Ondansetron Hcl 4 Mg/2 Ml Vial) 4 mg IVPUSH Q8H PRN PRN Reason: Nausea and Vomiting Last Admin: 11/28/23 06:25 Dose: 4 mg Documented By: THAIS Oxycodone HCl (Oxycodone Hcl Immed Release 5 Mg Tablet) 5 mg PO Q4H PRN PRN Reason: Pain, Moderate(Pain Scale 4-6) Last Admin: 11/27/23 19:43 Dose: 5 mg Documented By: THAIS Sodium Chloride (0.9 % Sodium Chloride Flush 3 Ml Syringe) [facility] Last Admin: 11/28/23 07:46 Dose: 3 ml Documented By: BEIT Labs 11/24/23 05:46 11/24/23 05:46 Microbiology Microbiology Results: Microbiology 11/22/23 16:41 Blood Culture - Final Blood - Venous No growth after 5 days. 11/22/23 16:35 Blood Culture - Final Blood - Venous No growth after 5 days. Procedures Date of Service Date of Service: 11/28/23 Progress Note: A&P Assessment and plan (1) Small bowel obstruction: Status: Acute Plan POD #5 s/p exploratory laparotomy with extensive lysis of adhesions and appendectomy for closed loop obstruction. Had been doing well but reported nausea, coughing up phlegm. Abd is very benign with clean incision and soft, nondistended. Feel nausea is more so from post nasal drip than GI related. Encouraged incentive spirometer, will order losenge. Cont ambulation. Bowel regimen. Patient comfortable with plan. Time Spent With Patient Time: Total time managing care of this patient today ____ minutes. Quality Stroke Does the patient have a stroke diagnosis?: No VTE Prior VTE?: No VTE Risk Level:: Surgical - moderate VTE Device Contraindication: N/A - Device Ordered VTE Drug Contraindication: N/A - Med Ordered
[2023-11-28] MEDS: oxyCODONE HCl Immed Release 5 MG TABLET PO (09:21)
[2023-11-28] MEDS: polyethylene glycoL 3350 17 GM POWD.PACK PO (09:22)
[2023-11-28] MEDS: Milk of Magnesia 30 ML ORAL.SUSP PO (09:24)
--- NOTE | 2023-11-28 10:16 | PC.NURSE ---
Patient vomited large amt of undigested food,Dr. Tilley notified
--- NOTE | 2023-11-28 11:37 | PC.NURSE ---
Bladder scanned for 30 ml,voiding in the bathroom
[2023-11-28] MEDS: 0.9 % Sodium Chloride 500 ML 100 ML IV (11:42)
[2023-11-28] MEDS: Morphine Sulfate 4 MG/ML CARTRIDGE IVPUSH (11:48)
--- NOTE | 2023-11-28 13:24 | MHC.CM.PN ---
EMR REVIEWED. PT IS AWAITING BM, STILL EXPERIENCING SOME NAUSEA. CM WILL CONTINUE TO FOLLOW FOR ANY CHANGE TO DC PLAN/NEEDS.
[2023-11-28] MEDS: Acetaminophen 1,000 MG/100 ML PIGGYBACK 400 MG IV ×2 (13:50→20:44)
[2023-11-28] MEDS: Promethazine HCL 25 MG TABLET PO (13:52)
[2023-11-28 15:33] VITALS: BP 131/60; PULSE 97; RESP 20; TEMP 37.4; O2SAT 95
[2023-11-28] MEDS: iohexoL 350 MG/ML 100 ML INFUS..BTL 85 ML IV (17:02)
[2023-11-28] MEDS: Lactated Ringers 1,000 ML 80 ML IVCONT (18:10)
[2023-11-28 19:20] VITALS: BP 110/55; PULSE 86; RESP 16; TEMP 36.7; O2SAT 97
[2023-11-28] MEDS: Gabapentin 100 MG CAPSULE PO (20:43)
[2023-11-29 02:33] VITALS: BP 131/75; PULSE 95; RESP 16; TEMP 36.9; O2SAT 97
[2023-11-29] MEDS: oxyCODONE HCl Immed Release 5 MG TABLET PO (05:20)
[2023-11-29] MEDS: Lactated Ringers 1,000 ML 80 ML IVCONT (05:40)
[2023-11-29 07:16] VITALS: BP 118/61; PULSE 89; RESP 14; TEMP 36.1; O2SAT 96
--- NOTE | 2023-11-29 07:45 | P.PNGS_ITS ---
Subjective Subjective Date of Service: 11/29/23 Interval history: Adilia feels much improved today, no further nausea or vomiting. Reports several BMs during the night. She is now hungry and would like to start a regular diet. Physical Exam 2 Vital Signs: Vital Signs: Last Vital Signs Temp 97.0 F 11/29/23 07:16 Pulse 89 11/29/23 07:16 Resp 14 11/29/23 07:16 BP 118/61 11/29/23 07:16 Pulse Ox 96 11/29/23 07:16 O2 Del Method Room Air 11/29/23 07:16 O2 Flow Rate 2 11/23/23 05:53 BMI result Body Mass Index 19.2 Const: General: no acute distress Nutritional Appearance: well nourished Orientation/consciousness: patient oriented x3 Resp: Effort & Inspection: normal respiratory effort GI: Other: midline incision is clean and intact Inspection: Yes normal to inspection Palpation (GI): Soft to palpation, nontender, no guarding and not rigid Percussion: Yes normal to percussion Auscultation: normal bowel sounds Skin: General skin exam: no rashes or lesions noted Neuro: General: patient oriented x3 Extrem: General: Yes no clubbing, cyanosis or edema Objective Data Active Medications Atorvastatin Calcium (Atorvastatin Calcium 10 Mg Tablet) 10 mg PO DAILY [facility] Last Admin: 11/28/23 07:50 Dose: 10 mg Documented By: MANUEL Benzocaine (Throat Lozenge, Medicated Lozenge) 1 lozenge MUCOUS MEM Q2H PRN PRN Reason: Sore Throat Docusate Sodium (Docusate Sodium 100 Mg Capsule) 100 mg PO BID [facility] Last Admin: 11/28/23 20:43 Dose: 100 mg Documented By: THAIS Fluticasone Propionate (Fluticasone Propionate Nasal 16 Gm [place]) 1 spray NOSTRIL-B DAILY [facility] Last Admin: 11/28/23 07:51 Dose: 1 spray Documented By: MANUEL Gabapentin (Gabapentin 100 Mg Capsule) 100 mg PO BEDTIME [facility] Last Admin: 11/28/23 20:43 Dose: 100 mg Documented By: THAIS Acetaminophen (Ofirmev) 1,000 mg in 100 mls @ 400 mls/hr IV Q6H [facility] Last Admin: 11/29/23 02:23 Dose: Not Given Documented By: THAIS Non-Admin Reason: dose exceeded Lactated Ringer's (Lr) 1,000 mls @ 80 mls/hr IVCONT .[id number] [facility] Last Admin: 11/29/23 05:40 Dose: 80 mls/hr Documented By: THAIS Magnesium Hydroxide (Milk Of Magnesia 30 Ml Oral.Susp) 30 ml PO DAILY [facility] Last Admin: 11/28/23 09:24 Dose: 30 ml Documented By: MANUEL Morphine Sulfate (Morphine Sulfate 4 Mg/Ml Cartridge) 4 mg IVPUSH Q4H PRN; Protocol PRN Reason: Pain, Severe (Pain Scale 7-10) Last Admin: 11/28/23 11:48 Dose: 4 mg Documented By: MANUEL Pt Own Med ( Alendronate 35 Mg Tablet) 35 mg PO TH [facility] Last Admin: 11/24/23 10:52 Dose: 35 mg Documented By: PRIMO Ondansetron HCl (Ondansetron Hcl 4 Mg/2 Ml Vial) 4 mg IVPUSH Q8H PRN PRN Reason: Nausea and Vomiting Last Admin: 11/28/23 06:25 Dose: 4 mg Documented By: THAIS Oxycodone HCl (Oxycodone Hcl Immed Release 5 Mg Tablet) 5 mg PO Q4H PRN PRN Reason: Pain, Moderate(Pain Scale 4-6) Last Admin: 11/29/23 05:20 Dose: 5 mg Documented By: THAIS Polyethylene Glycol (Polyethylene Glycol 3350 17 Gm Powd.Pack) 17 gm PO DAILY [facility] Last Admin: 11/28/23 09:22 Dose: 17 gm Documented By: MANUEL Promethazine HCl (Promethazine Hcl 25 Mg Tablet) 25 mg PO Q8H PRN PRN Reason: Nausea and Vomiting Last Admin: 11/28/23 13:52 Dose: 25 mg Documented By: MANUEL Sodium Chloride (0.9 % Sodium Chloride Flush 3 Ml Syringe) 3 ml IVFLUSH QSHIFT [facility] Last Admin: 11/29/23 01:01 Dose: Not Given Documented By: THAIS Non-Admin Reason: IV Running Labs 11/24/23 05:46 11/24/23 05:46 Procedures Date of Service Date of Service: 11/29/23 Progress Note: A&P Assessment and plan (1) Small bowel obstruction: Status: Acute Plan S/p extensive lysis of adhesions, vomiting yesterday but much improved today with several BMs yesterday and today. CT reviewed: no obstruction or abscess; colon with normal stool burden. Will advance her diet to regular today. If tolerated tomorrow, will plan on discharge to home. Patient understands and agrees with the plan. Time Spent With Patient Time: Total time managing care of this patient today ____ minutes. Quality Stroke Does the patient have a stroke diagnosis?: No VTE Prior VTE?: No VTE Risk Level:: Surgical - moderate VTE Device Contraindication: N/A - Device Ordered VTE Drug Contraindication: N/A - Med Ordered
[2023-11-29] MEDS: Atorvastatin Calcium 10 MG TABLET PO (08:28)
[2023-11-29] MEDS: Docusate Sodium 100 MG CAPSULE PO ×2 (08:28→19:49)
[2023-11-29] MEDS: polyethylene glycoL 3350 17 GM POWD.PACK PO (08:28)
[2023-11-29] MEDS: Acetaminophen 1,000 MG/100 ML PIGGYBACK 400 MG IV ×3 (08:29→19:48)
[2023-11-29] MEDS: Fluticasone Propionate Nasal 16 GM SPRAY 1 SPRAY NOSTRIL-B (08:33)
[2023-11-29] MEDS: Simethicone 80 MG TAB.CHEW PO ×2 (12:46→19:49)
[2023-11-29] MEDS: 0.9 % Sodium Chloride Flush 3 ML SYRINGE IVFLUSH ×2 (14:04→19:49)
[2023-11-29 15:45] VITALS: BP 146/70; PULSE 77; RESP 20; TEMP 36.9; O2SAT 99
[2023-11-29 19:10] VITALS: BP 150/72; PULSE 83; RESP 20; TEMP 36.8; O2SAT 100
[2023-11-29] MEDS: Gabapentin 100 MG CAPSULE PO (19:49)
[2023-11-29] MEDS: LORazepam 0.5 MG TABLET PO (22:09)
--- NOTE | 2023-11-29 23:50 | PC.NURSE ---
Pt requested for sleep med, Dr. Purvis was notified, Lorazepam 0.5 mg tab po given, slept fairly, needs met.
[2023-11-30] MEDS: Acetaminophen 1,000 MG/100 ML PIGGYBACK 400 MG IV ×2 (02:01→08:20)
[2023-11-30 02:08] VITALS: BP 137/71; PULSE 80; RESP 16; TEMP 36.1; O2SAT 98
[2023-11-30 07:04] VITALS: BP 121/57; PULSE 78; RESP 14; TEMP 36; O2SAT 98
--- NOTE | 2023-11-30 07:41 | PM.PNGS ---
Subjective Subjective Date of Service: 11/30/23 Interval history: Feels well this morning. Continues to pass flatus, move bowels. BMs now becoming more soft, was previously hard, LLQ pain now resolved. Tolerating diet without nausea or vomiting. Would like to go home. Physical Exam Vital Signs: Vital Signs: Last Vital Signs Temp 96.8 F 11/30/23 07:04 Pulse 78 11/30/23 07:04 Resp 14 11/30/23 07:04 BP 121/57 L 11/30/23 07:04 Pulse Ox 98 11/30/23 07:04 O2 Del Method Room Air 11/30/23 07:04 O2 Flow Rate 2 11/23/23 05:53 BMI result Body Mass Index 19.2 Const: General: comfortable, no acute distress and alert Resp: Effort & Inspection: normal respiratory effort GI: Inspection: No distended and Yes incision (clean, mild ecchymosis ) Palpation (GI): Soft to palpation, Tenderness to palpation present (GI) (mild incisional) and no guarding Skin: General skin exam: no rashes or lesions noted Objective Data Active Medications Atorvastatin Calcium (Atorvastatin Calcium 10 Mg Tablet) 10 mg PO DAILY [facility] Last Admin: 11/29/23 08:28 Dose: 10 mg Documented By: ABBY Benzocaine (Throat Lozenge, Medicated Lozenge) 1 lozenge MUCOUS MEM Q2H PRN PRN Reason: Sore Throat Docusate Sodium (Docusate Sodium 100 Mg Capsule) 100 mg PO BID [facility] Last Admin: 11/29/23 19:49 Dose: 100 mg Documented By: YAJAIRA Fluticasone Propionate (Fluticasone Propionate Nasal 16 Gm [place]) 1 spray NOSTRIL-B DAILY [facility] Last Admin: 11/29/23 08:33 Dose: 1 spray Documented By: ABBY Gabapentin (Gabapentin 100 Mg Capsule) 100 mg PO BEDTIME [facility] Last Admin: 11/29/23 19:49 Dose: 100 mg Documented By: YAJAIRA Acetaminophen (Ofirmev) 1,000 mg in 100 mls @ 400 mls/hr IV Q6H [facility] Last Infusion: 11/30/23 02:22 Dose: Infused Documented By: YAJAIRA Lorazepam (Lorazepam 0.5 Mg Tablet) 0.5 mg PO BEDTIME PRN PRN Reason: Sleep Last Admin: 11/29/23 22:09 Dose: 0.5 mg Documented By: YAJAIRA Magnesium Hydroxide (Milk Of Magnesia 30 Ml Oral.Susp) 30 ml PO DAILY [facility] Last Admin: 11/29/23 08:33 Dose: Not Given Documented By: ABBY Non-Admin Reason: Patient Refused Morphine Sulfate (Morphine Sulfate 4 Mg/Ml Cartridge) 4 mg IVPUSH Q4H PRN; Protocol PRN Reason: Pain, Severe (Pain Scale 7-10) Last Admin: 11/28/23 11:48 Dose: 4 mg Documented By: MANUEL Pt Own Med ( Alendronate 35 Mg Tablet) 35 mg PO TH [facility] Last Admin: 11/24/23 10:52 Dose: 35 mg Documented By: PRIMO Ondansetron HCl (Ondansetron Hcl 4 Mg/2 Ml Vial) 4 mg IVPUSH Q8H PRN PRN Reason: Nausea and Vomiting Last Admin: 11/28/23 06:25 Dose: 4 mg Documented By: THAIS Oxycodone HCl (Oxycodone Hcl Immed Release 5 Mg Tablet) 5 mg PO Q4H PRN PRN Reason: Pain, Moderate(Pain Scale 4-6) Last Admin: 11/29/23 05:20 Dose: 5 mg Documented By: THAIS Polyethylene Glycol (Polyethylene Glycol 3350 17 Gm Powd.Pack) 17 gm PO DAILY [facility] Last Admin: 11/29/23 08:28 Dose: 17 gm Documented By: ABBY Promethazine HCl (Promethazine Hcl 25 Mg Tablet) 25 mg PO Q8H PRN PRN Reason: Nausea and Vomiting Last Admin: 11/28/23 13:52 Dose: 25 mg Documented By: MANUEL Simethicone (Simethicone 80 Mg Tab.Chew) 80 mg PO QIDWMHS PRN PRN Reason: Gas Last Admin: 11/29/23 19:49 Dose: 80 mg Documented By: YAJAIRA Sodium Chloride (0.9 % Sodium Chloride Flush 3 Ml Syringe) 3 ml IVFLUSH QSHIFT [facility] Last Admin: 11/29/23 19:49 Dose: 3 ml Documented By: YAJAIRA Labs 11/24/23 05:46 11/24/23 05:46 Procedures Date of Service Date of Service: 11/30/23 Progress Note: A&P Assessment and plan (1) Small bowel obstruction: Status: Acute Plan Doing well with good GI function, pain controlled and tolerating diet. VSS. ABd exam benign with clean incision. Stable for dc to home today. No heavy lifting, f/u in office in 1 week. Patient and comfortable with plan. Time Spent With Patient Time: Total time managing care of this patient today ____ minutes. Quality Stroke Does the patient have a stroke diagnosis?: No VTE Prior VTE?: No VTE Risk Level:: Surgical - moderate VTE Device Contraindication: N/A - Device Ordered VTE Drug Contraindication: N/A - Med Ordered
[2023-11-30] MEDS: Docusate Sodium 100 MG CAPSULE PO (08:21)
[2023-11-30] MEDS: Atorvastatin Calcium 10 MG TABLET PO (08:21)
--- NOTE | 2023-11-30 09:15 | MHC.CM.PN ---
Patient is discharged today to home self care. She will receive support from her . He will provide transportation home.
[2023-11-30] MEDS: oxyCODONE HCl Immed Release 5 MG TABLET PO (09:34)
--- NOTE | 2023-11-30 14:02 | PM.DS ---
DS: Providers Provider Date of Service: 11/30/23 Date of admission: 11/23/23 01:12 Date of discharge: 11/30/23 Primary care physician: Ryan Hayes MD Admitting clinician: Magalie Purvis Discharging clinician: David Grijalva DS: Diagnosis Discharge Diagnosis (1) Small bowel obstruction: Status: Acute DS: Summary Hospital Course Hospital Course: Adilia Liang is a 68 year old female who presents on 11/23/2023 to the emergency room complaining of abdominal pain. The abdominal pain started a bit of the day prior to admission but got worse over the next day and she left to go home. After being at home for little bit she felt the pain becoming very severe in her midabdomen and her brought her to the emergency room. She has had a history of perforated diverticulitis in the past and underwent Vahe procedure and then eventually underwent another operation to reverse her colostomy. 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 Here in the emergency room she was very tender on abdominal exam and CT scan of her abdomen and pelvis shows bowel obstruction with transition zone mid to left lower quadrant area with possible twist with some free fluid and significant mesentery edema. She has required significant IV pain medication which has caused some degree of respiratory depression. She had felt nauseated but did not throw up. Her says generally she does not complain so this is something significant. On examination she was noted to be diffusely tender with peritoneal signs. Laboratories revealed an elevated WBC. Decision was made to take her to the operating room for exploratory laparotomy. In the OR on 11/23/2023, she was found to have a closed loop obstruction. She underwent an extensive lysis of adhesions and appendectomy. Postoperatively the patient reported feeling improved with decreased abdominal pain from prior to surgery. She was subsequently started on clear liquids and slowly advanced to regular diet. This was well tolerated and the patient began to pass flatus but no bowel movement. The patient's soon began to have increased abdominal pain with several episodes of nausea and vomiting. Repeat CT abdomen and pelvis was performed. This revealed no evidence of obstruction with stool in the colon. The next day the patient had a large bowel movement felt markedly improved. She was advanced to a regular diet of the next 24 hours. She was subsequently discharged to home in stable condition having tolerated regular diet on 11/30/2023. Discharge instructions were to avoid heavy lifting. She will follow-up in the office in 1 week for suture removal. She should call for nausea, vomiting, increased abdominal pain or difficulties with the bowels. Time spent discussing smoking cessation with patient: 3 to 10 minutes Status at Discharge Functional status at discharge: independent ambulation Overall status at discharge: patient is not back to baseline Time Attestation Discharge Coordination Time (in mins): 20 Quality: Safe Use of Opioids Does Pt have an Active Cancer Diagnosis on the Problem List?: No Quality: Stroke Does the patient have a stroke diagnosis?: No Physical Exam Vital Signs: Vital Signs: Last Vital Signs Temp 96.8 F 11/30/23 07:04 Pulse 78 11/30/23 07:04 Resp 14 11/30/23 07:04 BP 121/57 L 11/30/23 07:04 Pulse Ox 98 11/30/23 07:04 O2 Del Method Room Air 11/30/23 07:04 O2 Flow Rate 2 11/23/23 05:53 BMI result Body Mass Index 19.2 Const: General: comfortable, no acute distress and alert Resp: Effort & Inspection: normal respiratory effort GI: Inspection: No distended and Yes incision (clean, mild ecchymosis ) Palpation (GI): Soft to palpation, Tenderness to palpation present (GI) (mild incisional) and no guarding Skin: General skin exam: no rashes or lesions noted DS: Data Data Completed and Pending Completed studies during hospitalization [Text1]: Pending at discharge 11/23/23 04:49 Surgical [PTH] Routine Procedures Bypass Sigmoid Colon to Cutaneous, Open Approach (01/13/21) Excision of Sigmoid Colon, Open Approach (01/13/21) Reposition Descending Colon, Open Approach (05/18/21) Discharge Plan Discharge Anticipated Discharge Date/Time: 11/29/23 10:07 Patient Disposition: Home, Self-Care Discharge Diagnosis: SBO Referrals: Ryan Hayes MD [Primary Care Provider] - 1 Week David Grijalva MD [Physician] - 1 Week Discharge Medications: New docusate sodium [Colace] 100 mg capsule 100 mg PO BID Qty: 30 0RF oxycodone 5 mg tablet 5 mg PO Q4H PRN (Reason: pain (scale score 7-10)) Qty: 24 0RF Rx Instructions: Partial Fill upon patient request. melatonin 5 mg capsule 5 mg PO BEDTIME PRN (Reason: insomnia) Qty: 20 0RF Continued multivitamin Tablet 1 tab PO DAILY fluticasone propionate 50 mcg/actuation [place],Suspension 1 spray INTRANASAL DAILY gabapentin 100 mg capsule 1 cap PO BEDTIME simvastatin 20 mg tablet 20 mg PO DAILY ibuprofen 400 mg tablet 400 mg PO DAILY PRN (Reason: Pain) alendronate 35 mg tablet 35 mg PO TH Discharge Orders: Discharge Order (Routine); Ordered 11/30/23 Ordered By: Megan Aragon Diet: Advance to usual diet Activity on Discharge: No heavy lifting Stand Alone Forms: Patient Portal Discharge page Print Language: Spanish Activity Restrictions/Additional Instructions: If the incision area is tender, you may apply an ice pack for short intervals (No more than 20 minutes on, followed by at least 20 minutes off). Do not apply heat. Do not use creams, lotions, or topical antibiotics. These can cause infection or allergic reaction. Ok to shower. You have jesusita closing your incision and these will be removed approximately 10-14 days after surgery. NO HEAVY LIFTING (>10lbs) or strenuous activity. Follow up in office. ([phone]) Call Your Doctor If: -Your temperature exceeds 101.5? F -You experience excessive pain or swelling -You have an unexpected reaction to medication -You have excessive bleeding -You experience continued vomiting/nausea -Your incision begins to separate -Your incision shows signs of infection such as increased redness, swelling, excessive pain, drainage (light blood or clear fluid is normal) or heat Care Plan Goals: Return to baseline health and resume normal activities following recovery period. Health Concerns: closed loop SBO Plan of Treatment: s/p laparotomy, enterolysis f/u in office in 1 week Assessment: Doing well post op. Discharge Date/Time: 11/30/23 09:40
== END 2023-11-30 09:40 | disposition home or self-care (01) | DRG 224 ==
LOC: HO.ED 11-23 00:13 → HO.EDOVER 11-23 02:11 → HO.S3 11-23 04:00
PROVIDERS: Physician Assistant; Admitting Provider Surgery; Emergency Provider Emergency Medicine; PCP Internal Medicine; Visit Provider Surgery
PROC: 0DNH0ZZ Release Cecum, Open Approach (ICD-10-PCS; CPT 49000; principal; 2023-11-23 02:45)
DX: K56.52 Intestinal adhesions [bands] with complete obstruction (principal); K55.9 Vascular disorder of intestine, unspecified; D68.51 Activated protein C resistance; Z79.899 Other long term (current) drug therapy
CPT/HCPCS: 36415; 74177; 80048; 80076; 81001; 83605; 83690; 83735; 85025; 85610; 85730; 87040; 87086; 88304; 99285; C1758; J0131; J0690; J0737; J1100; J1170; J1885; J2250; J2270; J2405; J2470; J2543; J2704; J3010; J7120; Q9967

== ENCOUNTER → 2023-11-22 18:24 | Outpatient (BNV) | payer OTHER, SELFPAY | PROVIDERS: Emergency Provider Emergency Medicine; PCP Internal Medicine; Visit Provider Surgery | DX: K56.609 Unspecified intestinal obstruction, unspecified as to partial versus complete obstruction (principal) | CPT/HCPCS: 44005; 99024; 99222 ==

== ENCOUNTER 2023-12-08 13:28 | Outpatient (AMB) | payer OTHER, SELFPAY ==
[2023-12-08 13:34] VITALS: BP 122/66; PULSE 69
--- NOTE | 2023-12-08 13:34 | MHC.OFFVIS ---
Vital Signs 12/08/23 13:34 Weight 99 lb BP 122/66 Blood Pressure Location Rt brachial Position Sitting Pulse 69 Intake Visit Reasons: exploratory laparotomy & lap appy Intake Note: Patient here s/p exploratory and lap appy. Reports incisions healing well. Patient c/o: diarrhea, stables are irritating. Student Services Dean Required: No Accompanied by: Spouse Allergies amoxicillin Allergy (Mild, Verified 12/08/23 13:36) Rash nitrofurantoin [Nitrofurantoin] Allergy (Mild, Verified 12/08/23 13:36) RASH Sulfa (Sulfonamide Antibiotics) [Sulfa (Sulfonamides)] Allergy (Mild, Verified 12/08/23 13:36) RASH trimethoprim [Trimethoprim] Allergy (Mild, Verified 12/08/23 13:36) RASH HPI Comments Details: Patient presents with her significant other for follow-up. She is doing well. She is tolerating a diet. She has occasional soft stools but not diarrhea per se. She is increasing her activity level. [facility] Medical History (Updated 12/08/23 @ 00:02 by Tito Tobias) Small bowel obstruction COVID-19 vaccine series completed Family history of complication of anesthesia Arthritis Perforation of sigmoid colon due to diverticulitis Factor 5 Leiden mutation, heterozygous Elevated cholesterol GERD (gastroesophageal reflux disease) Hearing impairment Myofascial pain syndrome Acromioclavicular joint pain Surgical History (Updated 12/08/23 @ 13:45 by Fernando Bush MD) History of exploratory laparotomy (11/23/23) S/P colostomy takedown (05/18/21) History of open sigmoidectomy History of hand surgery Hx of foot surgery Hx of foot surgery H/O colonoscopy Hx of dilation and curettage Hx of elbow surgery H/O right knee surgery Family History Sister Breast cancer Mother Breast cancer Family/Other Uterine cancer Family/Other Throat cancer Bone cancer Sister Emphysema lung Sister Breast cancer Father Emphysema lung Brother Alzheimer's dementia Sister Type 2 diabetes mellitus Social History (Updated 02/18/23 @ 15:27 by Ebony Hoover) Household Members: Spouse Housing: House Are you a primary pet care associate to a significant other at home: No Do you presently have visiting nurse or other home services: No Alcohol intake: current Alcohol intake frequency: holidays/special occasions only Patient Tobacco Use Status: Never used Tobacco Advance Directives Date on File: 05/25/21 service: No Current occupational status: employed Sexual orientation: Straight/Heterosexual Gender identity: Female Physical Exam Vital Signs: Last Vital Signs Pulse 69 12/08/23 13:34 BP 122/66 12/08/23 13:34 GI Other: Abdomen is soft. Incision clean dry and intact. Sutures uneventfully removed. Assessment & Plan Assessment & Plan (1) Postop check: Code(s): Z09 - Encounter for follow-up examination after completed treatment for conditions other than malignant neoplasm Category: Surgical Plan Patient was spouse have been given local instructions including activity restrictions and patient will follow up with Dr. Grijalva in 2 weeks' time or p.r.n.. All questions answered Coding Level of Care Code Global (38355) Diagnoses Postop check Z09
== END 2023-12-08 13:48 | disposition home or self-care (01) ==
PROVIDERS: PCP Internal Medicine; Visit Provider Surgery
DX: Z09 Encounter for follow-up examination after completed treatment for conditions other than malignant neoplasm (principal)
CPT/HCPCS: 99024

== ENCOUNTER → 2023-12-08 13:28 | Outpatient (BNVA) | payer OTHER, SELFPAY | PROVIDERS: PCP Internal Medicine; Visit Provider Surgery ==

== ENCOUNTER 2024-01-05 09:38 | Outpatient (AMB) | payer OTHER, SELFPAY ==
--- NOTE | 2024-01-05 09:40 | MHC.OFFVIS ---
Vital Signs 01/05/24 09:47 Height 5 ft 1 in Weight 97 lb 0.054 oz BMI 18.3 Intake Visit Reasons: S/p exp lap, lap appy Intake Note: Patient is seen in office for 2 wks follow up visit, post exploratory laparotomy and appendectomy. Pt c/o: bloated after meals, using stool softener buts needs to push thinks might have pulled a muscle, taking pain meds if needed mostly uses motrin Rv Repairer Required: No Accompanied by: Spouse Allergies amoxicillin Allergy (Mild, Verified 01/05/24 09:45) Rash nitrofurantoin [Nitrofurantoin] Allergy (Mild, Verified 01/05/24 09:45) RASH Sulfa (Sulfonamide Antibiotics) [Sulfa (Sulfonamides)] Allergy (Mild, Verified 01/05/24 09:45) RASH trimethoprim [Trimethoprim] Allergy (Mild, Verified 01/05/24 09:45) RASH Medication List - Last Reconciled 01/05/24 by David Grijalva MD alendronate 35 mg PO TH docusate sodium (Colace) 100 mg PO BID fluticasone propionate 50 mcg/actuation 1 spray intranasal DAILY gabapentin 1 cap PO BEDTIME ibuprofen 400 mg PO DAILY PRN melatonin 5 mg PO BEDTIME PRN multivitamin 1 tab PO DAILY oxycodone 5 mg PO Q4H PRN simvastatin 20 mg PO DAILY HPI Comments Details: 68-year-old female patient status post exploratory laparotomy, lysis of adhesions, appendectomy for small-bowel obstruction on 11/23/2023. She returns today reporting some pain in the left upper quadrant especially when pushing to have a bowel movement or urinate. She also has pain with lifting is uncertain if she injured her muscles. She denies any nausea or vomiting. She is moving her bowels with the help of the stool softener. Extra stool softener once daily. She denies any bleeding per rectum. [facility], [facility] Medical History Small bowel obstruction COVID-19 vaccine series completed Family history of complication of anesthesia Arthritis Perforation of sigmoid colon due to diverticulitis Factor 5 Leiden mutation, heterozygous Elevated cholesterol GERD (gastroesophageal reflux disease) Hearing impairment Myofascial pain syndrome Acromioclavicular joint pain Surgical History History of exploratory laparotomy (11/23/23) S/P colostomy takedown (05/18/21) History of open sigmoidectomy History of hand surgery Hx of foot surgery Hx of foot surgery H/O colonoscopy Hx of dilation and curettage Hx of elbow surgery H/O right knee surgery Family History Sister Breast cancer Mother Breast cancer Family/Other Uterine cancer Family/Other Throat cancer Bone cancer Sister Emphysema lung Sister Breast cancer Father Emphysema lung Brother Alzheimer's dementia Sister Type 2 diabetes mellitus Social History Household Members: Spouse Housing: House Are you a primary director of critical care to a significant other at home: No Do you presently have visiting nurse or other home services: No Alcohol intake: current Alcohol intake frequency: holidays/special occasions only Patient Tobacco Use Status: Never used Tobacco Advance Directives Date on File: 05/25/21 service: No Current occupational status: employed Sexual orientation: Straight/Heterosexual Gender identity: Female Physical Exam Vital Signs: BMI result Body Mass Index 18.3 Const General: no acute distress Nutritional Appearance: well nourished Orientation/consciousness: patient oriented x3 Resp Effort & Inspection: normal respiratory effort GI Other: Soft and nondistended, no palpable hernia noted in the incision or colostomy site. Examination with Valsalva maneuvers is negative. There is tenderness along the left upper quadrant on the course of the rectus muscles suggestive of a muscle strain. Abdomen image: 1. Area of maximal tenderness, no palpable hernia. Neuro General: patient oriented x3 Extrem Other: No edema Assessment & Plan Assessment & Plan (1) Small bowel obstruction: Code(s): K56.609 - Unspecified intestinal obstruction, unspecified as to partial versus complete obstruction Category: Medical (2) Abdominal pain, LUQ: Code(s): R10.12 - Left upper quadrant pain Category: Medical Plan Patient returns following exploratory laparotomy, lysis of adhesions and appendectomy for small-bowel obstruction. She does complain of tenderness in the left upper quadrant. Examination reveals no hernia and findings may be suggestive of a muscle strain in the rectus muscle. I do feel she can return to normal activity without restriction. I will order a CT abdomen and pelvis to be sure there is no occult hernia. I will call her with the results once available. Orders: Orders CT abdomen pelvis wo IV con Today K56.609 - Unspecified intestinal obstruction, unspecified as to partial versus complete obstruction, R10.12 - Left upper quadrant pain Medications: Refilled docusate sodium (Colace) 100 mg PO BID 30 caps 0RF docusate sodium (Colace) 100 mg PO BID 30 caps 0RF Coding Level of Care Code Global (16715) Diagnoses Small bowel obstruction K56.609 Abdominal pain, LUQ R10.12
[2024-01-05 09:47] VITALS: BMI 18.3
== END 2024-01-05 09:54 | disposition home or self-care (01) ==
PROVIDERS: PCP Internal Medicine; Visit Provider Surgery
DX: K56.609 Unspecified intestinal obstruction, unspecified as to partial versus complete obstruction (principal); R10.12 Left upper quadrant pain
CPT/HCPCS: 99024

== ENCOUNTER → 2024-01-05 09:38 | Outpatient (BNVA) | payer OTHER, SELFPAY | PROVIDERS: PCP Internal Medicine; Visit Provider Surgery ==

== ENCOUNTER 2024-01-06 14:57 | Outpatient (REF) | payer OTHER, SELFPAY ==
--- NOTE | ~2024-01-06 | CT_ITS ---
EXAMINATION: CT ABDOMEN AND PELVIS WITHOUT CONTRAST CLINICAL INFORMATION: Unspecified intestinal obstruction, unspecified as to partial ... LUQ abdomen pain COMPARISON: CT abdomen/pelvis 11/28/2023 TECHNIQUE: Multidetector volumetric imaging was performed after the administration of oral contrast from the superior aspect of the liver through the pubic symphysis. Sagittal and coronal reformatted images were obtained on the technologist's workstation. This CT examination was performed using dose optimization techniques as appropriate, variously including the following: *Automated exposure control *Adjustment of mA and/or kV according to patient size (this includes techniques or standardized protocols for targeted exams where dose is matched to indication/reason for exam; i.e. extremities or head) *Use of iterative reconstruction technique DLP: 220 mGy-cm FINDINGS: LUNG BASES: Bibasilar atelectasis. No pleural effusion. Normal size heart without pericardial effusion. LIVER, GALLBLADDER, AND BILIARY TREE: The liver is normal in size, shape, and attenuation. No focal hepatic lesion or biliary ductal dilatation is present. The gallbladder is unremarkable with no evidence of radiopaque gallstones, gallbladder wall thickening, or obvious pericholecystic inflammatory changes. PANCREAS: Unremarkable. SPLEEN: Unremarkable. ADRENAL GLANDS: Unremarkable. KIDNEYS AND URETERS: The kidneys are normal in size, shape, and attenuation. No hydronephrosis, hydroureter, or calculi seen. No perinephric stranding. BLADDER: Unremarkable. GASTROINTESTINAL TRACT: Intact rectosigmoid anastomotic sutures. Mild scattered colonic diverticulosis without evidence of acute diverticulitis. The small and large bowel are nondilated. No pneumoperitoneum or free fluid within the pelvis, improved from prior. The appendix is not definitively seen, however there is no right lower quadrant stranding to suggest acute appendicitis. ABDOMINAL WALL: No significant hernia is appreciated. Ventral midline incision scar. LYMPH NODES: Normal. VASCULAR: The abdominal aorta is nonaneurysmal with mild scattered atheromatous calcifications. PELVIC VISCERA: The uterus and adnexa are unremarkable. OSSEOUS STRUCTURES: No acute or suspicious osseous abnormality. CT/CT abdomen pelvis wo IV con IMPRESSION: 1. No acute process within the abdomen or pelvis. 2. Intact rectosigmoid anastomotic sutures. Mild scattered colonic diverticulosis without evidence of acute diverticulitis. No evidence for bowel obstruction. Fleischner guidelines were followed. Electronically signed by: Blanca Winters DO 01/07/2024 03:37 PM EDT
== END 2024-01-06 14:58 | disposition home or self-care (01) ==
LOC: HO.CT 14:57
PROVIDERS: PCP Internal Medicine; Visit Provider Surgery
DX: R10.12 Left upper quadrant pain (principal); K56.609 Unspecified intestinal obstruction, unspecified as to partial versus complete obstruction
CPT/HCPCS: 74176

== ENCOUNTER 2024-01-16 10:28 | Outpatient (REF) | payer OTHER, SELFPAY ==
[2024-01-16 11:27] LABS: Appearance Urine Clear; Color Urine Dark Yellow; Glucose Urine UA Negative (Negative); Leukocyte Esterase Urine Trace (Negative); Nitrite Urine Negative (Negative); PH 5.5 (5.0-9.0); Specific Gravity - Urine >= 1.030 (1.005-1.025); UMIC TRIGGER UA YES; Urine Blood Negative (Negative); Urine Ketones Trace mg/dL (Negative); Urine Protein Trace mg/dL (Neg-Trace)
[2024-01-16 11:45] LABS: Bacteria Urine None Seen (None Seen); Hyaline Casts Urine 0-2 /LPF (0-2); RBC Urine 0-2 /HPF (0-2); Squamous Epithelial Cell Urine 0-2 /HPF (0-2); WBC Urine 0-5 /HPF (0-5)
== END 2024-01-16 10:29 | disposition home or self-care (01) ==
LOC: HO.LAB 10:28
PROVIDERS: PCP Internal Medicine; Visit Provider Internal Medicine
DX: R30.0 Dysuria (principal)
CPT/HCPCS: 81001; 81003; 87086

== ENCOUNTER 2024-01-20 08:19 | Outpatient (REF) | payer OTHER, SELFPAY | END 2024-01-20 08:20 | disposition home or self-care (01) | LOC: HO.SH 08:19 | PROVIDERS: Visit Provider Internal Medicine | DX: Z01.118 Encounter for examination of ears and hearing with other abnormal findings (principal); H90.3 Sensorineural hearing loss, bilateral | CPT/HCPCS: 92552; 92556 ==

== ENCOUNTER 2024-01-24 13:52 | Outpatient (REF) | payer SELFPAY | END 2024-01-24 13:53 | disposition home or self-care (01) | LOC: HO.HAP 13:52 | PROVIDERS: Visit Provider Internal Medicine | DX: Z13.89 Encounter for screening for other disorder (principal) ==

== ENCOUNTER 2024-02-21 06:12 | Outpatient (REF) | payer OTHER, SELFPAY | END 2024-02-21 06:13 | disposition home or self-care (01) | LOC: CF 06:12 | PROVIDERS: Visit Provider Anesthesiology | DX: M19.011 Primary osteoarthritis, right shoulder (principal); M79.18 Myalgia, other site | CPT/HCPCS: 20552; 20605; J2003; J2795; J3301 ==

== ENCOUNTER 2024-02-21 07:03 | Outpatient (AMB) | payer OTHER, SELFPAY ==
[2024-02-21 07:10] VITALS: BP 124/62; PULSE 69; RESP 18; O2SAT 100
[2024-02-21 07:48] VITALS: BP 123/80; PULSE 67; RESP 18; O2SAT 100
--- NOTE | 2024-02-21 07:48 | MHC.OFFVIS ---
Vital Signs 02/21/24 07:10 02/21/24 07:48 BP 124/62 123/80 Blood Pressure Location Lt brachial Lt brachial Position Sitting Sitting Respiration 18 18 Pulse 69 67 Pulse Source Pulse Oximeter Pulse Oximeter Pulse Oximetry (%) 100 100 Oxygen Delivery Method Room Air Room Air Comment Pre-op Post-op Intake Visit Reasons: RT ACROMIOCLAVICULAR AND TRIGGER PT INJECTIONS Allergies amoxicillin Allergy (Mild, Verified 02/21/24 07:49) Rash nitrofurantoin [Nitrofurantoin] Allergy (Mild, Verified 02/21/24 07:49) RASH Sulfa (Sulfonamide Antibiotics) [Sulfa (Sulfonamides)] Allergy (Mild, Verified 02/21/24 07:49) RASH trimethoprim [Trimethoprim] Allergy (Mild, Verified 02/21/24 07:49) RASH Medication List - Last Reconciled 02/21/24 by Jessica Hamilton alendronate 35 mg PO TH docusate sodium (Colace) 100 mg PO BID fluticasone propionate 50 mcg/actuation 1 spray intranasal DAILY gabapentin 1 cap PO BEDTIME ibuprofen 400 mg PO DAILY PRN melatonin 5 mg PO BEDTIME PRN multivitamin 1 tab PO DAILY oxycodone 5 mg PO Q4H PRN simvastatin 20 mg PO DAILY PFSH Medical History Small bowel obstruction COVID-19 vaccine series completed Family history of complication of anesthesia Arthritis Perforation of sigmoid colon due to diverticulitis Factor 5 Leiden mutation, heterozygous Elevated cholesterol GERD (gastroesophageal reflux disease) Hearing impairment Myofascial pain syndrome Acromioclavicular joint pain Surgical History History of exploratory laparotomy (11/23/23) S/P colostomy takedown (05/18/21) History of open sigmoidectomy History of hand surgery Hx of foot surgery Hx of foot surgery H/O colonoscopy Hx of dilation and curettage Hx of elbow surgery H/O right knee surgery Family History Sister Breast cancer Mother Breast cancer Family/Other Uterine cancer Family/Other Throat cancer Bone cancer Sister Emphysema lung Sister Breast cancer Father Emphysema lung Brother Alzheimer's dementia Sister Type 2 diabetes mellitus Social History Household Members: Spouse Housing: House Are you a primary hospice spiritual care coordinator to a significant other at home: No Do you presently have visiting nurse or other home services: No Alcohol intake: current Alcohol intake frequency: holidays/special occasions only Patient Tobacco Use Status: Never used Tobacco Advance Directives Date on File: 05/25/21 service: No Current occupational status: employed Sexual orientation: Straight/Heterosexual Gender identity: Female Physical Exam Vital Signs: Last Vital Signs Pulse 67 02/21/24 07:48 Resp 18 02/21/24 07:48 BP 123/80 02/21/24 07:48 Pulse Ox 100 02/21/24 07:48 Oxygen Delivery Method Room Air 02/21/24 07:48 Assessment & Plan Assessment & Plan (1) Acromioclavicular joint pain: Code(s): M25.519 - Pain in unspecified shoulder Category: Medical (2) Myofascial pain syndrome: Code(s): M79.18 - Myalgia, other site Category: Medical Plan Intraarticular right acromio-clavicular joint injection and trigger point injection . Informed consent was explained to the patient. All questions were explained and answered. The patient was taken inside the operating room. The patient was positioned supine on operating table with her right shoulder elevated on the wedge support. Time-out was performed delineating correct site, side, the nature of the procedure, patient's allergy, preoperative antibiotic if needed. All operating room staff was participating in OR time-out procedure. Right acromioclavicular joint was delineated on the screen. The area of the joint as well as right neck were prepped with ChloraPrep and draped with sterile utility drapes. Location of the right acromioclavicular joint was injected 1st using 22 gauge 1/2 inch needle under x-ray guidance the needle was driven into the intra-articular space and 2 cc of Ropivacaine 0.5% mixed with Kenalog was injected into the joint. After that the two trigger point injections were performed at trapezius muscle on the right in fan-like fashion . . Total dose of kenalog was 40 mg. Total dose of ropivacaine was 10 mls . Patient tolerated procedure well she was taken outside of the operating room to recovery room where she recovered uneventfully. She went home without immediate complications. Orders: Orders FL guidance in treatment room Today M19.011 - Primary osteoarthritis, right shoulder Coding Level of Care Code Procedure Only Diagnoses Acromioclavicular joint pain M25.519 Myofascial pain syndrome M79.18
== END 2024-02-21 07:53 | disposition home or self-care (01) ==
LOC: HO.PMCPRC 07:03
PROVIDERS: PCP Internal Medicine; Visit Provider Anesthesiology
DX: M25.511 Pain in right shoulder (principal); M79.18 Myalgia, other site
CPT/HCPCS: 20552; 20605

== ENCOUNTER 2024-02-22 09:05 | Outpatient (REF) | payer OTHER, SELFPAY ==
--- NOTE | ~2024-02-22 | MM_ITS ---
EXAMINATION: MM SCREENING DIGITAL BREAST TOMOSYNTHESIS, BILATERAL CLINICAL INFORMATION: Screening. Asymptomatic. COMPARISON: Mammography: Comparison is made with available priors TECHNIQUE: Digital breast mammography with tomosynthesis is performed in both the craniocaudal and mediolateral oblique views along with computer-aided detection (CAD). FINDINGS: The breasts are heterogeneously dense, which may obscure small masses (ACR BI-RADS breast composition Category c). There are no significant masses, abnormal calcifications, or other abnormalities. MM/MM tomosynthesis screening BI IMPRESSION: No mammographic evidence of malignancy. ASSESSMENT: BI-RADS BI-RADS 1 - Negative RECOMMENDATION: Routine annual mammography screening. 1 year F/U This examination should not preclude the clinical evaluation of a suspicious palpable abnormality. This patient's information was entered into a reminder system with a target due date for their next mammogram. Electronically signed by: Cecelia Felix DO 03/01/2024 06:15 PM [facility]
== END 2024-02-22 09:06 | disposition home or self-care (01) ==
LOC: HO.MAMMO 09:05
PROVIDERS: PCP Internal Medicine; Visit Provider Internal Medicine
DX: Z12.31 Encounter for screening mammogram for malignant neoplasm of breast (principal)
CPT/HCPCS: 77063; 77067

== ENCOUNTER → 2024-02-22 09:15 | Outpatient (BNV) | payer OTHER, SELFPAY | PROVIDERS: PCP Internal Medicine; Visit Provider Internal Medicine | DX: Z12.31 Encounter for screening mammogram for malignant neoplasm of breast (principal) | CPT/HCPCS: 77063; 77067 ==

== ENCOUNTER 2024-03-15 16:01 | Outpatient (REF) | payer OTHER, SELFPAY ==
--- NOTE | ~2024-03-15 | MR_ITS ---
EXAMINATION: MR LUMBAR SPINE WITHOUT CONTRAST CLINICAL INFORMATION: Low back pain radiating into lower extremities COMPARISON: MRI dated October 20, 2013. Correlated to x-ray dated December 23, 2020. TECHNIQUE: MRI of the lumbar spine was obtained using routine sequences without contrast. FINDINGS: Submitted for interpretation on March 20, 2024. Last rib-bearing vertebra labeled T12. No bone marrow STIR signal abnormality. Multilevel disc desiccation and marginal osteophyte formation. Focal hyperintense T2 signal in the posterior intervertebral disc of L4 likely annular fissure. Schmorl nodes in the endplates of T11 and T12. There is a subtle grade 1 retrolisthesis, L4-5. Bone marrow inhomogeneity. Probable Tarlov cysts in the left S2. Conus medullaris ends at pedicle of L1 with normal signal. T11-12: There is a left subarticular disc protrusion resulting in ventral indentation to the thecal sac. No neuroforamina stenosis. No compression upon neural elements. T12-L1: No disc herniation. No neuroforamina stenosis. L1-2: No disc herniation. No neuroforamina stenosis. L2-3: No disc herniation. No neuroforamina stenosis. Facet joint hypertrophy bilaterally. Broad-based disc bulging. L3-4: Broad-based disc bulging. Facet joint hypertrophy as well as ligamentum flavum. No compression upon neural elements. L4-5: Focal annular fissure, posterior midline. Facet joint hypertrophy. Reduced AP diameter of the thecal sac and the neural foramina likely encroaching the exiting nerve roots. L5-S1: Central disc herniation. No compression upon neural elements. No prevertebral compartment hematoma, mass or fluid collection. Fatty atrophy of the lower lumbar muscles likely denervation. MR/MR lumbar spine wo con IMPRESSION: Multilevel spondylosis resulting in subtle grade 1 retrolisthesis L4-5 and bilateral neuroforamina narrowing encroaching the L4 probably L5 exiting nerve roots. Electronically signed by: Adrian Murillo MD 03/20/2024 01:29 PM EST
--- OUTSIDE RECORDS SUMMARY | 2024-03-21 04:23 | XMS_ITS ---
Author Organization [facility] Address [address] [place] [id number] Care Team Providers Care Car Ferrier Name Role Phone Ryan Hayes MD Primary Care Provider Unavaila Parker Dong Unavailable [phone] Jia STORY, Bridger Unavailable Unavailable REASON FOR VISIT bleeding Encounters Encounter Location Date Provider Diagnosis [facility] [address] [facility] [address] [place] [id number] 03/01/2024 Parker Molina PLAN OF TREATMENT Next Appt Details Provider Name:Parker Molina , 05/25/2024 09:30:00 AM, [address], [place], [phone],
--- OUTSIDE RECORDS SUMMARY | 2024-03-21 04:23 | XMS_ITS ---
Author Organization [facility] Address [address] [place] [address] Care Team Providers Care Topology Professor Name Role Phone Ryan Hayes MD Primary Care Provider UnavailParker Pichardo Unavailable [phone] Bridger Ro MD Unavailable Unavailable ALLERGIES No Known Allergies REASON FOR VISIT Patient presents today for a colon screening MEDICATIONS Medication SIG (Take, Route, Frequency, Duration) Notes Start Date End Date Status Vitamin C 500 MG 1 tablet Orally Once a day for 30 day(s) Active Allergy Relief 4 MG 1 tablet as needed O rally every 6 hrs Active Simvastatin 20 MG TAKE 1 TABLET BY DANIELLE TH ONCE A DAY AT BEDTIME Oral for 30 Active Multivitamin Adults - as directed Orally once a day Active traMADol HCl 50 MG as directed Orally a s needed Active Stool Softener 100 MG 1 capsule as neede d Orally Once a day for 30 day(s) Active Fluticasone Propionate 50 MCG/ACT Nasal for 90 Active Alendronate Sodium 35 MG Oral for 84 Active Gabapentin 100 MG Oral for 30 Active Ibuprofen 400 MG Oral for 30 A ctive PROBLEMS Problem Type ICD Code Onset Dates Problem Status W/U Status Risk SNOMED Code Notes Problem Dysphagia (R13.10) Active confirmed Dysphagia ([id number]) VITAL SIGNS BMI 18.84 kg/m2 01/24/2024 Blood pressure systolic 00 mm Hg 01/24/20 24 Blood pressure diastolic 00 mm Hg 024 Height 62 in 01/24/2024 Weight 103 lbs 01/24/2024 Encounters Encounter Location Date Provider Diagnosis [facility] [address] [place] [address] 01/24/2024 Parker Molina Encounter for screening for malignant neoplasm of colon Z12.11 ; Dysphagia R13.10 and Family history of colon cancer Z80.0 ASSESSMENTS Encounter Date Diagnosis Assessment Notes Treatment Notes Treatment Clinical Notes 01/24/2024 Encounter for screening for malignant neoplasm of colon (ICD-10 - Z12.11) 01/24/2024 Dysphagia (ICD-10 - R13.10) 01/24/2024 Family history of colon cancer (ICD-10 - Z80.0) PLAN OF TREATMENT Future Test Test Name Order Date UPPER GI ENDOSCOPY BALLOOON DILATION OF ESOPH 01/24/2024 COLONOSCOPY 01/24/2024 Next Appt Details Follow Up: prn, Reason: Provider Name:Parker Molina , 05/25/2024 09:30:00 AM, [address] [place] [address] , [place], [place], [phone], Progress Notes * Examination Category Sub-Category Detail Notes General Examination GENERAL APPEARANCE: pleasant , well nourished, well developed, in no acute distress HEAD: EYES: sclera non-icteric EARS: NOSE: THROAT: NECK/THYROID: no cervical lymphade nopathy, neck supple HEART: S1, S2 normal CHEST: LUNGS: clear to auscultatio n bilaterally ABDOMEN: normal bowel sounds, no guarding or rigidity, no guarding or rigidity, no masses palpable, soft, nontender, nondistended NEUROLOGIC: alert and oriented SKIN: nonjaundiced, no spi oksana angiomata EXTREMITIES: no edema PERIPHERAL PULSES: BACK: BREASTS: MUSCULOSKELETAL: MALE GENITOURINARY: LYMPH NODES: RECTAL EXAM: FEMALE GENITOURINARY: ORAL CAVITY: mucosa moist
--- OUTSIDE RECORDS SUMMARY | 2024-03-21 04:24 | XMS_ITS | Patient Health Record ---
Author Organization [facility] Address [address] [place] [address] Care Team Providers Care Sewing Machine Attachment Tester Name Role Phone Ryan Hayes MD Primary Care Provider Parker Crowder Unavailable [phone] Bridger Ro MD Unavailable Unavailable ALLERGIES No Known Allergies REASON FOR REFERRAL No Information MEDICATIONS Medication SIG (Take, Route, Frequency, Duration) Notes Start Date End Date Status Vitamin C 500 MG 1 tablet Orally Once a day for 30 day(s) Active Stool Softener 100 MG 1 capsule as neede d Orally Once a day for 30 day(s) Active Gabapentin 100 MG Oral for 30 Active Ibuprofen 400 MG Oral for 30 A ctive Fluticasone Propionate 50 MCG/ACT Nasal for 90 Active Alendronate Sodium 35 MG Oral for 84 Active Allergy Relief 4 MG 1 tablet as needed O rally every 6 hrs Active Simvastatin 20 MG TAKE 1 TABLET BY DANIELLE TH ONCE A DAY AT BEDTIME Oral for 30 Active Multivitamin Adults - as directed Orally once a day Active traMADol HCl 50 MG as directed Orally a s needed Active IMMUNIZATIONS Vaccine Route Administration Date Status Comme nts Influenza Unknown 12/10/2017 Administered SOCIAL HISTORY Sex Assigned At : Social History Observation Description Sex Assigned At Unknown PROBLEMS Problem Type ICD Code Onset Dates Problem Status W/U Status Risk SNOMED Code Notes Problem Encounter for screening for malignant neoplasm of colon (Z12.11) Active confirmed 571620564 Problem Dysphagia (R13.10) Active confirmed Dysphagia (39248670) Problem Family history of colon cancer (Z80.0) Active confirmed 189612539 Problem Constipation, unspecified constipation type (K59.00) Active confirmed 06256217 VITAL SIGNS Blood pressure diastolic 00 mm Hg 01/24/2024 Height 62 in 01/24/2024 Blood pressure systolic 00 mm Hg 01/24/2024 Weight 103 lbs 01/24/2024 BMI 18.84 kg/m2 01/24/2024 Encounters Encounter Location Date Provider Diagnosis [facility] [address] [place] [id number] 01/24/2024 Parker Molina Encounter for screening for malignant neoplasm of colon Z12.11 ; Dysphagia R13.10 and Family history of colon cancer Z80.0 [facility] [address] [place] [phone] 03/01/2024 Parker Molina ASSESSMENTS Encounter Date Diagnosis Assessment Notes Treatment Notes Treatment Clinical Notes 01/24/2024 Encounter for screening for malignant neoplasm of colon (ICD-10 - Z12.11) 01/24/2024 Dysphagia (ICD-10 - R13.10) 01/24/2024 Family history of colon cancer (ICD-10 - Z80.0) PLAN OF TREATMENT Future Test Test Name Order Date COLONOSCOPY 08/10/2013 COLONOSCOPY 07/20/2018 UPPER GI ENDOSCOPY BALLOOON DILATION OF ESOPH 01/24/2024 COLONOSCOPY 01/24/2024 Next Appt Details Provider Name:Parker Molina , 05/25/2024 09:30:00 AM, [address] [facility] , [place], [place], [phone], Insurance Providers Payer Name Payer Address Payer Phone Subscriber Number Group Number Insured Name Patient Relationship to Insured Coverage Start Date Coverage End Date [employer] [place] [address] [address] [place] [address] [id number] EMRE FULTON Self - patient is the insured MEDICAL (GENERAL) HISTORY Medical History History ICD Code Arthritis--neck and shoulder Hyperlipidemia Denies UT,DM,CVA,Lung disease,renal dise ase Colonoscopy in 03/2005-diverticulosis an d internal hemorrhoids [place] [facility] [place] mild diverticulitis--had diarrhea and bleeding Screening colonoscopy in Oct-no polyps--diverticulosis and internal hemorrhoids Negative screening colonoscopy in 2018 Diverticulitis with surgery as below Surgical History Surgery Date(Month/Year) D & C Knee surgery Foot surgery Shoulder surgery Sigmoid resection for diverticulitis with temporary colostomy with Dr. Palm; the colostomy was reversed [place] [address] Gan 11/2023 small bowel obstructi on due to adhesions, appendectomy was performed as well--Dr. Purvis
== END 2024-03-15 16:02 | disposition home or self-care (01) ==
LOC: HO.MRI 16:01
PROVIDERS: Visit Provider Internal Medicine
DX: M54.32 Sciatica, left side (principal)
CPT/HCPCS: 72148

== ENCOUNTER → 2024-03-15 16:10 | Outpatient (BNV) | payer OTHER, SELFPAY | PROVIDERS: Visit Provider Radiology Diagnostic Radiology | DX: M54.50 Low back pain, unspecified (principal) | CPT/HCPCS: 72148 ==

== ENCOUNTER 2024-03-30 09:27 | Outpatient (AMB) | payer OTHER, SELFPAY ==
--- NOTE | 2024-03-30 09:29 | HO.SPINEOV ---
Vital Signs 03/30/24 09:37 Height 5 ft 2 in Weight 100 lb BMI 18.3 Intake Visit Reasons: LBP/Bilateral leg pain Intake Note: Ms. Liang is here today c/o Low back pain that radiates to the legs Huller Operator Required: No Allergies amoxicillin Allergy (Mild, Verified 03/30/24 09:38) Rash nitrofurantoin [Nitrofurantoin] Allergy (Mild, Verified 03/30/24 09:38) RASH Sulfa (Sulfonamide Antibiotics) [Sulfa (Sulfonamides)] Allergy (Mild, Verified 03/30/24 09:38) RASH trimethoprim [Trimethoprim] Allergy (Mild, Verified 03/30/24 09:38) RASH Physical Exam Vital Signs: BMI result Body Mass Index 18.3 Assessment & Plan Assessment & Plan (1) Bilateral sacroiliitis: Code(s): M46.1 - Sacroiliitis, not elsewhere classified Category: Medical Plan Dear colleague On 03/30/2024, I saw Adilia Liang, self referred patient for bilateral back pain that intermittently radiates down her legs. HPI: This patient complains about pain predominantly over the SI joint area that radiates to her hip and sometimes down her legs since 1 year. The right side is more affected than the left side. The pain is worse after prolonged sitting or standing and she constantly wakes up during the night from pain. No motor weakness or sensory deficits. 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 In the past she would have similar complaints and Dr. Elmore would realign her in the office, which helped. Physical Exam: SI provocative tests are positive. Straight leg raise is negative. No motor or sensory deficits. Radiological Studies: MRI of the lumbar spine done at [facility] on 03/15/2024 shows age-appropriate MRI findings. No central stenosis or foraminal stenosis. The report mentions possible L4 and L5 nerve root compression, which I can not appreciate on the MRI. Impression/Plan: This patient is most likely suffering from sacroiliitis. She is already a patient of and I will notify him of my findings to see if he wants to perform an SI joint injection. Thank you for allowing me to participate in your patients care. total time spent was 45 minutes in counseling ,coordination of plan, personal review of imaging, surgical decision making and subsequent plan Farzad Dillon MD, PhD Spine Fellowship Trained Neurosurgeon Director, [facility] Coding Level of Care Code New Pt Level 4 (54409) Diagnoses Bilateral sacroiliitis M46.1
[2024-03-30 09:37] VITALS: BMI 18.3
== END 2024-03-30 10:21 | disposition home or self-care (01) ==
PROVIDERS: PCP Internal Medicine; Visit Provider Neurological Surgery
DX: M46.1 Sacroiliitis, not elsewhere classified (principal)
CPT/HCPCS: 99204

== ENCOUNTER → 2024-03-30 09:27 | Outpatient (BNVA) | payer OTHER, SELFPAY | PROVIDERS: PCP Internal Medicine; Visit Provider Neurological Surgery ==

== ENCOUNTER 2024-05-14 08:58 | Outpatient (AMB) | payer OTHER, SELFPAY ==
--- NOTE | 2024-05-14 09:09 | MHC.OFFVIS ---
Vital Signs 05/14/24 09:10 Height 5 ft 2 in Weight 102 lb BMI 18.7 BP 133/68 Blood Pressure Location Lt brachial Position Sitting Pulse 86 Pulse Source Pulse Oximeter Pulse Oximetry (%) 98 Oxygen Delivery Method Room Air Intake Visit Reasons: CONSULT AFTER SEEING DR. WISE Thermoforming Machine Operator Required: No Allergies amoxicillin Allergy (Mild, Verified 05/14/24 09:10) Rash nitrofurantoin [Nitrofurantoin] Allergy (Mild, Verified 05/14/24 09:10) RASH Sulfa (Sulfonamide Antibiotics) [Sulfa (Sulfonamides)] Allergy (Mild, Verified 05/14/24 09:10) RASH trimethoprim [Trimethoprim] Allergy (Mild, Verified 05/14/24 09:10) RASH Medication List - Last Reconciled 05/14/24 by Marcy Hall, CRECHE ATTENDANT alendronate 35 mg PO TH docusate sodium (Colace) 100 mg PO BID fluticasone propionate 50 mcg/actuation 1 spray intranasal DAILY gabapentin 1 cap PO BEDTIME ibuprofen 400 mg PO DAILY PRN melatonin 5 mg PO BEDTIME PRN multivitamin 1 tab PO DAILY oxycodone 5 mg PO Q4H PRN simvastatin 20 mg PO DAILY HPI Comments Details: David is very pleasant 68 years old female who is employee of [employer], she is very well known to this hospital and to my office as well. She is suffering from psychology and receives trigger point injections and intra-articular AC joint injection with steroids. About 5-6 months ago she started to experience pain in the left side radiating down to the left lower extremity to the level of the knee but not below that level. Physical exam is as below and indicative of the sacroiliitis. I offered the patient to perform diagnose sacroiliac joint injection and she insisted to go for this procedure under sedation. I will schedule her as she desires. After the procedure we can perform therapeutic sacroiliac joint injection but that could interfere with her regular injections in the neck. [facility] Medical History Small bowel obstruction COVID-19 vaccine series completed Family history of complication of anesthesia Arthritis Perforation of sigmoid colon due to diverticulitis Factor 5 Leiden mutation, heterozygous Elevated cholesterol GERD (gastroesophageal reflux disease) Hearing impairment Myofascial pain syndrome Acromioclavicular joint pain Surgical History History of exploratory laparotomy (11/23/23) S/P colostomy takedown (05/18/21) History of open sigmoidectomy History of hand surgery Hx of foot surgery Hx of foot surgery H/O colonoscopy Hx of dilation and curettage Hx of elbow surgery H/O right knee surgery Family History Sister Breast cancer Mother Breast cancer Family/Other Uterine cancer Family/Other Throat cancer Bone cancer Sister Emphysema lung Sister Breast cancer Father Emphysema lung Brother Alzheimer's dementia Sister Type 2 diabetes mellitus Social History Household Members: Spouse Housing: House Are you a primary housekeeper child care to a significant other at home: No Do you presently have visiting nurse or other home services: No Alcohol intake: current Alcohol intake frequency: holidays/special occasions only Patient Tobacco Use Status: Never used Tobacco Advance Directives Date on File: 05/25/21 service: No Current occupational status: employed Sexual orientation: Straight/Heterosexual Gender identity: Female Review of Systems Const All systems reviewed & are unremarkable except as noted in HPI and below Eyes Denies photophobia ENT Reports Normal hearing present Neuro Reports Normal hearing present Physical Exam Vital Signs: Last Vital Signs Pulse 86 05/14/24 09:10 BP 133/68 05/14/24 09:10 Pulse Ox 98 05/14/24 09:10 Oxygen Delivery Method Room Air 05/14/24 09:10 BMI result Body Mass Index 18.7 Const General: cooperative, healthy appearing, no acute distress and alert Orientation/consciousness: patient oriented x3 Limitations: No ambulation with cane, No ambulation with walker and No wheelchair HEENT Head: Yes normal to inspection, Yes normocephalic and Yes atraumatic Ears: hearing grossly normal bilaterally Eyes General: appearance normal, both eyes and all related structures Eyelids: Yes eyelids normal Sclerae: sclerae normal Pupils: Equal, round and reactive pupils present EOM: EOMs intact bilaterally Direct Ophthalmoscopy: No photophobia Neck Neck: Yes normal visual inspection, Yes full ROM, Yes trachea midline and Yes no JVD Chest Chest palpation & inspection: normal inspection of the chest Resp Effort & Inspection: normal respiratory effort, able to speak in complete sentences and no audible wheezes Cardio Jugular venous distension: no JVD Palpation: other (no appreciable rhythmic abnormalities) Peripheral pulses: radial pulses present (no palpable rhythmic abnormalities detected) bilateral and other Back/Spine/Pelvis Other: Patient with decreased cervical ROM with moderate discomfort with lateral rotation. Spurling compression test negative. Lhermitte's test negative. Patient demonstrated 5/5 motor strength of bilateral upper extremities. Multiple tender points throughout right trapezius. Vasyl test is positive on the left and less so on the right, pelvic compression and pelvic distraction tests are positive bilaterally, coughing or sneezing does not aggravate her pain, Valsalva maneuver does not aggravate her pain, SLR is negative bilaterally, tenderness on palpation in projection of the left more than the right sacroiliac joint. Cervical Spine: cervical ROM normal, pain with cervical ROM and Cervical spine tenderness Neuro General: patient oriented x3, gait normal, moves all extremities and Normal light touch and pain sensation Cranial nerves: Yes Equal, round and reactive pupils present and Yes Normal hearing present Cognition (Neuro): normal cognition Gait exam (Neuro): Normal gait present Motor exam (neuro): 5/5 motor strength present throughout Extrem Other: Full ROM of right shoulder but moderate discomfort with internal rotation as well as flexion. General: Yes normal to inspection and Yes no pedal edema Right upper extremity: normal to inspection Psych Appearance: grossly normal Speech and movement: Normal speech and movement present and Clear speech present Affect: normal affect Attitude: cooperative Thought process: Normal thought process present Thought content: Normal thought content present Insight: Good insight present (Psych) Judgement: Good judgement present (Psych) Assessment & Plan Assessment & Plan (1) Bilateral sacroiliitis: Code(s): M46.1 - Sacroiliitis, not elsewhere classified Category: Medical Plan Sacroiliac joint pathology is detected on physical exam. I offered the patient bilateral diagnostic sacroiliac joint injection. She insisted this procedure to be done under sedation. I will do as she desires. We will see her immediately after diagnostic sacroiliac joint injection. Treatment with steroid injections versus peripheral nerve stimulation versus SI joint fusion could be considered after the SI joint injection would be performed. Coding Level of Care Code Est Pt Level 3 (60971) Diagnoses Bilateral sacroiliitis M46.1
[2024-05-14 09:10] VITALS: BP 133/68; PULSE 86; O2SAT 98; BMI 18.7
== END 2024-05-14 09:16 | disposition home or self-care (01) ==
PROVIDERS: PCP Internal Medicine; Visit Provider Anesthesiology
DX: M46.1 Sacroiliitis, not elsewhere classified (principal)
CPT/HCPCS: 99213

== ENCOUNTER → 2024-05-14 08:58 | Outpatient (BNVA) | payer OTHER, SELFPAY | PROVIDERS: PCP Internal Medicine; Visit Provider Anesthesiology ==

== ENCOUNTER 2024-05-25 08:16 | Day surgery (SDC) | payer OTHER, SELFPAY ==
[2024-05-23 16:20] VITALS: BMI 18.8
--- NOTE | 2024-05-24 09:05 | P.CONAN_ITS ---
Documented by User: Deepa Ardon NP 05/24/24 09:06 HPI - Anesthesia Eval Consult details Narrative: 68yo F for Colonoscopy, Upper Endoscopy with Balloon Dilitation Factor V - no blood thinner, never had a clot Bilateral hearing aids PMFSH Active Problems Active Problems: All Active Problems Bilateral sacroiliitis (Acute) Abdominal pain, LUQ (Acute) Postop check (Acute) Spondylosis of cervical region without myelopathy or radiculopathy (Acute) Degeneration, intervertebral disc, cervical (Acute) Monoallelic mutation of MUTYH gene (Acute) Arthritis of shoulder region, right (Acute) Sternoclavicular joint pain (Acute) Well woman exam (Acute) Trigger finger, right ring finger (Acute) Trigger finger, right middle finger (Acute) Cervicalgia (Acute) Right shoulder pain (Acute) Intervertebral disc protrusion (Acute) Protrusion of cervical intervertebral disc (Acute) Bowel perforation (Acute) Perforation of sigmoid colon due to diverticulitis (Acute) History of open sigmoidectomy (Acute) Myofascial pain syndrome (Acute) Acromioclavicular joint pain (Acute) Past Medical History Medical History Small bowel obstruction COVID-19 vaccine series completed Family history of complication of anesthesia Arthritis Perforation of sigmoid colon due to diverticulitis Factor 5 Leiden mutation, heterozygous Elevated cholesterol GERD (gastroesophageal reflux disease) Hearing impairment Myofascial pain syndrome Acromioclavicular joint pain Family History Family History Sister Breast cancer Mother Breast cancer Family/Other Uterine cancer Family/Other Throat cancer Bone cancer Sister Emphysema lung Sister Breast cancer Father Emphysema lung Brother Alzheimer's dementia Sister Type 2 diabetes mellitus Family history of problems with anesthesia: No Surgical History Surgical History History of exploratory laparotomy (11/23/23) S/P colostomy takedown (05/18/21) History of open sigmoidectomy History of hand surgery Hx of foot surgery Hx of foot surgery H/O colonoscopy Hx of dilation and curettage Hx of elbow surgery H/O right knee surgery History of Problems with Anesthesia: No Social History Social History Household Members: Spouse Housing: House Are you a primary neonatal critical care nurse to a significant other at home: No Do you presently have visiting nurse or other home services: No Alcohol intake: current Alcohol intake frequency: holidays/special occasions only Patient Tobacco Use Status: Never used Tobacco Use of substances other than those prescribed or required for medical reasons: No Advance Directives: No Advance Directives Information Provided: Yes Advance Directives Date on File: 05/25/21 service: No Current occupational status: employed Sexual orientation: Straight/Heterosexual Gender identity: Female Meds Allergies Allergy/AdvReac Type Severity Reaction Status Date / Time amoxicillin Allergy Mild Rash Verified 05/14/24 09:10 nitrofurantoin Allergy Mild RASH Verified 05/14/24 09:10 [Nitrofurantoin] Sulfa (Sulfonamide Allergy Mild RASH Verified 05/14/24 09:10 Antibiotics) [Sulfa (Sulfonamides)] trimethoprim [Trimethoprim] Allergy Mild RASH Verified 05/14/24 09:10 Home Medications ?Medication ?Instructions ?Recorded ?Confirmed ?Last Taken ?Type simvastatin 20 mg tablet 20 mg PO DAILY 04/28/20 05/14/24 11/21/23 History fluticasone propionate 50 1 spray intranasal DAILY 04/14/21 05/14/24 11/22/23 History mcg/actuation nasal spray,suspension gabapentin 100 mg capsule 1 cap PO BEDTIME 04/14/21 05/14/24 11/21/23 History multivitamin 1 tab PO DAILY 04/14/21 05/14/24 11/22/23 History alendronate 35 mg tablet 35 mg PO TH 04/19/23 05/14/24 11/17/23 History ibuprofen 400 mg tablet 400 mg PO DAILY PRN Pain 11/15/23 05/14/24 05/22/24 History tramadol 50 mg tablet mg 05/25/24 Unknown History Exam Height,Weight and Vital Signs: Height 5 ft 2 in Weight 46.72 kg Assessment and Plan Assessment Anesthesia Assessment: Chart Reviewed Final Anesthetic Review Family History of Problems with Anesthesia: No History of Problems with Anesthesia: No Documented by User: Meredith Zuleta MD 05/25/24 10:26 [facility] Past Medical History Medical History Small bowel obstruction COVID-19 vaccine series completed Family history of complication of anesthesia Arthritis Perforation of sigmoid colon due to diverticulitis Factor 5 Leiden mutation, heterozygous Elevated cholesterol GERD (gastroesophageal reflux disease) Hearing impairment Myofascial pain syndrome Acromioclavicular joint pain Family History Family History Sister Breast cancer Mother Breast cancer Family/Other Uterine cancer Family/Other Throat cancer Bone cancer Sister Emphysema lung Sister Breast cancer Father Emphysema lung Brother Alzheimer's dementia Sister Type 2 diabetes mellitus Surgical History Surgical History History of exploratory laparotomy (11/23/23) S/P colostomy takedown (05/18/21) History of open sigmoidectomy History of hand surgery Hx of foot surgery Hx of foot surgery H/O colonoscopy Hx of dilation and curettage Hx of elbow surgery H/O right knee surgery Social History Social History Household Members: Spouse Housing: House Are you a primary neonatal critical care nurse to a significant other at home: No Do you presently have visiting nurse or other home services: No Alcohol intake: current Alcohol intake frequency: holidays/special occasions only Patient Tobacco Use Status: Never used Tobacco Use of substances other than those prescribed or required for medical reasons: No Advance Directives: No Advance Directives Information Provided: Yes Advance Directives Date on File: 05/25/21 service: No Current occupational status: employed Sexual orientation: Straight/Heterosexual Gender identity: Female Meds Allergies Allergy/AdvReac Type Severity Reaction Status Date / Time amoxicillin Allergy Mild Rash Verified 05/14/24 09:10 nitrofurantoin Allergy Mild RASH Verified 05/14/24 09:10 [Nitrofurantoin] Sulfa (Sulfonamide Allergy Mild RASH Verified 05/14/24 09:10 Antibiotics) [Sulfa (Sulfonamides)] trimethoprim [Trimethoprim] Allergy Mild RASH Verified 05/14/24 09:10 Home Medications ?Medication ?Instructions ?Recorded ?Confirmed ?Last Taken ?Type simvastatin 20 mg tablet 20 mg PO DAILY 04/28/20 05/14/24 11/21/23 History fluticasone propionate 50 1 spray intranasal DAILY 04/14/21 05/14/24 11/22/23 History mcg/actuation nasal spray,suspension gabapentin 100 mg capsule 1 cap PO BEDTIME 04/14/21 05/14/24 11/21/23 History multivitamin 1 tab PO DAILY 04/14/21 05/14/24 11/22/23 History alendronate 35 mg tablet 35 mg PO TH 04/19/23 05/14/24 11/17/23 History ibuprofen 400 mg tablet 400 mg PO DAILY PRN Pain 11/15/23 05/14/24 05/22/24 History tramadol 50 mg tablet mg 05/25/24 Unknown History Exam Airway Mallampati Class: II TM Dist: >3cm Neck ROM: Limited Loose/Missing/Broken Teeth: No Heart: RRR Lungs: CTA Assessment and Plan Assessment Anesthesia Assessment: Anesthesia Plan Discussed Final Anesthetic Review NPO: Yes ASA Class: II Final Preanesthetic Review: Meds/Allgs Chart Reviewed, Consent Obtained/Reviewed and Anes Risks/Benef Reviewed Patient Risk: Low Procedure Risk: Intermediate Anesthetic Plan Anesthetic Plan: MAC: Disposition: Standard PACU
[2024-05-25 09:06] VITALS: BP 92/68; PULSE 76; RESP 16; O2SAT 99; BMI 17.9
[2024-05-25] MEDS: Lactated Ringers 1,000 ML 100 ML IVCONT (09:22)
[2024-05-25 09:25] VITALS: TEMP 36.9
[2024-05-25 11:09] VITALS: BP 120/45; PULSE 88; RESP 18; TEMP 36.1; O2SAT 98
--- NOTE | 2024-05-25 11:15 | PM.OP ---
Brief Operative Note Date of Service: 05/25/24 Pre-op diagnosis: GERD, Screening Post-op diagnosis: other (Hiatal hernia, Diverticulosis) Procedure: EGD with biopsies, Colonoscopy to the cecum with biopsies Surgeon: Parker Molina MD Anesthesia: MAC Was an Stringer Up Soldering Machine used for this Procedure?: No Estimated blood loss (mL): 2.0 Pathology: other (A. EG Junction at 35cm B. Ascending colon) Condition: stable Disposition: PACU
[2024-05-25 11:20] VITALS: BP 118/78; PULSE 85; RESP 18; O2SAT 98
[2024-05-25 11:35] VITALS: BP 128/79; PULSE 79; RESP 16; TEMP 36.1; O2SAT 100
--- NOTE | 2024-05-25 11:37 | OP_ITS ---
DATE OF SERVICE: 05/25/2024 SURGEON: Parker Molina MD INDICATIONS: The patient presents for evaluation of intermittent gastroesophageal reflux and dysphagia, and colorectal cancer screening with family history of colon cancer. Full consent obtained from her for this, including risks of bleeding and perforation. PREOPERATIVE DIAGNOSIS: POSTOPERATIVE DIAGNOSIS: PROCEDURE PERFORMED: Esophagogastroduodenoscopy with biopsies, and colonoscopy to the cecum with biopsy. ESTIMATED BLOOD LOSS: COMPLICATIONS: ANESTHESIA: Monitored anesthesia care. ASSISTANTS: SPECIMENS: PREOPERATIVE DIAGNOSES: Gastroesophageal reflux, dysphagia, family history of colon cancer, and colorectal cancer screening. POSTOPERATIVE DIAGNOSES: Gastroesophageal reflux, dysphagia, family history of colon cancer, and colorectal cancer screening, hiatal hernia, mild diverticulosis, rule out microscopic colitis, small external hemorrhoids. DESCRIPTION OF PROCEDURE: The patient was placed in left lateral decubitus position. The Olympus video gastroscope was passed in the posterior oropharynx and upper esophagus under direct vision. The scope was passed slowly to the distal esophagus. The gastroesophageal junction appeared at 35 cm. There was some slight irregularity, but no evidence of any esophagitis nor Buckner esophagus. There was no sign of any esophageal stricture nor ring. The gastroesophageal junction was widely patent and allowed easy passage of the scope into a small hiatal hernia. The scope was advanced to pylorus and the duodenum was cannulated to the descending portion. The duodenum including the bulb appeared normal without mass or ulceration. The scope was withdrawn back to the stomach. The gastric antrum and body appeared normal with good peristalsis. The scope was retroflexed visualizing the proximal stomach carefully which appeared normal, without any sign of mass or ulceration. Scope was straightened and withdrawn back to the esophagus. Biopsies were obtained at the EG junction at 35 cm. Proximal to this, the esophageal mucosa appeared normal, without any sign of esophageal rings or strictures. The scope was withdrawn from the patient. She was turned around for colonoscopy. The digital rectal exam revealed no abnormalities. There were small external hemorrhoids. The Olympus video pediatric colonoscope was entered into the rectum, advanced to the cecum. Once in the cecum, I did identify normal-appearing cecal pouch with appendiceal orifice and a normal-appearing ileocecal valve. There was transillumination of light deep in the right lower quadrant. The entire cecum and ileocecal valve appeared normal. The scope was slowly withdrawn assessing all mucosa surfaces carefully. Preparation was excellent. I did not visualize any sign of polyps, colitis, nor angiodysplasia. There were occasional diverticula in the ascending colon and several diverticula in the left colon proximal to the anastomosis. I did obtain biopsies in the ascending colon to rule out microscopic colitis. The anastomosis appeared normal at approximately 12 to 15 cm. The rectum appeared normal as well. I was unable to retroflex the scope which I suspect was in relation to the low anastomosis and some scarring. However, the rectum was well visualized in the forward viewing position and appeared normal. The scope was withdrawn from the patient. She tolerated the procedures well and was returned to recovery area in stable condition. IMPRESSION: 1. Hiatal hernia, gastroesophageal reflux. 2. Diverticulosis. 3. Rule out microscopic colitis. 4. External hemorrhoids. PLAN: The results of biopsies will be checked. She does report that she has occasional heartburn and I will advise her to use omeprazole 20 mg daily and will give her prescription for that. Her intermittent dysphagia is not particularly frequent and may be related more to esophageal spasm. If the dysphagia worsens, I would then have her use the omeprazole more frequently. I would recommend a repeat colonoscopy in 5 years for further screening given the family history of colon cancer. She will see me on a p.r.n. basis. MD GERALDINE Pollard/KALPANA / [phone]
== END 2024-05-25 12:19 | disposition home or self-care (01) ==
PROVIDERS: PCP Internal Medicine; Visit Provider Internal Medicine
PROC: 0DJD8ZZ Inspection of Lower Intestinal Tract, Via Natural or Artificial Opening Endoscopic (ICD-10-PCS; CPT 45378; principal; 2024-05-25 09:40)
PROC: (CPT 45380; 2024-05-25 09:40)
DX: Z12.11 Encounter for screening for malignant neoplasm of colon (principal); Z80.0 Family history of malignant neoplasm of digestive organs; K57.30 Diverticulosis of large intestine without perforation or abscess without bleeding; Z87.19 Personal history of other diseases of the digestive system; K64.4 Residual hemorrhoidal skin tags; Z90.49 Acquired absence of other specified parts of digestive tract; Z98.0 Intestinal bypass and anastomosis status; R13.10 Dysphagia, unspecified; K21.9 Gastro-esophageal reflux disease without esophagitis; K44.9 Diaphragmatic hernia without obstruction or gangrene; E78.5 Hyperlipidemia, unspecified; Z79.1 Long term (current) use of non-steroidal anti-inflammatories (NSAID); Z79.899 Other long term (current) drug therapy; Z98.890 Other specified postprocedural states
CPT/HCPCS: 45380; 43239; 88305; 88313; J2003; J2704

== ENCOUNTER 2024-06-08 05:46 | Day surgery (SDC) | payer OTHER, SELFPAY ==
--- OUTSIDE RECORDS SUMMARY | 2024-06-01 13:53 | XMS_ITS | Patient Health Record ---
Author Organization [facility] Address [address] [place] [address] Care Team Providers Care Harvest Manager Name Role Phone Ryan Hayes MD Primary Care Provider Parker Crowder Unavailable [phone] Bridger Ro MD Unavailable Unavailable ALLERGIES No Known Allergies RESULTS Component Value Reference Range Notes Pathology (Not yet reviewed by provider) Interpretation: Performing Lab:[facility], [address] [place] [id number] Notes/Report: REASON FOR REFERRAL No Information MEDICATIONS Medication SIG (Take, Route, Frequency, Duration) Notes Start Date End Date Status Omeprazole 20 MG 1 capsule 1/2 to 1 h our before morning meal Orally Once a day for 30 days 05/28/2024 Active Vitamin C 500 MG 1 tablet Orally [...] malignant neoplasm of colon (Z12.11) Active confirmed 319991528 Problem Dysphagia (R13.10) Active confirmed Dysphagia (82531014) Problem Family history of colon cancer (Z80.0) Active confirmed 954740102 Problem Constipation, unspecified constipation type (K59.00) Active confirmed 17661658 VITAL SIGNS Blood pressure diastolic 00 mm Hg 01/24/2024 Height 62 in 01/24/2024 Blood pressure systolic 00 mm Hg 01/24/2024 Weight 103 lbs 01/24/2024 BMI 18.84 kg/m2 01/24/2024 Encounters Encounter Location Date Provider Diagnosis [facility] [place] [address] [place], [place] [phone] 05/25/2024 Parker Molina [facility] [address] [place] [phone] 01/24/2024 Parker Molina Encounter for screening for malignant neoplasm of colon Z12.11 ; Dysphagia R13.10 and Family history of colon cancer Z80.0 [facility] [address] [place] [phone] 03/01/2024 Parker Molina [facility] [address] [place] [phone] 05/28/2024 Parker Molina [facility] [address] [place] [phone] 05/28/2024 Parker Molina [facility] [address] [place] [phone] 05/29/2024 Parker Molina [facility] [address] [place] [phone] 05/31/2024 Parker Molina ASSESSMENTS Encounter Date Diagnosis Assessment Notes Treatment Notes Treatment Clinical Notes 01/24/2024 Encounter for screening for malignant neoplasm of colon (ICD-10 - Z12.11) 01/24/2024 Dysphagia (ICD-10 - R13.10) 01/24/2024 Family history of colon cancer (ICD-10 - Z80.0) PLAN OF TREATMENT Pending Test Test Name Order Date Pathology 05/25/2024 Future Test Test Name Order Date COLONOSCOPY 08/10/2013 COLONOSCOPY 07/20/2018 UPPER GI ENDOSCOPY [place] DILATION OF ESOPH 01/24/2024 COLONOSCOPY 01/24/2024 Insurance Providers Payer Name Payer Address Payer Phone Subscriber Number Group Number Insured Name Patient Relationship to Insured Coverage Start Date Coverage End Date [employer] [place] [address] [address] [place] [address] [id number] EMRE FULTON Self - patient is the insured MEDICAL (GENERAL) HISTORY Medical History History ICD Code Arthritis--neck and shoulder Hyperlipidemia Denies [place],DM,CVA,Lung disease,renal dise ase Colonoscopy in 03/2005-diverticulosis an d internal hemorrhoids Hospitalized at [facility] in 4 for mild diverticulitis--had diarrhea and bleeding Screening colonoscopy in Oct-no polyps--diverticulosis and internal hemorrhoids Negative screening colonoscopy in 2018 Diverticulitis with surgery as below Surgical History Surgery Date(Month/Year) D & C Knee surgery Foot surgery Shoulder surgery [id number] Sigmoid resection for diverticulitis with temporary colostomy with Dr. Palm; the colostomy was reversed [place] [address] Gan 11/2023 small bowel obstructi on due to adhesions, appendectomy was performed as well--Dr. Purvis
--- OUTSIDE RECORDS SUMMARY | 2024-06-01 13:53 | XMS_ITS ---
Author Organization [facility] Address [address] [place] [phone] Care Team Providers Care Glass Deposition Tender Name Role Phone Abigail STORY, Ryan Primary Care Provider UnavailParker Pichardo Unavailable [phone] Jia STORY, Bridger Unavailable Unavailable MEDICATIONS Medication SIG (Take, Route, Fr equency, Duration) Notes Start Date End Date Status Omeprazole 20 MG 1 capsule 1/2 to 1 h our before morning meal Orally Once a day for 30 days 05/28/2024 Active Encounters Encounter Location Date Provider Diagnosis [facility] [address] [place] [phone] 05/28/2024 Parker Molina PLAN OF TREATMENT Medication Medication Name Sig Start Date Stop Date Notes Omeprazole 20 MG 1 capsule 1/2 to 1 h our before morning meal Orally Once a day for 30 days 05/28/2024
--- OUTSIDE RECORDS SUMMARY | 2024-06-01 13:54 | XMS_ITS ---
Author Organization [facility] Address [address] [place] [phone] Care Team Providers Care Rental Clerk Tool And Equipment Name Role Phone Ryan Hayes MD Primary Care Provider UnavailParker Pichardo Unavailable [phone] Jia STORY, Bridger Unavailable Unavailable REASON FOR VISIT script MEDICATIONS Medication SIG (Take, Route, Fr equency, Duration) Notes Start Date End Date Status Omeprazole 20 MG 1 capsule 1/2 to 1 h our before morning meal Orally Once a day for 30 days 05/28/2024 Active Encounters Encounter Location Date Provider Diagnosis [facility] [address] [place] [phone] 05/31/2024 Parker Molina PLAN OF TREATMENT Medication Medication Name Sig Start Date Stop Date Notes Omeprazole 20 MG 1 capsule 1/2 to 1 h our before morning meal Orally Once a day for 30 days 05/28/2024
--- OUTSIDE RECORDS SUMMARY | 2024-06-01 13:54 | XMS_ITS ---
Author Organization [facility] Address [address] [place] [address] Care Team Providers Care Social Science Research Assistant Name Role Phone Ryan Hayes MD Primary Care Provider UnavailParker Pichardo Unavailable [phone] Jia STORY, Bridger Unavailable Unavailable REASON FOR VISIT left v/m refill script Encounters Encounter Location Date Provider Diagnosis [facility] [address] [place] [phone] 05/29/2024 Parker Molina PLAN OF TREATMENT No Information
[2024-06-06 13:38] VITALS: BMI 17.9
--- NOTE | 2024-06-07 12:18 | P.CONAN_ITS ---
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, right (Acute) Sternoclavicular joint pain (Acute) Well woman exam (Acute) Trigger finger, right ring finger (Acute) Trigger finger, right middle finger (Acute) Cervicalgia (Acute) Right shoulder pain (Acute) Intervertebral disc protrusion (Acute) Protrusion of cervical intervertebral disc (Acute) Bowel perforation (Acute) Perforation of sigmoid colon due to diverticulitis (Acute) History of open sigmoidectomy (Acute) Myofascial pain syndrome (Acute) Acromioclavicular joint pain (Acute) Past Medical History Medical History Small bowel obstruction COVID-19 vaccine series completed Family history of complication of anesthesia Arthritis Perforation of sigmoid colon due to diverticulitis Factor 5 Leiden mutation, heterozygous Elevated cholesterol GERD (gastroesophageal reflux disease) Hearing impairment Myofascial pain syndrome Acromioclavicular joint pain Family History Family History Sister Breast cancer Mother Breast cancer Family/Other Uterine cancer Family/Other Throat cancer Bone cancer Sister Emphysema lung Sister Breast cancer Father Emphysema lung Brother Alzheimer's dementia Sister Type 2 diabetes mellitus Family history of problems with anesthesia: No Surgical History Surgical History History of exploratory laparotomy (11/23/23) S/P colostomy takedown (05/18/21) History of open sigmoidectomy History of hand surgery Hx of foot surgery Hx of foot surgery H/O colonoscopy Hx of dilation and curettage Hx of elbow surgery H/O right knee surgery History of Problems with Anesthesia: No Social History Social History Household Members: Spouse Housing: House Are you a primary transitional care nurse to a significant other at home: No Do you presently have visiting nurse or other home services: No Alcohol intake: current Alcohol intake frequency: holidays/special occasions only Patient Tobacco Use Status: Never used Tobacco Use of substances other than those prescribed or required for medical reasons: No Have you been hit, kicked, punched, or otherwise hurt by someone within the past year? If so, by whom?: No Are you DNR?: No Advance Directives: Yes Advance Directives Information Provided: Yes Advance Directives on File: Yes Advance Directives Date on File: 06/01/13 Recently lost weight without trying: No How much weight loss: Not applicable Eating poorly because of decreased appetite: No Nutrition screen score: 0 Nutrition Risks: No Nutritional Risk Patient : No : No Poor oral hygiene: Yes (missing teeth) service: No Current occupational status: employed Sexual orientation: Straight/Heterosexual Gender identity: Female Meds Allergies Allergy/AdvReac Type Severity Reaction Status Date / Time amoxicillin Allergy Mild Rash Verified 06/08/24 06:13 nitrofurantoin Allergy Mild RASH Verified 06/08/24 06:13 [Nitrofurantoin] Sulfa (Sulfonamide Allergy Mild RASH Verified 06/08/24 06:13 Antibiotics) [Sulfa (Sulfonamides)] trimethoprim [Trimethoprim] Allergy Mild RASH Verified 06/08/24 06:13 Home Medications ?Medication ?Instructions ?Recorded ?Confirmed ?Last Taken ?Type simvastatin 20 mg tablet 20 mg PO DAILY 04/28/20 06/08/24 11/21/23 History fluticasone propionate 50 1 spray intranasal DAILY 04/14/21 06/08/24 11/22/23 History mcg/actuation nasal spray,suspension gabapentin 100 mg capsule 1 cap PO BEDTIME 04/14/21 06/08/24 11/21/23 History multivitamin 1 tab PO DAILY 04/14/21 06/08/24 11/22/23 History alendronate 35 mg tablet 35 mg PO TH 04/19/23 06/08/24 11/17/23 History ibuprofen 400 mg tablet 400 mg PO DAILY PRN Pain 11/15/23 06/08/24 05/22/24 History tramadol 50 mg tablet 50 mg PO NEEDED PRN Pain 05/25/24 06/08/24 Unknown History Exam Height,Weight and Vital Signs: Height 5 ft 2 in Weight 44.3 kg Assessment and Plan Assessment Anesthesia Assessment: Chart Reviewed Final Anesthetic Review Family History of Problems with Anesthesia: No History of Problems with Anesthesia: No Documented by User: Soraya Fragoso MD 06/08/24 06:58 [facility], [facility] Past Medical History Medical History Small bowel obstruction COVID-19 vaccine series completed Family history of complication of anesthesia Arthritis Perforation of sigmoid colon due to diverticulitis Factor 5 Leiden mutation, heterozygous Elevated cholesterol GERD (gastroesophageal reflux disease) Hearing impairment Myofascial pain syndrome Acromioclavicular joint pain Family History Family History Sister Breast cancer Mother Breast cancer Family/Other Uterine cancer Family/Other Throat cancer Bone cancer Sister Emphysema lung Sister Breast cancer Father Emphysema lung Brother Alzheimer's dementia Sister Type 2 diabetes mellitus Surgical History Surgical History History of exploratory laparotomy (11/23/23) S/P colostomy takedown (05/18/21) History of open sigmoidectomy History of hand surgery Hx of foot surgery Hx of foot surgery H/O colonoscopy Hx of dilation and curettage Hx of elbow surgery H/O right knee surgery Social History Social History Household Members: Spouse Housing: House Are you a primary transitional care nurse to a significant other at home: No Do you presently have visiting nurse or other home services: No Alcohol intake: current Alcohol intake frequency: holidays/special occasions only Patient Tobacco Use Status: Never used Tobacco Use of substances other than those prescribed or required for medical reasons: No Have you been hit, kicked, punched, or otherwise hurt by someone within the past year? If so, by whom?: No Are you DNR?: No Advance Directives: Yes Advance Directives Information Provided: Yes Advance Directives on File: Yes Advance Directives Date on File: 06/01/13 Recently lost weight without trying: No How much weight loss: Not applicable Eating poorly because of decreased appetite: No Nutrition screen score: 0 Nutrition Risks: No Nutritional Risk Patient : No : No Poor oral hygiene: Yes (missing teeth) service: No Current occupational status: employed Sexual orientation: Straight/Heterosexual Gender identity: Female Meds Allergies Allergy/AdvReac Type Severity Reaction Status Date / Time amoxicillin Allergy Mild Rash Verified 06/08/24 06:13 nitrofurantoin Allergy Mild RASH Verified 06/08/24 06:13 [Nitrofurantoin] Sulfa (Sulfonamide Allergy Mild RASH Verified 06/08/24 06:13 Antibiotics) [Sulfa (Sulfonamides)] trimethoprim [Trimethoprim] Allergy Mild RASH Verified 06/08/24 06:13 Home Medications ?Medication ?Instructions ?Recorded ?Confirmed ?Last Taken ?Type simvastatin 20 mg tablet 20 mg PO DAILY 04/28/20 06/08/24 11/21/23 History fluticasone propionate 50 1 spray intranasal DAILY 04/14/21 06/08/24 11/22/23 History mcg/actuation nasal spray,suspension gabapentin 100 mg capsule 1 cap PO BEDTIME 04/14/21 06/08/24 11/21/23 History multivitamin 1 tab PO DAILY 04/14/21 06/08/24 11/22/23 History alendronate 35 mg tablet 35 mg PO TH 04/19/23 06/08/24 11/17/23 History ibuprofen 400 mg tablet 400 mg PO DAILY PRN Pain 11/15/23 06/08/24 05/22/24 History tramadol 50 mg tablet 50 mg PO NEEDED PRN Pain 05/25/24 06/08/24 Unknown History Exam Airway Mallampati Class: II TM Dist: >3cm Neck ROM: Full Heart: rrr Lungs: cta Assessment and Plan Assessment Anesthesia Assessment: Anesthesia Plan Discussed Final Anesthetic Review NPO: Yes ASA Class: II Final Preanesthetic Review: No Changes in Pt Med Stat, Meds/Allgs Chart Reviewed and Consent Obtained/Reviewed Patient Risk: Low Procedure Risk: Low Anesthetic Plan Anesthetic Plan: MAC: Disposition: Standard PACU
--- NOTE | ~2024-06-08 | FL_ITS ---
EXAMINATION: FL GUIDANCE ONLY HISTORY: diagnostic SI joint injection COMPARISON: None available. TECHNIQUE: Fluoroscopy time: 16 seconds. Cumulative Dose: 2.1850 mGy. DAP: 0.9504 mGym2 Images: 4. FINDINGS: Images demonstrate needles and contrast material in the regions of the bilateral sacroiliac joints. FL/FL guidance in OR IMPRESSION: Fluoroscopy during procedure. Please see procedure report for additional information. Electronically signed by: Parker Funes MD 06/08/2024 08:24 AM [facility]
[2024-06-08 06:20] VITALS: BP 146/68; PULSE 85; RESP 16; TEMP 36.8; O2SAT 98; BMI 18.8
[2024-06-08] MEDS: Lactated Ringers 1,000 ML 100 ML IVCONT (06:30)
--- NOTE | 2024-06-08 07:26 | MHC.SHP ---
Pre-Procedural Eval Section A - 24 Hr Update-Section A only Date of Service: 06/08/24 The patient is an INPATIENT: No Changes since office visit: Yes Patient answered all questions The patient has been examined within 24 hours of the surgical procedure. The History & Physical has been completed within 30 days and I have reviewed it.: No Section B - Complete if H&P > 30 days Chief Complaint: Sacroiliitis, not elsewhere classified Details of Present Illness: as above Relevant Family History (Specify if Yes): No Relevant Social History: None Present Medications: None Medical History: No relevant PMH History of Previous Operations: No relevant previous surgery Allergies: Allergies Allergy/AdvReac Type Severity Reaction Status Date / Time amoxicillin Allergy Mild Rash Verified 06/08/24 06:13 nitrofurantoin Allergy Mild RASH Verified 06/08/24 06:13 [Nitrofurantoin] Sulfa (Sulfonamide Allergy Mild RASH Verified 06/08/24 06:13 Antibiotics) [Sulfa (Sulfonamides)] trimethoprim [Trimethoprim] Allergy Mild RASH Verified 06/08/24 06:13 Review of Systems Sugical H&P ROS: Negative: Constitution, Cardiovascular, Respiratory, Neurological, Psychiatric, Hem-Onc, Allergic/Immunologic, Gastrointestinal, Genitourinary, Integumentary, Endocrine and Eyes/Ears/Nose/Throat and Yes, Specify: Musculoskeletal (cervicalgia, low back pain. Sacroiliitis.) Exam Surgical H&P Exam: Normal: HEENT, Normal: Heart, Normal: Lungs, Normal: Extremities, Normal: Abdomen, Normal: Skin and Normal: Neurological Plan Diagnosis/Plan: Unchanged I have reviewed the history and physical and performed a pertinent physical examination on my patient. No changes have occurred unless specified. Time Spent With Patient Time: Total time managing care of this patient today __5__ minutes.
[2024-06-08 07:58] VITALS: BP 136/48; PULSE 87; RESP 16; TEMP 36.3; O2SAT 99
[2024-06-08 08:03] VITALS: BP 105/80; PULSE 104; RESP 16; O2SAT 100
--- NOTE | 2024-06-08 08:04 | P.BOP_ITS ---
Brief Operative Note Date of Service: 06/08/24 Pre-op diagnosis: Sacroiliitis, bilateral sacroiliac joint dysfunction. Post-op diagnosis: same Procedure: Diagnostic sacroiliac joint injection bilateral Implants: not Surgeon: Blaine Barone MD Anesthesia: MAC Was an Railcar Mechanic used for this Procedure?: No Estimated blood loss (mL): 0 Condition: stable Disposition: PACU
--- NOTE | 2024-06-08 08:06 | P.OP_ITS ---
Operative Note Operative Note Date of Service: 06/08/24 Narrative: Diagnostic bilateral sacroiliac joint injection. Informed consent was thoroughly explained to the patient before the procedure.? The patient came to the operating room.? She was positioned prone on operating table with a pillow under her abdomen.? [employer] monitors were applied and patient was deeply sedated. Time-out was performed delineating correct site and side of the procedure, nature of the injection, name and date of of the patient. The lower back and upper buttocks of the patient was prepped with ChloraPrep and draped with sterile utility towels.? C-arm was brought over the operating field the image of the right sacroiliac joint was demonstrated on the screen. Tilting machine contralateral to the left the anterior portion of sacroiliac joint was superimposed of the posterior portion of the sacroiliac joint. After that projection of the sacroiliac joint to the skin was injected with mixture of lidocaine 2 % and ropivacaine 0.5% to form a skin wheal. After that 22 gauge 3- 1/2 inch needle was inserted through the skin wheal and advanced to the right sacroiliac joint. After that injection of the contrast was performed delineating intrathecal spread of the contrast. After that injection of the ropivacaine 0.5% 4.5 cc was performed into the joint. after that the needle was removed and the procedure was repeated on the left joint in the mirroring fashion. After that The needle was removed sterile Band-Aids were applied. Patient tolerated the procedure well. she was taken outside of the operating room to recovery room where she recovered uneventfully. She will be given a pain diary to monitor the level of her pain postoperatively for the 1st 6 hour postop period
[2024-06-08 08:08] VITALS: BP 148/92; PULSE 99; RESP 18; O2SAT 100
[2024-06-08 08:13] VITALS: BP 144/72; PULSE 80; RESP 16; O2SAT 100
[2024-06-08 08:26] VITALS: BP 149/63; PULSE 77; RESP 16; TEMP 36.2; O2SAT 100
== END 2024-06-08 08:39 | disposition home or self-care (01) ==
PROVIDERS: PCP Internal Medicine; Visit Provider Anesthesiology
PROC: 3E0U33Z Introduction of Anti-inflammatory into Joints, Percutaneous Approach (ICD-10-PCS; CPT 27096; principal; 2024-06-08 07:30)
DX: M46.1 Sacroiliitis, not elsewhere classified (principal); M53.3 Sacrococcygeal disorders, not elsewhere classified; M79.18 Myalgia, other site; M25.519 Pain in unspecified shoulder; D68.51 Activated protein C resistance; E78.00 Pure hypercholesterolemia, unspecified; H91.90 Unspecified hearing loss, unspecified ear; K21.9 Gastro-esophageal reflux disease without esophagitis; Z88.1 Allergy status to other antibiotic agents; Z79.899 Other long term (current) drug therapy; Z88.2 Allergy status to sulfonamides; Z88.8 Allergy status to other drugs, medicaments and biological substances; Z98.890 Other specified postprocedural states
CPT/HCPCS: 27096; J2003; J2250; J2704; J2795; J3010; Q9967

== ENCOUNTER → 2024-06-08 05:46 | Outpatient (BNV) | payer OTHER, SELFPAY | PROVIDERS: PCP Internal Medicine; Visit Provider Anesthesiology | DX: M46.1 Sacroiliitis, not elsewhere classified (principal) | CPT/HCPCS: 27096 ==

== ENCOUNTER 2024-08-06 10:56 | Outpatient (REF) | payer SELFPAY ==
--- NOTE | 2024-08-06 12:13 | MHC.AU.HA3 ---
Hearing Instrument Follow-Up- Binaural Date of Visit: 08/06/24 Right Ear: Make, Model, Color, Serial Number: Marli Ashby [address] [facility] SN: [id number] Color: [place] [employer] Operator Repair Warranty: 07/08/2021 Solutions Operator Loss and Damage Warranty: 07/08/2021 Battery Size: 312 Type of Wax Guard: HearClear Dispensed By: [facility] Date of Fittin06/16/2018 Left Ear: Make, Model, Color, Serial Number: Marli Ashby [address] [facility] SN: [id number] Color: [place] [employer] Operator Repair Warranty: 07/08/2021 Solutions Operator Loss and Damage Warranty: 06/28/2021 Battery Size: 312 Type of Wax Guard: HearClear Dispensed By: [facility] Date of Fittin06/16/2018 Follow-Up Summary: Adilia reports that she is not hearing the beeps in the left hearing aid when she uses the VC button. Found both aids with occluded wax guards. Cleaned aids, replaced wax guards, listening check positive. Adilia reports improvement. [facility] [place] employee- no charge. Recommendations: Recommendations: Hearing instrument follow-up or maintenance as needed. Diagnosis Code(s): Primary Diagnosis: H90.3 Bilateral Sensorineural Hearing Loss Signature: Provider: Marquis Morelos, [facility]
== END 2024-08-06 10:57 | disposition home or self-care (01) ==
LOC: HO.HAP 10:56
PROVIDERS: Visit Provider Internal Medicine
DX: Z13.89 Encounter for screening for other disorder (principal)

== ENCOUNTER 2024-08-28 15:34 | Outpatient (AMB) | payer OTHER, SELFPAY ==
--- NOTE | 2024-08-28 15:42 | A.OFFPC_ITS ---
Vital Signs 08/28/24 15:48 Height 5 ft 2 in Weight 48.081 kg BMI 19.4 BP 134/72 Respiration 16 Pulse 88 Pulse Source Pulse Oximeter Temp 97.3 F Temp Source Temporal Artery Scan Pulse Oximetry (%) 98 Intake Visit Reasons: Routine Teller Vault Required: No Accompanied by: Self / Same As Patient Allergies amoxicillin Allergy (Mild, Verified 06/08/24 06:13) Rash nitrofurantoin [Nitrofurantoin] Allergy (Mild, Verified 06/08/24 06:13) RASH Sulfa (Sulfonamide Antibiotics) [Sulfa (Sulfonamides)] Allergy (Mild, Verified 06/08/24 06:13) RASH trimethoprim [Trimethoprim] Allergy (Mild, Verified 06/08/24 06:13) RASH HPI HPI Comments History of Present Illness Details 69-year-old female with history of hyper lipidemia, factor 5 laden mutation heterozygous not on blood thinners, myofascial pain syndrome, and chronic low back pain with radiation into the lower extremities presents to the office today for management of chronic conditions and to establish care. She has been using alendronate 35 mg weekly for management of her osteoporosis as well as taking calcium and vitamin-D. DEXA scans are up-to-date. She has been following with the pain management Clinic for sacroiliitis and has undergone cortisone injection with minimal relief of symptoms. She reports constant pain in the left side of low back radiating to left lower extremity. Denies any weakness or paresthesias in the lower extremity. She does find it difficult to sleep secondary to this pain. She is also following with orthopedics for management of chronic right shoulder/neck pain. She is requesting referral to [facility] for management of hammertoes. pain L low back into LLE ficcicult to sleep long time fell over balcony - thoracic now radiating around- thurs over 24 hours. shots pain management R shoulder/neck lumbar spine fluoroscopy - helped R side, not L hammer toes podiat[facility] [place]. gabapenting helps feet \ not interested in further intervention increase gabapentin tramadol bid prn icy hot PFSH Medical History (Updated 08/29/24 @ 17:17 by FLORINA Gutierrez) Sacroiliitis Microcytic anemia Osteoporosis Small bowel obstruction COVID-19 vaccine series completed Family history of complication of anesthesia Arthritis Perforation of sigmoid colon due to diverticulitis Factor 5 Leiden mutation, heterozygous Elevated cholesterol GERD (gastroesophageal reflux disease) Hearing impairment Myofascial pain syndrome Acromioclavicular joint pain Surgical History (Updated 08/27/24 @ 16:55 by Raquel Navarro) History of exploratory laparotomy (11/23/23) S/P colostomy takedown (05/18/21) History of open sigmoidectomy History of hand surgery Hx of foot surgery Hx of foot surgery H/O colonoscopy (~05/25/24) Hx of dilation and curettage Hx of elbow surgery H/O right knee surgery Family History Sister Breast cancer Mother Breast cancer Family/Other Uterine cancer Family/Other Throat cancer Bone cancer Sister Emphysema lung Sister Breast cancer Father Emphysema lung Brother Alzheimer's dementia Sister Type 2 diabetes mellitus Social History Household Members: Spouse Housing: House Are you a primary behavioral health care coordinator to a significant other at home: No Do you presently have visiting nurse or other home services: No Alcohol intake: current Alcohol intake frequency: holidays/special occasions only Patient Tobacco Use Status: Never used Tobacco Advance Directives Date on File: 06/01/13 service: No Current occupational status: employed Sexual orientation: Straight/Heterosexual Gender identity: Female Questionnaire Thrive Questionnaire Date Thrive assessed: 11/23/23 Review of Systems Const All systems reviewed & are unremarkable except as noted in HPI and below Physical exam (Primary Care) Vital Signs: Last Vital Signs Temp 97.3 F 08/28/24 15:48 Pulse 88 08/28/24 15:48 Resp 16 08/28/24 15:48 BP 134/72 08/28/24 15:48 Pulse Ox 98 08/28/24 15:48 BMI result Body Mass Index 19.4 Tobacco/Smoking Status: Tobacco use Status Patient Tobacco Use Status Never used Tobacco 08/28/24 15:50 Thrive Assessment: Date of Thrive Assessment Date Thrive assessed 11/23/23 08/28/24 15:50 Const Other: Constitutional - Awake and Alert, No apparent distress Eyes - PERRLA, EOMI Cardiovascular - S1S2, RRR, No edema Respiratory - Normal lung expansion, Normal respiratory effort, No respiratory distress, CTA bilaterally Extremities - no calf tenderness bilaterally, no swelling MSK- no midline or paraspinal tenderness to palpation. Full extension and flexion. Negative straight leg raises Skin - Warm/Dry Neurological - Alert & oriented x3, 5/5 strength BLE Psychological - Appropriate affect Coding Level of Care Code New Pt Level 4 (04541) Complex EM visit Add On G2211 Diagnoses Sacroiliitis M46.1 Bilateral sacroiliitis M46.1 Radicular pain of left lower extremity M54.10 Osteoporosis M81.0 Assessment & Plan Assessment & Plan (1) Sacroiliitis: Code(s): M46.1 - Sacroiliitis, not elsewhere classified Category: Medical Plan: Continue following with pain management. Continue tramadol prn. Increase gabapentin 300mg nightly and initiate 100mg at 0700 and 1500. Continue with gen tle stretches (2) Bilateral sacroiliitis: Code(s): M46.1 - Sacroiliitis, not elsewhere classified Category: Medical Plan: Continue following with pain management. Continue tramadol prn. Increase gabapentin 300mg nightly and initiate 100mg at 0700 and 1500. Continue with gentle stretches (3) Radicular pain of left lower extremity: Code(s): M54.10 - Radiculopathy, site unspecified Category: Medical Plan: Continue following with pain management. Continue tramadol prn. Increase gabapentin 300mg nightly and initiate 100mg at 0700 and 1500. Continue with gentle stretches (4) Osteoporosis: Code(s): M81.0 - Age-related osteoporosis without current pathological fracture Category: Medical Plan: DXA scan up to date. Continue calcium and vitamin D supplementation. Continue fosamax Plan Follow up in 6 months Orders: Orders Complete Blood Count Auto Diff 08/28/24 D50.9 - Iron deficiency anemia, unspecified, E78.00 - Pure hypercholesterolemia, unspecified, M81.0 - Age- related osteoporosis without current pathological fracture Lipid Panel 08/28/24 D50.9 - Iron deficiency anemia, unspecified, E78.00 - Pure hypercholesterolemia, unspecified, M81.0 - Age-related osteoporosis without current pathological fracture Vitamin D 25-OH Total 08/28/24 D50.9 - Iron deficiency anemia, unspecified, E78.00 - Pure hypercholesterolemia, unspecified, M81.0 - Age-related osteoporosis without current pathological fracture Basic Metabolic Panel 08/28/24 D50.9 - Iron deficiency anemia, unspecified, E78.00 - Pure hypercholesterolemia, unspecified, M81.0 - Age-related osteoporosis without current pathological fracture IRON PROFILE 08/28/24 D50.9 - Iron deficiency anemia, unspecified, E78.00 - Pure hypercholesterolemia, unspecified, M81.0 - Age-related osteoporosis without current pathological fracture Medications: New gabapentin 300 mg PO BEDTIME 90 caps 1RF gabapentin 100 mg PO .0700, 1500 180 caps 1RF Patient Instructions: Gabapentin- take 100mg at 7 am and 3pm, then 300mg at bedtime Labs to be completed today Take medications as prescribed Follow up with pain management Follow up in 6 months
[2024-08-28 15:48] VITALS: BP 134/72; PULSE 88; RESP 16; TEMP 36.3; O2SAT 98; BMI 19.4
--- OUTSIDE RECORDS SUMMARY | 2024-08-28 16:33 | XMS_ITS ---
Author Organization [facility] Address [address] [place] [id number] Care Team Providers Care Regulatory Specialist Name Role Phone Ryan Hayes MD Primary Care Provider Parker Crowder [phone] Jia STORY, Bridger Abdullahi Unavailable Medications Medication SIG (Take, Route, Fr equency, Duration) Notes Start Date End Date Status Omeprazole 20 MG 1 capsule 1/2 to 1 h our before morning meal Orally Once a day for 30 days 05/28/2024 Active Encounters Encounter Location Date Provider Diagnosis [facility] [address] [id number] 05/28/2024 Parker Molina Plan Of Treatment Medication Medication Name Sig Start Date Stop Date Notes Omeprazole 20 MG 1 capsule 1/2 to 1 h our before morning meal Orally Once a day for 30 days 05/28/2024 Progress Notes * EMRE LOYA MDOB:[birth year] (68 yo F)Acc No.[id number]:05/28/2024 Patient:?EMRE LOYA :1955???Age:68 Y???Sex:Female Address:[address] [place] [id number] * Refills? Refill Omeprazole Capsule Delayed Release, 20 MG, Orally, 30, 1 capsule 1/2 to 1 hour before morning meal, Once a day, 30 days, Refills=6 * true * Date:? Generated for Nino talamantes/Marcelino/eTransmitting on:?08/28/2024 04:33 PM EDT
--- OUTSIDE RECORDS SUMMARY | 2024-08-28 16:33 | XMS_ITS ---
Author Organization [facility] Address [address] [place] [phone] Care Team Providers Care Furnace Repairer Helper Name Role Phone Ryan Hayes MD Primary Care Provider UnavailParker Pichardo [phone] Jia STORY, Bridger Unavailable Unavailable REASON FOR VISIT left v/m refill script Encounters Encounter Location Date Provider Diagnosis [facility] [address] [place] [phone] 05/29/2024 Parker Molina Plan Of Treatment No Information Progress Notes * EMRE LOYA MDOB:[birth year] (68 yo F)Acc No.[id number]:05/29/2024 Patient:?EMRE LOYA :1955???Age:68 Y???Sex:Female Address:[address] [place] [id number] * true * Date:? Generated for Belkisi vinita/Marcelino/eTransmitting on:?08/28/2024 04:33 PM EDT
--- OUTSIDE RECORDS SUMMARY | 2024-08-28 16:33 | XMS_ITS ---
Author Organization [facility] Address [address] [place] [address] Care Team Providers Care Day Care Home Mother Name Role Phone Ryan Hayes MD Primary Care Provider Parker Crowder [phone] Bridger Ro MD Unavailable REASON FOR VISIT script Medications Medication SIG (Take, Route, Fr equency, Duration) Notes Start Date End Date Status Omeprazole 20 MG 1 capsule 1/2 to 1 h our before morning meal Orally Once a day for 30 days 05/28/2024 Active Encounters Encounter Location Date Provider Diagnosis [facility] [address] [place] [phone] 05/31/2024 Parker Molina Plan Of Treatment Medication Medication Name Sig Start Date Stop Date Notes Omeprazole 20 MG 1 capsule 1/2 to 1 h our before morning meal Orally Once a day for 30 days 05/28/2024 Progress Notes * EMRE LOYA MDOB:[birth year] (68 yo F)Acc No.[id number]:05/31/2024 Patient:?EMRE LOYA :1955???Age:68 Y???Sex:Female Address:[address] [place] [address] * Refills? Refill Omeprazole Capsule Delayed Release, 20 MG, Orally, 30, 1 capsule 1/2 to 1 hour before morning meal, Once a day, 30 days, Refills=11 * true * Date:? Generated for Nino talamantes/Marcelino/eTransmitting on:?08/28/2024 04:33 PM EDT
--- OUTSIDE RECORDS SUMMARY | 2024-08-28 16:33 | XMS_ITS ---
Author Organization [facility] Address [address] [place] [address] Care Team Providers Care Breast Puller Name Role Phone Marisol Jessica Unavailable [phone] REASON FOR VISIT DIGITAL MARKETER PPWK Entered Encounters Encounter Location Date Provider Diagnosis [address] [address] 08/28/2024 Jessica Damon Plan Of Treatment Next Appt Details Provider Name:Jessica francis, 10/30/2024 10:30:00 AM, [address] [place] [address], [phone], Progress Notes * Adilia LOYA MDOB:[birth year] (69 yo F)Acc No.[id number]:08/28/2024 Patient:?Adilia LOYA :1955???Age:69 Y???Sex:Female Address:[address] [place] [address] * true * Date:? Generated for Printi ng/Famarilyg/eTransmitting on:?08/28/2024 04:32 PM EDT
--- OUTSIDE RECORDS SUMMARY | 2024-08-28 16:33 | XMS_ITS | Patient Health Record ---
[facility] Organization [facility] Address [address] [place] [address] Care Team Providers Care Student Life Dean Name Role Phone Jessica Damon Unavailable [phone] Allergies Allergen (clinical drug ingredient) Drug/Non Drug Allergy documented on EMR Reaction Allergy Type Onset Date Status Latex Unknown Drug Allergy Active Reason For Referral No Information Medications Medication SIG (Take, Route, Frequency, Duration) Notes Start Date End Date Status Allergy Active Antihistamine Active Calcium + D Active Multivitamin Active Naproxen 500 MG Orally Acti ve Simvastatin Active Vitamin C Active hydrOXYzine HCl 25 MG Orally Not-Taking Social History Tobacco use other than smoking: Question Answer Notes Are you an other tobacco user? No AUDIT-C (Standard) Question Answer Notes Did you have a drink contain ing alcohol in the past year? Yes How often did you have a dri nk containing alcohol in the past year? Never (0 point) How many drinks did you have on a typical day when you were drinking in the past year? 1 or 2 drinks (0 point) How often did you have six o r more drinks on one occasion in the past year? Never (0 point) Points 0 Interpretation Negative Problems Problem Type SNOMED Code ICD Code Onset Dates Problem Status W/U Status Risk Notes Problem Acquired hammer toe of right foot (0020367077988 105) Other hammer toe(s) (acquired), right foot (M20.41) Active confirmed Problem 410470677 Hallux valgus of right foot (M20.11) Active confirmed Problem 07268244 Cavus deformity of right foot, acquired (M21.6X1) Active confirmed Encounters Encounter Location Date Provider Diagnosis [facility] [address] [place] [address] 08/28/2024 Jessica Damon Plan Of Treatment Next Appt Details Provider Name:Jessica francis, 10/30/2024 10:30:00 AM, [address] [facility], [place], [address], Insurance Providers Payer Name Payer Address Payer Phone Subscriber Number Group Number Insured Name Patient Relationship to Insured Coverage Start Date Coverage End Date [employer] Benefits [address] [address] [place] [address] [id number] Adilia Rivera Self - patient is the insured Medical (General) History Medical History History ICD Code Arthritis Back pain Chicken pox Measles Mumps Surgical History Surgery Date(Month/Year) foot surgery knee surgery, right Diverticulitis 11/23/2023 elbow sx
--- OUTSIDE RECORDS SUMMARY | 2024-08-28 16:33 | XMS_ITS | Patient Health Record ---
Author Organization [facility] Address [address] [place] [address] Care Team Providers Care Library Clerk Talking Books Name Role Phone Abigail STORY, Ryan Primary Care Provider Parker Crowder Unavailable [phone] Jia STORY, Bridger Abdullahi Unavailable Allergies No Known Allergies Results Component Value Reference Range Notes Pathology (Not yet reviewed by provider) Interpretation: Performing Lab:[facility], [address] [place] [phone] Notes/Report: Name: Richard Liang Age/Sex: 68/F : 1955 Unit#: [id number] Attend Dr: Parker Molina MD Re05/25/24 Status : [facility] Location: [facility] Disch: SPEC : [id number] RECD: 05/25/24 STATUS: MALIKA POE NUM: [id number] VIK: 05/25/24-1025 [facility] DR: Parker Molina MD ENTERED: 05/25/24-12 00 SP TYPE: Surgical OTHR DR: Ryan Hayes MD ORDERED: HE Stain/6, Gross Micro L4/2, Special st. 2, AB/PAS Diagnosis A. Gastroesophageal junction at 35 cm, biopsy: Squamocolumnar junctional mucosa with mild chronic active inflammation and intestinal metaplasia; negative for dysplasia (see comment). B. Colon, ascending, biopsy: Colonic mucosa within normal limits; negative for active, chronic or microscopic colitis. COMMENT (A): These f indings are consistent with Buckner's esophagus if the biopsies were taken above the shayna omic gastroesophageal junction. Clinical and endoscopic correlation is advised. Clinical History Pre-Op Dx: Dysphagia, heartburn Post-Op Dx: Hiatal h ernia, reflux, diverticulosis Microscopic Description Microscopic sections reviewed. The special stain for A/B PAS highlights intestinal metaplasia in part A. Material Received A. EG junction at 35 cm B. Bx's ascending co devin, r/o microscopic colitis Gross Description Received in 2 parts. A. Received in forma nadege labeled ?EG junction at 35 cm? are 3 fragments of mata-white soft tissue measuring 0.2 -0.3 cm in greatest dimension which are wrapped in lens paper and entirely submitted f or microscopic examination, 3 pieces in cassette A. B. Received in forma nadege labeled ?biopsies ascending colon R/0 microscopic colitis? are 4 fragments of mata-whi te soft tissue measuring 0.1-0.4 cm in greatest dimension which are wrapped in lens la r and entirely submitted for microscopic examination, 4 pieces in cassette B. ([facility]) Special stains order ed and performed: A/B PAS on A. CONTINUED ON NEXT PAGE Name: Richard Liang Age/Sex: 68/F : 1955 Unit#: [id number] Attend Dr: Parker Molina MD Re05/25/24 Status : [facility] Location: [facility] Disch: SPEC : [id number] RECD: 05/25/24 STATUS: MALIKA POE NUM: [id number] VIK: 05/25/24-1025 [facility] DR: Parker Molina MD ENTERED: 05/25/24- SP TYPE: Surgical OTHR DR: Ryan Hayes MD ORDERED: JOYCE Stain/6, Gross Micro L4/2, Special st. 2, AB/PAS Copies To: Ryan Hayes MD [facility] [address] [place] [address] [facility] [address] [place] [address] Signed (si gnature on file) Tegan Camilo MD 05/29/24 8330 END OF REPORT Reason For Referral No Information Medications Medication [...] as directed Orally a s needed Active Immunizations Vaccine Route Administration Date Status Comme nts Influenza Unknown 12/10/2017 Administered Problems Problem Type SNOMED Code ICD Code Onset Dates Problem Status W/U Status Risk Notes Problem 866400170 Encounter for screening for malignant neoplasm of colon (Z12.11) Active confirmed Problem Diverticular disease of colon (159341481) Diverticulosis of large intestine without perforation or abscess without bleeding (K57.30) Active confirmed Problem History of gastrointestinal tract bypass (895731262) Intestinal bypass and anastomosis status (Z98.0) Active confirmed Problem Dysphagia (11054597) Dysphagia (R13.10) Active confirmed Problem Gastroesophageal reflux disease (640784688) Gastroesophageal reflux disease (K21.9) Active confirmed Problem 887832452 Family history o f colon cancer (Z80.0) Active confirmed Problem 80531559 Constipation, unspecified constipation type (K59.00) Active confirmed Vital Signs Blood pressure diastolic 00 mm Hg 01/24/2024 Height 62 in 01/24/2024 Blood pressure systolic 00 mm Hg 01/24/2024 Weight 103 lbs 01/24/2024 BMI 18.84 kg/m2 01/24/2024 Encounters Encounter Location Date Provider Diagnosis [facility] Outpatient [address] [place] [phone] 05/25/2024 Parker Molina Colon cancer screeni ng Z12.11 ; Family history of colon cancer Z80.0 ; Intestinal bypass and anastomosis status Z98.0 ; Diverticulosis of large intestine without perforation or abscess without bleeding K57.30 ; Gastroesophageal reflux disease K21.9 ; Dysphagia R13.10 and Heartburn R12 [facility] [address] [place] [phone] 01/24/2024 Parker Molina Encounter for screen ing for malignant neoplasm of colon Z12.11 ; Dysphagia R13.10 and Family history of colon cancer Z80.0 [facility] [address] [place] [phone] 03/01/2024 Parker Molina [facility] [address] [place] [phone] 05/28/2024 Parker Molina [facility] [address] [place] [phone] 05/28/2024 Parker Molina [facility] [address] [place] [phone] 05/29/2024 Parker Molina [facility] [address] [place] [phone] 05/31/2024 Parker Molina Assessments Encounter Date Diagnosis (ICD Code) Assessment Notes Treatment Notes Treatment Clinical Notes Section Notes 05/25/2024 Colon cancer screening (ICD-10 - Z12.11) 05/25/2024 Family history of colon cancer (ICD-10 - Z80.0) 01/24/2024 Encounter for screening for malignant neoplasm of colon (ICD-10 - Z12.11) Overall, Beatriz appears well and seems to be recuperating nicely again from her most recent surgery. I did recommend a followup colonoscopy for further screening purposes given her family history and her last colonoscopy being over 5 years ago. We did review the rationale for that in regard to colon cancer prevention. We shall wait until next year to do the procedure so as to allow complete healing from her recent abdominal surgery. I also recommended an upper endoscopy with possible balloon dilation on the same day given her description of some recent intermittent dysphagia. I did advise her to let me know if the dysphagia becomes more problematic prior to that and we can always have her come in to do the upper endoscopy sooner if need be. Full consent was obtained from her for both procedures, including risks of bleeding and perforation. The procedures will be done with monitored anesthesia care. Beatriz was comfortable with this plan. Thank you again for allowing me to participate in Beatriz's care. I shall continue to keep you advised of her progress. 01/24/2024 Dysphagia (ICD-10 - R13.10) Overall, Beatriz appears well and seems to be recuperating nicely again from her most recent surgery. I did recommend a followup colonoscopy for further screening purposes given her family history and her last colonoscopy being over 5 years ago. We did review the rationale for that in regard to colon cancer prevention. We shall wait until next year to do the procedure so as to allow complete healing from her recent abdominal surgery. I also recommended an upper endoscopy with possible balloon dilation on the same day given her description of some recent intermittent dysphagia. I did advise her to let me know if the dysphagia becomes more problematic prior to that and we can always have her come in to do the upper endoscopy sooner if need be. Full consent was obtained from her for both procedures, including risks of bleeding and perforation. The procedures will be done with monitored anesthesia care. Beatriz was comfortable with this plan. Thank you again for allowing me to participate in Beatriz's care. I shall continue to keep you advised of her progress. 05/25/2024 Intestinal bypass and anastomosis status (ICD-10 - Z98.0) 01/24/2024 Family history of colon cancer (ICD-10 - Z80.0) Overall, Beatriz appears well and seems to be recuperating nicely again from her most recent surgery. I did recommend a followup colonoscopy for further screening purposes given her family history and her last colonoscopy being over 5 years ago. We did review the rationale for that in regard to colon cancer prevention. We shall wait until next year to do the procedure so as to allow complete healing from her recent abdominal surgery. I also recommended an upper endoscopy with possible balloon dilation on the same day given her description of some recent intermittent dysphagia. I did advise her to let me know if the dysphagia becomes more problematic prior to that and we can always have her come in to do the upper endoscopy sooner if need be. Full consent was obtained from her for both procedures, including risks of bleeding and perforation. The procedures will be done with monitored anesthesia care. Beatriz was comfortable with this plan. Thank you again for allowing me to participate in Beatriz's care. I shall continue to keep you advised of her progress. 05/25/2024 Diverticulosis of large intestine without perforation or abscess without bleeding (ICD-10 - K57.30) 05/25/2024 Gastroesophageal reflux disease (ICD-10 - K21.9) 05/25/2024 Dysphagia (ICD-10 - R13.10) 05/25/2024 Heartburn (ICD-10 - R12) Plan Of Treatment Pending Test Test Name Order Date Pathology 05/25/2024 Future Test Test Name Order Date COLONOSCOPY 08/10/2013 COLONOSCOPY 07/20/2018 UPPER GI ENDOSCOPY BALLOOON DILATION OF ESOPH 01/24/2024 COLONOSCOPY 01/24/2024 Insurance Providers Payer Name Payer Address Payer Phone Subscriber Number Group Number Insured Name Patient Relationship to Insured Coverage Start Date Coverage End Date [employer] [place] [address] [address] [place] [address] [id number] EMRE FULTON Self - patient is the insured Medical (General) History Medical History History ICD Code Arthritis--neck and shoulder Hyperlipidemia Denies [place],DM,CVA,Lung disease,renal dise ase Colonoscopy in 03/2005-diverticulosis an d internal hemorrhoids Hospitalized at [facility] in 4 for mild diverticulitis--had diarrhea and bleeding Screening colonoscopy in Oct-no polyps--diverticulosis and internal hemorrhoids Negative screening colonoscopy in 2018 Diverticulitis with surgery as below Surgical History Surgery Date(Month/Year) D & C Knee surgery Foot surgery Shoulder surgery [phone] Sigmoid resection for diverticulitis with temporary colostomy with Dr. Palm; the colostomy was [place] [address] Gan 11/2023 small bowel obstructi on due to adhesions, appendectomy was performed as well--Dr. Purvis
== END 2024-08-28 16:18 | disposition home or self-care (01) ==
LOC: HO.HMCHD 15:34
PROVIDERS: PCP Physician Assistant; Visit Provider Physician Assistant
DX: M46.1 Sacroiliitis, not elsewhere classified (principal); M54.10 Radiculopathy, site unspecified; M81.0 Age-related osteoporosis without current pathological fracture

== ENCOUNTER → 2024-08-28 15:34 | Outpatient (BNVA) | payer OTHER, SELFPAY | PROVIDERS: PCP Physician Assistant; Visit Provider Physician Assistant ==

== ENCOUNTER 2024-08-31 06:06 | Outpatient (REF) | payer OTHER, SELFPAY ==
[2024-08-31 06:30] LABS: MANUAL DIFF FLAG NO
[2024-08-31 07:03] LABS: Basophils Absolute Auto 0.1 X10*3/uL (0.0-0.2); Basophils Percent Auto 1.2 % (0-2); Eosinophils Absolute Auto 0.2 X10*3/uL (0.0-0.4); Eosinophils Percent Auto 2.9 % (0-4); Hematocrit 41.4 % (37.0-47.0); Hemoglobin 13.6 g/dl (12.0-16.0); Imm Gran Abs Auto 0.02 X10*3/uL (0.00-0.03); Imm Gran Pct Auto 0.3 % (0.0-0.4); Lymphocytes Absolute Auto 1.8 X10*3/uL (1.2-4.9); Mean Corpuscular HGB Conc 32.9 g/dl (31.0-35.0); Mean Corpuscular Hemoglobin 30.6 pg (27.0-33.0); Mean Platelet Volume 9.1 fL (9.4-12.3); Monocytes Absolute Auto 0.5 X10*3/uL (0.1-1.2); Monocytes Percent Auto 8.8 % (2-11); Neutrophils Absolute Auto 3.3 x10*3/uL (2.0-8.3); Neutrophils Percent Auto 55.8 % (45-73); Platelet Count 211 X10*3/uL (160-400); Red Blood Count 4.45 X10*6/uL (4.20-5.50); Red Cell Distribution Width 12.1 % (11.0-16.0); White Blood Count 5.9 X10*3/uL (4.8-10.8)
[2024-08-31 07:23] LABS: Anion Gap 14 (12-20); Blood Urea Nitrogen 20 mg/dL (9-16); Calcium 9.3 mg/dL (8.4-10.2); Carbon Dioxide 28 mmol/L (22-29); Chloride 107 mmol/L (96-108); Cholesterol 178 mg/dL (<200); Estimated Glomerular Filt Rate > 60; Glucose Random 104 mg/dL (60-115); HDL Cholesterol 58 mg/dL (>40); Iron 88 mcg/dL (30-160); LDL Cholesterol Calculated 100 mg/dL (<100); Percent Iron Saturation 29 % (15-50); Potassium 4.3 mmol/L (3.3-5.1); Sodium 145 mmol/L (135-145); Total Iron Binding Capacity 306 mcg/dL (228-428); Triglycerides 102 mg/dL (<150); Unsaturated Iron Binding 218 ug/dL
[2024-08-31 07:39] LABS: Vitamin D 25-OH Total 40.7 ng/mL (>30)
== END 2024-08-31 06:07 | disposition home or self-care (01) ==
LOC: HO.LAB 06:06
PROVIDERS: PCP Physician Assistant; Visit Provider Physician Assistant
DX: E78.00 Pure hypercholesterolemia, unspecified (principal); M81.0 Age-related osteoporosis without current pathological fracture; D50.9 Iron deficiency anemia, unspecified
CPT/HCPCS: 36415; 80048; 80061; 82306; 83540; 85025

== ENCOUNTER 2024-09-01 07:02 | Outpatient (REF) | payer OTHER, SELFPAY ==
--- NOTE | ~2024-09-01 | XR_ITS ---
EXAMINATION: XR RIBS, BILATERAL CLINICAL INFORMATION: R07.89 - Other chest pain COMPARISON: Chest radiograph 06/30/2016. TECHNIQUE: PA view of the chest, 3 views of the bilateral ribs were obtained. FINDINGS: Lungs are hyperaerated, however clear. No consolidation, pneumothorax, or pleural effusion. The cardiomediastinal silhouette and pulmonary vasculature are normal. Osseous structures are unremarkable. Ribs are intact. No fracture or focal rib lesion identified. XR/XR ribs BI 3V IMPRESSION: 1. No acute finding of the ribs. 2. No active pulmonary disease. Electronically signed by: Elier Nickerson MD 09/06/2024 08:05 AM EDT
--- OUTSIDE RECORDS SUMMARY | 2024-09-01 07:04 | XMS_ITS ---
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 Generated for Printi ng/Fasameer/eTransmitting on:?09/01/2024 07:04 AM EDT
== END 2024-09-01 07:03 | disposition home or self-care (01) ==
LOC: HO.XRAY 07:02
PROVIDERS: PCP Physician Assistant; Visit Provider Physician Assistant
DX: R07.89 Other chest pain (principal)
CPT/HCPCS: 71110

== ENCOUNTER → 2024-09-01 07:20 | Outpatient (BNV) | payer OTHER, SELFPAY | PROVIDERS: PCP Physician Assistant; Visit Provider Radiology Diagnostic Radiology | DX: R07.89 Other chest pain (principal) | CPT/HCPCS: 71110 ==

== ENCOUNTER 2024-09-18 06:01 | Outpatient (REF) | payer OTHER, SELFPAY ==
--- NOTE | ~2024-09-18 | FL_ITS ---
EXAMINATION: XR FLUOROSCOPY WITH IMAGES CLINICAL INFORMATION: Primary osteoarthrosis right shoulder, pain management. COMPARISON: None available. TECHNIQUE: Fluoroscopy provided to: Dr. Barone Fluoroscopy time: 0.0 minutes DAP: 0.26942 mGycm2 Images: 1 FINDINGS: Solitary image right shoulder taken during pain management injection. Please refer to the full operative report for details. FL/FL guidance in treatment room IMPRESSION: Fluoroscopic guidance. Electronically signed by: Elier Nickerson MD 09/18/2024 08:19 AM EDT
--- OUTSIDE RECORDS SUMMARY | 2024-09-18 06:04 | XMS_ITS | Patient Health Record ---
Author Organization [facility] Address [address] [place] [address] Care Team Providers Care Manuscripts Curator Name Role Phone Jessica Damon Unavailable [phone] Allergies Allergen (clinical drug ingredient) Drug/Non Drug [...] Problem Status W/U Status Risk Notes Problem Other hammer toe(s) (acquired), right foot (M20.41) Active confirmed Problem 635964616 Hallux valgus of right foot (M20.11) Active confirmed Problem 34636039 Cavus deformity of right foot, acquired (M21.6X1) Active confirmed Encounters Encounter Location Date Provider Diagnosis [facility] [address] [place] [address] 08/28/2024 Jessica Damon Plan Of Treatment Next Appt Details Provider Name:Jessica Sunitha francis, 10/30/2024 10:30:00 AM, [address] [place], [address], Insurance Providers Payer Name Payer Address Payer Phone Subscriber Number Group Number Insured Name Patient Relationship to Insured Coverage Start Date Coverage End Date [employer] Benefits [address] [address] [place] [id number] Adilia Rivera Self - patient is the insured Medical (General) History Medical History History ICD Code Arthritis Back pain Chicken pox Measles Mumps Surgical History Surgery Date(Month/Year) foot surgery knee surgery, right Diverticulitis 11/23/2023 elbow sx
== END 2024-09-18 06:02 | disposition home or self-care (01) ==
LOC: CF 06:01
PROVIDERS: Visit Provider Anesthesiology
DX: M19.011 Primary osteoarthritis, right shoulder (principal); M79.18 Myalgia, other site
CPT/HCPCS: 20552; 20605; J2003; J2795; J3301; Q9967

== ENCOUNTER 2024-09-18 06:59 | Outpatient (AMB) | payer OTHER, SELFPAY ==
--- NOTE | 2024-09-18 07:12 | MHC.OFFVIS ---
Vital Signs 09/18/24 07:17 09/18/24 07:46 Weight 105 lb BP 117/70 152/92 H Blood Pressure Location Lt brachial Lt brachial Position Sitting Sitting Respiration 20 Pulse 77 81 Pulse Source Pulse Oximeter Pulse Oximeter Pulse Oximetry (%) 94 95 Oxygen Delivery Method Room Air Room Air Intake Visit Reasons: RT ACROMIOCLAVICULAR AND TRIGGER POINT INJ Telecommunication Operator Required: No Allergies amoxicillin Allergy (Mild, Verified 09/18/24 07:16) Rash nitrofurantoin [Nitrofurantoin] Allergy (Mild, Verified 09/18/24 07:16) RASH Sulfa (Sulfonamide Antibiotics) [Sulfa (Sulfonamides)] Allergy (Mild, Verified 09/18/24 07:16) RASH trimethoprim [Trimethoprim] Allergy (Mild, Verified 09/18/24 07:16) RASH PFSH Medical History (Updated 08/31/24 @ 10:34 by FLORINA Gutierrez) Sacroiliitis Microcytic anemia Osteoporosis Small bowel obstruction COVID-19 vaccine series completed Family history of complication of anesthesia Arthritis Perforation of sigmoid colon due to diverticulitis Factor 5 Leiden mutation, heterozygous Elevated cholesterol GERD (gastroesophageal reflux disease) Hearing impairment Myofascial pain syndrome Acromioclavicular joint pain Surgical History (Updated 08/27/24 @ 16:55 by Raquel Navarro) History of exploratory laparotomy (11/23/23) S/P colostomy takedown (05/18/21) History of open sigmoidectomy History of hand surgery Hx of foot surgery Hx of foot surgery H/O colonoscopy (~05/25/24) Hx of dilation and curettage Hx of elbow surgery H/O right knee surgery Family History Sister Breast cancer Mother Breast cancer Family/Other Uterine cancer Family/Other Throat cancer Bone cancer Sister Emphysema lung Sister Breast cancer Father Emphysema lung Brother Alzheimer's dementia Sister Type 2 diabetes mellitus Social History Household Members: Spouse Housing: House Are you a primary assurance services manager health care to a significant other at home: No Do you presently have visiting nurse or other home services: No Alcohol intake: current Alcohol intake frequency: holidays/special occasions only Patient Tobacco Use Status: Never used Tobacco Advance Directives Date on File: 06/01/13 service: No Current occupational status: employed Sexual orientation: Straight/Heterosexual Gender identity: Female Physical Exam Vital Signs: Last Vital Signs Pulse 81 09/18/24 07:46 Resp 20 09/18/24 07:17 BP 152/92 H 09/18/24 07:46 Pulse Ox 95 09/18/24 07:46 Oxygen Delivery Method Room Air 09/18/24 07:46 Assessment & Plan Assessment & Plan (1) Acromioclavicular joint pain: Code(s): M25.519 - Pain in unspecified shoulder Category: Medical (2) Myofascial pain syndrome: Code(s): M79.18 - Myalgia, other site Category: Medical Plan Intraarticular right acromio-clavicular joint injection and trigger point injection . Informed consent was explained to the patient. All questions were explained and answered. The patient was taken inside the operating room. The patient was positioned supine on operating table with her right shoulder elevated on the wedge support. Time-out was performed delineating correct site, side, the nature of the procedure, patient's allergy, preoperative antibiotic if needed. All operating room staff was participating in OR time-out procedure. Right acromioclavicular joint was delineated on the screen. The area of the joint as well as right neck were prepped with ChloraPrep and draped with sterile utility drapes. Location of the right acromioclavicular joint was injected 1st using 22 gauge 1/2 inch needle under x-ray guidance the needle was driven into the intra-articular space and 2 cc of Ropivacaine 0.5% mixed with Kenalog was injected into the joint. After that the two trigger point injections were performed at trapezius muscle on the right in fan-like fashion . . Total dose of kenalog was 40 mg. Total dose of ropivacaine was 10 mls . Patient tolerated procedure well she was taken outside of the operating room to recovery room where she recovered uneventfully. She went home without immediate complications. Orders: Orders FL guidance in treatment room Today M19.011 - Primary osteoarthritis, right shoulder Coding Level of Care Code Procedure Only Diagnoses Acromioclavicular joint pain M25.519 Myofascial pain syndrome M79.18
[2024-09-18 07:17] VITALS: BP 117/70; PULSE 77; RESP 20; O2SAT 94
[2024-09-18 07:46] VITALS: BP 152/92; PULSE 81; O2SAT 95
== END 2024-09-18 08:02 | disposition home or self-care (01) ==
LOC: HO.PMCPRC 06:59
PROVIDERS: PCP Physician Assistant; Visit Provider Anesthesiology
DX: M25.519 Pain in unspecified shoulder (principal); M79.18 Myalgia, other site
CPT/HCPCS: 20552; 20605; 77002

== ENCOUNTER 2024-12-20 13:50 | Outpatient (AMB) | payer OTHER, SELFPAY ==
--- OUTSIDE RECORDS SUMMARY | 2024-05-25 05:40 | XMS_ITS ---
Author Organization [facility] Address [address] [place] [address] Care Team Providers Care Medical Detailist Name Role Phone Abigail (RETIRED) Ryan STORY Primary Care Provide r Unavailable Parker Molina Unavailable [phone] Bridger Ro MD Unavailable Unavailable REASON FOR VISIT screening,fam hx colon ca, dysphagia Problems Problem Type SNOMED Code ICD Code Onset Dates Problem Status W/U Status Risk Notes Problem History of gastrointestinal tract bypass (730899463) Intestinal bypass and anastomosis status (Z98.0) Active confirmed Problem Diverticular disease of colon (704721481) Diverticulosis of large intestine without perforation or abscess without bleeding (K57.30) Active confirmed Problem Gastroesophageal reflux disease (832427700) Gastroesophageal reflux disease (K21.9) Active confirmed Encounters Encounter Location Date Provider Diagnosis [facility] [place] [address] [place], [place] [phone] 05/25/2024 Parker Molina Colon cancer screeni ng [...] * EMRE LOYA MDOB:[birth year] (69 yo F)Acc No.[id number]:05/25/2024 EGD and COL/MAC Patient: EMRE SHIPMAN Provider: Fely Molina MD :1955 A ge:68 Y S ex:Female Date:05/25/2024 Address:[address] [place], [place] [phone] Pcp:Ryan Hayes (RETIRED )MD Subjective: * Chief Complaints: * 1 . Screening,fam hx colon ca, dysphagia. * Medical History: Objective: * Vitals: Assessment: * Assessment: 1. C olon cancer [...] . H eartburn - R12 Plan: * Treatment: * Procedure Codes: 4 5380 COLONOSCOPY AND BIOPSY, Modifiers: [place] , [address] UPPER GI ENDOSCOPY, BIOPSY * * The named appointment provid er may or may not be the originator of this progress note, and it is not deemed complete until electronically signed by the appointment provider. Sign off status: Pending * Provider: Fely Molina MD Date: 0 05/25/2024 Generated for Nino talamantes/Marcelino/Wilmaitting on: 0 12/20/2024 05:43 PM EDT
--- OUTSIDE RECORDS SUMMARY | 2024-12-18 11:45 | XMS_ITS ---
Author Organization [facility] suyapa Marshall Address [address] [place] [address] Care Team Providers Care Turkey Boner Name Role Phone Santi Angely Primary Care Provider Jessica Ramirez Unavailable [phone] Allergies Allergen (clinical drug ingredient) Drug/Non Drug [...] 025 Encounters Encounter Location Date Provider Diagnosis [facility] [address] [place] [address] 12/18/2024 Jessica Damon Subluxation of metatarsophalangeal joint [...] Provider Name:Jessica francis, 01/04/2025 09:30:00 AM, [address] [place], [phone], Provider Name:Jessica francis, 01/09/2025 01:45:00 PM, [address] [place] [address], [phone], Provider Name:Jessica francis, 01/15/2025 10:15:00 AM, [address] [place] [address], [phone], Provider Name:Jessica francis, 01/29/2025 10:15:00 AM, [address] [place] [address], [phone], Progress Notes * Adilia LIANG MDOB:[birth year] (69 yo F)Acc No.[id number]:12/18/2024 Progress Note Patient: Ge IBARRA Adilia Kim Provider: Tosin Damon DPM :1955 A ge:69 Y S ex:Female Date:12/18/2024 Address:[address] [place], [place] [id number] Pcp:Angely Hancock Subjective: * Chief Complaints: * [...] surgery, most recently with Dr Morales at [facility] in 2016. Misc: P resents with . [...] enies. C ardiovascular: Pacemaker d enies. 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 W PW d enies. C [...] Exercise: no. Marital status: . 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 D rug/Alcohol: A STACEY-C (Standard) D id [...] Foot, AP, LO, LAT, RIGHTTaken by trainedPodiatric Mannequin Sander And Finisher (SF ), Are reviewed with the Pt. [...] 12/18/2024 Generated for Nino talamantes/Marcelino/Ingrid on: 0 12/20/2024 05:43 PM EDT History and Physical Notes * HPI [...] surgery, most recently with Dr Morales at [facility] in 2016 Misc: Presents with doni nick [...] LO, LAT, RIGHT Taken by trained Podiatric Mannequin Sander And Finisher ( SF ) , Are reviewed with the Pt Clinical Indication(s): Evaluate Biomech anical Deformity
--- NOTE | 2024-12-20 10:26 | MHC.PC.OV ---
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: No Accompanied by: Self / Same As Patient Allergies amoxicillin Allergy (Mild, Verified 12/20/24 10:31) Rash nitrofurantoin (Nitrofurantoin) Allergy (Mild, Verified 12/20/24 10:31) RASH Sulfa (Sulfonamide Antibiotics) (Sulfa (Sulfonamides)) Allergy (Mild, Verified 12/20/24 10:31) RASH trimethoprim (Trimethoprim) Allergy (Mild, Verified 12/20/24 10:31) RASH Medication List - Last Reconciled 12/20/24 by FLORINA Bearden alendronate 35 mg PO TH cholecalciferol (vitamin D3) 25 mcg PO DAILY docusate sodium (Colace) 100 mg PO BID fluticasone propionate 50 mcg/actuation 1 spray intranasal DAILY gabapentin 100 mg PO .0700, 1500 gabapentin 300 mg PO BEDTIME ibuprofen 400 mg PO TID lidocaine 5% 1 patch topical DAILY melatonin 5 mg PO BEDTIME PRN multivitamin 1 tab PO DAILY omeprazole mg PO DAILY simvastatin 20 mg PO BEDTIME tramadol 50 mg PO BID PRN Tobacco use date assessed: 12/20/24 Fall risk assessment: No Falls in past year Last assessed Fall Risk: 12/20/24 Dental Screening Dental Screen Date: 12/20/24 Did you have a dental visit in the last 12 months?: Yes Did you have a dental problem in the last 6 months where you did not have access to dental care?: No HPI HPI Comments History of Present Illness Details 69 year old female with Bilateral hearing loss, HLD, Osteoporosis, microcytic anemia, Factor V Leiden mutation, GERD, insomnia and multiple musculoskeletal disorders including arthritis and hammer toes here for PreOP exam for foot surgery to be done by Dr. Jessica Damon of [facility], and on January 04 at [facility]. Patient has had multiple prior surgeries without issues with bleeding or anesthsia. She did have a sister who had a seizure coming out of anesthesia. Her BP today is 140/80. Will get labs and EKG today. Patient has no new issues today. FORMERLY [facility], [facility] Medical History (Updated 12/20/24 @ 14:40 by FLORINA Bearden) Acromioclavicular joint pain Arthritis COVID-19 vaccine series completed Elevated cholesterol Factor 5 Leiden mutation, heterozygous Family history of complication of anesthesia GERD (gastroesophageal reflux disease) Hammer toe of right foot Hearing impairment Microcytic anemia Myofascial pain syndrome Osteoporosis Perforation of sigmoid colon due to diverticulitis Pre-op evaluation Sacroiliitis Small bowel obstruction Surgical History H/O colonoscopy (~05/25/24) H/O right knee surgery History of exploratory laparotomy (11/23/23) History of hand surgery History of open sigmoidectomy Hx of dilation and curettage Hx of elbow surgery Hx of foot surgery Hx of foot surgery S/P colostomy takedown (05/18/21) Family History Sister Breast cancer Mother Breast cancer Family/Other Uterine cancer Family/Other Throat cancer Bone cancer Sister Emphysema lung Sister Breast cancer Father Emphysema lung Brother Alzheimer's dementia Sister Type 2 diabetes mellitus Social History Household Members: Spouse Housing: House Are you a primary farm or ranch animal caretaker to a significant other at home: No Do you presently have visiting nurse or other home services: No Alcohol intake: current Alcohol intake frequency: holidays/special occasions only Patient Tobacco Use Status: Never used Tobacco e-Cigarette/Vaping Use: Never Used Advance Directives Date on File: 06/01/13 service: No Current occupational status: employed Sexual orientation: Straight/Heterosexual Gender identity: Female Cognitive needs: No Hearing needs: Yes (bilateral hearing aids) Vision needs: Yes (rx glasses) Questionnaire PHQ-9 Over the last 2 weeks, how often have you been bothered by any of the following problems? 1. Little interest or pleasure in doing things: not at all 2. Feeling down, depressed, or hopeless: not at all 3. Trouble falling or staying asleep, or sleeping too much: not at all 4. Feeling tired or having little energy: not at all 5. Poor appetite or overeating: not at all 6. Feeling bad about yourself - or that you are a failure or have let yourself or your family down: not at all 7. Trouble concentrating on things, such as reading the newspaper or watching television: not at all 8. Moving or speaking so slowly that other people could have noticed. Or the opposite - being so fidgety or restless that you have been moving around a lot more than usual: not at all 9. Thoughts that you would be better off or of hurting yourself in some way: not at all Total score: 0 Source: Developed by Drs. Parker Murrieta, Clara Paul, Epifanio Cabello and colleagues, with an educational amparo from [employer]. Thrive Questionnaire Date Thrive assessed: 12/20/24 I am a: Patient Within the past 12 months, did the food you bought not last and you didn't have the money to get more?: Never true Within the past 12 months, did you worry whether your food would run out before you got money to buy more?: Never true Do you have trouble paying for medicines?: No Do you have trouble getting transportation to medical appointments?: No Do you have trouble paying your heating and electricity bill?: No Do you have trouble taking care of your child, family member or friend?: No Do you have trouble with day-to-day activities such as bathing, preparing meals, shopping, managing finances, etc.?: No Are you currently unemployed and looking for a job?: No Are you interested in more education?: No THRIVE Score: 0 AUDIT C Alcohol Use Questionnaire (AUDIT-C) 1. How often do you have a drink containing alcohol?: Monthly or less 2. How many drinks containing alcohol do you have on a typical day when you are drinking?: 1 or 2 3. How often do you have six or more drinks on one occasion?: Less than monthly Total Score: 2 JOSUÉ-7 AMB Questionnaire JOSUÉ-7 Date JOSUÉ - 7 assessed: 12/20/24 Feeling nervous, anxious, or on edge: 0 = Not at all Not being able to stop or control worryin = Not at all Worrying too much about different things: 0 = Not at all Trouble relaxin = Not at all Being so restless that it is hard to sit still: 0 = Not at all Becoming easily annoyed or irritable: 0 = Not at all Feeling afraid as if something awful might happen: 0 = Not at all Total JOSUÉ-7 score (0-4 normal; 5-9 mild; 10-14 moderate; 15-21 severe): 0 Source: Developed by Drs. Parker Murrieta, Clara Paul, Epifanio Cabello and colleagues, with an educational amparo from [employer]. Review of Systems Const Details: CONSTITUTIONAL No Chills No Fever No Weight loss No fatigue No generalized weakness SKIN No itching No skin lesions EYES No change in visual acuity No eye pain No red eye HEAD AND NECK No dizziness No headache Chronic neck pain EAR/NOSE/MOUTH/THROAT No earache Bilateral hearing loss No sinus pain No congestion No hoarseness No sore throat RESPIRATORY No cough No shortness of breath No wheezing CARDIOVASCULAR No chest pain No dyspnea No palpitations No peripheral edema No Syncope GASTROINTESTINAL Chronic intermittent abdominal pain No constipation No diarrhea No heartburn No loss of appetite No nausea No vomiting GENITOURINARY No dysuria No hematuria No urinary frequency No urinary urgency ENDOCRINE No cold intolerance No excessive hunger No excessive thirst No change in hair texture MUSCULOSKELETAL Chronic back pain Multiple joint pains Right foot pain with hammer toes. No swelling No myalgias IMMUNOLOGICAL/ALLERGIC No congestion No itchy eyes No itchy nose No rhinitis No watery eyes HEMATOLOGIC No bleeding tendencies No bruising No fatigue LYMPHATIC No swollen lymph nodes NEUROLOGICAL No memory loss No paresthesias No focal weakness PSYCHIATRIC No anxiety No depression Insomnia No substance abuse No suicidal ideation Physical exam (Primary Care) Vital Signs: Last Vital Signs Temp 97.4 F 12/20/24 10:31 Pulse 80 12/20/24 10:31 BP 140/80 H 12/20/24 10:31 Pulse Ox 97 12/20/24 10:31 Oxygen Delivery Method Room Air 12/20/24 10:31 BMI result Body Mass Index 18.8 GENERAL Well Developed, Thin, In no acute distress HEENT Head- Normocephalic, atraumatic Eyes- PERRLA, EOMI, Conjuctiva-WNL, Lids-WNL Ears- Canals- Clear, TMs- WNL Nose-Straight, Nares Patent OroPharynx-Mouth WNL, Tongue- no lesions, throat no erythema or exudate Neck- Supple, no lymphadenopathy, thyroid WNL CARDIOVASCULAR Heart- Regular rate and Rhythm without murmur Extremities- No edema RESPIRATORY Normal chest movement, clear to auscultation ABDOMINAL/GI Nondistended, soft, nontender, normal bowel sounds, no masses, no hepatosplenomegaly GENITOURINARY No CVA tenderness BACK Straight, normal ROM, nontender MUSCULOSKELETAL multiple joint pains, no swelling or deformity VASCULAR No JVD, Dorasalis pedis and Posterior Tibialis pulses normal and symmetrical DERMATOLOGY No rashes, no significant skin lesions, skin turgor WNL NEUROLOGICAL Cranial Nerves 11-x11 grossly intact, gait WNL, Coordination WNL, Muscle strength normal and Symmetrical, DTR normal and symmetrical, Light touch sensation intact PSYCHIATRIC Mood and affect WNL, Oriented to person, place and time Tobacco/Smoking Status: Tobacco use Status Tobacco use date assessed 12/20/24 12/20/24 10:34 Patient Tobacco Use Status Never used Tobacco 12/20/24 10:34 e-Cigarette/Vaping Use Never Used 12/20/24 10:34 PHQ-9: PHQ-9 Score PHQ-9: Total score 0 12/26/24 09:06 Thrive Assessment: Date of Thrive Assessment Date Thrive assessed 12/20/24 12/20/24 10:34 Results Reviewed Results Reviewed: Labs done and essentially normal/EKG done and essentially normal. Coding Level of Care Code Established Pt Est Pt Level 4 (81520) Patient Type Established Diagnoses Pre-op evaluation Z01.818 Hammer toe of right foot M20.41 Time Spent (min) 35 Comment Time spent on chart review, H&P and orders Assessment & Plan Assessment & Plan (1) Pre-op evaluation: Code(s): Z01.818 - Encounter for other preprocedural examination Category: Medical Plan: Labs and EKG are normal. No prior issues with surgery or anesthesia. Patient is OK for surgery. (2) Hammer toe of right foot: Code(s): M20.41 - Other hammer toe(s) (acquired), right foot Category: Medical Plan Patient to have surgery by Dr. Damon of [facility] on 01/04. Orders: Orders Complete Blood Count no Diff 12/21/24 M20.41 - Other hammer toe(s) (acquired), right foot, Z01.818 - Encounter for other preprocedural examination IRON PROFILE 12/21/24 D50.9 - Iron deficiency anemia, unspecified, Z01.818 - Encounter for other preprocedural examination Ferritin 12/21/24 D50.9 - Iron deficiency anemia, unspecified, Z01.818 - Encounter for other preprocedural examination Prothrombin Time INR 12/21/24 M20.41 - Other hammer toe(s) (acquired), right foot, Z01.818 - Encounter for other preprocedural examination Comprehensive Met. Panel 12/21/24 M20.41 - Other hammer toe(s) (acquired), right foot, Z01.818 - Encounter for other preprocedural examination Partial Thromboplastin Time 12/21/24 Z01.818 - Encounter for other preprocedural examination Patient Instructions: Patient has follow up with PCP in November
[2024-12-20 10:31] VITALS: BP 140/80; PULSE 80; TEMP 36.3; O2SAT 97; BMI 18.8
--- OUTSIDE RECORDS SUMMARY | 2024-12-20 17:44 | XMS_ITS | Patient Health Record ---
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 Name Role Phone Angely Hancock Primary Care Provider Jessica Ramirez Unavailable [phone] Allergies Allergen (clinical drug ingredient) Drug/Non Drug Allergy documented on EMR Reaction Allergy Type Onset Date Status Latex Unknown Drug Allergy Active Reason For Referral No Information Medications Medication SIG (Take, Route, Frequency, Duration) Notes Start Date End Date Status Percocet 5-325 MG 1 tablet as needed O rally every 6 hrs as needed for post op pain; Duration: 3 days 12/18/2024 Active Alendronate Sodium A ctive Ibuprofen Active Vitamin C Unknown Fluticasone Propionate Active Naproxen 500 MG Orally Unkn own Calcium + D Unknown Gabapentin Active traMADol HCl Active Work Note . . . Patient having f oot surgery on 01/04/25 and will be off of work for at least 8-10 weeks 12/18/2024 Active Simvastatin Active Antihistamine Unknow n Allergy Unknown hydrOXYzine HCl 25 MG Orally Not-Taking Multivitamin Active Immunizations Vaccine Route Administration Date Status Comme nts Influenza Unknown 12/11/2023 Administered Social History Tobacco use other than smoking: [...] Problem Acquired hammer toe of right foot (061162708654539 5) Other hammer toe(s) (acquired), right foot (M20.41) Active confirmed Problem Contracture of joint of right foot (234475058808650 ) Contracture of joint of right foot (M24.574) Active confirmed Vital Signs Blood pressure diastolic 77 mm Hg 12/18/2024 Height 5ft2in in 12/18/2024 Blood pressure systolic 130 mm Hg 12/18/2024 Weight 102 lbs 12/18/2024 BMI 18.65 kg/m2 12/18/2024 Encounters Encounter Location Date Provider Diagnosis [address] [address] 10/30/2024 Jessica Damon Pain in right toe(s) M79.674 ; Subluxation of metatarsophalangeal joint of toe, initial encounter S93.149A ; Other hammer toe(s) (acquired), right foot M20.41 ; Metatarsalgia, right foot M77.41 and Contracture of joint of right foot M24.[address] [address] 12/18/2024 Jessica Damon Subluxation of metatarsophalangeal joint of toe, initial encounter S93.149A ; Contracture of joint of right foot M24.574 ; Pain in right toe(s) M79.674 ; Other hammer toe(s) (acquired), right foot M20.41 ; Metatarsalgia, right foot M77.41 and Tailor's bunion of right foot M21.[address] [address] 10/30/2024 Jessica Damon [address] [address] 08/28/2024 Jessica Damon [address] [address] 10/30/2024 Jessica Damon Assessments Encounter Date Diagnosis (ICD Code) Assessment Notes Treatment Notes Treatment Clinical Notes Section Notes 10/30/2024 Pain in right toe(s) (ICD-10 - M79.674) 10/30/2024 Subluxation of metatarsophalangeal joint of toe, initial encounter (ICD-10 - S93.149A) 12/18/2024 Contracture of joint of right foot (ICD-10 - M24.574) 12/18/2024 Subluxation of metatarsophalangeal joint of toe, initial encounter (ICD-10 - S93.149A) 12/18/2024 Pain in right toe(s) (ICD-10 - M79.674) 10/30/2024 Other hammer toe(s) (acquired), right foot (ICD-10 - M20.41) 12/18/2024 Other hammer toe(s) (acquired), right foot (ICD-10 - M20.41) 10/30/2024 Metatarsalgia, right foot (ICD-10 - M77.41) 10/30/2024 Contracture of joint of right foot (ICD-10 - M24.574) 12/18/2024 Metatarsalgia, right foot (ICD-10 - M77.41) 12/18/2024 Tailor's bunion of right foot (ICD-10 - M21.621) Plan Of Treatment Pending Test Test Name Order Date X ray : Foot, right 3V 10/30/2024 Next Appt Details Provider Name:Jessica francis, 01/04/2025 09:30:00 AM, [address] [place] [address], [phone], Provider Name:Jessica francis, 01/09/2025 01:45:00 PM, [address] [place] [address], [phone], Provider Name:Jessica francis, 01/15/2025 10:15:00 AM, [address] [place] [address], [phone], Provider Name:Jessica francis, 01/29/2025 10:15:00 AM, [address] [place] [address], [phone], Insurance Providers Payer Name Payer Address Payer Phone Subscriber Number Group Number Insured Name Patient Relationship to Insured Coverage Start Date Coverage End Date Blue [employer] [address] [address] [place] [address] [id number] Adilia Rivera Self - patient is the insured Medical (General) History Medical History History ICD Code Arthritis Back pain Chicken pox Measles Mumps Surgical History Surgery Date(Month/Year) foot surgery-NEOs Dr Morales 2010 knee surgery, right Diverticulitis 11/23/2023 elbow sx
--- OUTSIDE RECORDS SUMMARY | 2024-12-20 17:44 | XMS_ITS | Patient Health Record ---
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 Traffic Systems Technician Name Role Phone Abigail (RETIRED) Ryan STORY Primary Care Provide r Unavailable Parker Molina Unavailable [phone] Bridger Ro MD Unavailable Unavailable Allergies No Known Allergies Results Component Value Reference Range Notes Pathology (Not yet reviewed by provider) Interpretation: Performing Lab:[facility], [address] [place] [phone] Notes/Report: Reason For Referral No Information Medications Medication [...] Problem Status W/U Status Risk Notes Problem [id number] Encounter for screening for malignant neoplasm of colon (Z12.11) Active confirmed Problem Diverticular disease of colon (959207742) Diverticulosis of large intestine without perforation or abscess without bleeding (K57.30) Active confirmed Problem History of gastrointestinal tract bypass (061683653) Intestinal bypass and anastomosis status (Z98.0) Active confirmed Problem Dysphagia (34531450) Dysphagia (R13.10) Active confirmed Problem Gastroesophageal reflux disease (872427756) Gastroesophageal reflux disease (K21.9) Active confirmed Problem 524227142 Family history o f colon cancer (Z80.0) Active confirmed Problem 69942239 Constipation, unspecified constipation type (K59.00) Active confirmed Vital Signs Blood pressure diastolic 00 mm Hg 01/24/2024 Height 62 in 01/24/2024 Blood pressure systolic 00 mm Hg 01/24/2024 Weight 103 lbs 01/24/2024 BMI 18.84 kg/m2 01/24/2024 Encounters Encounter Location Date Provider Diagnosis [facility] Outpatient [address] [place] [id number] 05/25/2024 Parker Molina Colon cancer screeni ng Z12.11 ; Family history of colon cancer Z80.0 ; Intestinal bypass and anastomosis status Z98.0 ; Diverticulosis of large intestine without perforation or abscess without bleeding K57.30 ; Gastroesophageal reflux disease K21.9 ; Dysphagia R13.10 and Heartburn R12 [facility] [address] [place] [phone] 01/24/2024 Parker Molina Encounter for screen ing for malignant neoplasm of colon Z12.11 ; Dysphagia R13.10 and Family history of colon cancer Z80.0 [facility] [address] [place] [phone] 03/01/2024 Parker Molina [facility] [address] [place] [phone] 05/28/2024 Parker Molina [facility] [address] [place] [phone] 05/28/2024 Parker Molina [facility] [address] [place] [phone] 05/29/2024 Parker Molnia [facility] [address] [place] [phone] 05/31/2024 Parker Molina Assessments Encounter Date Diagnosis [...] Coverage End Date [employer] [place] [address] [address] [place] [address] [id number] EMRE FULTON Self - patient is the insured Medical (General) History Medical History History ICD Code Arthritis--neck and shoulder Hyperlipidemia Denies AR,DM,CVA,Lung disease,renal dise ase Colonoscopy in 03/2005-diverticulosis an d internal hemorrhoids Hospitalized at [facility] in 4 for mild diverticulitis--had diarrhea and bleeding Screening colonoscopy in Oct-no polyps--diverticulosis and internal hemorrhoids Negative screening colonoscopy in 2018 Diverticulitis with surgery as below Surgical History Surgery Date(Month/Year) D & C Knee surgery Foot surgery Shoulder surgery [id number] Sigmoid resection for diverticulitis with temporary colostomy with Dr. Palm; the colostomy was reversed [place] [address] Gan 11/2023 small bowel obstructi on due to adhesions, appendectomy was performed as well--Dr. Purvis
== END 2024-12-20 14:49 | disposition home or self-care (01) ==
LOC: HO.HMCHD 13:50
PROVIDERS: PCP Physician Assistant; Visit Provider Physician Assistant Medical
DX: Z01.818 Encounter for other preprocedural examination (principal); M20.41 Other hammer toe(s) (acquired), right foot

== ENCOUNTER 2024-12-21 06:06 | Outpatient (REF) | payer OTHER, SELFPAY ==
--- OUTSIDE RECORDS SUMMARY | 2024-05-25 05:40 | XMS_ITS ---
Author Organization [facility] Address [address] [place] [address] Care Team Providers Care Manager Strategic Name Role Phone Abigail (RETIRED) Ryan STORY Primary Care Provide r Unavailable Parker Molina Unavailable [phone] Bridger Ro MD Unavailable Unavailable REASON FOR VISIT screening,fam hx colon ca, dysphagia Problems Problem Type SNOMED Code ICD Code Onset Dates Problem Status W/U Status Risk Notes Problem History of gastrointestinal tract bypass (835956098) Intestinal bypass and anastomosis status (Z98.0) Active confirmed Problem Diverticular disease of colon (872529117) Diverticulosis of large intestine without perforation or abscess without bleeding (K57.30) Active confirmed Problem Gastroesophageal reflux disease (082007521) Gastroesophageal reflux disease (K21.9) Active confirmed Encounters Encounter Location Date Provider Diagnosis [facility] [place] [address] [place], [place] [phone] 05/25/2024 Parker Molina Colon cancer screeni ng [...] * EMRE LOYA MDOB:[birth year] (69 yo F)Acc No.[id number]:05/25/2024 EGD and COL/MAC Patient: EMRE SHIPMAN Provider: Fely Molina MD :1955 A ge:68 Y S ex:Female Date:05/25/2024 Address:[address] [place], [place] [phone] Pcp:Ryan Hayes (RETIRED )MD Subjective: * Chief [...] 5380 COLONOSCOPY AND BIOPSY, Modifiers: PT , [address] UPPER GI ENDOSCOPY, BIOPSY * * The named appointment provid er may or may not be the originator of this progress note, and it is not deemed complete until electronically signed by the appointment provider. Sign off status: Pending * Provider: Fely Molina MD Date: 0 05/25/2024 Generated for Nino talamantes/Marcelino/Wilmaitting on: 0 12/21/2024 06:09 AM EDT
--- OUTSIDE RECORDS SUMMARY | 2024-12-18 11:45 | XMS_ITS ---
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 . . Patient having f oot surgery on 01/04/25 and will be off of work for at least 8-10 weeks 12/18/2024 Active Antihistamine Unknow n Allergy Unknown hydrOXYzine HCl 25 MG Orally Not-Taking Alendronate Sodium A ctive Gabapentin Active traMADol HCl Active Simvastatin Active Multivitamin Active Percocet 5-325 MG 1 tablet as needed O rally every 6 hrs as needed for post op pain; Duration: 3 days 12/18/2024 Active Ibuprofen Active Vitamin C Unknown Fluticasone Propionate Active Naproxen 500 MG Orally Unkn own Social History Tobacco use other than smoking: [...] Never (0 point) Points 0 Interpretation Negative Vital Signs Height 5ft2in in 12/18/2024 Weight 102 lbs 12/18/2024 BMI 18.65 kg/m2 12/18/2024 Blood pressure systolic 130 mm Hg 12/19/19 25 Blood pressure diastolic 77 mm Hg 025 Encounters Encounter Location Date Provider Diagnosis [facility] [address] [place] [address] 12/18/2024 Jessica Damon Subluxation of metatarsophalangeal joint of toe, initial encounter S93.149A ; Contracture of joint of right foot M24.574 ; Pain in right toe(s) M79.674 ; Other hammer toe(s) (acquired), right foot M20.41 ; Metatarsalgia, right foot M77.41 and Tailor's bunion of right foot M21.621 Assessments Encounter Date Diagnosis (ICD Code) Assessment Notes Treatment Notes Treatment Clinical Notes Section Notes 12/18/2024 Subluxation of metatarsophalangeal joint of toe, initial encounter (ICD-10 - S93.149A) 12/18/2024 Contracture of joint of right foot (ICD-10 - M24.574) 12/18/2024 Pain in right toe(s) (ICD-10 - M79.674) 12/18/2024 Other hammer toe(s) (acquired), right foot (ICD-10 - M20.41) 12/18/2024 Metatarsalgia, right foot (ICD-10 - M77.41) 12/18/2024 Tailor's bunion of right foot (ICD-10 - M21.621) Plan Of Treatment Medication Medication Name Sig Start Date Stop Date Notes Work Note . . . Patient having f oot surgery on 01/04/25 and will be off of work for at least 8-10 weeks 12/18/2024 Percocet 5-325 MG 1 tablet as needed O rally every 6 hrs as needed for post op pain; Duration: 3 days 12/18/2024 Next Appt Details Follow Up: after surgery, Re ason: Provider Name:Jessica francis, 01/04/2025 09:30:00 AM, [address] [place], [address], Provider Name:Jessica francis, 01/09/2025 01:45:00 PM, [address] [place] [address], [phone], Provider Name:Jessica francis, 01/15/2025 10:15:00 AM, [address] [place] [address], [phone], Provider Name:Jessica francis, 01/29/2025 10:15:00 AM, [address] [place] [address], [phone], Progress Notes * Adilia LIANG MDOB:[birth year] (69 yo F)Acc No.[id number]:12/18/2024 Progress Note Patient: Ge IBARRA Adilia Kim Provider: Tosin Damon DPM :1955 A ge:69 Y S ex:Female Date:12/18/2024 Address:[address] [place], [place] [id number] Pcp:Angely Hancock Subjective: * Chief Complaints: * P ainful Toe(s) * HPI: T oe pain: Nature: t enderness, shoe irritation. Location: R ight foot, 2nd toe, 3rd toe, 5th toe, bottom outside forefoot right . Duration: , several years. Onset/Cause: g radual, shoe gear. Course: w orse, progressive. Aggravated by: a ny pressure, shoes, standing/walking, job/occupation. Treatments: r est/alter normal daily activity, change in shoes, pt has had previous right foot surgery, most recently with Dr Morales at [facility] in 2016. Misc: P resents with . * ROS: G eneral/Constitutional: Nausea d enies. V omiting d enies. H lizz Thirst d enies. L oss appetite d enies. C hills d enies. F atigue d enies.?Fever d enies. N ight Sweats d enies. U nexplained weight loss d enies. U nexplained weight gain d enies. H EENTM: Dentures d enies. D izziness d enies. G lasses/contacts a dmits. R etinopathy d enies. B lurred/double vision d enies. T MJ?denies. D ischarge/drainage d enies. I mplants d enies. S ore throat d enies. D ental implants d enies. H shellie of hearing a dmits. D ifficulty chewing/swallowing/speaking d enies. N ose bleeds d enies. S ore mouth d enies. ? R espiratory: On Oxygen d enies. P neumonia/pleurisy d enies.?Bronchitis d enies. E mphysema d enies. C oughing d enies. C ough blood?denies. S hortness of breath d enies. W heezing d enies. C ardiovascular: Pacemaker d enies. M QUILL SKINNER d enies. W PW d enies. C HF d enies. H eart attack d enies. S eptal defect d enies. R apid beat d enies. C hest pain d enies. A trial Fib. d enies. M urmur/Palpitations d enies. G astrointestinal: Hemorrhoids a dmits. S tomach/Abdominal pain d enies. D ark blood stool d enies. I rritable bowel d enies. C onstipation d enies. D iarrhea d enies. H ematology: Swelling d enies. C lots d enies. V aricose Veins d enies. B ruising d enies. B leeding problem d enies. G enitourinary: Blood urine d enies. F requent/Painfu/urination/bladder control d enies. K idney stones d enies. I nfection (UTI) d enies. N ephropathy d enies. s ex trans dis (STD) d enies. P rostate d enies. M usculoskeletal: Hammertoes a dmits. B unions d enies. B ack Pain a dmits. M uscle Cramps/ Resting a dmits. M uscle cramps / walking d enies.?Generalized aches and pains d enies. W eakness d enies. I nteg.: [place] d enies. S cars d enies. C orns/calluses?denies. I ngrown nails d enies. P ainful nails d enies. O pen Sores d enies. R ashes d enies. N eurologic: Difficulty sleeping d enies. B rain disorder d enies. N umbness d enies. B alance trouble d enies. C onfusion d enies. F ainting/blackouts d enies. T ingling d enies. T remors d enies. * Medical History: * Surgical History: f oot surgery-[facility] Dr Morales 2010knee surgery, right Diverticulitis 11/23/2023elbow sx * Hospitalization/Major Diagno stic Procedure: D enies Past Hospitalization * Family History: M other: , diagnosed with Other malignant neoplasm of unspecified site, Diabetic - NIDDM, Unspecified essential hypertension, Unspecified heart disease, Family history of arthritis. F ather: . S iblings: diagnosed with Other malignant neoplasm of unspecified site, Diabetic - NIDDM, Unspecified essential hypertension, Family history of arthritis. * Social History: T obacco Use: T obacco Use/Smoking A re you a:: nonsmoker , Additional Findings: Tobacco Non-User: Current non- smoker. Tobacco use other than smoking A re you an other tobacco user? N o M iscellaneous: C affeine: yes, frequency:, 1-2 cups per day. Children: yes, two. Exercise: no. Marital status: . 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 D rug/Alcohol: A STACEY-C (Standard) D id you have a drink containing alcohol in the past year? Y es H ow often did you have a drink containing alcohol in the past year? N ever (0 point) H ow many drinks did you have on a typical day when you were drinking in the past year? 1 or 2 drinks (0 point) H ow often did you have six or more drinks on one occasion in the past year? N ever (0 point) P oints 0 I nterpretation N egative * Medications: T akingFluticasone Propionate Ibuprofen Alendronate Sodium traMADol HCl Gabapentin Simvastatin Multivitamin Taking Fluticasone Propionate Taking Ibuprofen Taking Alendronate Sodium Taking traMADol HCl Taking Gabapentin Taking Simvastatin Taking Multivitamin Not-Taking/PRNhydrOXYzine HCl 25 MG Tablet Orally Not-Taking/PRN hydrOXYzine HCl 25 MG Tablet Orally UnknownAllergy Antihistamine Calcium + D Naproxen 500 MG Tablet Orally Vitamin C Medication List reviewed and reconciled with the patientUnknown Allergy Unknown Antihistamine Unknown Calcium + D Unknown Naproxen 500 MG Tablet Orally Unknown Vitamin C Medication List reviewed and reconciled with the patient * Allergies: L atexyes[Allergies Verified] Objective: * Vitals: H t: 5ft2in, Wt:102, BMI:18.65, Shoe size: 6.5 wide, BP:130/77mm Hg, Ht-cm: 157.48 cm, Wt-k.27 kg. * Examination: G eneral Examination: GENERAL APPEARANCE: R vidals a pleasant, alert, well-nourished, well-developed, well hydrated individual, who demonstrates proper attention to hygiene/body habitus, and is in no acute distress, Pt serves as own h istorian for office visit today. ORIENTED: p erson, place, and time. N eurological: SENSORY: N eurological exam reveals intact sensorium, pain sensation normal, vibration sensation intact, pinprick sensation is normal in the lower extremities, Pt denies, anesthesia, burning, paresthesia, tingling, B/L. DEEP TENDON REFLEXES: A chilles, 2/4, B/L. V ascular: DP PULSES (B): 3 /4, B/L. PT PULSES (B): 3 /4, B/L. CAPILLARY FILL TIME: i mmediate, all digits, B/L. TROPHIC CONDITION-TEXTURE/ELASTICITY/TURGOR/HAIR GROWTH (B):?normal, B/L. TEMPERTURE GRADIENT (C): w arm to cool, proximal to distal, B/L. PIGMENTATION: n ormal, B/L. EDEMA (C): a bsent, B/L. D ermatologic: SKIN FINDINGS: S kin exam reveals normal texture, elasticity, and turgor. There are no masses. The interspaces are clear. O rthopedic: MUSCLE STRENGTH: 5 /5 all groups in a symmetrical fashion , B/L. DIGITAL DEFORMITIES: D igital contracture, incompl-reducible with WB or to push-up test, PIPJ, T9 with medial OVER lapping - T8, MPJ Contracture/Dorsal subluxation, T6, T7, T9 w ith evidence of shoe producing skin irritation, incompl-reducible with WB or to push-up test. MPJ PATHOLOGY: A trophied anterior fat pad, Plantarflexed MT/MPJ, 5th, RIGHT, Pain on Metatarsal Palpation distal 1/3 shaft, 2nd, 3rd, RIGHT. FOOTWEAR EVALUATION: s hoe gear properties exacerbate patients complaints in relation to their foot/toe deformity. X -Rays - IMAGING REPORT: Clinical Indication(s): Evaluate Biomechanical Deformity.? Views: 3 views of Foot, AP, LO, LAT, RIGHTTaken by trainedPodiatric Relationship Mgr (SF ), Are reviewed with the Pt. Findings: normal bone and soft tissue density consistent for patients age and sex, hardware present dorsal. midfoot and hallux, stable and intact.,elongated plantarflexed [ 2, 3 ] metatarsal with hypertrophied MTH, hypertrophy 5th MTH. Digits: show asymmetrical joint space narrowing at the PIPJ consistent with clinical finding of hammertoe deformity,5th digit,show dorsal subluxation of MTPJ,2nd digit,3rd digit,5th digit. Fracture: Negative fractures identified. Assessment: * Assessment: 1. C ontracture of joint of right foot - M24.574 (Primary) S pecify :Decision for surgery (4) 2 . S ubluxation of metatarsophalangeal joint of toe, initial encounter - S93.149A S pecify :Chronic problem, Worse (4) 3 . P ain in right toe(s) - M79.674 4 . O ther hammer toe(s) (acquired), right foot - M20.41 5 . M etatarsalgia, right foot - M77.41 ? 6 . T ailor's bunion of right foot - M21.621 Plan: * Treatment: * Procedure Codes: * Preventive Medicine: Counseling: D iscussion: - 14: Office or other outpatient visit for the evaluation and management of an established patient, which required a medically appropriate history and/or examination and MODERATE level of DECISION MAKING for: 1 OR MORE CHRONIC PROBLEM(S) THATS WORSENING, 2 STABLE CHRONIC PROBLEMS, A NEWLY DIAGNOSED PROBLEM WITH UNCERTAIN PROGNOSIS, AN ACUTE COMPLICATED INJURY WITH MULTIPLE TREATMENT OPTIONS, OR AN ACUTE PROBLEM WITH ACCOMPANYING SYSTEMIC SYMPTOMS, THAT POSE(S) A MODERATE RISK OF MORBIDITY. THIS CONDITION MAY ALSO INCLUDE RX DRUG MANAGEMENT, OR A DECISON FOR MINOR SURGERY. The visit on the day of the encounter encompassed interpreting the data and educating the patient as to the nature of their condition, treatment options available according to their individual PMH, meds, allergies, and overall health/living conditions, as well as any potential risks or complications that may occur from a failure to adhere to, and participate in, the recommended course of therapy. The discussion included a complete verbal, and/or written explanation of the examination results, any x-rays taken, the proposed diagnosis, and outline of the treatment plan. A schedule for future care needs was also explained. The patient verbalized an understanding of the instructions at this time and agreed to be an active participant in their treatment. If the patient should think of any questions or concerns after the visit, I have encouraged the patient to call the office. D igital Surgery: D igital surgery was discussed with the patient, including the risks of surgery(below), vs not having surgery (persistent pain, deformity, risk for skin ulceration/infection, loss of toe), the potential surg complications, the anesthesia, and the usual post-op course. No guarentees were given. We discussed the potential procedure complications including, but not limited to: pain, swelling, bleeding, scarring, numbness, infection, delayed/non healing, floppy/unstable/shorthened toe, recurrence, failure of the procedure, overcorrection leading to plantarflexed/downward positioned toe, recurrence, need for further surgery, as well as the possibility for loss of the toe itself. We discussed the use of local anesthesia, and the usual post-op course for healing. No guarentees were given. The patient verbally indicated a full understanding of the above conversation, and any other of their questions were answered to their satisfaction. Alternatives to the procedure were also discussed, including conservative care. I also discussed the usual post-operative course and gave no guarantees regarding outcome, , I also discussed the use of a metatarsal osteotomy to decrease MT length and improve function at the MPJ 2nd 3rd is possible and , I also discussed relocating the subluxed/dislocated MPJ with release/relocation of soft tissue and possible internal fixation to maintain correction.. P odiatric Surgery Counseling: S urgical procedures to treat the patients foot problem were discussed. We reviewed the risks of the procedure (described below) vs not having the procedure (persistent pain, deformity, risk for skin ulceration/infection, loss of toe). We discussed the potential procedure complications including, but not limited to: pain, swelling, bleeding, scarring, numbness, infection, delayed/non healing, floppy/unstable/shorthened toe, recurrence, failure of the procedure, overcorrection leading to plantarflexed/downward positioned toe, recurrence, need for further surgery, as well as the possibility for loss of the toe itself. We discussed the use of IV/Local anesthesia, and the usual post-op course for healing. No guarentees were given. The patient verbally indicated a full understanding of the above conversation, and any other of their questions were answered to their satisfaction, We decided on performing a(n) tenotomy/capsulotomy 2, 3, 5, possible Damion osteotomy 2, 3 and total resection 5th met head Right foot, procedure based on the patients complaints, medical and social history, physical exam, x-ray analysis, patient living/driving conditions, ability to ambulate with a cast boot/cane/crutches/walker for the required post-operative time period, and patient individual preferences. The patient would like to procede with the proposed surgical treatment, The patient would like to procede with surgical treatment , The patient will obtain preoperative labs as well as medical clearance for surgery and anesthesia, The patient was made aware to stop any/all blood thinning meds (including fish oil) at least a week prior to surg, The Pt was made aware of the fact that driving may not be able to be performed during a portion of the post-op period , The patient was also made aware not to utilize any smoking tobacco products at least a month prior to surgery and for three months post procedure in order to facilitate bone and soft tissue healing, Mass Pat checked prior to RX for Narcotics given. Pt can half fill the RX and discussed pt should use lowest dosage of narcotics for shortest duration of time..? X -rays: D iscussed and reviewed the X-rays with the patient. We discussed how the findings relate to the patients symptoms/complaints. Answered any and all questions.. Screening/Special Tests: F all Risk Screening: N o falls in the past year F ALLS: Screening for Future Fall Risk Have you had any falls with injury in the past year? N o * Follow Up: a fter surgery * Images: * Sign off status: Completed true * Provider: Tosin Damon, DPM Date: 0 12/18/2024 Generated for Nino talamantes/Marcelino/Ingrid on: 0 12/21/2024 06:09 AM EDT History and Physical Notes * HPI (History of Present Illness) Category Sub-Category Detail Notes Category Not es Toe pain Nature: tenderness, shoe irritation Location: Right foot, 2nd toe, 3rd toe, 5th toe, bottom outside forefoot right Duration: , several years Onset/Cause: gradual, shoe gear Course: worse, progressive Aggravated by: any pressure, shoes, standing/walking, job/occupation Treatments: rest/alter normal da kathy activity, change in shoes, pt has had previous right foot surgery, most recently with Dr Morales at [facility] in 2016 Misc: Presents with doni nick Examination Category Sub-Category Detail Notes Category Not es Neurological SENSORY: Neurological exa m reveals intact sensorium, pain sensation normal, vibration sensation intact, pinprick sensation is normal in the lower extremities, Pt denies, anesthesia, burning, paresthesia, tingling, B/L DEEP TENDON REFLEXES: Achilles, 2/4, B/L Dermatologic SKIN FINDINGS: Skin exam reveal s normal texture, elasticity, and turgor. There are no masses. The interspaces are clear Orthopedic FOOTWEAR EVALUATION: shoe gear p roperties exacerbate patients complaints in relation to their foot/toe deformity DIGITAL DEFORMITIES: Digital contracture , incompl-reducible with WB or to push- up test, PIPJ, T9 with medial OVER lapping - T8, MPJ Contracture/Dorsal subluxation, T6, T7, T9 with evidence of shoe producing skin irritation, incompl-reducible with WB or to push-up test MPJ PATHOLOGY: Atrophied anterior f at pad, Plantarflexed MT/MPJ, 5th, RIGHT, Pain on Metatarsal Palpation distal 1/3 shaft, 2nd, 3rd, RIGHT MUSCLE STRENGTH: 5/5 all groups in a symmetrical fashion , B/L General Examination GENERAL APPEARANCE: Reveals a pleasant, alert, well- nourished, well-developed, well hydrated individual, who demonstrates proper attention to hygiene/body habitus, and is in no acute distress, Pt serves as own historian for office visit today ORIENTED: person, place, and t aristeo Vascular DP PULSES (B): 3/4, B/L PT PULSES (B): 3/4, B/L CAPILLARY FILL TIME: immediate, all digi ts, B/L TEMPERTURE GRADIENT (C): warm to cool, p roximal to distal, B/L TROPHIC CONDITION-TEXTURE/ELASTICITY/TURGOR/HAIR GROWTH (B): normal, B/L EDEMA (C): absent, B/L PIGMENTATION: normal, B/L X-Rays - IMAGING REPORT Findings: normal b one and soft tissue density consistent for patients age and sex, hardware present dorsal. midfoot and hallux, stable and intact.,elongated plantarflexed [ 2, 3 ] metatarsal with hypertrophied MTH, hypertrophy 5th MTH Fracture: Negative fractures i dentified Digits: show asymmetrical chris int space narrowing at the PIPJ consistent with clinical finding of hammertoe deformity,5th digit,show dorsal subluxation of MTPJ,2nd digit,3rd digit,5th digit Views: 3 views of Foot, AP, LO, LAT, RIGHT Taken by trained Podiatric Relationship Mgr ( SF ) , Are reviewed with the Pt Clinical Indication(s): Evaluate Biomech anical Deformity
--- OUTSIDE RECORDS SUMMARY | 2024-12-21 06:09 | XMS_ITS | Patient Health Record ---
Author Organization [facility] [place] Address [address] [place] [address] Care Team Providers Care Multifocal Button Inspector Name Role Phone Angely Hancock Primary Care Provider Jessica Ramirez Unavailable [phone] Allergies Allergen (clinical drug ingredient) Drug/Non Drug [...] Problem Acquired hammer toe of right foot (917939671969726 5) Other hammer toe(s) (acquired), right foot (M20.41) Active confirmed Problem Contracture of joint of right foot (743233296649565 ) Contracture of joint of right foot (M24.574) Active confirmed Vital Signs Blood pressure diastolic 77 mm Hg 12/18/2024 Height 5ft2in in 12/18/2024 Blood pressure systolic 130 mm Hg 12/18/2024 Weight 102 lbs 12/18/2024 BMI 18.65 kg/m2 12/18/2024 Encounters Encounter Location Date Provider Diagnosis [address] [address] 10/30/2024 Jessica Damon Pain in right toe(s) M79.674 ; Subluxation of metatarsophalangeal joint of toe, initial encounter S93.149A ; Other hammer toe(s) (acquired), right foot M20.41 ; Metatarsalgia, right foot M77.41 and Contracture of joint of right foot M24.[address] [address] 12/18/2024 Jessica Damon Subluxation of metatarsophalangeal joint of toe, initial encounter S93.149A ; Contracture of joint of right foot M24.574 ; Pain in right toe(s) M79.674 ; Other hammer toe(s) (acquired), right foot M20.41 ; Metatarsalgia, right foot M77.41 and Tailor's bunion of right foot M21.[address] [address] 10/30/2024 Jessica Damon [address] [phone] 08/28/2024 Jessica Damon [address] [address] 10/30/2024 Jessica Damon Assessments Encounter Date Diagnosis [...] Details Provider Name:Jessica francis, 01/04/2025 09:30:00 AM, [address] [place] [address], [phone], Provider Name:Jessica francis, 01/09/2025 01:45:00 PM, [address] [place] [address], [phone], Provider Name:Jessica francis, 01/15/2025 10:15:00 AM, [address] [place] [address], [phone], Provider Name:Jessica francis, 01/29/2025 10:15:00 AM, [address] [place] [address], [phone], Insurance Providers Payer Name Payer Address Payer Phone Subscriber Number Group Number Insured Name Patient Relationship to Insured Coverage Start Date Coverage End Date Blue [place] [address] [address] [place] [address] [id number] Adilia Rivera Self - patient is the insured Medical (General) History Medical History History ICD Code Arthritis Back pain Chicken pox Measles Mumps Surgical History Surgery Date(Month/Year) foot surgery-NEOs Dr Morales 2010 knee surgery, right Diverticulitis 11/23/2023 elbow sx
[2024-12-21 07:37] LABS: Hematocrit 40.3 % (37.0-47.0); Hemoglobin 13.4 g/dl (12.0-16.0); Mean Corpuscular HGB Conc 33.3 g/dl (31.0-35.0); Mean Corpuscular Hemoglobin 30.9 pg (27.0-33.0); Mean Corpuscular Volume 93.1 fL (80.0-98.0); NRBC Abs Auto 0.000 X10*3/uL (0.0-0.012); NRBC Pct Auto 0.0 /100WBC (0.0-0.2); Platelet Count 240 X10*3/uL (160-400); Red Blood Count 4.33 X10*6/uL (4.20-5.50); White Blood Count 6.6 X10*3/uL (4.8-10.8)
[2024-12-21 07:42] LABS: INTERNATIONAL NORM RATIO 0.9 (0.9-1.1); Prothrombin Time 10.5 SEC (10.9-12.4)
[2024-12-21 07:45] LABS: Partial Thromboplastin Time 27.4 SEC (26.7-34.1)
[2024-12-21 08:11] LABS: Alanine Aminotransferase 25 U/L (0-31); Albumin Level 4.7 g/dL (3.5-5.0); Alkaline Phosphatase 57 U/L (39-117); Anion Gap 13 (12-20); Aspartate Amino Transferase 33 U/L (5-31); Blood Urea Nitrogen 13 mg/dL (9-16); Calcium 9.2 mg/dL (8.4-10.2); Carbon Dioxide 29 mmol/L (22-29); Chloride 103 mmol/L (96-108); Estimated Glomerular Filt Rate > 60; Iron 112 mcg/dL (30-160); Percent Iron Saturation 39 % (15-50); Potassium 3.8 mmol/L (3.3-5.1); Sodium 141 mmol/L (135-145); Total Iron Binding Capacity 290 mcg/dL (228-428); Total Protein 7.2 g/dL (6.5-8.0); Unsaturated Iron Binding 178 ug/dL
[2024-12-21 08:29] LABS: Ferritin 73 ng/mL (10-250)
== END 2024-12-21 06:07 | disposition home or self-care (01) ==
LOC: HO.LAB 06:06
PROVIDERS: PCP Physician Assistant; Visit Provider Physician Assistant Medical
DX: Z01.818 Encounter for other preprocedural examination (principal); Z51.81 Encounter for therapeutic drug level monitoring; M20.41 Other hammer toe(s) (acquired), right foot; D50.9 Iron deficiency anemia, unspecified
CPT/HCPCS: 36415; 80053; 82728; 83540; 85027; 85610; 85730

== ENCOUNTER 2025-01-04 06:55 | Day surgery (SDC) | payer OTHER, SELFPAY ==
--- OUTSIDE RECORDS SUMMARY | 2024-05-25 05:40 | XMS_ITS ---
Author Organization [facility] Address [address] [place] [address] Care Team Providers Care Stem Teacher Name Role Phone Abigail (RETIRED) Ryan STORY Primary Care Provide r Unavailable Parker Molina Unavailable [phone] Bridger Ro MD Unavailable Unavailable REASON FOR VISIT screening,fam hx colon ca, dysphagia Problems Problem Type SNOMED Code ICD Code Onset Dates Problem Status W/U Status Risk Notes Problem History of gastrointestinal tract bypass (535543898) Intestinal bypass and anastomosis status (Z98.0) Active confirmed Problem Diverticular disease of colon (512239043) Diverticulosis of large intestine without perforation or abscess without bleeding (K57.30) Active confirmed Problem Gastroesophageal reflux disease (659482046) Gastroesophageal reflux disease (K21.9) Active confirmed Encounters Encounter Location Date Provider Diagnosis [facility] [place] Out[place] [address] [place], [place] [phone] 05/25/2024 Parker Molina Colon cancer screeni ng [...] * EMRE LOYA MDOB:[birth year] (69 yo F)Acc No.[id number]:05/25/2024 EGD and COL/MAC Patient: EMRE SHIPMAN Provider: Fely Molina MD :1955 A ge:68 Y S ex:Female Date:05/25/2024 Address:[address] [place], [place] [phone] Pcp:Ryan Hayes (RETIRED )MD Subjective: * Chief [...] 5380 COLONOSCOPY AND BIOPSY, Modifiers: [place] , [address] UPPER GI ENDOSCOPY, BIOPSY * * The named appointment provid er may or may not be the originator of this progress note, and it is not deemed complete until electronically signed by the appointment provider. Sign off status: Pending * Provider: Fely Molina MD Date: 0 05/25/2024 Generated for Nino talamantes/Marcelino/Wilmaitting on: 0 12/24/2024 08:48 PM EDT
--- OUTSIDE RECORDS SUMMARY | 2024-12-24 20:48 | XMS_ITS | Patient Health Record ---
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) Active confirmed Vital Signs Blood pressure diastolic 77 mm Hg 12/18/2024 Height 5ft2in in 12/18/2024 Blood pressure systolic 130 mm Hg 12/18/2024 Weight 102 lbs 12/18/2024 BMI 18.65 kg/m2 12/18/2024 Encounters Encounter Location Date Provider Diagnosis [address] [address] 10/30/2024 Jessica Damon Pain in right toe(s) M79.674 ; Subluxation of metatarsophalangeal joint of toe, initial encounter S93.149A ; Other hammer toe(s) (acquired), right foot M20.41 ; Metatarsalgia, right foot M77.41 and Contracture of joint of right foot M24.[address] [address] 12/18/2024 Jessica Damon Subluxation of metatarsophalangeal joint of toe, initial encounter S93.149A ; Contracture of joint of right foot M24.574 ; Pain in right toe(s) M79.674 ; Other hammer toe(s) (acquired), right foot M20.41 ; Metatarsalgia, right foot M77.41 and Tailor's bunion of right foot M21.[address] [address] 10/30/2024 Jessica Damon [address] [address] 08/28/2024 Jessica Damon [address] [address] 10/30/2024 Jessica Damon Assessments Encounter Date Diagnosis [...] Details Provider Name:Jessica francis, 01/04/2025 09:30:00 AM, [address] [place] [address], [phone], Provider Name:Jessica francis, 01/09/2025 01:45:00 PM, [address] [place] [address], [phone], Provider Name:Jessica francis, 01/15/2025 10:15:00 AM, [address] [place] [address], [phone], Provider Name:Jessica francis, 01/29/2025 10:15:00 AM, [address] [place] [address], [phone], Insurance Providers Payer Name Payer Address Payer Phone Subscriber Number Group Number Insured Name Patient Relationship to Insured Coverage Start Date Coverage End Date [employer] [address] [address] [place] [address] [phone] [id number] Adilia Rivera Self - patient is the insured Medical (General) History Medical History History ICD Code Arthritis Back pain Chicken pox Measles Mumps Surgical History Surgery Date(Month/Year) foot surgery-NEOs Dr Morales 2010 knee surgery, right Diverticulitis 11/23/2023 elbow sx
--- OUTSIDE RECORDS SUMMARY | 2024-12-24 20:48 | XMS_ITS | Patient Health Record ---
Author Organization [facility] Address [address] [place] [address] Care Team Providers Care Frame Opener Name Role Phone Abigail (RETIRED) Ryan STORY Primary Care Provide r Unavailable Parker Molina Unavailable [phone] Bridger Ro MD Unavailable Unavailable Allergies No Known Allergies Results Component Value Reference Range Notes Pathology (Not yet reviewed by provider) Interpretation: Performing Lab:[facility], [address] [place] [phone] Notes/Report: Reason For Referral No Information Medications [...] Problem Status W/U Status Risk Notes Problem [id number] Encounter for screening for malignant neoplasm of colon (Z12.11) Active confirmed Problem Diverticular disease of colon (342941142) Diverticulosis of large intestine without perforation or abscess without bleeding (K57.30) Active confirmed Problem History of gastrointestinal tract bypass (860978500) Intestinal bypass and anastomosis status (Z98.0) Active confirmed Problem Dysphagia (33206986) Dysphagia (R13.10) Active confirmed Problem Gastroesophageal reflux disease (494417418) Gastroesophageal reflux disease (K21.9) Active confirmed Problem 981748850 Family history o f colon cancer (Z80.0) Active confirmed Problem 13292185 Constipation, unspecified constipation type (K59.00) Active confirmed Vital Signs Blood pressure diastolic 00 mm Hg 01/24/2024 Height 62 in 01/24/2024 Blood pressure systolic 00 mm Hg 01/24/2024 Weight 103 lbs 01/24/2024 BMI 18.84 kg/m2 01/24/2024 Encounters Encounter Location Date Provider Diagnosis [facility] [address] [place] [phone] 05/25/2024 Parker Molina Colon cancer screeni ng Z12.11 ; Family history of colon cancer Z80.0 ; Intestinal bypass and anastomosis status Z98.0 ; Diverticulosis of large intestine without perforation or abscess without bleeding K57.30 ; Gastroesophageal reflux disease K21.9 ; Dysphagia R13.10 and Heartburn R12 [facility] [address] [place] [phone] 01/24/2024 Parker Molina Encounter for screen ing for malignant neoplasm of colon Z12.11 ; Dysphagia R13.10 and Family history of colon cancer Z80.0 [facility] [address] [place] [phone] 03/01/2024 Parker Molina [facility] [address] [place] [phone] 05/28/2024 Parker Molina [facility] [address] [place] [phone] 05/28/2024 Parker Molina [facility] [address] [place] [phone] 05/29/2024 Parker Molina [facility] [address] [place] [phone] 05/31/2024 Parker Molina Assessments Encounter Date Diagnosis [...] Coverage End Date [employer] [place] [address] [address] [place] [address] [id number] EMRE FULTON Self - patient is the insured Medical (General) History Medical History History ICD Code Arthritis--neck and shoulder Hyperlipidemia Denies ID,DM,CVA,Lung disease,renal dise ase Colonoscopy in 03/2005-diverticulosis an d internal hemorrhoids [place] [facility] [place] for mild diverticulitis--had diarrhea and bleeding Screening colonoscopy in Oct-no polyps--diverticulosis and internal hemorrhoids Negative screening colonoscopy in 2018 Diverticulitis with surgery as below Surgical History Surgery Date(Month/Year) D & C Knee surgery Foot surgery Shoulder surgery 1985-1511 Sigmoid resection for diverticulitis with temporary colostomy with Dr. Palm; the colostomy was reversed [place] [address] Gan 11/2023 small bowel obstructi on due to adhesions, appendectomy was performed as well--Dr. Purvis
--- NOTE | 2025-01-02 09:58 | HO.ANESPROP2 ---
Documented by User: Zoey Ngo NP 01/02/25 10:03 HPI - Anesthesia Eval Consult details Narrative: 69 yr old female for ?RIGHT 2nd,3rd, and 5th Toes Extensor Tenotomy,Capsule Release, possible pinning, RIGHT 5th Hammertoe Repair Optimized by PCP at 12/20/24 clearance visit; pt reported sister had seizure with anesthesia previously; however pt herself has done well with multiple surgeries, no anesthesia or bleeding complications Factor V Leiden PMF Active Problems Active Problems: All Active Problems Hammer toe of right foot (Acute) Pre-op evaluation (Acute) Pain, chest wall (Acute) Radicular pain of left lower extremity (Acute) Sacroiliitis (Acute) Microcytic anemia (Acute) Osteoporosis (Acute) Screening for osteoporosis (Acute) Elevated cholesterol (Acute) Bilateral sacroiliitis (Acute) Abdominal pain, LUQ (Acute) Postop check (Acute) Spondylosis of cervical region without myelopathy or radiculopathy (Acute) Degeneration, intervertebral disc, cervical (Acute) Monoallelic mutation of MUTYH gene (Acute) Arthritis of shoulder region, right (Acute) Sternoclavicular joint pain (Acute) Well woman exam (Acute) Trigger finger, right ring finger (Acute) Trigger finger, right middle finger (Acute) Cervicalgia (Acute) Right shoulder pain (Acute) Intervertebral disc protrusion (Acute) Protrusion of cervical intervertebral disc (Acute) Bowel perforation (Acute) Perforation of sigmoid colon due to diverticulitis (Acute) History of open sigmoidectomy (Acute) Myofascial pain syndrome (Acute) Acromioclavicular joint pain (Acute) Past Medical History Medical History Claustrophobia Anxiety Hammer toe of right foot Pre-op evaluation Sacroiliitis Microcytic anemia Osteoporosis Small bowel obstruction COVID-19 vaccine series completed Family history of complication of anesthesia Arthritis Perforation of sigmoid colon due to diverticulitis Factor 5 Leiden mutation, heterozygous Elevated cholesterol GERD (gastroesophageal reflux disease) Hearing impairment Myofascial pain syndrome Acromioclavicular joint pain Family History Family History Sister Breast cancer Mother Breast cancer Family/Other Uterine cancer Family/Other Throat cancer Bone cancer Sister Emphysema lung Sister Breast cancer Father Emphysema lung Brother Alzheimer's dementia Sister Type 2 diabetes mellitus Family history of problems with anesthesia: No Surgical History Surgical History History of esophagogastroduodenoscopy (EGD) (05/25/24) History of exploratory laparotomy (11/23/23) S/P colostomy takedown (05/18/21) History of open sigmoidectomy History of hand surgery Hx of foot surgery Hx of foot surgery H/O colonoscopy (05/25/24) Hx of dilation and curettage Hx of elbow surgery H/O right knee surgery History of Problems with Anesthesia: No Social History Social History Household Members: Spouse Housing: House Are you a primary health and social care teacher to a significant other at home: No Do you presently have visiting nurse or other home services: No Alcohol intake: current Alcohol intake frequency: holidays/special occasions only Patient Tobacco Use Status: Never used Tobacco e-Cigarette/Vaping Use: Never Used Use of substances other than those prescribed or required for medical reasons: No Have you been hit, kicked, punched, or otherwise hurt by someone within the past year? If so, by whom?: No Are you DNR?: No Advance Directives: Yes Advance Directives Information Provided: No Advance Directives on File: Yes Advance Directives Date on File: 06/01/13 Poor oral hygiene: No service: No Current occupational status: employed Sexual orientation: Straight/Heterosexual Gender identity: Female Cognitive needs: No Hearing needs: Yes (bilateral hearing aids) Vision needs: Yes (rx glasses) Meds Allergies Allergy/AdvReac Type Severity Reaction Status Date / Time Latex, Natural Rubber Allergy Intermediate Rash Verified 01/04/25 07:11 amoxicillin Allergy Mild Rash Verified 01/04/25 07:11 nitrofurantoin Allergy Mild RASH Verified 01/04/25 07:11 (Nitrofurantoin) Sulfa (Sulfonamide Allergy Mild RASH Verified 01/04/25 07:11 Antibiotics) (Sulfa (Sulfonamides)) trimethoprim (Trimethoprim) Allergy Mild RASH Verified 01/04/25 07:11 Home Medications ?Medication ?Instructions ?Recorded ?Confirmed ?Last Taken ?Type fluticasone propionate 50 1 spray intranasal DAILY 0101/02/25 11/22/23 History mcg/actuation nasal spray,suspension multivitamin 1 tab PO DAILY 04/14/21 01/02/25 11/22/23 History omeprazole 20 mg capsule,delayed 20 mg PO DAILY 08/28/24 01/02/25 Unknown History release cholecalciferol (vitamin D3) 25 25 mcg PO DAILY 12/20/24 01/02/25 01/04/25 History mcg (1,000 unit) capsule melatonin 5 mg capsule 5 mg PO BID PRN insomnia 01/02/25 01/02/25 Unknown History Exam Pertinent Lab Results Pertinent Lab Results: Laboratory Tests 12/21/24 06:17 WBC 6.6 RBC 4.33 Hgb 13.4 Hct 40.3 Plt Count 240 Sodium 141 Potassium 3.8 BUN 13 Creatinine 0.66 Narrative Narrative: EKG 12/20/24 NSR, No acute ST-T wave changes, rate 74 Assessment and Plan Final Anesthetic Review Family History of Problems with Anesthesia: No History of Problems with Anesthesia: No Documented by User: Fidel Fraser MD 01/04/25 08:14 [facility] Past Medical History Medical History Claustrophobia Anxiety Hammer toe of right foot Pre-op evaluation Sacroiliitis Microcytic anemia Osteoporosis Small bowel obstruction COVID-19 vaccine series completed Family history of complication of anesthesia Arthritis Perforation of sigmoid colon due to diverticulitis Factor 5 Leiden mutation, heterozygous Elevated cholesterol GERD (gastroesophageal reflux disease) Hearing impairment Myofascial pain syndrome Acromioclavicular joint pain Family History Family History Sister Breast cancer Mother Breast cancer Family/Other Uterine cancer Family/Other Throat cancer Bone cancer Sister Emphysema lung Sister Breast cancer Father Emphysema lung Brother Alzheimer's dementia Sister Type 2 diabetes mellitus Surgical History Surgical History History of esophagogastroduodenoscopy (EGD) (05/25/24) History of exploratory laparotomy (11/23/23) S/P colostomy takedown (05/18/21) History of open sigmoidectomy History of hand surgery Hx of foot surgery Hx of foot surgery H/O colonoscopy (05/25/24) Hx of dilation and curettage Hx of elbow surgery H/O right knee surgery Social History Social History Household Members: Spouse Housing: House Are you a primary health and social care teacher to a significant other at home: No Do you presently have visiting nurse or other home services: No Alcohol intake: current Alcohol intake frequency: holidays/special occasions only Patient Tobacco Use Status: Never used Tobacco e-Cigarette/Vaping Use: Never Used Use of substances other than those prescribed or required for medical reasons: No Have you been hit, kicked, punched, or otherwise hurt by someone within the past year? If so, by whom?: No Are you DNR?: No Advance Directives: Yes Advance Directives Information Provided: No Advance Directives on File: Yes Advance Directives Date on File: 06/01/13 Poor oral hygiene: No service: No Current occupational status: employed Sexual orientation: Straight/Heterosexual Gender identity: Female Cognitive needs: No Hearing needs: Yes (bilateral hearing aids) Vision needs: Yes (rx glasses) Meds Allergies Allergy/AdvReac Type Severity Reaction Status Date / Time Latex, Natural Rubber Allergy Intermediate Rash Verified 01/04/25 07:11 amoxicillin Allergy Mild Rash Verified 01/04/25 07:11 nitrofurantoin Allergy Mild RASH Verified 01/04/25 07:11 (Nitrofurantoin) Sulfa (Sulfonamide Allergy Mild RASH Verified 01/04/25 07:11 Antibiotics) (Sulfa (Sulfonamides)) trimethoprim (Trimethoprim) Allergy Mild RASH Verified 01/04/25 07:11 Home Medications ?Medication ?Instructions ?Recorded ?Confirmed ?Last Taken ?Type fluticasone propionate 50 1 spray intranasal DAILY 04/14/21 01/02/25 11/22/23 History mcg/actuation nasal spray,suspension multivitamin 1 tab PO DAILY 04/14/21 01/02/25 11/22/23 History omeprazole 20 mg capsule,delayed 20 mg PO DAILY 08/28/24 01/02/25 Unknown History release cholecalciferol (vitamin D3) 25 25 mcg PO DAILY 12/20/24 01/02/25 01/04/25 History mcg (1,000 unit) capsule melatonin 5 mg capsule 5 mg PO BID PRN insomnia 01/02/25 01/02/25 Unknown History Exam Airway Mallampati Class: II TM Dist: >3cm Neck ROM: Full Loose/Missing/Broken Teeth: No Heart: RRR Lungs: CTAB Assessment and Plan Assessment Anesthesia Assessment: Anesthesia Plan Discussed and Chart Reviewed Final Anesthetic Review NPO: Yes ASA Class: II Final Preanesthetic Review: No Changes in Pt Med Stat, Meds/Allgs Chart Reviewed, Consent Obtained/Reviewed and Anes Risks/Benef Reviewed Patient Risk: Low Procedure Risk: Low Anesthetic Plan Anesthetic Plan: GA Disposition: Standard PACU
[2025-01-02 11:29] VITALS: BMI 18.7
[2025-01-02 14:25] VITALS: BMI 18.7
[2025-01-04] VITALS (7 sets, daily range): BP systolic 113–144; BP diastolic 54–92; PULSE 89–104; RESP 12–16; TEMP 36.3–36.8; O2SAT 98–100; BMI 18.7
--- NOTE | ~2025-01-04 | FL_ITS ---
EXAMINATION: XR FLUOROSCOPY WITH IMAGES CLINICAL INFORMATION: Pinning of second and third digits. COMPARISON: None available. TECHNIQUE: Fluoroscopy provided to: Dr. Damon Fluoroscopy time: 1.6 minutes DAP: 0.0526 Gycm2 Images: 2 FINDINGS: 2 fluoroscopic spot images taken during K wire pinning of the second and third toes. Please refer to the full operative report for details. FL/FL guidance in OR IMPRESSION: Fluoroscopic guidance. Electronically signed by: Elier Nickerson MD 01/04/2025 02:10 PM EDT
[2025-01-04] MEDS: Lactated Ringers 1,000 ML 100 ML IVCONT (07:47)
--- NOTE | 2025-01-04 08:39 | MHC.SHP ---
Pre-Procedural Eval Section A - 24 Hr Update-Section A only Date of Service: 01/04/25 The patient is an INPATIENT: No Changes since office visit: No Cold of Flu in the past 2 weeks, No New Medical Problems, No Changes in Medication and No Patient answered all questions The patient has been examined within 24 hours of the surgical procedure. The History & Physical has been completed within 30 days and I have reviewed it.: Yes Section B - Complete if H&P > 30 days Chief Complaint: Metatarsalgia, right foot Allergies: Allergies Allergy/AdvReac Type Severity Reaction Status Date / Time Latex, Natural Rubber Allergy Intermediate Rash Verified 01/04/25 07:11 amoxicillin Allergy Mild Rash Verified 01/04/25 07:11 nitrofurantoin Allergy Mild RASH Verified 01/04/25 07:11 (Nitrofurantoin) Sulfa (Sulfonamide Allergy Mild RASH Verified 01/04/25 07:11 Antibiotics) (Sulfa (Sulfonamides)) trimethoprim (Trimethoprim) Allergy Mild RASH Verified 01/04/25 07:11 Plan I have reviewed the history and physical and performed a pertinent physical examination on my patient. No changes have occurred unless specified. Time Spent With Patient Time: Total time managing care of this patient today ____ minutes.
--- NOTE | 2025-01-04 10:44 | PM.OP ---
Brief Operative Note Date of Service: 01/04/25 Pre-op diagnosis: Right, contracture 2nd, 3rd, 5th MPJ, metatarsalgia 2nd and 3rd metatarsals and tailors bunion Post-op diagnosis: same Procedure: Right tenotomy and capsulotomy 2nd, 3rd and 5th MPJ, Damion osteotomy 2nd and 3rd and partial 5th met head resection Implants: 2-0 screw, three 0.054 K Wires Surgeon: Jessica Damon Anesthesia: GLMA and local Was an Power Distribution Engineer used for this Procedure?: No Power Distribution Engineer: Amy Stokes Estimated blood loss (mL): 1 Tourniquet time (min): 76 Pathology: none sent Condition: stable Disposition: PACU Complications (if any): None
--- NOTE | 2025-01-07 07:17 | OP_ITS ---
DATE OF SERVICE: 01/04/2025 PREOPERATIVE DIAGNOSES: 1. Metatarsalgia, right 2nd metatarsal. 2. Metatarsalgia, right 3rd metatarsal. 3. Tailor's bunion, right foot. 4. 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 POSTOPERATIVE DIAGNOSES: 1. Metatarsalgia, right 2nd metatarsal. 2. Metatarsalgia, right 3rd metatarsal. 3. Tailor's bunion, right foot. 4. 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 PROCEDURES PERFORMED: 1. Damion osteotomy, 2nd metatarsal, right foot. 2. Damion osteotomy, 3rd metatarsal, right foot. 3. Partial 5th metatarsal head excision, right foot. 4. Tenotomy and capsulotomy of the 2nd, 3rd, and 5th metatarsophalangeal joint, right foot. SURGEON: Jessica Damon DPM ASSISTANTS: Amy Stokes DPM. ESTIMATED BLOOD LOSS: About 5 cc. COMPLICATIONS: None. ANESTHESIA: LMA with local consisting preoperatively with 18 cc of 0.5% Marcaine plain and 2% lidocaine plain and postoperatively 5 cc of 0.5% Marcaine plain. HEMOSTASIS: Pneumatic ankle tourniquet set at 220 mmHg for 76 minutes. INDICATIONS FOR SURGERY: Patient had contracture of the right 2nd, 3rd, and 5th MPJ's. Pain to plantar 2nd and 3rd metatarsals and a tailor's bunion. Patient has had previous orthopedic surgery to the right foot and states she has tried all conservative therapies without any success. The above-mentioned surgery was discussed in detail with patient including risks, benefits, and possible complications. No guarantees were given, and written and oral informed consent was obtained. PROCEDURE IN DETAIL: The patient was brought to the operating room, placed on the operating room table in the supine position. She was given IV Vancomycin as a prophylactic preoperative antibiotic. She was anesthetized via an LMA and given a preoperative injection of local ansesthetic mentioned above. The right foot was then scrubbed, prepped, and draped in the sterile manner. The right foot was exsanguinated and pneumatic ankle tourniquet was inflated. Attention was first directed to the dorsal aspect of the right foot. A lazy S curvilinear incision was made overlying the dorsal aspect of the 2nd and 3rd metatarsophalangeal joints. The soft tissues were freed and great care was taken to retract vital neuro, and vascular structures. Upon exposure of the dorsal extensor tendons, a tenotomy of the 2nd extonsor tendon and capsulotomy of the 2nd MPJ was performed as well as a tenotomy and capsulotomy of the 3rd MPJ. The tenotomy and capsulotomy allowed the 2nd and 3rd digits to drift into a more rectus position. The metatarsal parabola was evaluated and the long 2nd and 3rd metatarsals were contributing to the patient's forefoot pain so it was decided to proceed with the Damion osteotomy of the 2nd and 3rd metatarsals. Via the maria eugenia incision attention was directed to 2nd metatarsal head where using a sagittal saw, the metatarsal head osteotomy was created from dorsal distal to plantar proximal at the 2nd metatarsal neck and the upon completion of the osteotomy, the 2nd metatarsal head decompressed into a corrected position. A wire from the [employer] 2.0 screw set was inserted across the osteotomy site. This was countersunk and a 2.0, 10 mm Medline screws was inserted into the 2nd metatarsal head. Upon insertion of the screw, the bone was noted to be significantly osteoporotic and soft. The screw was not able to provide stabilization of the osteotomy and it was decided to remove the screw in total due to its lack of stabilization. The position of the capital fragment was checked under C-arm and was noted to be in excellent position and due to the bone stock and limited surface area a second 2-0 screw was not implanted. A 0.054 K-wire was then placed from the 2nd toe into the 2nd metatarsal head and shaft to serve as fixation of the osteotomy as well as relocation of the 2nd digit. There was stabilization of the capital fragment of the 2nd metatarsal head with the K-wire and it was decided given the bone quality that no further screw would be placed into the 2nd metatarsal. The K wire was bent, cut and capped. This was all checked under C-arm fluoroscopy and the position of the K-wires and the metatarsal head was in excellent position. Attention was directed via the same incision to the 3rd metatarsal head and neck where an osteotomy was created. The osteotomy pointed from distal dorsal to plantar proximal on the metatarsal neck. Upon completion of the osteotomy, the 3rd metatarsal head was decompressed. This allowed for better alignment of the metatarsal parabola of the 2nd, 3rd, 4th, and 5th which was checked under C-arm fluoroscopy. A guidewire was placed in the head of the 3rd metatarsal and a Medline 2-0 screw, 10 mm in length was inserted. The 3rd metatarsal head bone stock was of slightly better consistency and therefore the 2.0 screw did capture the osteotomy site and did create better compression and stabilization. The guidewire was removed. A 0.054 K-wire was then introduced across through the 3rd digit into the 3rd metatarsal head and shaft to also serve as stabilization of the 3rd metatarsal head and rectus alignment of the 3rd digit. The K wire was bent, cut and capped. The foot was loaded to represent weightbearing and digits 2 and 3 were in excellent rectus alignment; this was all again checked under C-arm fluoroscopy. The incision was irrigated with sterile saline. The capsular tissue was reapproximated with 3-0 Vicryl in interrupted suture technique and the subcutaneous tissues of 4-0 Vicryl in an interrupted suture technique. The skin was reapproximated with 4-0 nylon in an interrupted suture technique. Attention was then directed to the dorsal aspect of the 5th MPJ. A 2 cm incision was made overlying the 5th metatarsal head and the soft tissues were freed. The incision was deepened down to subcutaneous tissue with great care being taken to retract vital, neuro, and vascular structures and all bleeders were cauterized as necessary. A tenotomy and capsulotomy were made of the dorsal extensor tendon at the 5th metatarsophalangeal joint due to the severe tightening and contracture. The soft tissues were freed about the head of the 5th metatarsal and the lateral eminence of the 5th metatarsal head was resected and passed from the operative site. The foot was loaded to represent weightbearing and the 5th digit was in rectus alignment as well as reduction of the tailor's bunion. It was decided not to remove the entire 5th metatarsal head due to concern for possible contracture again of the 5th digit without the length of the 5th metatarsal. A 0.054 K-wire was then introduced across through the 5th digit into the 5th metatarsal head. The K wire was bent, cut and capped. The wound was irrigated with normal sterile saline. The capsule was reapproximated with 3-0 Vicryl in an interrupted suture technique. The subcutaneous tissues were reapproximated with 4-0 Vicryl interrupted suture technique and the skin was reapproximated with 4-0 Nylon. The foot again was loaded to her represent weightbearing. There was excellent alignment of all 5 digits. This was checked under C-arm fluoroscopy. The pneumatic ankle tourniquet was deflated after 76 minutes and prompt capillary refill was noted to all 5 digits. The incisions were then dressed with Xeroform, 4 x 4s, fluffs, Mervin, cast padding, and an Fredis bandage. The patient tolerated procedure and anesthesia well. She was transferred to the recovery room with vital signs stable and vascular status at preoperative levels. Following a period of postoperative recovery, patient will be discharged home with written and oral postoperative instructions. Patient will follow up in my office for all postoperative followup care. I discussed with patient to be nonweightbearing to the right foot, however, she can be weightbearing to the heel if she feels that she may fall. Patient was given a walker and surgical shoe in the postop. Jessica Damon DPM LP/KALPANA / [id number] FRAN
== END 2025-01-04 12:39 | disposition home or self-care (01) ==
PROVIDERS: PCP Physician Assistant; Visit Provider Podiatrist
PROC: (CPT 28308; principal; 2025-01-04 08:50)
PROC: (CPT 28285; 2025-01-04 08:50)
PROC: (CPT 28308; 2025-01-04 08:50)
DX: M20.41 Other hammer toe(s) (acquired), right foot (principal); M21.621 Bunionette of right foot; M24.574 Contracture, right foot; M77.41 Metatarsalgia, right foot
CPT/HCPCS: 28308 ×2; 28110; 28270 ×3; C1713; J1100; J2003; J2250; J2371; J2405; J2704; J2795; J3010; J3374

== ENCOUNTER 2025-02-28 08:32 | Outpatient (REF) | payer OTHER, SELFPAY ==
--- OUTSIDE RECORDS SUMMARY | 2024-05-25 04:40 | XMS_ITS ---
Author Organization [facility] Address [address] [place] [address] Care Team Providers Care Shore Hand Dredge Or Barge Name Role Phone Abigail (RETIRED) Ryan STORY Primary Care Provide r Unavailable Parker Molina Unavailable [phone] Bridger Ro MD Unavailable Unavailable REASON FOR VISIT screening,fam hx colon ca, dysphagia Problems Problem Type SNOMED Code ICD Code Onset Dates Problem Status W/U Status Risk Notes Problem History of gastrointestinal tract bypass (146958685) Intestinal bypass and anastomosis status (Z98.0) Active confirmed Problem Diverticular disease of colon (025808062) Diverticulosis of large intestine without perforation or abscess without bleeding (K57.30) Active confirmed Problem Gastroesophageal reflux disease (731070856) Gastroesophageal reflux disease (K21.9) Active confirmed Encounters Encounter Location Date Provider Diagnosis [facility] [place] [address], [place] [phone] 05/25/2024 Parker Molina Colon cancer screeni ng [...] * EMRE LOYA MDOB:[birth year] (69 yo F)Acc No.[id number]:05/25/2024 EGD and COL/MAC Patient: EMRE SHIPMAN Provider: Fely Molina MD :1955 A ge:68 Y S ex:Female Date:05/25/2024 Address:[address] [place], [place] [phone] Pcp:Ryan Hayes (RETIRED )MD Subjective: * Chief [...] 4 5380 COLONOSCOPY AND BIOPSY, Modifiers: [place] [address] UPPER GI ENDOSCOPY, BIOPSY Billing Information: * Procedure Codes: 76971 COLONOSCOPY [place] BIOPSY. [place]: [place] [address] UPPER GI ENDOSCOPY, BIOPSY. * The named appointment provid er may or may not be the originator of this progress note, and it is not deemed complete until electronically signed by the appointment provider. Sign off status: Pending * Provider: Fely Molina MD Date: 0 05/25/2024 Generated for Nino talamantes/Marcelino/Jeromysmitting on: 04/30/2024 09:40 AM EST
--- NOTE | ~2025-02-28 | MM_ITS ---
EXAMINATION: MM SCREENING DIGITAL BREAST TOMOSYNTHESIS, BILATERAL CLINICAL INFORMATION: Screening. Asymptomatic. COMPARISON: Mammography: Comparison is made with available priors TECHNIQUE: Digital breast mammography with tomosynthesis is performed in both the craniocaudal and mediolateral oblique views along with computer-aided detection (CAD). FINDINGS: The breasts are heterogeneously dense, which may obscure small masses. There are no significant masses, abnormal calcifications, or other abnormalities. MM/MM tomosynthesis screening BI IMPRESSION: No mammographic evidence of malignancy. ASSESSMENT: BI-RADS Category 1: Negative RECOMMENDATION: Routine annual mammography screening. 1 year F/U This examination should not preclude the clinical evaluation of a suspicious palpable abnormality. This patient's information was entered into a reminder system with a target due date for their next mammogram. Electronically signed by: Cecelia Felix DO 02/28/2025 10:55 AM [facility]
--- NOTE | ~2025-02-28 | MM_ITS ---
EXAMINATION: DXA BONE DENSITY AXIAL HISTORY: M81.0 - Age-related osteoporosis without current pathological fracture TECHNIQUE: Bellmetric Dual energy absorptiometry (DEXA) of the lumbar spine, total left hip, and femoral neck was performed. COMPARISON: Comparison is made with the prior examinations most recent dated February 2023. FINDINGS: The bone mineral density of the lumbar spine is 0.891 g/cm2, corresponding to a T-score of - -2.4, and a Z-score of -0.2. This is indicative of osteopenia. This represents a BMD change of 10% compared to the prior exam. This is statistically significant. The bone mineral density of the left total hip is 0.822 g/cm2, corresponding to a T-score of -1.5, and a Z-score of 0.3. This is indicative of osteopenia. This represents a BMD change of -1.4% compared to the prior exam. This is not statistically significant. The bone mineral density of the left femoral neck is 0.815 g/cm2, corresponding to a T-score of -1.6, and a Z-score of 0.3. This is indicative of osteopenia. This represents a BMD change of 2.6% compared to the prior exam. This is not statistically significant. MM/XR DEXA axial skeleton IMPRESSION: Based on bone mineral density, and according to World Health Organization (WHO) criteria, the diagnosis is consistent with osteopenia based on lowest T score of -2.4 in the spine. Statistically, 68% of repeat scans fall within 1 SD (+/- 0.010 g/cm2 for AP spine L1-L4) and 1 SD (+/- 0.012 g/cm2 for femur total) FRAX is a trademark of the [employer]'s [place] [facility] [employer], a World Health Organization (WHO) Collaborating Center. Electronically signed by: Meredith Kessler MD 02/28/2025 10:35 AM [facility]
--- OUTSIDE RECORDS SUMMARY | 2025-02-28 09:41 | XMS_ITS | Patient Health Record ---
Author Organization [facility] Address [address] [place] [address] Care Team Providers Care Mine Manager Name Role Phone Abigail (RETIRED) Ryan STORY Primary Care Provide r Unavailable Parker Molina Unavailable [phone] Bridger Ro MD Unavailable Unavailable Allergies No Known Allergies Results Component Value Reference Range Notes Pathology (Not yet reviewed by provider) Interpretation: Performing Lab:[facility], [address] [place] [phone] Notes/Report: Reason For Referral No Information Medications Medication SIG (Take, Route, Frequency, Duration) Notes Start Date End Date Status Vitamin C 500 MG Tablet Chewable 1 tablet Orally Once a day; Duration: 30 day(s) Active Stool Softener 100 MG Capsule 1 capsule as needed Orally Once a day; Duration: 30 day(s) Active Omeprazole 20 MG Capsule Delayed Release TAKE ONE (1) CAPSULE BY MOUTH EACH MORNING 30 MINUTES BEFORE MORNING MEAL; Duration: 30 Active Gabapentin 100 MG Capsule Oral; Duration: 30 Active Ibuprofen 400 MG Tablet Oral; Duration: 30 Active Fluticasone Propionate 50 MCG/ACT Suspension Nasal; Duration: 90 Ac tive Alendronate Sodium 35 MG Tablet Oral; Duration: 84 Active Allergy Relief 4 MG Tablet 1 tablet as n eeded Orally every 6 hrs Active Simvastatin 20 MG Tablet TAKE 1 TABLET B Y MOUTH ONCE A DAY AT BEDTIME Oral; Duration: 30 Active Multivitamin Adults - Tablet as directed Orally once a day Active traMADol HCl 50 MG Tablet as directed Or ally as needed Active Immunizations Vaccine Route Administration Date Status Comme nts Influenza Unknown 12/10/2017 Administered Social History Social History Additional Details Category Social Info Options Details Miscellaneous: Marital status: Occupation: works at [employer] Section Notes: Nonsmoker; no significant al cohol Nonsmoker; no significant al cohol Nonsmoker; no significant al cohol Problems Problem Type SNOMED Code ICD Code Onset Dates Problem Status W/U Status Risk Notes Problem Screening for malignant neoplasm of colon (126685321) Encounter for screening for malignant neoplasm of colon (Z12.11) Active confirmed Problem Diverticular disease of colon (456996549) Diverticulosis of large intestine without perforation or abscess without bleeding (K57.30) Active confirmed Problem History of gastrointestinal tract bypass (799408134) Intestinal bypass and anastomosis status (Z98.0) Active confirmed Problem Dysphagia (20273418) Dysphagia (R13.10) Active confirmed Problem Gastroesophageal reflux disease (018632675) Gastroesophageal reflux disease (K21.9) Active confirmed Problem Family History of Cancer of Colon (Situation) (122341527) Family history of colon cancer (Z80.0) Active confirmed Problem Constipation (82003396) Constipation, unspecified constipation type (K59.00) Active confirmed Encounters Encounter Location Date Provider Diagnosis [facility] [address] [place] [phone] 05/25/2024 Parker Molina Colon cancer screeni ng Z12.11 ; Family history of colon cancer Z80.0 ; Intestinal bypass and anastomosis status Z98.0 ; Diverticulosis of large intestine without perforation or abscess without bleeding K57.30 ; Gastroesophageal reflux disease K21.9 ; Dysphagia R13.10 and Heartburn R12 [facility] [address] [place] [phone] 03/01/2024 Parker Molina [facility] [address] [place] [phone] 05/28/2024 Parker Molina [facility] [address] [place] [phone] 05/28/2024 Parker Molina [facility] [address] [place] [phone] 05/29/2024 Parker Molina [facility] [address] [place] [phone] 05/31/2024 Parker Molina Assessments Encounter Date Diagnosis [...] Coverage End Date [employer] [place] [address] [address] [place] [address] [id number] EMRE FULTON Self - patient is the insured Medical (General) History Medical History History ICD Code Arthritis--neck and shoulder Hyperlipidemia Denies SD,DM,CVA,Lung disease,renal dise ase Colonoscopy in 03/2005-diverticulosis an d internal hemorrhoids Hospitalized at [facility] [facility] in 4 for mild diverticulitis--had diarrhea and bleeding Screening colonoscopy in Oct-no polyps--diverticulosis and internal hemorrhoids Negative screening colonoscopy in 2018 Diverticulitis with surgery as below Surgical History Surgery Date(Month/Year) D & C Knee surgery Foot surgery Shoulder surgery [phone] Sigmoid resection for diverticulitis with temporary colostomy with Dr. Palm; the colostomy was reversed [place] [address] Gan 11/2023 small bowel obstructi on due to adhesions, appendectomy was performed as well--Dr. Purvis
== END 2025-02-28 08:33 | disposition home or self-care (01) ==
LOC: HO.MAMMO 08:32
PROVIDERS: PCP Physician Assistant; Visit Provider Internal Medicine
DX: Z12.31 Encounter for screening mammogram for malignant neoplasm of breast (principal); M81.0 Age-related osteoporosis without current pathological fracture; M89.8X9 Other specified disorders of bone, unspecified site; Z78.0 Asymptomatic menopausal state
CPT/HCPCS: 77063; 77067; 77080

== ENCOUNTER → 2025-02-28 08:45 | Outpatient (BNV) | payer OTHER, SELFPAY | PROVIDERS: PCP Physician Assistant; Visit Provider Radiology Diagnostic Radiology | DX: E28.39 Other primary ovarian failure (principal); Z12.31 Encounter for screening mammogram for malignant neoplasm of breast | CPT/HCPCS: 77063; 77067; 77080 ==

== ENCOUNTER 2025-03-05 15:44 | Outpatient (AMB) | payer OTHER, SELFPAY ==
--- OUTSIDE RECORDS SUMMARY | 2024-05-25 04:40 | XMS_ITS ---
Author Organization [facility] Address [address] [place] [address] Care Team Providers Care Beater Head Name Role Phone Abigail (RETIRED) Ryan STORY Primary Care Provide r Unavailable Parker Molina Unavailable [phone] Bridger Ro MD Unavailable Unavailable REASON FOR VISIT screening,fam hx colon ca, dysphagia Problems Problem Type SNOMED Code ICD Code Onset Dates Problem Status W/U Status Risk Notes Problem History of gastrointestinal tract bypass (678241006) Intestinal bypass and anastomosis status (Z98.0) Active confirmed Problem Diverticular disease of colon (094464465) Diverticulosis of large intestine without perforation or abscess without bleeding (K57.30) Active confirmed Problem Gastroesophageal reflux disease (038962497) Gastroesophageal reflux disease (K21.9) Active confirmed Encounters Encounter Location Date Provider Diagnosis [facility] Outpatient [address] [place], [place] [phone] 05/25/2024 Parker Molina Colon cancer screeni ng Z12.11 ; Family history of colon cancer Z80.0 ; Intestinal bypass and anastomosis status Z98.0 ; Diverticulosis of large intestine without perforation or abscess without bleeding K57.30 ; Gastroesophageal reflux disease K21.9 ; Dysphagia R13.10 and Heartburn R12 Assessments Encounter Date Diagnosis (ICD Code) Assessment Notes Treatment Notes Treatment Clinical Notes Section Notes 05/25/2024 Colon cancer screening (ICD-10 - Z12.11) 05/25/2024 Family history of colon cancer (ICD-10 - Z80.0) 05/25/2024 Intestinal bypass and anastomosis status (ICD-10 - Z98.0) 05/25/2024 Diverticulosis of large intestine without perforation or abscess without bleeding (ICD-10 - K57.30) 05/25/2024 Gastroesophageal reflux disease (ICD-10 - K21.9) 05/25/2024 Dysphagia (ICD-10 - R13.10) 05/25/2024 Heartburn (ICD-10 - R12) Plan Of Treatment No Information Progress Notes * EMRE LOYA MDOB:[birth year] (69 yo F)Acc No.[id number]:05/25/2024 EGD and COL/MAC Patient: EMRE SHIPMAN Provider: Fely Molina MD :[id number] A ge:68 Y S ex:Female Date:05/25/2024 Address:[address] [place], [place] [id number] Pcp:Ryan Hayes (RETIRED )MD Subjective: * Chief Complaints: * S creening,fam hx colon ca, dysphagia Assessment: * Assessment: 1. C olon cancer screening - Z12.11 (Primary) 2 . F amily history of colon cancer - Z80.0 3 . I ntestinal bypass and anastomosis status - Z98.0 ?4. D iverticulosis of large intestine without perforation or abscess without bleeding - K57.30 5 . G astroesophageal reflux disease - K21.9 6 . D ysphagia - R13.10 7 . H eartburn - R12 Plan: * Procedure Codes: 4 5380 COLONOSCOPY AND BIOPSY, Modifiers: [place] [address] UPPER GI ENDOSCOPY, BIOPSY Billing Information: * Procedure Codes: 80519 COLONOSCOPY [place]: [place] [address] UPPER GI ENDOSCOPY, BIOPSY. * The named appointment provid er may or may not be the originator of this progress note, and it is not deemed complete until electronically signed by the appointment provider. Sign off status: Pending * Provider: Fely Molina MD Date: 0 05/25/2024 Generated for Nino talamantes/Marcelino/Jeromysmitting on: 05/05/2024 07:11 PM EST
--- OUTSIDE RECORDS SUMMARY | 2024-12-28 05:15 | XMS_ITS ---
Author Organization [facility] Address [address] [place] [address] Care Team Providers Care Marketing Reps Sports And Entertainment Name Role Phone Angely Hancock Primary Care Provider Jessica Ramirez [phone] REASON FOR VISIT Seen Sooner Encounters Encounter Location Date Provider Diagnosis [facility] [address] [place] [address] 12/28/2024 Jessica Damon Plan Of Treatment Next Appt Details Provider Name:Jessica francis, 03/12/2025 02:45:00 PM, [address] [place] [address], [phone], Progress Notes * Adilia LIANG MDOB:[birth year] (69 yo F)Acc No.[id number]:12/28/2024 Progress Note Patient: Ge Adilia IBARRA Provider: Tosin Damon DPM :1955 A ge:69 Y S ex:Female Date:12/28/2024 Address:[address] [place] [address] [id number] Pcp:Angely Hancock Subjective: * Chief Complaints: * 1 . Seen Sooner. * Medical History: Objective: * Vitals: Assessment: Plan: * Treatment: * Images: * The named appointment provid er may or may not be the originator of this progress note, and it is not deemed complete until electronically signed by the appointment provider. Sign off status: Pending * Provider: Tosin Damon, JAYME Date: 0 12/28/2024 Generated for Nino talamantes/Marcelino/Ingrid on: 1 05/05/2024 07:11 PM EST
--- OUTSIDE RECORDS SUMMARY | 2025-01-04 04:00 | XMS_ITS ---
Author Organization [facility] Address [address] [place] [address] Care Team Providers Care Waiter And Cashier Name Role Phone Angely Hancock Primary Care Provider Jessica Ramirez [phone] Encounters Encounter Location Date Provider Diagnosis [facility] [place] [facility] [address] [place] [address] 01/04/2025 Jessica Damon Plan Of Treatment Next Appt Details Provider Name:Jessica francis, 03/12/2025 02:45:00 PM, [address] [place], [address], Progress Notes * Adilia LIANG MDOB:[birth year] (69 yo F)Acc No.[id number]:01/04/2025 Patient: Ge Adilia IBARRA Provider: Tosin Damon DPM :1955 A ge:69 Y S ex:Female Date:01/04/2025 Address:[address] [place], [place] [id number] Pcp:Angely Hancock * Images: * The named appointment provid er may or may not be the originator of this progress note, and it is not deemed complete until electronically signed by the appointment provider. Sign off status: Pending * Provider: Tosin Damon DPM Date: 0 01/04/2025 Generated for Nnio talamantes/Marcelino/Jeromysmitting on: 1 05/05/2024 07:11 PM EST
--- OUTSIDE RECORDS SUMMARY | 2025-01-22 05:30 | XMS_ITS ---
Author Organization [facility] Address [address] [place] [address] Care Team Providers Care Large Animal Husbandry Technician Name Role Phone Angely Hancock Primary Care Provider Jessica Ramirez [phone] Encounters Encounter Location Date Provider Diagnosis [address] [address] 01/22/2025 Jessica Damon Plan Of Treatment Next Appt Details Provider Name:Jessica francis, 03/12/2025 02:45:00 PM, [address] [place], [address], Progress Notes * Adilia LIANG MDOB:[birth year] (69 yo F)Acc No.[id number]:01/22/2025 Progress Notes Patient: Ge Adilia IBARRA Provider: Tosin Damon DPM :1955 A ge:69 Y S ex:Female Date:01/22/2025 Address:[address] [place] [address] Pcp:Angely Hancock Subjective: * Chief Complaints: * * Medical History: Objective: * Vitals: Assessment: Plan: * Treatment: * Images: * The named appointment provid er may or may not be the originator of this progress note, and it is not deemed complete until electronically signed by the appointment provider. Sign off status: Pending * Provider: Tosin Damon DPM Date: Generated for Nino talamantes/Marcelino/Ingrid on: 05/05/2024 07:11 PM EST
--- OUTSIDE RECORDS SUMMARY | 2025-01-29 05:15 | XMS_ITS ---
Author Organization [facility] Address [address] [place] [address] Care Team Providers Care Post Commander Name Role Phone Angely Hancock Primary Care Provider Jessica Ramirez [phone] Encounters Encounter Location Date Provider Diagnosis [address] [address] 01/29/2025 Jessica Damon Plan Of Treatment Next Appt Details Provider Name:Jessica francis, 03/12/2025 02:45:00 PM, [address] [place] [address], [phone], Progress Notes * Adilia LIANG MDOB:[birth year] (69 yo F)Acc No.[id number]:01/29/2025 Progress Notes Patient: Ge Adilia IBARRA Provider: Tosin Damon DPM :1955 A ge:69 Y S ex:Female Date:01/29/2025 Address:[address] [place] [address] Pcp:Angely Hancock Subjective: * Chief Complaints: * [...]
--- NOTE | 2025-03-05 15:09 | A.OFFPC_ITS ---
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: No Accompanied by: Self / Same As Patient Allergies Latex, Natural Rubber Allergy (Intermediate, Verified 03/05/25 15:09) Rash amoxicillin Allergy (Mild, Verified 03/05/25 15:09) Rash nitrofurantoin (Nitrofurantoin) Allergy (Mild, Verified 03/05/25 15:09) RASH Sulfa (Sulfonamide Antibiotics) (Sulfa (Sulfonamides)) Allergy (Mild, Verified 03/05/25 15:09) RASH trimethoprim (Trimethoprim) Allergy (Mild, Verified 03/05/25 15:09) RASH Tobacco use date assessed: 12/20/24 Dental Screening Dental Screen Date: 12/20/24 HPI HPI Comments History of Present Illness Details 69-year-old female with history of hyper lipidemia, factor 5 laden mutation heterozygous not on blood thinners, myofascial pain syndrome, and chronic low back pain with radiation into the lower extremities presents to the office today for management of chronic conditions Osteopenia- using alendronate 35 mg weekly for management of her osteoporosis as well as taking calcium and vitamin-D. DEXA scans are up-to-date. Chronic low back pain/sacroiliitis/chronic shoulder pain-follows with pain management clinic and has undergone cortisone injections with minimal relief of symptoms. There is constant pain in the left side of the low back radiating into the left lower extremity. No weakness or paresthesias. She does find it difficult to sleep secondary to this pain. She is also following with orthopedics for management of chronic right shoulder/neck pain. Using tramadol Hammertoaaron-following with Podiatry-recent procedure currently out of work. Using gabapentin as well as tramadol which is helping her pain. She is not interested in further intervention. She has started physical therapy but is still having some difficulty with mobility though she is walking more. Returns to work March 21 Concerns: None ROS: see hpi EXAM: Constitutional - Awake and Alert, No apparent distress Eyes - PERRL Cardiovascular - S1S2, RRR, No edema Respiratory - Normal lung expansion, Normal respiratory effort, No respiratory distress, CTA bilaterally Extremities - no calf tenderness bilaterally, no swelling Skin - Warm/Dry Neurological - Alert & oriented x3 Psychological - Appropriate [facility] Medical History Claustrophobia Anxiety Hammer toe of right foot Pre-op evaluation Sacroiliitis Microcytic anemia Osteoporosis Small bowel obstruction COVID-19 vaccine series completed Family history of complication of anesthesia Arthritis Perforation of sigmoid colon due to diverticulitis Factor 5 Leiden mutation, heterozygous Elevated cholesterol GERD (gastroesophageal reflux disease) Hearing impairment Myofascial pain syndrome Acromioclavicular joint pain Surgical History History of esophagogastroduodenoscopy (EGD) (05/25/24) History of exploratory laparotomy (11/23/23) S/P colostomy takedown (05/18/21) History of open sigmoidectomy History of hand surgery Hx of foot surgery Hx of foot surgery H/O colonoscopy (05/25/24) Hx of dilation and curettage Hx of elbow surgery H/O right knee surgery Family History Sister Breast cancer Mother Breast cancer Family/Other Uterine cancer Family/Other Throat cancer Bone cancer Sister Emphysema lung Sister Breast cancer Father Emphysema lung Brother Alzheimer's dementia Sister Type 2 diabetes mellitus Social History Household Members: Spouse Housing: House Are you a primary primary care md to a significant other at home: No Do you presently have visiting nurse or other home services: No Alcohol intake: current Alcohol intake frequency: holidays/special occasions only Patient Tobacco Use Status: Never used Tobacco e-Cigarette/Vaping Use: Never Used Advance Directives Date on File: 06/01/13 service: No Current occupational status: employed Sexual orientation: Straight/Heterosexual Gender identity: Female Cognitive needs: No Hearing needs: Yes (bilateral hearing aids) Vision needs: Yes (rx glasses) Questionnaire Thrive Questionnaire Date Thrive assessed: 11/23/23 JOSUÉ-7 AMB Questionnaire JOSUÉ-7 Date JOSUÉ - 7 assessed: 12/20/24 Source: Developed by Drs. Parker Murrieta, Clara Paul, Epifanio Cabello and colleagues, with an educational amparo from [employer]. Physical exam (Primary Care) Vital Signs: Last Vital Signs Temp 97.7 F 03/05/25 15:50 Pulse 92 03/05/25 15:50 Resp 18 03/05/25 15:50 BP 130/70 03/05/25 15:50 Pulse Ox 97 03/05/25 15:50 Oxygen Delivery Method Room Air 03/05/25 15:50 BMI result Body Mass Index 19.4 Tobacco/Smoking Status: Tobacco use Status Tobacco use date assessed 12/20/24 03/05/25 15:10 Patient Tobacco Use Status Never used Tobacco 03/05/25 15:10 e-Cigarette/Vaping Use Never Used 03/05/25 15:10 Thrive Assessment: Date of Thrive Assessment Date Thrive assessed 11/23/23 03/05/25 15:10 Coding Level of Care Code Est Pt Level 4 (34331) Complex visit Add On G2211 Diagnoses Sacroiliitis M46.1 Bilateral sacroiliitis M46.1 Radicular pain of left lower extremity M54.10 Osteoporosis M81.0 Hammer toe of right foot M20.41 Assessment & Plan Assessment & Plan (1) Sacroiliitis: Code(s): M46.1 - Sacroiliitis, not elsewhere classified Category: Medical Plan: Continue following with pain management. Continue tramadol prn. Increase gabapentin 300mg nightly and initiate 100mg at 0700 and 1500. Continue with gentle stretches (2) Bilateral sacroiliitis: Code(s): M46.1 - Sacroiliitis, not elsewhere classified Category: Medical Plan: Continue following with pain management. Continue tramadol prn. Increase lucian pentin 300mg nightly and initiate 100mg at 0700 and 1500. Continue with gentle stretches (3) Radicular pain of left lower extremity: Code(s): M54.10 - Radiculopathy, site unspecified Category: Medical Plan: Continue following with pain management. Continue tramadol prn. Increase gabapentin 300mg nightly and initiate 100mg at 0700 and 1500. Continue with gentle stretches (4) Osteoporosis: Code(s): M81.0 - Age-related osteoporosis without current pathological fracture Category: Medical Plan: DXA scan up to date. Continue calcium and vitamin D supplementation. Continue fosamax (5) Hammer toe of right foot: Code(s): M20.41 - Other hammer toe(s) (acquired), right foot Category: Medical Plan: Recovering well. Continue following with Podiatry and pain medications as prescribed Plan Follow up in 6 months Orders: Orders Lipid Panel 03/05/25 E78.00 - Pure hypercholesterolemia, unspecified Liver Panel 03/05/25 E78.00 - Pure hypercholesterolemia, unspecified Basic Metabolic Panel 03/05/25 E78.00 - Pure hypercholesterolemia, unspecified
[2025-03-05 15:50] VITALS: BP 130/70; PULSE 92; RESP 18; TEMP 36.5; O2SAT 97; BMI 19.4
--- OUTSIDE RECORDS SUMMARY | 2025-03-05 19:12 | XMS_ITS | Patient Health Record ---
Author Organization [facility] Address [address] [place] [address] Care Team Providers Care Mold Laminator Name Role Phone Angely Hancock Primary Care Provider Jessica Ramirez Unavailable [phone] Allergies Allergen (clinical drug ingredient) Drug/Non Drug Allergy documented on EMR Reaction Allergy Type Onset Date Status Latex Unknown Drug Allergy Active Reason For Referral No Information Medications Medication SIG (Take, Route, Frequency, Duration) Notes Start Date End Date Status hydrOXYzine HCl 25 MG Orally Not-Taking Physical Therapy . Patient post op Right foot alanna osteotomies 2, 3 metatarsals, relocation toes 2, 3, 5 Right. .; Duration: 45 days 01/15/2025 Active Percocet 5-325 MG 1 tablet as needed Orally every 6 hrs as needed for post op pain; Duration: 3 days Partial Fill upon Patient Request 01/15/2025 Active Work Note . . . Patient having foot surgery on 01/04/25 and will be off of work for at least 8-10 weeks 12/18/2024 Active traMADol HCl Active Naproxen 500 MG Orally Unkn own Alendronate Sodium A ctive Calcium + D Unknown Ibuprofen Active Antihistamine Unknow n Fluticasone Propionate Active Allergy Unknown Multivitamin Active Simvastatin Active Gabapentin Active Vitamin C Unknown Immunizations Vaccine Route Administration Date Status Comme nts Influenza Unknown 12/11/2023 Administered Influenza Unknown 12/10/2024 Administered Social History Tobacco Use: Social History Observation Description Date Details (start date - stop date) Never Smoker NA - NA Tobacco use other than smoking: Question Answer Notes Are you an other tobacco user? No Tobacco Control (Standard) Question Answer Notes Tobacco use: Nonsmoker Additional Findings: Tobacco non-user Current no nsmoker AUDIT-C (Standard) Question Answer Notes Did you have a drink contain ing alcohol in the past year? Yes How often did you have a dri nk containing alcohol in the past year? Monthly or less (1 point) How many drinks did you have on a typical day when you were drinking in the past year? 1 or 2 drinks (0 point) How often did you have six o r more drinks on one occasion in the past year? Never (0 point) Points 1 Interpretation Negative Problems Problem Type SNOMED Code ICD Code Onset Dates Problem Status W/U Status Risk Notes Problem Acquired hammer toe of right foot (545021981625128 5) Other hammer toe(s) (acquired), right foot (M20.41) Active confirmed Problem Contracture of joint of right foot (926544847639097 ) Contracture of joint of right foot (M24.574) Active confirmed Vital Signs Blood pressure diastolic 65 mm Hg 02/19/2025 Height 5ft2in in 02/19/2025 Blood pressure systolic 126 mm Hg 02/19/2025 Weight 102 lbs 02/19/2025 BMI 18.65 kg/m2 02/19/2025 Encounters Encounter Location Date Provider Diagnosis [facility] [address] [place] [address] 01/04/2025 Jessica Damon [facility] [address] [address] 10/30/2024 Jessica Damon Pain in right toe(s) M79.674 ; Subluxation of metatarsophalangeal joint of toe, initial encounter S93.149A ; Other hammer toe(s) (acquired), right foot M20.41 ; Metatarsalgia, right foot M77.41 and Contracture of joint of right foot M24.574 [facility] [address] [address] 12/18/2024 Jessica Damon Subluxation of metatarsophalangeal joint of toe, initial encounter S93.149A ; Contracture of joint of right foot M24.574 ; Pain in right toe(s) M79.674 ; Other hammer toe(s) (acquired), right foot M20.41 ; Metatarsalgia, right foot M77.41 and Tailor's bunion of right foot M21.[address] [address] 01/09/2025 Jessica Perica Contracture of joint of right foot M24.574 ; Subluxation of metatarsophalangeal joint of toe, initial encounter S93.149A ; Metatarsalgia, right foot M77.41 ; Tailor's bunion of right foot M21.621 ; Postoperative visit Z48.89 ; Pain in right foot M79.671 and Local edema R60.[address] [address] 01/15/2025 Jessica Perica Contracture of joint of right foot M24.574 ; Subluxation of metatarsophalangeal joint of toe, initial encounter S93.149A ; Metatarsalgia, right foot M77.41 ; Tailor's bunion of right foot M21.621 ; Postoperative visit Z48.89 ; Pain in right foot M79.671 and Local edema R60.[address] [address] 01/23/2025 Jessica Perica Contracture of joint of right foot M24.574 ; Subluxation of metatarsophalangeal joint of toe, initial encounter S93.149A ; Metatarsalgia, right foot M77.41 ; Tailor's bunion of right foot M21.621 and Postoperative visit Z48.[address] [address] 02/05/2025 Jessica Perica Contracture of joint of right foot M24.574 ; Subluxation of metatarsophalangeal joint of toe, initial encounter S93.149A ; Metatarsalgia, right foot M77.41 ; Tailor's bunion of right foot M21.621 and Postoperative visit Z48.[address] [address] 02/19/2025 Jessica Perica Contracture of joint of right foot M24.574 ; Subluxation of metatarsophalangeal joint of toe, initial encounter S93.149A ; Metatarsalgia, right foot M77.41 ; Tailor's bunion of right foot M21.621 and Postoperative visit Z48.89 [facility] [address] [address] 08/28/2024 Jessica [facility] [address] [address] 10/30/2024 Jessica [facility] [address] [address] 10/30/2024 [facility] [address] [facility] [address] 01/07/2025 Jessica Damon [facility] Encounter Date Diagnosis (ICD Code) Assessment Notes Treatment Notes Treatment Clinical Notes Section Notes 10/30/2024 Pain in right toe(s) (ICD-10 - M79.674) 10/30/2024 Subluxation of metatarsophalangeal joint of toe, initial encounter (ICD-10 - S93.149A) 12/18/2024 Contracture of joint of right foot (ICD-10 - M24.574) 12/18/2024 Subluxation of metatarsophalangeal joint of toe, initial encounter (ICD-10 - S93.149A) 01/09/2025 Contracture of joint of right foot (ICD-10 - M24.574) 01/09/2025 Subluxation of metatarsophalangeal joint of toe, initial encounter (ICD-10 - S93.149A) 01/15/2025 Contracture of joint of right foot (ICD-10 - M24.574) 01/23/2025 Contracture of joint of right foot (ICD-10 - M24.574) 01/23/2025 Subluxation of metatarsophalangeal joint of toe, initial encounter (ICD-10 - S93.149A) 02/05/2025 Contracture of joint of right foot (ICD-10 - M24.574) 02/05/2025 Subluxation of metatarsophalangeal joint of toe, initial encounter (ICD-10 - S93.149A) 02/19/2025 Contracture of joint of right foot (ICD-10 - M24.574) 02/19/2025 Subluxation of metatarsophalangeal joint of toe, initial encounter (ICD-10 - S93.149A) 02/05/2025 Metatarsalgia, right foot (ICD-10 - M77.41) 01/15/2025 Subluxation of metatarsophalangeal joint of toe, initial encounter (ICD-10 - S93.149A) 01/23/2025 Metatarsalgia, right foot (ICD-10 - M77.41) 12/18/2024 Pain in right toe(s) (ICD-10 - M79.674) 01/09/2025 Metatarsalgia, right foot (ICD-10 - M77.41) 10/30/2024 Other hammer toe(s) (acquired), right foot (ICD-10 - M20.41) 12/18/2024 Other hammer toe(s) (acquired), right foot (ICD-10 - M20.41) 10/30/2024 Metatarsalgia, right foot (ICD-10 - M77.41) 01/09/2025 Tailor's bunion of right foot (ICD-10 - M21.621) 01/23/2025 Tailor's bunion of right foot (ICD-10 - M21.621) 01/15/2025 Metatarsalgia, right foot (ICD-10 - M77.41) 02/05/2025 Tailor's bunion of right foot (ICD-10 - M21.621) 02/19/2025 Metatarsalgia, right foot (ICD-10 - M77.41) 02/19/2025 Tailor's bunion of right foot (ICD-10 - M21.621) 02/05/2025 Postoperative visit (ICD-10 - Z48.89) 01/23/2025 Postoperative visit (ICD-10 - Z48.89) 01/15/2025 Tailor's bunion of right foot (ICD-10 - M21.621) 01/09/2025 Postoperative visit (ICD-10 - Z48.89) 10/30/2024 Contracture of joint of right foot (ICD-10 - M24.574) 12/18/2024 Metatarsalgia, right foot (ICD-10 - M77.41) 01/09/2025 Pain in right foot (ICD-10 - M79.671) 12/18/2024 Tailor's bunion of right foot (ICD-10 - M21.621) 01/15/2025 Postoperative visit (ICD-10 - Z48.89) 02/19/2025 Postoperative visit (ICD-10 - Z48.89) 01/15/2025 Pain in right foot (ICD-10 - M79.671) 01/09/2025 Local edema (ICD-10 - R60.0) 01/15/2025 Local edema (ICD-10 - R60.0) Plan Of Treatment Pending Test Test Name Order Date X ray : Foot, right 3V 10/30/2024 X ray : Foot, right 3V 01/09/2025 X ray : Foot, right 3V 01/15/2025 X ray : Foot, right 3V 01/23/2025 X ray : Foot, right 3V 02/05/2025 X ray : Foot, right 3V 02/19/2025 Next Appt Details Provider Name:Jessica francis, 03/12/2025 02:45:00 PM, [address] [place], [address], Insurance Providers Payer Name Payer Address Payer Phone Subscriber Number Group Number Insured Name Patient Relationship to Insured Coverage Start Date Coverage End Date [employer] Benefits [address] [address] [place] [address] [id number] Adilia Rivera Self - patient is the insured Medical (General) History Medical History History ICD Code Arthritis Back pain Chicken pox Measles Mumps Surgical History Surgery Date(Month/Year) foot surgery-Aviva Morales 2010 knee surgery, right Diverticulitis 11/23/2023 elbow sx Right foot Alanna 2nd, 3rd; Te notomy/Capsulotomy Right 2nd, 3rd, 5th MPJ and partial 5th met head excision 01/04/25
--- OUTSIDE RECORDS SUMMARY | 2025-03-05 19:12 | XMS_ITS | Patient Health Record ---
Author Organization [facility] Address [address] [place] [address] Care Team Providers Care Centrifugal Separator Name Role Phone Abigail (RETIRED) Ryan STORY Primary Care Provide r Unavailable Parker Molina Unavailable [phone] Bridger Ro MD Unavailable Unavailable Allergies No Known Allergies Results Component Value Reference Range Notes Pathology (Not yet reviewed by provider) Interpretation: Performing Lab:[facility], [address] [place] [id number] Notes/Report: Reason For Referral No Information Medications [...] Details Miscellaneous: Marital status: Occupation: works at [employer] [facility] [employer] Section Notes: Nonsmoker; no significant al cohol Nonsmoker; no significant al cohol Nonsmoker; no significant al cohol Problems Problem Type SNOMED Code ICD Code Onset Dates Problem Status W/U Status Risk Notes Problem Screening for malignant neoplasm of colon (279398773) Encounter for screening for malignant neoplasm of colon (Z12.11) Active confirmed Problem Diverticular disease of colon (056331841) Diverticulosis of large intestine without perforation or abscess without bleeding (K57.30) Active confirmed Problem History of gastrointestinal tract bypass (552881390) Intestinal bypass and anastomosis status (Z98.0) Active confirmed Problem Dysphagia (91474677) Dysphagia (R13.10) Active confirmed Problem Gastroesophageal reflux disease (223598145) Gastroesophageal reflux disease (K21.9) Active confirmed Problem Family History of Cancer of Colon (Situation) (748224494) Family history of colon cancer (Z80.0) Active confirmed Problem Constipation (06353816) Constipation, unspecified constipation type (K59.00) Active confirmed Encounters Encounter Location Date Provider Diagnosis [facility] [address] [place] [phone] 05/25/2024 Parker Molina Colon cancer screeni ng Z12.11 ; Family history of colon cancer Z80.0 ; Intestinal bypass and anastomosis status Z98.0 ; Diverticulosis of large intestine without perforation or abscess without bleeding K57.30 ; Gastroesophageal reflux disease K21.9 ; Dysphagia R13.10 and Heartburn R12 [facility] [address] [place] [address] 05/28/2024 Parker Molina [facility] [address] [place] [phone] 05/28/2024 Parker Molina [facility] [address] [place] [address] 05/29/2024 Parker Molina [facility] [address] [place] [phone] 05/31/2024 Parker Molina Assessments Encounter Date Diagnosis [...] Coverage End Date [employer] [place] [address] [address] [place] [address] [id number] EMRE FULTON Self - patient is the insured Medical (General) History Medical History History ICD Code Arthritis--neck and shoulder Hyperlipidemia Denies [place],DM,CVA,Lung disease,renal dise ase Colonoscopy in 03/2005-diverticulosis an d internal hemorrhoids Hospitalized at [employer] [facility] [place] 4 for mild diverticulitis--had diarrhea and bleeding Screening colonoscopy in Oct-no polyps--diverticulosis and internal hemorrhoids Negative screening colonoscopy in 2018 Diverticulitis with surgery as below Surgical History Surgery Date(Month/Year) D & C Knee surgery Foot surgery Shoulder surgery [phone] Sigmoid resection for diverticulitis with temporary colostomy with Dr. Palm; the colostomy was [place] [address] Gan 11/2023 small bowel obstructi on due to adhesions, appendectomy was performed as well--Dr. Purvis
== END 2025-03-05 16:12 | disposition home or self-care (01) ==
LOC: HO.HMCHD 15:45
PROVIDERS: PCP Physician Assistant; Visit Provider Physician Assistant
DX: M46.1 Sacroiliitis, not elsewhere classified (principal); M54.10 Radiculopathy, site unspecified; M81.0 Age-related osteoporosis without current pathological fracture; M20.41 Other hammer toe(s) (acquired), right foot